=== PATIENT | female | born 1985 | race Caucasian/White ===

== ENCOUNTER → 2017-10-03 13:10 | Outpatient (CLI) | payer OTHER, SELFPAY ==
[2017-10-05 13:47] LABS: HPV Reflexed? NOT INDICATED
== END ==
PROVIDERS: Visit Provider Obstetrics & Gynecology
DX: Z12.4 Encounter for screening for malignant neoplasm of cervix (principal)
CPT/HCPCS: 88175; G0145

== ENCOUNTER → 2018-02-27 16:33 | Outpatient (CLI) | payer OTHER, SELFPAY ==
[2018-02-27 19:46] LABS: Chlamydia Trachomatis by PCR Negative (Negative); Neisserai gonorrhoeae by PCR Negative (Negative); Probe Check PASS; Sample Adequacy Control PASS; Specimen Processing Control PASS
== END ==
PROVIDERS: Visit Provider Obstetrics & Gynecology
DX: Z11.3 Encounter for screening for infections with a predominantly sexual mode of transmission (principal)
CPT/HCPCS: 87491; 87591

== ENCOUNTER → 2018-03-13 16:09 | Outpatient (CLI) | payer OTHER, SELFPAY ==
--- NOTE | 2018-03-13 16:13 | US_ITS ---
STUDY: FIRST TRIMESTER OBSTETRICAL ULTRASOUND REASON FOR EXAM: Female, 32 years old. dating. LMP: January 14, 2018. TECHNIQUE: Transabdominal PRIOR ULTRASOUND: None. FINDINGS: There is visualization of a single gestational sac in a normal intrauterine position. The mean sac diameter (MSD) measures 3.7 cm, indicating an estimated gestational age (EGA) of 9 weeks, 2 days. The gestational sac shape is within normal limits. There is a visualized yolk sac. The yolk sac measures 4 mm. The placenta is non-visualized. There is visualization of a live embryo. The crown-rump length (CRL) measures 1.75 cm, indicating an estimated gestational age (EGA) of 8 weeks, 2 days. There is demonstrated cardiac activity with a heart rate of 158 bpm. The estimated gestation age (EGA) by LMP is 8 weeks, 2 days. The estimated date of delivery (SHIRIN) by LMP is October 21, 2018. The estimated gestation age (EGA) by US is 8 weeks, 6 days. The estimated date of delivery (SHIRIN) by US is October 17, 2018. The uterus measures 9.8 cm x 8.4 cm x 5.7 cm. There is no demonstrated uterine fibroid. The cervix is closed. The right ovary measures 3.8 cm x 2.8 cm x 1.8 cm. There is no right ovarian cyst. There is no visualized right adnexal mass or complex lesion. The left ovary measures 3.4 cm x 2.9 cm x 1.9 cm. There is no left ovarian cyst. There is no visualized left adnexal mass or complex lesion. There is no fluid in the cul de sac. US/Init OB < 14Wks US IMPRESSION: Single live intrauterine gestation with a mean gestational age of 8 weeks and 6 days. Electronically Signed: Carlos Enrique Harkins MD at 15:12 EDT Tel [phone], Service support ,
== END ==
PROVIDERS: Family Provider Family Medicine; PCP Family Medicine; Visit Provider Obstetrics & Gynecology
DX: Z36.9 Encounter for antenatal screening, unspecified (principal)
CPT/HCPCS: 76801

== ENCOUNTER → 2018-03-30 11:25 | Outpatient (CLI) | payer OTHER, SELFPAY ==
[2018-03-30 13:10] LABS: Absolute Lymphocyte Count 1.12 X10^3/ul (0.83-4.51); Absolute Neutrophil Count 4.6 X10^3/uL (2.0-7.7); Basophil# 0.01 X10^3/uL; Basophil% 0.2 % (0-1); Eosinophils% 1.6 % (0-5); Hematocrit 37.6 % (37-47); Hemoglobin 12.1 g/dl (12.0-15.0); Lymphocyte # 1.12 X10^3/ul (4.0); Lymphocyte % 17.8 % (19-41); Mean Corp Hgb Conc 32.2 g/gl (32-36); Mean Corpuscular Hgb 27.9 pg (27.0-32.0); Mean Corpuscular Volume 86.8 fL (81-99); Mean Platelet Vol. 9.9 fl (6.2-12.0); Monocyte# 0.51 X10^3/uL; Monocyte% 8.1 % (0-10); Neutrophil # 4.55 X10^3/uL (2.7-7.7); Neutrophil % 72.3 % (47-70); Platelet Count 285 K/mm3 (150-450); RBC Distribution Width CV 13.3 % (11.6-14.6); RBC Distribution Width SD 42.6 fl (35.1-43.9); Red Blood Count 4.33 M/mm3 (4.2-5.4); White Blood Count 6.3 K/mm3 (4.4-11.0)
[2018-03-30 13:11] LABS: POSITIVE COUNT NO; POSITIVE DIFFERENTIAL NO; POSITIVE MORPHOLOGY NO
[2018-03-30 13:14] LABS: Color, Urine Yellow (Yellow); Glucose, Dipstick Normal (Normal); Ketone-Dipstick Negative (Negative); Leukocyte Esterase-Dipstick Negative /ul (Negative); Nitrite-Dipstick Negative (Negative); Occult Blood-Urine Negative /ul (Negative); Protein-Dipstick Negative (Negative); Specific Gravity, Urine 1.005 (1.002-1.030); Urine Bilirubin Dipstick Negative (Negative); Urine Clarity Clear (Clear); Urine Urobilinogen Normal (Normal)
[2018-03-30 13:35] LABS: Thyroid Stim Hormone (TSH) 0.16 uIU/mL (0.358-3.74)
[2018-03-30 14:05] LABS: HIV - WCH Non-Reactive (Nonreactive); Rubella IgG 106.3 IU/mL
[2018-03-30 16:43] LABS: Free T3 2.8 pg/mL (2.18-3.98); T4 Free Direct 1.02 ng/dL (0.76-1.46)
[2018-03-31 05:44] LABS: Prenatal RPR NONREACTIVE (NONREACTIVE)
[2018-04-04 11:16] LABS: HEPATITIS B SURFACE AG Negative (Negative); Hep C Antibodies <0.1 s/co ratio (0.0-0.9)
== END ==
PROVIDERS: Visit Provider Obstetrics & Gynecology
DX: Z34.81 Encounter for supervision of other normal pregnancy, first trimester (principal); E03.9 Hypothyroidism, unspecified
CPT/HCPCS: 36415; 81002; 84439; 84443; 84481; 85025; 86703; 86762; 86803; 87340

== ENCOUNTER → 2018-06-07 15:45 | Outpatient (CLI) | payer OTHER, SELFPAY ==
--- NOTE | 2018-06-07 15:48 | US_ITS ---
STUDY: SECOND AND THIRD TRIMESTER OBSTETRICAL ULTRASOUND REASON FOR EXAM: Female, 32 years old. Unable to visualize intrauterine . Unknown last menstrual period. Complete 2nd trimester OB ultrasound. LMP: 01/14/2018. GA (LMP) 20 week 4 day with SHIRIN 10/21/2018. TECHNIQUE: Transabdominal PRIOR ULTRASOUND: 03/13/2018 FINDINGS: Single live intrauterine gestation, breech presentation, cardiac rate 146 bpm. Visually normal amniotic fluid quantity. Placenta grade 0, posterior, not low-lying. Cervical length 3.7 cm, closed. Survey of the maternal adnexa reveals no acute abnormalities. BIOMETRY: Measuring 10 cm. BPD: 4.5: 19 weeks, 4 days HC: 18: 20 weeks, 3 days AC: 15.7: 21 weeks, 0 days FL: 3.4: 20 weeks, 6 days CI: 74% FL/BPD: 76% FL/AC: 22% HC/AC: 1.1 age by current US: 20 weeks, 4 days. SHIRIN by current US: 10/21/2018. Estimated weight: 373 grams, +/- 55 grams, 54 %. Age by LMP: 20 weeks, 4 days. SHIRIN by LMP: 10/21/2018. ANATOMY: Gender: Female Cranium: Normal lateral ventricles. Normal choroid plexus. Normal cerebellum. Normal cisterna magna. Normal face, nose and lips. Chest: Normal 4-chamber heart. Abdomen/Pelvis: Normal diaphragm. Normal stomach. Normal abdominal wall. Normal cord insertion. Normal 3 vessel cord. Normal kidneys. Normal bladder. Spine: Normal cervical spine. Normal thoracic spine. Normal lumbar spine. Normal sacrum. Extremities: Normal bilateral upper extremities. Normal bilateral lower extremities. US/OB Anatomy Scan IMPRESSION: Single live intrauterine gestation, measurements concordant with expected dates. No acute or maternal abnormality is evident. Complete anatomic survey is satisfactory. No gross anatomic unreality was observed. Electronically Signed: Tobin De Souza MD at 16:01 EST Tel , Service support ,
== END ==
PROVIDERS: Family Provider Family Medicine; PCP Family Medicine; Referring Provider Obstetrics & Gynecology; Visit Provider Obstetrics & Gynecology
DX: Z34.82 Encounter for supervision of other normal pregnancy, second trimester (principal)
CPT/HCPCS: 76805

== ENCOUNTER → 2018-07-27 10:58 | Outpatient (CLI) | payer OTHER, SELFPAY ==
[2018-07-27 13:47] LABS: Glucose Challenge Gest 1H 50g 108 mg/dL (70-140)
[2018-07-27 13:50] LABS: Hematocrit 32.4 % (37-47); Hemoglobin 10.3 g/dl (12.0-15.0); Mean Corp Hgb Conc 31.8 g/gl (32-36); Platelet Count 314 K/mm3 (150-450); RBC Distribution Width CV 13.1 % (11.6-14.6); RBC Distribution Width SD 42.2 fl (35.1-43.9); Red Blood Count 3.68 M/mm3 (4.2-5.4); White Blood Count 8.2 K/mm3 (4.4-11.0)
[2018-07-27 13:51] LABS: Scan Indicated on CBC? Y/N NO
== END ==
PROVIDERS: Visit Provider Obstetrics & Gynecology
DX: Z34.82 Encounter for supervision of other normal pregnancy, second trimester (principal)
CPT/HCPCS: 36415; 82950; 85027

== ENCOUNTER → 2018-09-22 13:48 | Outpatient (CLI) | payer OTHER, SELFPAY | PROVIDERS: Visit Provider Obstetrics & Gynecology | DX: Z36.85 Encounter for antenatal screening for Streptococcus B (principal) | CPT/HCPCS: 87081 ==

== ENCOUNTER 2018-10-30 18:00 | Inpatient (IN) | payer OTHER, SELFPAY ==
[2018-10-30 11:26] VITALS: BMI 32.9
--- NOTE | 2018-10-30 12:22 | US_ITS ---
STUDY: OBSTETRICAL ULTRASOUND - BIOPHYSICAL PROFILE REASON FOR EXAM: Female, 33 years old. well-being PRIOR ULTRASOUND: None. TECHNIQUE: Transabdominal ultrasound evaluation was performed. FINDINGS: There is a single intrauterine fetus. The fetus is in a cephalic presentation. There is demonstrated cardiac activity with a heart rate of 153 bpm. There is a normal amniotic fluid volume. The amniotic fluid index (JAMIE) is 7.1 cm. The placenta is fundal in location. BIOPHYSICAL PROFILE: Breathing Movements (FBM): 2 Gross Body Movements (GBM): 2 Tone (FT): 2 Amniotic Fluid Volume (AFV): 2 TOTAL SCORE: 8 / 8 The cervix is not visualized. US/Biophysical Profile IMPRESSION: Normal biophysical profile of 8/8. Electronically Signed: Aj Reyes, at 14:02 EDT Tel , Service support ,
[2018-10-30] MEDS: Lactated Ringers 1,000 ML 50 ML IV (18:30)
[2018-10-30 19:11] LABS: Absolute Lymphocyte Count 1.51 X10^3/ul (0.83-4.51); Absolute Neutrophil Count 9.1 X10^3/uL (2.0-7.7); Basophil# 0.02 X10^3/uL; Basophil% 0.2 % (0-1); Eosinophils% 0.8 % (0-5); Hematocrit 37.7 % (37-47); Hemoglobin 12.3 g/dl (12.0-15.0); Lymphocyte # 1.51 X10^3/ul (4.0); Lymphocyte % 12.7 % (19-41); Mean Corp Hgb Conc 32.6 g/gl (32-36); Mean Corpuscular Hgb 28.3 pg (27.0-32.0); Mean Corpuscular Volume 86.7 fL (81-99); Mean Platelet Vol. 9.9 fl (6.2-12.0); Monocyte# 1.15 X10^3/uL; Monocyte% 9.7 % (0-10); Neutrophil # 9.07 X10^3/uL (2.7-7.7); Neutrophil % 76.3 % (47-70); POSITIVE COUNT NO; POSITIVE DIFFERENTIAL NO; POSITIVE MORPHOLOGY NO; Platelet Count 298 K/mm3 (150-450); RBC Distribution Width CV 14.6 % (11.6-14.6); RBC Distribution Width SD 45.9 fl (35.1-43.9); Red Blood Count 4.35 M/mm3 (4.2-5.4); White Blood Count 11.9 K/mm3 (4.4-11.0)
--- NOTE | 2018-10-30 19:19 | PCM.HPOB.BLA ---
History and Physical Date of Admission: 10/30/18 [facility] History of this : 33 yo female Ab0 with EDC 10/21/2018 by 8 weeks 2 days at [facility] Ultrasound, presents to Labor and Delivery. care remarkable for - ANEMIC, TSH suppressed early ., Undecided about MSAFP. Will advise staff at next PNV. cfDNA testing declined., CF testing declined, and childbirth classes encouraged Pertinent Past Medical History: [place] tooth extraction. had chickenpox. Allergies: No Known Drug Allergies Medications: During - Vitamin tablet; ferrous sulfate 325 mg (65 mg iron) tablet Review of Systems: Non-contributory PHYSICAL EXAMINATION General Appearance: 33 yo female in no acute distress Vital Signs: AF, VSS Heart: RRR without rubs or gallops Lungs: CTA x 2 Breasts: deferred Abdomen: gravid Pelvis: adequate Cervix: 2+/80/-2 midposition. Presentation: cephalic Station: Fetus: Size: AGA Movement: present Heart: present reassuring EFM. 140s with avg variability. Accels. Category I tracing. UCs q 6 mins BPP earlier today 8/8 with JAMIE 7.1 cm. Impression /Plan: 41 2/7 wk postdates Intrauterine . Induction of labor for postdates. Preparations in progress for delivery. See Progress Notes for Changes: Physician's Signature: Date: 10/30/18 19:20
[2018-10-30] MEDS: Oxytocin 30 units/NS 500 ml 30 UNITS/500 ML IV.SOLN IV (20:06)
[2018-10-31] MEDS: Nalbuphine 10 MG/ML Ampul IV (05:27)
[2018-10-31] MEDS: Lactated Ringers 1,000 ML 50 ML IV ×3 (05:36→13:18)
[2018-10-31] MEDS: fentaNYL-bupivacaine (epidural) 100 ML BAG EPIDURAL ×2 (06:33→11:20)
[2018-10-31] MEDS: Ondansetron 4 MG/2 ML Vial IV (07:20)
--- NOTE | 2018-10-31 07:43 | PCM.PN.BLA ---
Progress Note 41 3/7 wk EGA induction postdates Comfortable now with epidural. AVSS pitocin induction. EFM 140-150s during night with UCs noted. To FHR now 130-140s avg with occasional variable. UCs noted approx q 6 mins CX: 5/90/-2 AROM mod meconium moderate amount of fluid. Scalp lead placed. A/P: 41 3/7 wk induction postdates. Continue Pitocin. Scalp lead placed, initially poor connection. Then with a few variables. Consider IUPC with amnioinfusion prn position changes to facilitate rotation and descent.
[2018-10-31] MEDS: proCHLORPERazine 10 MG/2 ML Vial IV (10:42)
--- NOTE | 2018-10-31 12:10 | PCM.PN.BLA ---
Progress Note LABOR PROGRESS NOTE Comfortable w/ epidural AVSS Pitocin at 4 mIu/min IFM: 130-140s avg with accels. Occasional variables, some with late onset. resolved with position changes UCs irregular, q 2-5 mins CX: last check 8 cm A/P: 41 3/7 wk induction of labor. AROM Pitocin. Watch continued tolerance of labor, continued progress. position changes to facilitate rotation and descent.
[2018-10-31] MEDS: Oxytocin 30 units/NS 500 ml 30 UNITS/500 ML IV.SOLN 334 UNITS IV (17:35)
--- NOTE | 2018-10-31 17:53 | PCM.DCVAG ---
Discharge Diet: No Restrictions Discharge Activity: May Shower, May Take a Tub Bath May resume sexual activity in: 4-6 weeks Additional Activity Instructions:: Nothing in the vagina for 4-6 weeks. You may return to work/school in 6 weeks. Additional Instructions: If you experience any of the following, contact your healthcare provider. Bleeding that soaks a pad every hour for 2 hours Fever 100.4 or higher Unrelieved abdominal pain Problems urinating (including inability to urinate or burning while urinating). Visual changes Severe headache Flu-like symptoms Pain or redness in one of both of your breasts Pain, warmth, tenderness or swelling in your legs, especially the calf area Frequent nausea and vomiting Symptoms of depression or anxiety If you experience any of the following, call 911 or go to the nearest Emergency Room. Chest pain Problems breathing Seizure activity Partial or complete paralysis of a body part, slurred speech, weakness or drooping of the face, or a sudden inability to walk or hold your balance Allergies/Adverse Reactions: Allergies No Known Allergies Allergy (Verified 10/30/18 19:12) Medications to take at Discharge No Known/Unobtainable [No Known Home Medications] 11/10/13 Please Follow Up With: Pearl Horan MD - [phone] When: Call to make an appointment with your doctor in 6 weeks. Primary Care Physician: Gomez Kaiser DO [Primary Care Provider] - Test Results: Test results from this visit will be discussed in further detail at your follow-up appointment, if applicable. Proposed Discharge Date: 11/02/18
--- NOTE | 2018-10-31 17:54 | DCINST_ITS ---
Discharge Diet: No Restrictions Discharge Activity: May Shower, May Take a Tub Bath May resume sexual activity in: 4-6 weeks Additional Activity Instructions:: Nothing in the vagina for 4-6 weeks. You may return to work/school in 6 weeks. Additional Instructions: If you experience any of the following, contact your healthcare provider. * Bleeding that soaks a pad every hour for 2 hours * Fever 100.4 or higher * Unrelieved abdominal pain * Problems urinating (including inability to urinate or burning while urinating). * Visual changes * Severe headache * Flu-like symptoms * Pain or redness in one of both of your breasts * Pain, warmth, tenderness or swelling in your legs, especially the calf area * Frequent nausea and vomiting * Symptoms of depression or anxiety If you experience any of the following, call 911 or go to the nearest Emergency Room. * Chest pain * Problems breathing * Seizure activity * Partial or complete paralysis of a body part, slurred speech, weakness or drooping of the face, or a sudden inability to walk or hold your balance Allergies/Adverse Reactions: Allergies No Known Allergies Allergy (Verified 10/30/18 19:12) Medications to take at Discharge No Known/Unobtainable [No Known Home Medications] 11/10/13 Please Follow Up With: Pearl Horan MD - [phone] When: Call to make an appointment with your doctor in 6 weeks. Primary Care Physician: Gomez Kaiser DO [Primary Care Provider] - Test Results: Test results from this visit will be discussed in further detail at your follow- up appointment, if applicable. Proposed Discharge Date: 11/02/18
[2018-10-31] MEDS: Oxytocin 30 units/NS 500 ml 30 UNITS/500 ML IV.SOLN 167 UNITS IV (18:06)
[2018-10-31] MEDS: Senna/Docusate Sodium 1 Tablet PO (19:17)
[2018-10-31] MEDS: Naproxen 250 MG Tablet 500 MG PO (19:17)
--- NOTE | 2018-10-31 19:27 | NURSING ---
ROM noted at 0055 clear fluid. Forebag ROM at 0732 for moderate meconium fluid.
[2018-10-31 20:52] VITALS: BP 107/60; PULSE 141; RESP 18; TEMP 36.7
--- NOTE | 2018-10-31 21:20 | PCM.OPRPT ---
Vaginal Delivery Maternal Presentation: Medically Indicated Induction - 41 2/7 wk EGA 41 1/7 wk induction Method of Induction: Pitocin, Amniotomy Medical Reason for Induction: Post term Amniotic Membrane Rupture Type: Artificial Amniotic Fluid Description: Moderate meconium Final SHIRIN: 10/21/18 Gestational age: 41 Weeks and 3 Days doctor who attended delivery (if requested by OB): Ana M Esposito Date of Procedure: 10/31/18 Pre-Operative Diagnosis: 41 2/7 wk induction Post-Operative Diagnosis: 41 3/7 wk vaginal delivery Surgery/ Procedure Performed: Spontaneous Vaginal Delivery Type of Anesthesia: Epidural Description of Procedure: of a jiang viable female. Head delivered ABEBE. Turtle sign noted. McRobert's maneuver, suprapubic pressure, and rotation of anterior shoulder resulted in delivery of shoulders within 30 sec of the head. The OP and nares bulb suctioned and the infant placed on maternal abdomen with respiratory effort. Ap 8/9 End stage meconium noted at delivery. Routine venous cord gas and cord blood for typing collected. PP exam: 3rd degree laceration noted at posterior vagina/perineum Repaired to hemostatic and intact with interrupted suture 2-0 chromic, and continuous stitch of 3-0 Vicryl. NO other repair required. Placenta delivery by spont expulsion, expression. 3V cord, normal appearing and intact with trailing membranes. EBL 250 cc Pt and tolerated delivery well. To recovery stable condition. Ray Darwin counts correct times two. All sharps removed from field to sharps container. Presentation: Vertex, ABEBE Placental Delivery Description: Spontaneous, Expressed Placenta Disposition: [facility] Cord Vessel Description: 3 Vessels Cord Gases drawn per routine: VBG Cord Entanglement: None Estimated Blood Loss: 250 A gender: Female (1 minute): 8 (5 minute): 9 Episiotomy Description: None Laceration: Midline, Vaginal Extension/lac, 3rd degree Medications given after delivery: IV Pitocin Complications: None
[2018-10-31 23:42] VITALS: BP 123/78; PULSE 112; RESP 18; TEMP 36.7
--- NOTE | 2018-11-01 04:35 | NURSING ---
Taking over pt care at this time.
[2018-11-01 04:52] VITALS: BP 104/58; PULSE 100; RESP 20; TEMP 36.1; O2SAT 98
[2018-11-01] MEDS: Naproxen 250 MG Tablet 500 MG PO ×3 (04:58→22:19)
--- NOTE | 2018-11-01 07:42 | PCM.PN.OB ---
Subjective: PPD#1 Doing well. Some perineal pain and cramping. Nursing well. Pain control adequate. Plans for family to visit today. - Physical Exam General: Alert, Oriented x3, Cooperative, No apparent distress HEENT: Atraumatic Neck: Supple Neurological: Cranial nerves II-XII grossly intact Psych/Mental Status: Normal Affect Vital Signs Temp Pulse Resp BP Pulse Ox 97.0 F L 100 20 H 104/58 L 98 11/01/18 04:52 11/01/18 04:52 11/01/18 04:52 11/01/18 04:52 11/01/18 04:52 Oxygen Delivery Method Room Air Weight: 89.868 kg Body Mass Index (BMI) 32.9 Intake and Output for Last 24 Hours 10/30/18 10/31/18 11/01/18 23:59 23:59 23:59 Intake Total 100 / 100 2332 / 2332 Output Total 600 / 600 400 / 400 Balance 100 / 100 1732 / 1732 -400 / -400 Medical Necessity - Tobacco Use Smoking Status: Never smoker Assessment/Plan PPD#1 Stable pp. Continue care. O positive
[2018-11-01 08:00] VITALS: BP 118/67; PULSE 97; RESP 14; TEMP 36.4
[2018-11-01 12:00] VITALS: BP 105/68; PULSE 94; RESP 14; TEMP 36.4
[2018-11-01 16:35] VITALS: BP 110/66; PULSE 80; RESP 14; TEMP 36.4
[2018-11-01 20:00] VITALS: BP 128/81; PULSE 104; RESP 18; TEMP 36.5
[2018-11-01] MEDS: Senna/Docusate Sodium 1 Tablet PO (22:19)
[2018-11-02 02:50] VITALS: BP 110/69; PULSE 89; RESP 18; TEMP 36.7
[2018-11-02 07:20] VITALS: BP 117/72; PULSE 104; RESP 16; TEMP 36.9; O2SAT 97
[2018-11-02] MEDS: Naproxen 250 MG Tablet 500 MG PO ×2 (07:37→17:40)
--- NOTE | 2018-11-02 07:42 | PCM.PN.OB ---
Subjective: PPD#2 vaginal delivery DOing well Baby under bili lights but with improvement in wet diapers. - Physical Exam General: Alert, Oriented x3, Cooperative, No apparent distress HEENT: Atraumatic Neck: Supple Neurological: Cranial nerves II-XII grossly intact Psych/Mental Status: Normal Affect, Appropriate Vital Signs Temp Pulse Resp BP Pulse Ox 98.1 F 89 18 110/69 98 11/02/18 02:50 11/02/18 02:50 11/02/18 02:50 11/02/18 02:50 11/01/18 04:52 Oxygen Delivery Method Room Air Weight: 89.868 kg Body Mass Index (BMI) 32.9 Intake and Output for Last 24 Hours 10/31/18 11/01/18 11/02/18 23:59 23:59 23:59 Intake Total 2332 / 2332 Output Total 600 / 600 400 / 400 Balance 1732 / 1732 -400 / -400 Medical Necessity - Tobacco Use Smoking Status: Never smoker Assessment/Plan PPD#2 Stable pp. Dischg home today. Baby under bili lights. May stay on hotel if baby is not discharged. RTO in 6 wk for pp check, prn sooner.
[2018-11-02] MEDS: Senna/Docusate Sodium 1 Tablet PO (12:02)
[2018-11-02] MEDS: Acetaminophen 500 MG Tablet 1000 MG PO (12:02)
[2018-11-02 12:05] VITALS: BP 129/87; PULSE 96; RESP 16; TEMP 36.9; O2SAT 97
[2018-11-02 14:00] VITALS: BP 129/87; PULSE 96; RESP 16; TEMP 36.4; O2SAT 97
[2018-11-02 16:55] VITALS: BP 123/73; PULSE 94; RESP 16; TEMP 36.6; O2SAT 97
== END 2018-11-02 18:10 | disposition home or self-care (01) | DRG 768 ==
PROVIDERS: Obstetrics & Gynecology; Admitting Provider Obstetrics & Gynecology; Family Provider Family Medicine; PCP Family Medicine; Referring Provider Obstetrics & Gynecology; Visit Provider Obstetrics & Gynecology
DX: O48.0 Post-term pregnancy (principal); Z37.0 Single live birth; O70.20 Third degree perineal laceration during delivery, unspecified; Z3A.41 41 weeks gestation of pregnancy; O77.0 Labor and delivery complicated by meconium in amniotic fluid; D64.9 Anemia, unspecified; O99.02 Anemia complicating childbirth
CPT/HCPCS: 59025; 59050; 76818; 85025; 86850; 86900; 99218; J7120; G0378; J2405

== ENCOUNTER → 2019-11-28 11:26 | Outpatient (CLI) | payer OTHER, SELFPAY ==
[2019-11-28 13:06] LABS: hCG Titer Quant., Serum < 1 mIU/mL (1-3)
== END ==
PROVIDERS: PCP Family Medicine; Visit Provider Obstetrics & Gynecology
DX: N91.2 Amenorrhea, unspecified (principal)
CPT/HCPCS: 36415; 84702

== ENCOUNTER → 2020-08-12 | Outpatient (CLI) | payer OTHER, SELFPAY ==
[2020-08-16 03:06] LABS: Chlamydia By Nucleic Acid AMP Negative (Negative)
[2020-08-16 09:19] LABS: Gonococcus By Nucleic Acid AMP Negative (Negative)
[2020-08-18 16:24] LABS: HPV APTIMA, High Risk Negative (Negative)
== END | disposition home or self-care (01) ==
LOC: LABSPEC 13:34
PROVIDERS: PCP Family Medicine; Visit Provider Student in an Organized Health Care Education/Training Program
DX: Z12.4 Encounter for screening for malignant neoplasm of cervix (principal); Z11.3 Encounter for screening for infections with a predominantly sexual mode of transmission; Z32.01 Encounter for pregnancy test, result positive
CPT/HCPCS: 87491; 87591; 87624; 88175; G0145

== ENCOUNTER → 2020-08-20 11:40 | Outpatient (CLI) | payer OTHER, SELFPAY ==
[2020-08-20 12:09] LABS: Absolute Lymphocyte Count 1.45 X10^3/uL (0.83-4.51); Absolute Neutrophil Count 5.8 X10^3/uL (2.0-7.7); Basophil# 0.03 X10^3/uL; Basophil% 0.4 % (0-1); Eosinophil# 0.12 X10^3/uL; Eosinophils% 1.5 % (0-5); Hematocrit 40.6 % (37-47); Hemoglobin 13.2 g/dL (12.0-15.0); Lymphocyte # 1.45 X10^3/ul (4.0); Lymphocyte % 18.1 % (19-41); Mean Corp Hgb Conc 32.5 g/dL (32-36); Mean Corpuscular Volume 89.2 fL (81-99); Mean Platelet Vol. 9.9 fl (6.2-12.0); Monocyte# 0.53 X10^3/uL; Monocyte% 6.6 % (0-10); NRBC Flagged by Analyzer 0 % (0-5); Neutrophil # 5.83 X10^3/uL (2.7-7.7); Platelet Count 341 K/mm3 (150-450); RBC Distribution Width CV 12.2 % (11.6-14.6); RBC Distribution Width SD 39.8 fl (35.1-43.9); Red Blood Count 4.55 M/mm3 (4.2-5.4)
[2020-08-20 13:21] LABS: HIV - WCH Non-Reactive (Nonreactive); Hepatitis B Surface Antigen Non-Reactive (Nonreactive); Hepatitis C Antibody Non-Reactive (Nonreactive); Rubella IgG Reactive (Nonreactive); Syphilis Antibodies Non-reactive
== END ==
PROVIDERS: PCP Family Medicine; Visit Provider Student in an Organized Health Care Education/Training Program
DX: Z34.81 Encounter for supervision of other normal pregnancy, first trimester (principal)
CPT/HCPCS: 36415; 85025; 86703; 86762; 86803; 87086; 87088; 87340

== ENCOUNTER → 2020-12-11 10:18 | Outpatient (CLI) | payer OTHER, SELFPAY ==
[2020-12-11 13:26] LABS: Hematocrit 34.2 % (37-47); Hemoglobin 10.8 g/dL (12.0-15.0); Mean Corp Hgb Conc 31.6 g/dL (32-36); Mean Corpuscular Hgb 28.7 pg (27.0-32.0); Mean Platelet Vol. 10.5 fl (6.2-12.0); Platelet Count 297 K/mm3 (150-450); RBC Distribution Width CV 12.8 % (11.6-14.6); RBC Distribution Width SD 42.1 fl (35.1-43.9); Red Blood Count 3.76 M/mm3 (4.2-5.4); White Blood Count 8.8 K/mm3 (4.4-11.0)
[2020-12-11 13:30] LABS: Glucose Challenge Gest 1H 50g 88 mg/dL (70-140)
== END ==
PROVIDERS: Visit Provider Student in an Organized Health Care Education/Training Program
DX: Z34.82 Encounter for supervision of other normal pregnancy, second trimester (principal)
CPT/HCPCS: 36415; 82950; 85027

== ENCOUNTER → 2020-12-18 | Outpatient (CLI) | payer OTHER, SELFPAY | END | disposition home or self-care (01) | PROVIDERS: Referring Provider Obstetrics & Gynecology; Visit Provider Obstetrics & Gynecology | DX: Z34.82 Encounter for supervision of other normal pregnancy, second trimester (principal) | CPT/HCPCS: 87086; 87088 ==

== ENCOUNTER → 2021-03-04 | Outpatient (CLI) | payer OTHER, SELFPAY | END | disposition home or self-care (01) | LOC: LABSPEC 16:31 | PROVIDERS: Visit Provider Obstetrics & Gynecology | DX: Z36.85 Encounter for antenatal screening for Streptococcus B (principal) | CPT/HCPCS: 87081 ==

== ENCOUNTER 2021-03-13 07:00 | Outpatient (CLI) | payer OTHER, SELFPAY ==
[2021-03-13 07:14] VITALS: BMI 32.5
[2021-03-13] MEDS: Lactated Ringers 1,000 ML 125 ML IV (07:25)
[2021-03-13 07:39] VITALS: BP 122/71; PULSE 92
[2021-03-13 07:40] VITALS: PULSE 87; TEMP 36.7; O2SAT 98
[2021-03-13 08:00] VITALS: PULSE 86; O2SAT 99
--- NOTE | 2021-03-13 08:09 | PCM.PN.OB ---
Subjective Subjective Patient is a 35-year-old G2, P1 who presents at 37+ weeks gestation for version for breech. Objective Data Objective Data Vital Signs: Vital Signs Pulse BP Pulse Ox 86 122/71 H 99 03/13/21 08:00 03/13/21 07:39 03/13/21 08:00 Weight: 195 lb 8.8 oz Body Mass Index (BMI) 32.5 NST FHR Rate Baby A NST Reactive:: Yes FHR Category:: Category I Assessment & Plan (1) Breech presentation: PLAN: 37+ week intrauterine presents for version for breech presentation. Upon initial examination with ultrasound baby noted to be cephalic. Reactive nonstress test. Will release to home with routine follow-up.
== END 2021-03-13 08:15 | disposition home or self-care (01) ==
LOC: WPOUT 07:12 → WP 07:12
PROVIDERS: PCP Nurse Practitioner Primary Care; Visit Provider Obstetrics & Gynecology
DX: O32.1XX0 Maternal care for breech presentation, not applicable or unspecified (principal); Z3A.37 37 weeks gestation of pregnancy
CPT/HCPCS: 96360; 59025; 59050; 59412; 76815; 99218; J7120; G0378

== ENCOUNTER → 2021-03-20 12:55 | Outpatient (CLI) | payer OTHER, SELFPAY | PROVIDERS: PCP Nurse Practitioner Primary Care; Referring Provider Obstetrics & Gynecology; Visit Provider Obstetrics & Gynecology | DX: Z03.818 Encounter for observation for suspected exposure to other biological agents ruled out (principal) | CPT/HCPCS: 87635; C9803; U0005; U0003 ==

== ENCOUNTER 2021-03-24 13:05 | Inpatient (IN) | payer OTHER, SELFPAY ==
[2021-03-24] VITALS (43 sets, daily range): BP systolic 88–121; BP diastolic 50–75; PULSE 81–141; TEMP 36.1–36.6; O2SAT 82–98; BMI 31.2
[2021-03-24] MEDS: Lactated Ringers 1,000 ML 50 ML IV (13:20)
[2021-03-24 13:37] LABS: Absolute Lymphocyte Count 1.22 X10^3/uL (0.83-4.51); Absolute Neutrophil Count 7.2 X10^3/uL (2.0-7.7); Basophil# 0.02 X10^3/uL; Basophil% 0.2 % (0-1); Eosinophil# 0.09 X10^3/uL; Hematocrit 36.9 % (37-47); Hemoglobin 12.2 g/dL (12.0-15.0); Lymphocyte # 1.22 X10^3/ul (0.83-4.51); Mean Corp Hgb Conc 33.1 g/dL (32-36); Mean Corpuscular Hgb 29.3 pg (27.0-32.0); Mean Corpuscular Volume 88.5 fL (81-99); Mean Platelet Vol. 10.3 fl (6.2-12.0); Monocyte% 8.5 % (0-10); NRBC Flagged by Analyzer 0 % (0-5); Neutrophil # 7.19 X10^3/uL (2.7-7.7); Neutrophil % 76.9 % (47-70); Platelet Count 279 K/mm3 (150-450); RBC Distribution Width CV 13.4 % (11.6-14.6); RBC Distribution Width SD 43.5 fl (35.1-43.9); Red Blood Count 4.17 M/mm3 (4.2-5.4); White Blood Count 9.4 K/mm3 (4.4-11.0)
[2021-03-24] MEDS: Oxytocin 30 units/NS 500 ml 30 UNITS/500 ML IV.SOLN IV (14:15)
--- NOTE | 2021-03-24 14:30 | HP.PCM.OB_ITS ---
HPI - General General Date of Admission: 03/24/21 HPI Narrative MANDY OSULLIVAN, is a 35 F who presents at 39 3/7 weeks gestation for scheduled induction of labor. Hx of shoulder dystocia in prior . [facility] Medical History (Updated 03/25/21 @ 07:[address] Ciera Wick MD) Eczema Family history of hearing loss at age younger than 7 years Home Medications calcium [id number] abraham 1 tab PO/SL DAILY 03/13/21 [History Last Taken 03/23/21 11:00] docosahexaenoic acid [DHA ] 200 mg PO DAILY 03/13/21 [History Last Taken 03/23/21 11:00] ferrous sulfate [iron] 325 mg PO DAILY 03/13/21 [History Last Taken 03/23/21 11:00] vit-iron fum-folic ac [ Fa] 1 tab PO DAILY 03/13/21 [History Last Taken 03/23/21 11:00] Allergy/AdvReac Type Severity Reaction Status Date / Time No Known Allergies Allergy Verified 03/13/21 07:16 Surgical History History of surgery Social History Smoking Status: Never smoker History 3 Elective abortions 0 Hx Para 1 Spontaneous abortions 1 Hx # Term Pregnancies 1 Ectopic pregnancies 0 Hx # Pregnancies 0 Multiple births 0 # of living children 1 Past Pregnancies Del. Date Name GA/Weeks Outcome Route Bth Weight Gen Labor Lgth Anesthesia Del Locatn Provider FOB Unknown Robinson 41 live - full term [id number] Female 12 epid ural Wilmar Aung Chidi Unknown 4 spontaneous Delivery Date: 30s shoulder dystocia, 3rd degree perineal lac Ciera Biggs Delivery Date: No notes to display NST FHR Rate Baby A Baseline: 145 Variability:: Moderate Accelerations:: 15 x 15 Decelerations:: None NST Reactive:: Yes FHR Category:: Category I Uterine Activity:: 0-1/10 min Vital Signs Vital Signs Vital Signs: 03/24/21 13:29 03/24/21 13:59 03/24/21 14:52 Temperature 97.1 F L Temperature Source Temporal Pulse Rate 99 100 95 Blood Pressure 121/75 H 121/75 H 115/62 BP Systolic 121 121 115 BP Diastolic 75 75 62 Pulse Ox 97 97 03/24/21 14:54 03/24/21 16:10 03/24/21 17:05 Temperature 97.9 F 97.3 F L 97.8 F Temperature Source Temporal Temporal Temporal Pulse Rate 81 Blood Pressure 118/70 BP Systolic 118 BP Diastolic 70 Pulse Ox 97 98 98 03/24/21 17:30 03/24/21 18:17 03/24/21 19:17 Temperature 97.7 F L 97.2 F L Temperature Source Temporal Temporal Pulse Rate 141 H 85 92 Blood Pressure 111/66 117/75 BP Systolic 111 117 BP Diastolic 66 75 Pulse Ox 82 98 96 03/24/21 19:18 03/24/21 20:25 03/24/21 21:45 Temperature 97.6 F L 97.2 F L Temperature Source Temporal Temporal Pulse Rate 88 82 Blood Pressure 115/73 107/66 BP Systolic 115 107 BP Diastolic 73 66 Pulse Ox 96 03/24/21 21:46 03/24/21 21:59 03/24/21 22:00 Temperature Temperature Source Pulse Rate 98 85 89 Blood Pressure 107/57 L BP Systolic 107 BP Diastolic 57 Pulse Ox 97 96 94 03/24/21 22:04 03/24/21 22:05 03/24/21 22:10 Temperature Temperature Source Pulse Rate 92 Blood Pressure 113/62 BP Systolic 113 BP Diastolic 62 Pulse Ox 98 97 03/24/21 22:12 03/24/21 22:22 03/24/21 22:25 Temperature Temperature Source Pulse Rate 94 92 Blood Pressure 110/70 102/59 L BP Systolic 110 102 BP Diastolic 70 59 Pulse Ox 98 03/24/21 22:27 03/24/21 22:29 03/24/21 22:34 Temperature Temperature Source Pulse Rate 91 90 Blood Pressure 91/55 L 88/53 L BP Systolic 91 88 BP Diastolic 55 53 Pulse Ox 97 03/24/21 22:37 03/24/21 22:39 03/24/21 22:42 Temperature Temperature Source Pulse Rate 95 Blood Pressure 92/53 L BP Systolic 92 BP Diastolic 53 Pulse Ox 97 97 03/24/21 22:44 03/24/21 22:50 03/24/21 22:52 Temperature Temperature Source Pulse Rate 87 88 Blood Pressure 92/55 L 115/69 BP Systolic 92 115 BP Diastolic 55 69 Pulse Ox 98 03/24/21 22:55 03/24/21 23:02 03/24/21 23:03 Temperature 97.9 F Temperature Source Temporal Pulse Rate 88 90 94 Blood Pressure 92/50 L 103/61 BP Systolic 92 103 BP Diastolic 50 61 Pulse Ox 97 98 03/24/21 23:07 03/24/21 23:12 03/24/21 23:17 Temperature Temperature Source Pulse Rate 88 86 88 Blood Pressure BP Systolic BP Diastolic Pulse Ox 97 97 97 03/24/21 23:22 03/24/21 23:26 03/24/21 23:27 Temperature Temperature Source Pulse Rate 84 89 91 Blood Pressure 89/53 L BP Systolic 89 BP Diastolic 53 Pulse Ox 97 93 98 03/24/21 23:32 03/24/21 23:37 03/24/21 23:43 Temperature Temperature Source Pulse Rate 95 90 100 Blood Pressure BP Systolic BP Diastolic Pulse Ox 97 98 87 03/24/21 23:44 03/25/21 00:16 03/25/21 00:17 Temperature 97.0 F L 97.2 F L Temperature Source Temporal Temporal Pulse Rate 93 90 88 Blood Pressure 114/61 102/58 L BP Systolic 114 102 BP Diastolic 61 58 Pulse Ox 95 96 97 03/25/21 00:52 03/25/21 00:53 03/25/21 02:03 Temperature 97.1 F L 97.9 F Temperature Source Temporal Temporal Pulse Rate 100 95 Blood Pressure 107/67 116/65 BP Systolic 107 116 BP Diastolic 67 65 Pulse Ox 98 97 03/25/21 03:19 03/25/21 04:33 03/25/21 05:37 Temperature 97.9 F 97.7 F L 98.6 F Temperature Source Temporal Temporal Temporal Pulse Rate 95 94 112 H Blood Pressure 102/63 106/59 L 119/60 BP Systolic 102 106 119 BP Diastolic 63 59 60 Pulse Ox 98 96 97 03/25/21 06:48 03/25/21 07:03 Temperature 98.0 F Temperature Source Temporal Pulse Rate 102 H 101 H Blood Pressure 112/55 L 125/68 H BP Systolic 112 125 BP Diastolic 55 68 Pulse Ox 95 Weight Weight: 85.1 kg Body Mass Index (BMI) 31.2 Physical Exam Const alert, oriented x3 and no apparent distress HEENT normocephalic Resp normal respiratory effort, normal air movement and clear to auscultation bilaterally Cardio regular rate and regular rhythm GI normal to inspection, nondistended, normoactive bowel sounds, soft to palpation, non-tender and non-distended Inspection: gravid Narrative: /-3, posterior, moderate per RN exam Labs Labs Labs: Blood Type O POSITIVE Antibody Screen NEGATIVE Hct 36.9 % (37-47) L Hgb 12.2 g/dL (12.0-15.0) Obstetrics US Syphilis Total Ab Non-reactive VZV IgG Antibody 2.03 index (Immune >1.09-) Rubella IgG Antibody Reactive (Nonreactive) Hep Bs Antigen Non-Reactive (Nonreactive) Neisseria gonorrhoeae DNA (DAWIT) Negative (Negative) HIV 1&2 Antibody Non-Reactive (Nonreactive) C.trachomatis DNA (PCR) Negative (Negative) Glucose 1 Hr 50 gm 88 mg/dL (70-140) Rhogam given: No GBS neg Assessment & Plan (1) 39 weeks gestation of : PLAN: Pitocin for IOL US confirms cephalic presentation Consents reviewed and signed Discussed with patient risk for recurrent shoulder dystocia and again reviewed associated risks. Patient desires to proceed.
[2021-03-24] MEDS: Lactated Ringers 500 ML 999 ML IV ×2 (21:35→22:40)
[2021-03-24] MEDS: fentaNYL-bupivacaine (epidural) 100 ML BAG EPIDURAL (22:22)
[2021-03-24] MEDS: Lactated Ringers 1,000 ML 200 ML IV (23:42)
[2021-03-25] VITALS (21 sets, daily range): BP systolic 93–127; BP diastolic 55–71; PULSE 80–112; RESP 16; TEMP 36.2–37; O2SAT 92–98
[2021-03-25] MEDS: fentaNYL-bupivacaine (epidural) 100 ML BAG EPIDURAL (02:28)
[2021-03-25] MEDS: Lactated Ringers 1,000 ML 200 ML IV (04:47)
[2021-03-25] MEDS: Oxytocin 30 units/NS 500 ml 30 UNITS/500 ML IV.SOLN 334 UNITS IV (06:09)
--- NOTE | 2021-03-25 07:01 | EX.PCM.OBRPT ---
Assessment & Plan (1) 39 weeks gestation of : Vaginal Delivery Maternal Presentation Maternal Presentation: Elective Induction Maternal Presentation: Prior history of shoulder dystocia at 41wga Type of Induction: Pitocin Operative Information Surgery / Procedure Performed: Spontaneous Vaginal Delivery Findings Description of Procedure: Patient fully dilated and pushed to deliver a vigorous in brow presentation. The was placed on the maternal abdomen and further attended by nursery personnel. The cord was doubly clamped and cut. The placenta delivered spontaneously and appeared intact on inspection. A 3? perineal laceration was repaired using 3-0 Vicryl with a clock face pattern simple interrupted sutures along the external anal sphincter. The remainder of the remaining second-degree repair was reapproximated using 3-0 Vicryl. Fundus was firm. There was good hemostasis. Sponge and needle counts were correct x2. Presentation: Vertex Amniotic Membrane Rupture Type: Artificial Time of Membrane Rupture: 03/24/21 1900 Amniotic Fluid Description: Clear Cord Vessel Description: 3 Vessels Cord Entanglement: None Nuchal Cord Compression: Without compression Cord Gases: ABG and VBG Infant A Gender: Male (1 minute): 8 (5 minute): 9 Delayed Cord Clamping: Yes Post Vaginal Delivery Medications Given After Delivery: IV Pitocin Episiotomy Description: None Laceration: Midline and 3rd degree Complication Complications: None
[2021-03-25] MEDS: Senna/Docusate Sodium 1 Tablet PO (08:41)
[2021-03-25] MEDS: Acetaminophen 500 MG Tablet 1000 MG PO ×2 (08:41→16:30)
[2021-03-26] VITALS (7 sets, daily range): BP systolic 105–134; BP diastolic 68–85; PULSE 75–94; RESP 16–18; TEMP 36.2–36.9; O2SAT 98
[2021-03-26] MEDS: Benzocaine/Lanolin/Aloe Vera 1 SPRAY EACH TOPICAL (00:46)
[2021-03-26] MEDS: Acetaminophen 500 MG Tablet 1000 MG PO ×3 (04:13→22:12)
--- NOTE | 2021-03-26 07:38 | PN.OBGYN_ITS ---
Subjective Subjective No overnight complaints. Pain well controlled Objective Data Objective Data Vital Signs: Vital Signs Temp Pulse Resp BP Pulse Ox 97.2 F L 75 16 118/81 H 97 03/26/21 04:15 03/26/21 04:15 03/26/21 04:15 03/26/21 04:15 03/25/21 19:30 Oxygen Delivery Method Room Air Weight: 187 lb 9.814 oz Body Mass Index (BMI) 31.2 Intake & Output: Intake and Output for Last 24 Hours 03/24/21 03/25/21 03/26/21 23:59 23:59 23:59 Intake Total 2381.79 / 2381.79 2382.31 / 2382.31 Output Total 1200 / 1200 1200 / 1200 Balance 1181.79 / 1181.79 1182.31 / 1182.31 Lab / Micro Data Result Diagrams: 03/24/21 13:20 Physical Exam Const alert, oriented x3, no apparent distress, average body habitus, healthy appearing and well nourished Exam Limitations: no limitations HEENT normocephalic and moist oral mucous membranes Head and Scalp: atraumatic Face and Sinus: normal facial exam Eyes PERRL Neck full ROM Resp normal respiratory effort, no retractions and no use of accessory muscles GI normal to inspection, nondistended, normoactive bowel sounds Extremity normal to inspection, full ROM and no clubbing, cyanosis or edema Psych mental status grossly normal, affect normal, speech normal and activity/motor behavior normal Assessment & Plan (1) Vaginal delivery: PLAN: day 1 status post vaginal delivery. Breast-feeding. Pain well controlled. Baby getting bilirubin test, pending eval by cash applications associate possibly home today for mom and baby
[2021-03-26] MEDS: Ibuprofen 600 MG Tablet PO ×2 (08:57→20:33)
[2021-03-26] MEDS: Senna/Docusate Sodium 1 Tablet PO (08:57)
[2021-03-27 02:15] VITALS: BP 126/72; PULSE 83; RESP 18; TEMP 36.2; O2SAT 97
[2021-03-27] MEDS: Ibuprofen 600 MG Tablet PO ×2 (08:04→17:42)
[2021-03-27] MEDS: Senna/Docusate Sodium 1 Tablet PO (08:05)
--- NOTE | 2021-03-27 08:05 | PN.OBGYN_ITS ---
Subjective Subjective day 2. Feeling well. Baby still under bili lights. Objective Data Objective Data Vital Signs: Vital Signs Temp Pulse Resp BP Pulse Ox 97.2 F L 83 18 126/72 H 97 03/27/21 02:15 03/27/21 02:15 03/27/21 02:15 03/27/21 02:15 03/27/21 02:15 Oxygen Delivery Method Room Air Weight: 85.1 kg Body Mass Index (BMI) 31.2 Intake & Output: Intake and Output for Last 24 Hours 03/25/21 03/26/21 03/27/21 23:59 23:59 23:59 Intake Total 2382.31 / 2382.31 Output Total 1200 / 1200 Balance 1182.31 / 1182.31 Lab / Micro Data Result Diagrams: 03/24/21 13:20 Physical Exam Const alert, oriented x3 and no apparent distress HEENT normocephalic Head and Scalp: atraumatic Eyes PERRL Neck full ROM Resp normal respiratory effort, no retractions and no use of accessory muscles Cardio regular rate GI normal to inspection, nondistended, normoactive bowel sounds GI Narrative: Uterus 2 cm below umbilicus Extremity normal to inspection, full ROM and no clubbing, cyanosis or edema Psych mental status grossly normal Assessment & Plan (1) Vaginal delivery: PLAN: day 2 status post vaginal delivery. Breast-feeding. P ain well controlled. Baby under bili lights. Discharge pending baby discharge, okay to go to hotel status.
[2021-03-27 08:12] VITALS: BP 104/65; PULSE 86; RESP 16; TEMP 36.6; O2SAT 98
[2021-03-27 12:30] VITALS: BP 122/76; PULSE 84; RESP 16; TEMP 36.6; O2SAT 98
[2021-03-27] MEDS: Acetaminophen 500 MG Tablet 1000 MG PO (13:15)
[2021-03-27 17:30] VITALS: BP 122/74; PULSE 98; RESP 16; TEMP 36.8; O2SAT 98
--- NOTE | 2021-03-27 18:09 | PCM.DC ---
Discharge Instructions Diet Discharge Diet: No restrictions Activity Discharge Activity: Return to Normal Activity, May Drive and May Shower May resume sexual activity in: 4-6 weeks Weight Bearing Status: Weight bearing as tolerated Lifting Restrictions: no greater than 25 pounds Dressing / Incision Call your doctor if you observe: Fever of 101 or Higher, Change in Color, Inability to urinate, Using more than 1 pad per hour, Shortness of breath, Dizziness, Fainting spells, Chest pain and Calf discomfort Follow Up Care Please Follow Up With: Cristy Yu When: 2 week telehealth, 6 week Test Results: Test results from this visit will be discussed in further detail at your follow-up appointment, if applicable. Discharge Plan Admission Admit Date/Time: 03/24/21 13:05 Attending Provider: Ciera Vora Primary Care Provider: Maryam Sanchez NP Discharge Orders/Prescriptions Prescriptions: No Action Fa 60 mg iron-1 mg Tablet 1 tab PO DAILY RF: 0 ferrous sulfate [iron] 325 mg (65 mg iron) Tablet 325 mg PO DAILY RF: 0 DHA 200 mg Capsule 200 mg PO DAILY RF: 0 calcium [id number] abraham 1 tab PO/SL DAILY RF: 0 Referrals / Follow Up: Maryam Sanchez NP, [facility] [employer] [Primary Care Provider] - Disposition Disposition (needs filled in before D/C Order can be placed): Home, Self Care
--- NOTE | 2021-03-31 12:41 | NURSING ---
Everyone was great.
== END 2021-03-27 19:30 | disposition home or self-care (01) | DRG 768 ==
PROVIDERS: Admitting Provider Obstetrics & Gynecology; PCP Nurse Practitioner Primary Care; Referring Provider Obstetrics & Gynecology; Visit Provider Obstetrics & Gynecology
DX: O32.3XX0 Maternal care for face, brow and chin presentation, not applicable or unspecified (principal); Z37.0 Single live birth; O70.20 Third degree perineal laceration during delivery, unspecified; O69.81X0 Labor and delivery complicated by cord around neck, without compression, not applicable or unspecified; Z3A.39 39 weeks gestation of pregnancy
CPT/HCPCS: 59025; 59050; 76815; 85025; 86850; 86900; 86901; 99218; J7120; G0378

== ENCOUNTER → 2021-04-02 14:45 | Outpatient (CLI) | payer OTHER, SELFPAY | PROVIDERS: PCP Nurse Practitioner Primary Care; Referring Provider Obstetrics & Gynecology; Visit Provider Obstetrics & Gynecology | DX: Z39.1 Encounter for care and examination of lactating mother (principal) | CPT/HCPCS: 96158; 96159 ==

== ENCOUNTER → 2022-06-16 | Outpatient (CLI) | payer OTHER, SELFPAY ==
[2022-06-16 11:56] LABS: Absolute Neutrophil Count 8.8 X10^3/uL (2.0-7.7); Basophil# 0.04 X10^3/uL; Basophil% 0.4 % (0-1); Eosinophil# 0.07 X10^3/uL; Eosinophils% 0.6 % (0-5); Hematocrit 39.6 % (37-47); Hemoglobin 13.1 g/dL (12.0-15.0); Lymphocyte % 12.6 % (19-41); Mean Corp Hgb Conc 33.1 g/dL (32-36); Mean Corpuscular Hgb 28.9 pg (27.0-32.0); Mean Corpuscular Volume 87.4 fL (81-99); Mean Platelet Vol. 9.9 fl (6.2-12.0); Monocyte# 0.73 X10^3/uL; Monocyte% 6.6 % (0-10); NRBC Flagged by Analyzer 0 % (0-5); Neutrophil # 8.82 X10^3/uL (2.7-7.7); Neutrophil % 79.5 % (47-70); Platelet Count 345 K/mm3 (150-450); RBC Distribution Width CV 12.7 % (11.6-14.6); RBC Distribution Width SD 40.5 fl (35.1-43.9); Red Blood Count 4.53 M/mm3 (4.2-5.4); White Blood Count 11.1 K/mm3 (4.4-11.0)
[2022-06-16 13:01] LABS: HIV - WCH Non-Reactive (Nonreactive); Hepatitis B Surface Antigen Non-Reactive (Nonreactive); Hepatitis C Antibody Non-Reactive (Nonreactive); Rubella IgG Reactive (Nonreactive); Syphilis Antibodies Non-reactive
[2022-06-17 16:36] LABS: V-Zoster IgG (Immunity) 1649 index (Immune >165)
[2022-06-18 05:07] LABS: Chlamydia By Nucleic Acid AMP Negative (Negative)
[2022-06-18 17:05] LABS: Gonococcus By Nucleic Acid AMP Negative (Negative)
== END | disposition home or self-care (01) ==
PROVIDERS: PCP Nurse Practitioner Primary Care; Visit Provider Student in an Organized Health Care Education/Training Program
DX: N91.2 Amenorrhea, unspecified (principal); Z11.3 Encounter for screening for infections with a predominantly sexual mode of transmission
CPT/HCPCS: 36415; 85025; 86703; 86762; 86780; 86787; 86803; 87086; 87088; 87340; 87491; 87591

== ENCOUNTER → 2022-08-09 | Outpatient (CLI) | payer OTHER, SELFPAY ==
--- NOTE | 2022-08-09 16:49 | US_ITS ---
EXAM: US , LIMITED CLINICAL INDICATION: ANTEPARTUM HEMORRHAGE, UNSPECIFIED TRIMESTER TECHNIQUE: Real-time limited ultrasound of the maternal uterus with image documentation. This report was created using [employer] report generation technology. COMPARISON: None available. FINDINGS: FETUS: Single live intrauterine . Transverse lie. HEART RATE: heart rate: 138 bpm. PLACENTA: The placenta is posterior with no previa or other significant abnormality. Small placental lakes are identified. No subchorionic hemorrhage identified on the current examination. CERVIX: The cervix measures 5 cm in length. US/OB Limited (No Biometrics) IMPRESSION: Single live intrauterine . No subchorionic hemorrhage identified on the current examination. Electronically Signed: Stewart Davalos MD at 0:28 EST ,
== END | disposition home or self-care (01) ==
LOC: US 16:44
PROVIDERS: PCP Nurse Practitioner Primary Care; Referring Provider Student in an Organized Health Care Education/Training Program; Visit Provider Student in an Organized Health Care Education/Training Program
DX: O46.90 Antepartum hemorrhage, unspecified, unspecified trimester (principal)
CPT/HCPCS: 76815

== ENCOUNTER → 2022-11-03 | Outpatient (CLI) | payer OTHER, SELFPAY ==
[2022-11-03 10:54] LABS: Absolute Lymphocyte Count 1.01 X10^3/uL (0.83-4.51); Absolute Neutrophil Count 5.1 X10^3/uL (2.0-7.7); Basophil# 0.01 X10^3/uL; Basophil% 0.1 % (0-1); Eosinophil# 0.06 X10^3/uL; Eosinophils% 0.9 % (0-5); Hematocrit 32.2 % (37-47); Hemoglobin 10.3 g/dL (12.0-15.0); Lymphocyte # 1.01 X10^3/ul (0.83-4.51); Lymphocyte % 14.6 % (19-41); Mean Corpuscular Hgb 28.6 pg (27.0-32.0); Mean Corpuscular Volume 89.4 fL (81-99); Mean Platelet Vol. 9.7 fl (6.2-12.0); Monocyte# 0.74 X10^3/uL; Monocyte% 10.7 % (0-10); NRBC Flagged by Analyzer 0 % (0-5); Neutrophil # 5.08 X10^3/uL (2.7-7.7); Neutrophil % 73.4 % (47-70); Platelet Count 264 K/mm3 (150-450); RBC Distribution Width CV 13.2 % (11.6-14.6); White Blood Count 6.9 K/mm3 (4.4-11.0)
[2022-11-03 11:04] LABS: Glucose Challenge Gest 1H 50g 102 mg/dL (70-140)
[2022-11-03 12:22] LABS: HIV - WCH Non-Reactive (Nonreactive); Syphilis Antibodies Non-reactive
== END | disposition home or self-care (01) ==
PROVIDERS: PCP Nurse Practitioner Primary Care; Referring Provider Obstetrics & Gynecology; Visit Provider Obstetrics & Gynecology
DX: Z34.90 Encounter for supervision of normal pregnancy, unspecified, unspecified trimester (principal)
CPT/HCPCS: 36415; 82950; 85025; 86703; 86780

== ENCOUNTER → 2022-11-23 | Outpatient (CLI) | payer OTHER, SELFPAY ==
--- NOTE | 2022-11-23 16:23 | US_ITS ---
STUDY: SECOND AND THIRD TRIMESTER OBSTETRICAL ULTRASOUND - LIMITED REASON FOR EXAM: Female, 37 years old Size greater than dates LMP: Unknown. PRIOR ULTRASOUND: August 09, 2022 TECHNIQUE: Transabdominal TECHNICAL QUALITY: Adequate. FINDINGS: There is a single intrauterine fetus. The fetus is in a transverse lie with the head on the maternal right side. There is demonstrated cardiac activity with a heart rate of 141 bpm. There is a normal amniotic fluid volume. The largest amniotic fluid pocket measures 8.1 cm. The amniotic fluid index (JAMIE) is 19.3 cm. The placenta is posterior in location and is not low lying. There are Grade 1 placental changes. The cervix measures 4.0 cm in length. BIOMETRY: BPD: 7.6 cm: 30 weeks, 4 days HC: 30.7 cm: 34 weeks, 2 days AC: 30.2 cm: 34 weeks, 1 days FL: 6.2 cm: 32 weeks, 2 days age by current US: 32 weeks, 6 days. SHIRIN by current US: January 22, 2023. Estimated weight: 2128 grams, +/- 319 grams. US/OB Limited With Biometrics IMPRESSION: Single intrauterine gestation of 32 weeks 6 days with estimated due date January 22, 2023. Estimated weight 2128 g. Electronically Signed: Jack Chino MD at 21:01 EDT ,
== END | disposition home or self-care (01) ==
LOC: US 16:22
PROVIDERS: PCP Nurse Practitioner Primary Care; Referring Provider Registered Nurse; Visit Provider Registered Nurse
DX: O26.843 Uterine size-date discrepancy, third trimester (principal); Z3A.00 Weeks of gestation of pregnancy not specified
CPT/HCPCS: 76816

== ENCOUNTER → 2022-12-17 | Outpatient (CLI) | payer OTHER, SELFPAY ==
[2022-12-17 16:20] LABS: Absolute Lymphocyte Count 1.37 X10^3/uL (0.83-4.51); Absolute Neutrophil Count 7.6 X10^3/uL (2.0-7.7); Basophil# 0.03 X10^3/uL; Basophil% 0.3 % (0-1); Eosinophil# 0.09 X10^3/uL; Eosinophils% 0.9 % (0-5); Hematocrit 32.3 % (37-47); Hemoglobin 10.3 g/dL (12.0-15.0); Lymphocyte # 1.37 X10^3/ul (0.83-4.51); Lymphocyte % 13.6 % (19-41); Mean Corp Hgb Conc 31.9 g/dL (32-36); Mean Corpuscular Hgb 28.3 pg (27.0-32.0); Mean Corpuscular Volume 88.7 fL (81-99); Monocyte# 0.91 X10^3/uL; NRBC Flagged by Analyzer 0 % (0-5); Neutrophil # 7.59 X10^3/uL (2.7-7.7); Neutrophil % 75.5 % (47-70); Platelet Count 269 K/mm3 (150-450); RBC Distribution Width SD 49.1 fl (35.1-43.9); Red Blood Count 3.64 M/mm3 (4.2-5.4); White Blood Count 10.1 K/mm3 (4.4-11.0)
== END | disposition home or self-care (01) ==
LOC: LAB 14:32
PROVIDERS: PCP Nurse Practitioner Primary Care; Referring Provider Nurse Practitioner Women's Health; Visit Provider Nurse Practitioner Women's Health
DX: O99.019 Anemia complicating pregnancy, unspecified trimester (principal); Z3A.00 Weeks of gestation of pregnancy not specified
CPT/HCPCS: 36415; 85025

== ENCOUNTER → 2022-12-29 | Outpatient (CLI) | payer OTHER, SELFPAY | END | disposition home or self-care (01) | PROVIDERS: PCP Nurse Practitioner Primary Care; Referring Provider Advanced Practice Midwife; Visit Provider Advanced Practice Midwife | DX: O09.90 Supervision of high risk pregnancy, unspecified, unspecified trimester (principal); Z3A.00 Weeks of gestation of pregnancy not specified | CPT/HCPCS: 87081 ==

== ENCOUNTER → 2023-01-04 | Outpatient (CLI) | payer OTHER, SELFPAY ==
--- NOTE | 2023-01-04 14:30 | US_ITS ---
STUDY: SECOND AND THIRD TRIMESTER OBSTETRICAL ULTRASOUND - LIMITED REASON FOR EXAM: Female, 37 years old hx shoulder dystocia,GROWTH LMP: 04/17/2022 PRIOR ULTRASOUND: 11/23/2022 TECHNIQUE: Transabdominal TECHNICAL QUALITY: Adequate. FINDINGS: There is a single intrauterine fetus. The fetus is in an transverse lie with the head on the maternal left side. There is demonstrated cardiac activity with a heart rate of 147 bpm. There is increased amniotic fluid volume consistent with polyhydramnios. The largest amniotic fluid pocket measures 9.3 cm. The amniotic fluid index (JAMIE) is 26.3 cm. The placenta is fundal in location. There are Grade 2 placental changes. The cervix measures cm in length. BIOMETRY: BPD: 9.5 cm: 38 weeks, 5 days HC: 33.4 cm: 38 weeks, 1 days AC: 40.0 cm: weeks, days FL: 7.4 cm: 38 weeks, 0 days Age by LMP: 37 weeks, 3 days. SHIRIN by LMP: 01/22/2023. age by prior US: weeks, days. SHIRIN by prior US: . age by current US: 38 weeks, 0 days. SHIRIN by current US: 01/18/2023. Estimated weight: 4553 grams, +/- 683 grams, 100 percentile. Gender: US/OB Limited With Biometrics IMPRESSION: Living intrauterine of 38 weeks 0 days as described above. Polyhydramnios with an amniotic fluid index of 26.3 cm. Electronically Signed: Tobin Delgado MD at 21:43 EDT ,
== END | disposition home or self-care (01) ==
LOC: OPUS 14:30
PROVIDERS: PCP Nurse Practitioner Primary Care; Visit Provider Advanced Practice Midwife
DX: O09.529 Supervision of elderly multigravida, unspecified trimester (principal); Z87.59 Personal history of other complications of pregnancy, childbirth and the puerperium; Z3A.00 Weeks of gestation of pregnancy not specified
CPT/HCPCS: 76816

== ENCOUNTER → 2023-01-12 | Outpatient (CLI) | payer OTHER, SELFPAY ==
--- NOTE | 2023-01-12 16:59 | US_ITS ---
INDICATION: well being -- EXAMINATION: Ultrasound US Biophysical Profile W/O Nonst TECHNIQUE: Transabdominal pelvic ultrasound was performed. COMPARISON: Prior study dated: 01/04/2023. LMP: 04/17/2022. Established gestational age: 38 weeks 4 days. Established due date: 01/22/2023. FINDINGS: INTRAUTERINE GESTATION(s): Single. HEART MOTION is 140 bpm. AMNIOTIC FLUID INDEX (JAMIE): 20.4 cm; the deepest vertical pocket measures 9.3 cm. BIOPHYSICAL PROFILE (BPP): 01/25 -- Breathin/2. -- Movement: 2/2. -- Tone: 2/2. --JAMIE: 2/2. PRESENTATION: Transverse with head to the left. PLACENTA: Fundal. There is no placenta previa or abruption. CERVIX: Obscured. US/Biophysical Prof W/O Non Stres IMPRESSION: Single live intrauterine ; biophysical profile score measures 8/8. Upper normal amniotic fluid volume with JAMIE of 20.4 cm; JAMIE measured 26.3 cm on the prior study. Electronically Signed: Kike Carrera MD at 1:20 EDT ,
== END | disposition home or self-care (01) ==
LOC: US 16:59
PROVIDERS: PCP Nurse Practitioner Primary Care; Referring Provider Obstetrics & Gynecology; Visit Provider Obstetrics & Gynecology
DX: O28.8 Other abnormal findings on antenatal screening of mother (principal); Z3A.00 Weeks of gestation of pregnancy not specified
CPT/HCPCS: 76819

== ENCOUNTER 2023-01-18 09:40 | Inpatient (IN) | payer OTHER, SELFPAY ==
[2023-01-18] VITALS (16 sets, daily range): BP systolic 94–115; BP diastolic 51–75; PULSE 91–100; RESP 14–16; TEMP 36.2–36.8; O2SAT 96–100; BMI 34.9
--- NOTE | 2023-01-18 09:37 | HP.PCM.OB_ITS ---
HPI - General HPI Narrative MANDY OSULLIVAN, is a 37 y/o @ 39 weeks 3 days who presents to L&D for a primary section due to h/o shoulder dystocia and baby with macrosomia. Estimated weight: 4553 grams, +/- 683 grams, 100 percentile 2 weeks ago, the JAMIE has been on and off polyhydramnios. Maternal Data Information SHIRIN Calculator Estimated Delivery Date Method Current WG Current Estimate 01/22/23 LMP (Certain) 39w 3d PFSH PFSH Medical History Eczema Family history of hearing loss at age younger than 7 years Home Medications calcium [id number] abraham 1 tab PO/SL DAILY 03/13/21 [History Last Taken 03/23/21 11:00] docosahexaenoic acid 200 mg capsule 200 mg PO DAILY 03/13/21 [History Last Taken 03/23/21 11:00] vit with calcium-iron fum-folic acid 60 mg iron-1 mg tablet 1 tab PO DAILY 03/13/21 [History Last Taken 03/23/21 11:00] Allergy/AdvReac Type Severity Reaction Status Date / Time No Known Allergies Allergy Verified 01/12/23 14:29 Surgical History History of surgery Social History Smoking Status: Never smoker alcohol intake: never substance use type: does not use caffeine: Yes what type of physical activity do you participate in: none seatbelt use: always do you feel safe at home: Yes additional social history: - Chidi History 4 Elective abortions 0 Hx Para 2 Spontaneous abortions 1 Hx # Term Pregnancies 1 Ectopic pregnancies 0 Hx # Pregnancies 0 Multiple births 0 # of living children 1 Past Pregnancies Del. Date Name GA/Weeks Outcome Route Bth Weight Infant Gen Labor Lgth Anesthesia Del Locatn Provider FOB Unknown 4 spontaneous 10/31/18 Jackie 41 live - full term 9lb3oz Female 12 epidural Lidyaannie Murillo 03/25/21 Kennedy 39 live - full term 8lbs 12oz Male ep idural [facility] Dr. Ciera Murillo Delivery Date: 10/31/18 Last Updated by: Ciera Wick MD 30s shoulder dystocia, 3rd degree perineal lac Delivery Date: 03/25/21 Last Updated by: Gris Garcia 3rd degree tear, OP/Brow presentation Visit Details Expected Delivery Route/Plan Labor Preferences- CB/BF classes: no labor support person: Chidi labor intervention preferences: [] pain management options preferred: epidural cut cord/dad catch: cord : yes PP control planned: discussed discussed possible routes of delivery and associated risks: [] special requests: [] Plans Covid status: vaccinated Flu vaccine: vaccinated Tdap vaccine:given Rhogam: na LARC form signed: yes Problem list reviewed and updated with the most current plan of care details and appropriate orders placed. Relevant counseling for the gestational age provided. Continue routine care and follow up unless otherwise noted in visit notes/problem list details OB Flowsheet Initial Weight: Not Recorded Date -?-?-?-?-?-?-?-?-?-?-?-?- EGA Weight BP Urine Prot -?-?-?-?-?-?-?-?-?-?-?-?- Glucose FHR FuHt Pres Dilation -?-?-?-?-?-?-?-?-?-?-?-?- Effaced St Visit Note 10/06/22 -?-?-?-?-?-?-?-?-?-?-?-?- 24w 4d 190 lb 6 oz Negative -?-?-?-?-?-?-?-?-?-?-?-?- Negative 145 24 -?-?-?-?-?-?-?-?-?-?-?-?- JV- patient is t ransferring from [employer]. She does not have a particular reason. no lof, vaginal bleeding, or dec fm. plan for gct and tdap next visit. 11/03/22 -?-?-?-?-?-?-?-?-?-?-?-?- 28w 4d 197 lb 4 oz 106/67 -?-?-?-?-?-?-?-?-?-?-?-?- 140 29 -?-?-?-?-?-?-?-?-?-?-?-?- JV- normal gluco la. pt encouraged to take OTC iron and repeat cbc in 1-2 months for hg 10. tdap done today. 11/17/22 -?-?-?-?-?-?-?-?-?-?-?-?- 30w 4d 199 lb 105/66 Negative -?-?-?-?-?-?-?-?-?-?-?-?- Negative 145 34 -?-?-?-?-?-?-?-?-?-?-?-?- LC- size greater than dates, growth scan ordered. larc signed. 11/29/22 -?-?-?-?-?-?-?-?-?-?-?-?- 32w 2d 202 lb 6 oz 120/68 -?-?-?-?-?-?-?-?-?-?-?-?- 145 33 -?-?-?-?-?-?-?-?-?-?-?-?- MH-No VB, LOF. G ood FM. Normal growth on US. 12/17/22 -?-?-?-?-?-?-?-?-?-?-?-?- 34w 6d 210 lb 102/65 Negative -?-?-?-?-?-?-?-?-?-?-?-?- Negative 140 35 -?-?-?-?-?-?-?-?-?-?-?-?- SM- no vb lof go od fm no regular ctx 12/29/22 -?-?-?--?-?-?-?-?-?-?-?-?- 36w 4d 211 lb 4 oz 104/66 Nega tive -?-?-?-?-?-?-?-?-?-?-?-?- Negative 150 42 -?-?-?-?-?-?-?-?-?-?-?-?- KW- +FM, no lof/ vb/ctx. GBS today. US ordered today for S>D and hx SD. 01/05/23 -?-?-?-?-?-?-?-?-?-?-?-?- 37w 4d 212 lb 6 oz 103/68 Nega tive -?-?-?-?-?-?-?-?-?-?-?-?- Negative 148 48 -?-?-?-?-?-?-?-?-?-?-?-?- LC- no vb/ctx/lo f. good fm. growth >100%, transverse. poly. recommended primary c/s delivery. LC- no vb/ctx/lof. good fm. growth >100%, transverse. poly. recommended primary c/s delivery. to schedule 01/18/2023 with JV 01/12/23 -?-?-?-?-?-?-?-?-?-?-?-?- 38w 4d 212 lb 124/74 Negative -?-?-?-?-?-?-?-?--?-?-?-?- Negative 145 43 Cephalic 0 -?-?-?-?-?-?-?-?-?-?-?-?- JV- nst today. n o lof, vaginal bleeding, or dec fm. very nervous today. primary 01/18 JV- nst today was inconclusi ve due to difficulty keeping baby on the monitor. BPP ordered. . no lof, vaginal bleeding, or dec fm. very nervous today. primary 01/18 ROS Constitutional Constitutional: Denies change in weight, fatigue, fever(s), headache(s), poor appetite or weakness Eyes Eyes: Denies blurry vision, change in vision, seeing flashes or spots in vision ENT HEENT: Denies dizziness, headache(s), loss taste/smell or sore throat Cardiovascular Cardiovascular: Denies chest pain, dizziness, dyspnea, irregular heart rhythm, leg edema, palpitations, rapid heart rate or vomiting Respiratory/Chest Respiratory/Chest: Denies chest tightness, cough, dyspnea or breast pain Gastrointestinal Gastrointestinal: Denies abdominal pain, anorexia, constipation, cramping, diarrhea, hemorrhoids, vomiting or weight changes Genitourinary Genitourinary: Denies dysuria, flank pain, genital lesions, genital pain, urinary frequency or urinary urgency Musculoskeletal Musculoskeletal: Denies back pain, difficulty walking, joint pain, limited range of motion, muscle cramps or numbness Integumentary Integumentary: Denies lesions or unusual bruising Neurologic Neurologic: Denies abnormal movements, abnormal speech, dizziness, numbness, seizure-like activity or syncope Psychiatric Psychiatric: Denies anxiety, behavioral changes, change in appetite, change in libido, cognitive impairment, confusion, depression, difficulty concentrating, hallucinations or suicidal thoughts Endocrine Endocrinology: Denies excessive sweating, polydipsia or polyuria Hematologic/Lymphatic Hematologic/Lymphatic: Denies easy bleeding, easy bruising or lymphadenopathy Allergic/Immunologic Allergic/Immunologic: Denies itchy eyes, lip swelling, seasonal rhinorrhea, rhinitis, throat swelling, tongue swelling, eczemia, wheezing or asthma Physical Exam Const alert, oriented x3, no apparent distress and healthy appearing General Appearance: cooperative; Negative for anxious HEENT normocephalic Face and Sinus: normal facial exam Eyes EOMs intact bilaterally and no scleral icterus General Eye: normal appearance of both eyes Neck full ROM and supple Lymph Lymphatic: no lymphadenopathy noted Chest Chest: abnormal inspection of the chest Resp normal respiratory effort Effort and Inspection: able to speak in complete sentences Cardio regular rate GI soft to palpation and non-tender Inspection: gravid Palpation: soft; Negative for tender Back/Spine no CVA tenderness Extremity normal to inspection, full ROM and no clubbing, cyanosis or edema General Extremity: Negative for calf tenderness or edema Skin Lesions: no lesions Rashes: no rashes Psych mental status grossly normal Labs Labs Labs: Blood Type O POSITIVE Antibody Screen NEGATIVE Hct 32.3 % (37-47) L Hgb 10.3 g/dL (12.0-15.0) L Obstetrics US Syphilis Total Ab Non-reactive VZV IgG Antibody 1649 index (Immune >165) Rubella IgG Antibody Reactive (Nonreactive) Hep Bs Antigen Non-Reactive (Nonreactive) Chlamydia DNA (DAWIT) Negative (Negative) Neisseria gonorrhoeae DNA (DAWIT) Negative (Negative) HIV 1&2 Antibody Non-Reactive (Nonreactive) Glucose 1 Hr 50 gm 102 mg/dL (70-140) Rhogam given: No Assessment & Plan (1) Polyhydramnios: COMMENT: 37 weeks-26.3 cm (2) AMA (advanced maternal age) multigravida 35+: COMMENT: declined genetic screening. (3) Supervision of high-risk : COMMENT: PRR SHIRIN 01/22/23 girl (name secret) BELLA MejiaKennedy Chidi (4) Anemia in preg-unspec: COMMENT: add fe:has not taken regularly. CBC stable continue alternating fe and . (5) History of third degree perineal laceration: COMMENT: with first and 2nd was OP and brow presentation last (6) History of shoulder dystocia in prior : COMMENT: G1 shoulder dystocia 9 lb 3 ounces had IOL with G2 8 lb 12 ounces no shoulder dystocia. (7) : QUALIFIERS: Weeks of gestation: 38 weeks Qualified Code(s): Z3A.38 - 38 weeks gestation of COMMENT: GBS neg, declined genetic testing, nl anatomy with Monarc GÉNESIS. PLAN: Plan plan for ERAS primary section 01/18/23 2 grams ancef.
[2023-01-18] MEDS: Lactated Ringers 1,000 ML 999 ML IV (10:20)
[2023-01-18 10:36] LABS: Absolute Lymphocyte Count 1.18 X10^3/uL (0.83-4.51); Absolute Neutrophil Count 5.3 X10^3/uL (2.0-7.7); Basophil# 0.02 X10^3/uL; Basophil% 0.3 % (0-1); Eosinophil# 0.08 X10^3/uL; Eosinophils% 1.1 % (0-5); Hematocrit 32.9 % (37-47); Hemoglobin 10.3 g/dL (12.0-15.0); Lymphocyte # 1.18 X10^3/ul (0.83-4.51); Lymphocyte % 16.3 % (19-41); Mean Corp Hgb Conc 31.3 g/dL (32-36); Mean Corpuscular Hgb 27.8 pg (27.0-32.0); Mean Corpuscular Volume 88.7 fL (81-99); Mean Platelet Vol. 10.3 fl (6.2-12.0); Monocyte# 0.61 X10^3/uL; Monocyte% 8.4 % (0-10); NRBC Flagged by Analyzer 0 % (0-5); Neutrophil # 5.29 X10^3/uL (2.7-7.7); Neutrophil % 73.2 % (47-70); Platelet Count 228 K/mm3 (150-450); RBC Distribution Width SD 48.6 fl (35.1-43.9); Red Blood Count 3.71 M/mm3 (4.2-5.4); White Blood Count 7.2 K/mm3 (4.4-11.0)
[2023-01-18] MEDS: Acetaminophen 500 MG Tablet 1000 MG PO ×2 (11:16→17:32)
[2023-01-18 11:22] LABS: Syphilis Antibodies Non-reactive
[2023-01-18] MEDS: Lactated Ringers 1,000 ML 150 ML IV (11:30)
[2023-01-18] MEDS: Sodium Citrate/Citric Acid 30 ML UDC PO (11:44)
[2023-01-18] MEDS: Cefazolin 2 GM in 0.9% Normal Saline 100 ML IV (11:55)
--- NOTE | 2023-01-18 12:12 | OP.PCM_ITS ---
Assessment & Plan (1) Uterine size date discrepancy : COMMENT: S>D growth US-4553 grams at 37 weeks. Poly 26.3CM (2) Polyhydramnios: COMMENT: 37 weeks-26.3 cm (3) AMA (advanced maternal age) multigravida 35+: COMMENT: declined genetic screening. (4) Supervision of high-risk : COMMENT: PRR SHIRIN 01/22/23 girl (name secret) Kennedy Pham Chidi (5) Anemia in preg-unspec: COMMENT: add fe:has not taken regularly. CBC stable continue alternating fe and . (6) History of third degree perineal laceration: COMMENT: with first and 2nd was OP and brow presentation last (7) History of shoulder dystocia in prior : COMMENT: G1 shoulder dystocia 9 lb 3 ounces had IOL with G2 8 lb 12 ounces no shoulder dystocia. (8) : QUALIFIERS: Weeks of gestation: 38 weeks Qualified Code(s): Z3A.38 - 38 weeks gestation of COMMENT: GBS neg, declined genetic testing, nl anatomy with Monarc GÉNESIS. Maternal Data Information SHIRIN Calculator Estimated Delivery Date Method Current WG Current Estimate 01/22/23 LMP (Certain) 39w 3d Final SHIRIN: 01/22/23 Final SHIRIN Source: LMP Gestational age: 39 weeks 3 days Details Operative Information Date of Procedure: 01/18/23 Pre-Operative Diagnosis: 37 y/o @39 weeks 3 days, suspected macrosomia, history of shoulder dystocia Post-Operative Diagnosis: 37 y/o @39 weeks 3 days, suspected macrosomia, history of shoulder dystocia Classification: Scheduled Procedure Type: low transverse Type of Anesthesia: Spinal Antibiotic Given: Ancef 2 grams IV x1 Estimated Blood Loss: 800cc Findings Description of Procedure: The patient is a 37 y/o presented for primary for presumed macrosomina . Spinal anesthesia was placed without difficulty. Jewell catheter was placed. The patient was placed in the dorsal supine position with leftward tilt. Patient was prepped and draped in the normal sterile fashion. Pfannen stiel skin incision was made with the scalpel and carried through to the underlying layer of fascia with the scalpel. Fascia was nicked in the midline and the incision extended laterally. The rectus bellies were dissected off superiorly and inferiorly with out complication both sharply and bluntly. The peritoneum was entered digitally. The incision was stretched and a low transverse uterine incision was made with the scalpel. The 's head was delivered atraumatically followed by the anterior and posterior shoulders without complication the rest of the delivered. The cord was clamped and cut and the infant was handed off to awaiting nurse. The placenta was delivered spontaneously immediately following and was noted to be intact and have a three- vessel cord. The uterus was exteriorized cleared of all clots and debris, and the incision was closed in a double layer closure using #1 vicryl and #1 Monocryl. The ovaries and fallopian tubes were noted to be within normal limits. The uterus was returned to the maternal abdomen and gutters were cleared of all clots and debris. The peritoneum was closed with 3-0 Monocryl in a running fashion. Fascia was closed with 0 PDS in a running fashion. Subcutaneous tissue was copiously irrigated and the skin was closed with 3-0 Monocryl in a subcuticular fashion. Mepilex dressing was applied without complication. Patient was taken to recovery in stable condition. It was discussed with the patient that based on the clinical information obtained during this encounter, combined with her history, at this time I would recommend depending on size of baby of for future deliveries if further pregnancies are desired. baby girl Scalah scores 9/9 Presentation: Positive for Vertex (head slighlty to maternal right ) Amniotic Membrane Rupture Type: Artificial Amniotic Fluid Description: Clear Placental Delivery Description: Spontaneous and Manual Removal Placenta Disposition: [facility] Cord Vessel Description: 3 Vessels Cord Entanglement: None A Gender: Female (1 minute): 9 (5 minute): 9 Delayed Cord Clamping: Yes Complications Risks of Surgery Discussed w/Patient: Bleeding, Anesthesia Risks, Infection, Need for Future C-Sections and Injury to surrounding structure(s) including bowel and bladder Complications: none Multi Select Codes Urinary/Genital Urinary/Genital CPT Codes: 69316 Delivery [facility]
--- NOTE | 2023-01-18 12:12 | PCM.DC ---
Discharge Instructions Diet Discharge Diet: No restrictions Activity Discharge Activity: May Not Drive (for 2 weeks or while taking narcotic pain medications.), May Shower and May Take a Tub Bath (in 7 days.) May resume sexual activity in: 4-6 weeks Weight Bearing Status: Full weight bearing Lifting Restrictions: 20 pounds Dressing / Incision Call your doctor if your incision/area has: Continuous Slow Oozing, Sudden Increased Bleeding, Increased Pain/ Swelling, Increased Redness and Foul Smelling Discharge Call your doctor if you observe: Fever of 101 or Higher and Using more than 1 pad per hour Suture Line Care: Avoid Pulling/Pushing and Avoid Pinching/Bending Cleanse incision/area with: Soap & Water and Keep Dressing Clean & Dry Follow Up Care Please Follow Up With: Rosalba Lee DO When: Call [phone] to make an appointment for an incision check in 1-2 weeks. Test Results: Test results from this visit will be discussed in further detail at your follow-up appointment, if applicable. Discharge Plan Admission Admit Date/Time: 01/18/23 09:40 Attending Provider: Rosalba Lee Primary Care Provider: Maryam Sanchez NP Discharge Orders/Prescriptions Prescriptions: No Action Fa 60 mg iron-1 mg Tablet 1 tab PO DAILY DHA 200 mg Capsule 200 mg PO DAILY calcium [id number] abraham 1 tab PO/SL DAILY Referrals / Follow Up: Maryam Sanchez NP, ULTRASOUND TECHNICIAN-C [Primary Care Provider] -
[2023-01-18] MEDS: Oxytocin 15 Units/NS 250ml 15 UNITS/250 ML IV.SOLN 83 UNITS IV (13:20)
[2023-01-18] MEDS: Ketorolac 30 MG/ML Syringe IV ×2 (13:35→19:42)
[2023-01-18] MEDS: Methylergonovine 0.2 MG/ML Ampul IM (13:39)
[2023-01-18 14:07] LABS: Hematocrit 33.1 % (37-47); Hemoglobin 10.6 g/dL (12.0-15.0); Mean Corpuscular Hgb 28.8 pg (27.0-32.0); Mean Corpuscular Volume 89.9 fL (81-99); Mean Platelet Vol. 10.3 fl (6.2-12.0); Platelet Count 206 K/mm3 (150-450); RBC Distribution Width CV 14.9 % (11.6-14.6); RBC Distribution Width SD 49.8 fl (35.1-43.9); Red Blood Count 3.68 M/mm3 (4.2-5.4); White Blood Count 10.4 K/mm3 (4.4-11.0)
[2023-01-18] MEDS: Lactated Ringers 1,000 ML 100 ML IV (16:12)
[2023-01-19] MEDS: Acetaminophen 500 MG Tablet 1000 MG PO ×3 (00:27→11:43)
[2023-01-19] MEDS: Senna/Docusate Sodium 1 Tablet PO (00:27)
[2023-01-19] MEDS: Enoxaparin 40 MG/0.4 ML Syringe SC (00:28)
[2023-01-19 00:32] VITALS: BP 97/55; PULSE 90; RESP 15; TEMP 36.6; O2SAT 94
[2023-01-19] MEDS: 0.9% Saline Lock 10 ML Syringe IV (01:48)
[2023-01-19] MEDS: Ketorolac 30 MG/ML Syringe IV (01:48)
[2023-01-19 03:02] VITALS: BP 94/53; PULSE 83; RESP 15; O2SAT 97
[2023-01-19 06:12] LABS: Hematocrit 27.5 % (37-47); Hemoglobin 8.7 g/dL (12.0-15.0); Mean Corp Hgb Conc 31.6 g/dL (32-36); Mean Corpuscular Hgb 28.3 pg (27.0-32.0); Mean Corpuscular Volume 89.6 fL (81-99); Mean Platelet Vol. 9.9 fl (6.2-12.0); Platelet Count 218 K/mm3 (150-450); RBC Distribution Width SD 48.6 fl (35.1-43.9); Red Blood Count 3.07 M/mm3 (4.2-5.4); White Blood Count 11.5 K/mm3 (4.4-11.0)
[2023-01-19 07:45] VITALS: BP 105/61; PULSE 93; RESP 16; TEMP 36.4; O2SAT 98
--- NOTE | 2023-01-19 07:48 | PN.OBGYN_ITS ---
Subjective Subjective Patient doing well without complaints. Tolerating PO. Ambulating and voiding without difficulty. Feeding well. Denies chest pain, shortness of breath, calf pain/swelling, fevers, chills, lightheadedness. Objective Data Objective Data Vital Signs: Vital Signs Temp Pulse Resp BP Pulse Ox O2 Del Method 97.8 F 83 15 94/53 L 97 Room Air 01/19/23 00:32 01/19/23 03:02 01/19/23 03:02 01/19/23 03:02 01/19/23 03:02 01/19/23 03:02 Oxygen Delivery Method Room Air Weight: 210 lb Body Mass Index (BMI) 34.9 Intake & Output: Intake and Output for Last 24 Hours 01/17/23 01/18/23 01/19/23 23:59 23:59 23:59 Intake Total 2377 / 2377 Output Total 1050 / 1050 1075 / 1075 Balance 1327 / 1327 -1075 / -1075 Lab / Micro Data 01/19/23 06:05 Labs: Laboratory Results - last 24 hr 01/18/23 10:20: WBC 7.2, RBC 3.71 L, Hgb 10.3 L, Hct 32.9 L, MCV 88.7, MCH 27.8, MCHC 31.3 L, RDW Std Deviation 48.6 H, RDW Coeff of Katelyn 15.0 H, Plt Count 228, MPV 10.3, Immature Gran % (Auto) 0.700, Neut % (Auto) 73.2 H, Lymph % (Auto) 16.3 L, [place] % (Auto) 8.4, Eos % (Auto) 1.1, Baso % (Auto) 0.3, Absolute Neuts (auto) 5.3, Absolute Lymphs (auto) 1.18, Nucleated RBC % 0, Syphilis Total Ab Non-reactive, Blood Type O POSITIVE, Antibody Screen NEGATIVE 01/18/23 14:00: WBC 10.4, RBC 3.68 L, Hgb 10.6 L, Hct 33.1 L, MCV 89.9, MCH 28.8, MCHC 32.0, RDW Std Deviation 49.8 H, RDW Coeff of Katelyn 14.9 H, Plt Count 206, MPV 10.3 01/19/23 06:05: WBC 11.5 H, RBC 3.07 L, Hgb 8.7 L, Hct 27.5 L, MCV 89.6, MCH 28.3, MCHC 31.6 L, RDW Std Deviation 48.6 H, RDW Coeff of Katelyn 15.0 H, Plt Count 218, MPV 9.9 Physical Exam Const alert and oriented x3 HEENT normocephalic Eyes PERRL Neck full ROM Resp normal respiratory effort GI soft to palpation GI Narrative: FF below U. Dressing dry and intact Palpation: tender other (appropriately) Assessment & Plan (1) delivery delivered: COMMENT: 01/18/23 PC/S [place] AKINS (2) Uterine size date discrepancy : COMMENT: S>D growth US-4553 grams at 37 weeks. Poly 26.3CM PLAN: Plan s/p LTCS PPD # 1 1. routine post care 2. breast feeding- support given 3. rh positive 4. rubella immune
[2023-01-19 13:00] VITALS: BP 118/79; PULSE 96; RESP 16; TEMP 36.2; O2SAT 99
[2023-01-19] MEDS: oxyCODONE 5 MG Tablet PO (14:43)
[2023-01-20 05:52] VITALS: PULSE 131; O2SAT 98
[2023-01-20 05:54] VITALS: BP 120/75; PULSE 125
[2023-01-20 05:57] VITALS: PULSE 124; O2SAT 98
== END 2023-01-19 15:20 | disposition home or self-care (01) | DRG 788 ==
PROVIDERS: Admitting Provider Obstetrics & Gynecology; PCP Nurse Practitioner Primary Care; Visit Provider Obstetrics & Gynecology
PROC: (CPT 59514; principal; 2023-01-18 11:45)
DX: O26.843 Uterine size-date discrepancy, third trimester (principal); O40.3XX0 Polyhydramnios, third trimester, not applicable or unspecified; D64.9 Anemia, unspecified; O99.02 Anemia complicating childbirth; Z37.0 Single live birth; Z3A.39 39 weeks gestation of pregnancy; Z87.59 Personal history of other complications of pregnancy, childbirth and the puerperium
CPT/HCPCS: 59050; 85025; 85027; 86780; 86850; 86900; 86901; 99221; J7120; A4216; G0378; J2405

== ENCOUNTER → 2023-03-10 | Outpatient (CLI) | payer OTHER, SELFPAY ==
[2023-03-10 10:11] LABS: Absolute Lymphocyte Count 1.02 X10^3/uL (0.83-4.51); Absolute Neutrophil Count 2.7 X10^3/uL (2.0-7.7); Basophil# 0.03 X10^3/uL; Basophil% 0.6 % (0-1); Eosinophil# 0.14 X10^3/uL; Hematocrit 40.9 % (37-47); Hemoglobin 12.7 g/dL (12.0-15.0); Lymphocyte # 1.02 X10^3/ul (0.83-4.51); Lymphocyte % 21.9 % (19-41); Mean Corp Hgb Conc 31.1 g/dL (32-36); Mean Corpuscular Hgb 27.1 pg (27.0-32.0); Mean Corpuscular Volume 87.2 fL (81-99); Mean Platelet Vol. 9.3 fl (6.2-12.0); Monocyte# 0.77 X10^3/uL; Monocyte% 16.5 % (0-10); NRBC Flagged by Analyzer 0 % (0-5); Neutrophil # 2.69 X10^3/uL (2.7-7.7); Neutrophil % 57.8 % (47-70); Platelet Count 295 K/mm3 (150-450); RBC Distribution Width CV 13.8 % (11.6-14.6); RBC Distribution Width SD 44.1 fl (35.1-43.9); Red Blood Count 4.69 M/mm3 (4.2-5.4); White Blood Count 4.7 K/mm3 (4.4-11.0)
== END | disposition home or self-care (01) ==
PROVIDERS: PCP Nurse Practitioner Primary Care; Referring Provider Obstetrics & Gynecology; Visit Provider Obstetrics & Gynecology
DX: D64.9 Anemia, unspecified (principal)
CPT/HCPCS: 36415; 85025

== ENCOUNTER → 2024-02-02 | Outpatient (CLI) | payer OTHER, SELFPAY ==
[2024-02-02 11:12] LABS: Absolute Lymphocyte Count 2.13 X10^3/uL (0.83-4.51); Basophil# 0.06 X10^3/uL; Basophil% 0.7 % (0-1); Eosinophil# 0.27 X10^3/uL; Eosinophils% 3.2 % (0-5); Hemoglobin 11.8 g/dL (12.0-15.0); Lymphocyte # 2.13 X10^3/ul (0.83-4.51); Lymphocyte % 25.5 % (19-41); Mean Corp Hgb Conc 31.9 g/dL (32-36); Mean Corpuscular Hgb 28.6 pg (27.0-32.0); Mean Corpuscular Volume 89.8 fL (81-99); Mean Platelet Vol. 9.5 fl (6.2-12.0); Monocyte# 0.85 X10^3/uL; Monocyte% 10.2 % (0-10); NRBC Flagged by Analyzer 0 % (0-5); Platelet Count 322 K/mm3 (150-450); RBC Distribution Width CV 13.9 % (11.6-14.6); RBC Distribution Width SD 45.1 fl (35.1-43.9); Red Blood Count 4.12 M/mm3 (4.2-5.4); White Blood Count 8.3 K/mm3 (4.4-11.0)
[2024-02-02 14:06] LABS: hCG Titer Quant., Serum 2 mIU/mL (1-3)
== END | disposition home or self-care (01) ==
LOC: PAVLAB 11:03
PROVIDERS: Nurse Practitioner Women's Health; PCP Nurse Practitioner Primary Care; Referring Provider Obstetrics & Gynecology; Visit Provider Obstetrics & Gynecology
DX: O20.9 Hemorrhage in early pregnancy, unspecified (principal); O99.019 Anemia complicating pregnancy, unspecified trimester
CPT/HCPCS: 36415; 84702; 85025

== ENCOUNTER → 2024-02-04 | Outpatient (CLI) | payer OTHER, SELFPAY ==
[2024-02-04 11:55] LABS: hCG Titer Quant., Serum < 1 mIU/mL (1-3)
== END | disposition home or self-care (01) ==
LOC: LAB 11:20
PROVIDERS: PCP Registered Nurse; Referring Provider Obstetrics & Gynecology; Visit Provider Obstetrics & Gynecology
DX: O20.9 Hemorrhage in early pregnancy, unspecified (principal)
CPT/HCPCS: 36415; 84702

== ENCOUNTER → 2024-05-25 | Outpatient (CLI) | payer OTHER, SELFPAY ==
[2024-05-25 13:58] LABS: Absolute Lymphocyte Count 1.69 X10^3/uL (0.83-4.51); Basophil# 0.03 X10^3/uL; Basophil% 0.3 % (0-1); Eosinophil# 0.13 X10^3/uL; Eosinophils% 1.3 % (0-5); Hematocrit 37.9 % (37-47); Hemoglobin 12.4 g/dL (12.0-15.0); Lymphocyte # 1.69 X10^3/ul (0.83-4.51); Lymphocyte % 17.5 % (19-41); Mean Corp Hgb Conc 32.7 g/dL (32-36); Mean Corpuscular Hgb 28.8 pg (27.0-32.0); Mean Corpuscular Volume 87.9 fL (81-99); Mean Platelet Vol. 9.6 fl (6.2-12.0); Monocyte# 0.75 X10^3/uL; Monocyte% 7.8 % (0-10); NRBC Flagged by Analyzer 0 % (0-5); Neutrophil # 7.01 X10^3/uL (2.7-7.7); Neutrophil % 72.7 % (47-70); Platelet Count 317 K/mm3 (150-450); RBC Distribution Width CV 13.2 % (11.6-14.6); RBC Distribution Width SD 43.1 fl (35.1-43.9); Red Blood Count 4.31 M/mm3 (4.2-5.4); White Blood Count 9.7 K/mm3 (4.4-11.0)
[2024-05-25 14:24] LABS: Hemoglobin A1c 5.4 % (3.8-5.6)
[2024-05-25 14:53] LABS: HIV - WCH Non-Reactive (Nonreactive); Hepatitis B Surface Antigen Non-Reactive (Nonreactive); Hepatitis C Antibody Non-Reactive (Nonreactive); Rubella IgG Reactive (Nonreactive); Syphilis Antibodies Non-reactive
[2024-05-28 22:06] LABS: Chlamydia By Nucleic Acid AMP Negative (Negative); Gonococcus By Nucleic Acid AMP Negative (Negative)
== END | disposition home or self-care (01) ==
LOC: BWCLAB 13:39
PROVIDERS: PCP Registered Nurse; Referring Provider Registered Nurse; Visit Provider Registered Nurse
DX: O99.210 Obesity complicating pregnancy, unspecified trimester (principal); Z3A.00 Weeks of gestation of pregnancy not specified
CPT/HCPCS: 36415; 83036; 85025; 86703; 86762; 86780; 86803; 86850; 86900; 86901; 87086; 87340; 87491; 87591

== ENCOUNTER → 2024-08-17 | Outpatient (CLI) | payer OTHER, SELFPAY ==
--- NOTE | 2024-08-17 15:22 | US_ITS ---
PROCEDURE: OB ANATOMY W/ TRANSVAGINAL REASON FOR EXAM: , anatomy COMPARISON: None. FINDINGS Number: 1 Position: Variable, started breech Placental Position: Fundal and right lateral Placental Abnormalities: None. DIMENSIONS: Biparietal Diameter: 4.5 cm/19 weeks 4 days Head Circumference: 16.3 cm/19 weeks 0 days Abdominal Circumference: 16.1 cm/21 weeks 1 days Femur Length: 3.1 cm/19 weeks 5 days ESTIMATED WEIGHT: 352 g ESTIMATED WEIGHT PERCENTILE (24+ weeks): 59.7% ESTIMATED GESTATIONAL AGE: Baseline: 20 weeks 1 day By Ultrasound: 19 weeks 5 days ESTIMATED DATE OF DELIVERY: Baseline: 01/03/2025 By Ultrasound: 12/2024 BIOPHYSICAL ASSESSMENT: Amniotic Fluid Volume: Subjectively normal. Amniotic Fluid Index: (8-24 cm normal range) Cardiac Motion: (average) Trunk and Limb Motion: Present. MATERNAL ANATOMY: Adnexa: Both maternal ovaries are visualized and unremarkable. Cervical Length (if measured): 4.7 cm, closed ANATOMY: Spine: Cervical, thoracic, lumbar and sacrum visualized Cranium: Unremarkable. Cerebellum: Visualized, 2.1 cm. Cisterna Magna: Visualized. Lateral Ventricles: Visualized, 0.6 cm. Choroid Plexus: Visualized. Heart: Normal four-chamber view, visualized. Ventricular Outflow Tracts: Unremarkable. Diaphragm: Visualized Stomach: Visualized. Abdominal wall: Visualized Kidneys: Visualized Bladder: Visualized Umbilical Cord: Three vessel cord: Visualized. Normal and placental insertions. Extremities: Upper and lower visualized Face/orbits: Visualized Nose/lips: Visualized Profile: Visualized US/OB Anatomy w/ Transvaginal IMPRESSION: UNREMARKABLE ANATOMIC SURVEY. Single live intrauterine corresp onding to 19 weeks 5 days. Reading Location: [facility]
== END | disposition home or self-care (01) ==
LOC: US 15:21
PROVIDERS: PCP Registered Nurse; Referring Provider Nurse Practitioner Women's Health; Visit Provider Nurse Practitioner Women's Health
DX: O99.211 Obesity complicating pregnancy, first trimester (principal); O09.511 Supervision of elderly primigravida, first trimester; Z3A.13 13 weeks gestation of pregnancy
CPT/HCPCS: 76805; 76817

== ENCOUNTER → 2024-09-27 | Outpatient (CLI) | payer OTHER, SELFPAY ==
[2024-09-27 12:27] LABS: Absolute Lymphocyte Count 0.99 X10^3/uL (0.83-4.51); Absolute Neutrophil Count 6.7 X10^3/uL (2.0-7.7); Basophil# 0.02 X10^3/uL; Basophil% 0.2 % (0-1); Eosinophil# 0.11 X10^3/uL; Eosinophils% 1.3 % (0-5); Hemoglobin 10.3 g/dL (12.0-15.0); Lymphocyte # 0.99 X10^3/ul (0.83-4.51); Lymphocyte % 11.6 % (19-41); Mean Corp Hgb Conc 32.2 g/dL (32-36); Mean Corpuscular Hgb 28.7 pg (27.0-32.0); Mean Corpuscular Volume 89.1 fL (81-99); Mean Platelet Vol. 10.6 fl (6.2-12.0); Monocyte# 0.66 X10^3/uL; Monocyte% 7.7 % (0-10); NRBC Flagged by Analyzer 0 % (0-5); Neutrophil # 6.72 X10^3/uL (2.7-7.7); Neutrophil % 78.7 % (47-70); Platelet Count 251 K/mm3 (150-450); RBC Distribution Width CV 13.9 % (11.6-14.6); RBC Distribution Width SD 45.1 fl (35.1-43.9); Red Blood Count 3.59 M/mm3 (4.2-5.4); White Blood Count 8.5 K/mm3 (4.4-11.0)
[2024-09-27 13:27] LABS: Glucose Challenge Gest 1H 50g 111 mg/dL (70-140); HIV Nonreactive (Nonreactive); Syphilis Antibodies Nonreactive (Nonreactive)
== END | disposition home or self-care (01) ==
PROVIDERS: Nurse Practitioner Women's Health; PCP Registered Nurse; Referring Provider Advanced Practice Midwife; Visit Provider Advanced Practice Midwife
DX: O09.92 Supervision of high risk pregnancy, unspecified, second trimester (principal); Z13.1 Encounter for screening for diabetes mellitus; Z3A.00 Weeks of gestation of pregnancy not specified
CPT/HCPCS: 36415; 82950; 85025; 86703; 86780

== ENCOUNTER → 2024-10-24 | Outpatient (CLI) | payer OTHER, SELFPAY ==
[2024-10-24 12:27] LABS: Absolute Lymphocyte Count 1.36 X10^3/uL (0.83-4.51); Absolute Neutrophil Count 7.1 X10^3/uL (2.0-7.7); Basophil# 0.02 X10^3/uL; Basophil% 0.2 % (0-1); Eosinophil# 0.11 X10^3/uL; Eosinophils% 1.2 % (0-5); Hemoglobin 10.7 g/dL (12.0-15.0); Lymphocyte # 1.36 X10^3/ul (0.83-4.51); Lymphocyte % 14.5 % (19-41); Mean Corp Hgb Conc 32.4 g/dL (32-36); Mean Corpuscular Hgb 28.2 pg (27.0-32.0); Mean Corpuscular Volume 87.1 fL (81-99); Mean Platelet Vol. 10.4 fl (6.2-12.0); Monocyte# 0.75 X10^3/uL; NRBC Flagged by Analyzer 0 % (0-5); Neutrophil # 7.12 X10^3/uL (2.7-7.7); Neutrophil % 75.6 % (47-70); Platelet Count 290 K/mm3 (150-450); RBC Distribution Width SD 44.3 fl (35.1-43.9); Red Blood Count 3.79 M/mm3 (4.2-5.4); White Blood Count 9.4 K/mm3 (4.4-11.0)
== END | disposition home or self-care (01) ==
PROVIDERS: Nurse Practitioner Women's Health; PCP Registered Nurse; Referring Provider Obstetrics & Gynecology; Visit Provider Obstetrics & Gynecology
DX: O99.019 Anemia complicating pregnancy, unspecified trimester (principal); D64.9 Anemia, unspecified; Z3A.00 Weeks of gestation of pregnancy not specified
CPT/HCPCS: 36415; 85025

== ENCOUNTER → 2024-12-05 | Outpatient (CLI) | payer OTHER, SELFPAY ==
--- NOTE | 2024-12-05 15:44 | US_ITS ---
PROCEDURE: OB LIMITED WITH BIOMETRICS 12/05/2024 REASON FOR EXAM: GROWTH US AMA TECHNIQUE: OB LIMITED WITH BIOMETRICS COMPARISON: Prior study dated August 17, 2024. FINDINGS Number: 1 Position: Transverse right. Placental Position: Anterior and right lateral. Placental Abnormalities: No evidence of previa. DIMENSIONS: Biparietal Diameter: 8.81 cm: 35 weeks and 4 days: 50 percentile/ Head Circumference: 33.09 cm: 37 weeks and 5 days: 65th percentile/ Abdominal Circumference: 37.55 cm: 41 weeks and 3 days: 99 percentile. Femur Length: 7.05 cm: 36 weeks and 1 day: 52nd percentile/ ESTIMATED WEIGHT: 3745 g plus/-562 g ESTIMATED WEIGHT PERCENTILE (24+ weeks): 99 ESTIMATED GESTATIONAL AGE: Baseline: 35 weeks and 6 days By Ultrasound: 37 weeks and 4 days ESTIMATED DATE OF DELIVERY: Baseline: January 03, 2025 By Ultrasound: 5.5 BIOPHYSICAL ASSESSMENT: Amniotic Fluid Volume: 5.5 Amniotic Fluid Index: 16 (8-24 cm normal range) Cardiac Motion: 148 beats per minute (average) Trunk and Limb Motion: Present. MATERNAL ANATOMY: Adnexa: Neither maternal ovary is successfully identified. US/OB Limited With Biometrics IMPRESSION: Single live intrauterine gestation with a mean gestational age of 37 weeks and 4 days. Reading Location: [facility]
--- OUTSIDE RECORDS SUMMARY | 2024-12-05 22:33 | XMS RPT_ITS | CCD ---
Author Organization [facility] Care Team Providers Care Tip Stitcher Name Role Phone ALEIDA BUTTON CUTTING MACHINE OPERATOR-KNOCK UP ASSEMBLER, ERIKA Primary Care Physician Aleida CUSTODIAL WORKER, CUSTODIAL WORKER-C Erika Primary Care Provider Aleida CUSTODIAL WORKER, CUSTODIAL WORKER-C Erika Referring Provider [phone] Dr. Rosalba Lee Attending Provider [phone] SEUN Vick Attending Provider Heather CUSTODIAL WORKER, CUSTODIAL WORKER-C Mindy Attending Provider [phone] Dr. Rebeca López Attending Provider [phone] SEUN Holloway Attending Provider [phone] MATT BUTTON CUTTING MACHINE OPERATOR-KNOCK UP ASSEMBLER, REEMA A Primary Care Physi sean MATT BUTTON CUTTING MACHINE OPERATOR-KNOCK UP ASSEMBLER, REEMA A Primary Care Un available MATT BUTTON CUTTING MACHINE OPERATOR-KNOCK UP ASSEMBLER, REEMA A Attending Un available MATT BUTTON CUTTING MACHINE OPERATOR-KNOCK UP ASSEMBLER, REEMA A Attending Un available MATT BUTTON CUTTING MACHINE OPERATOR-KNOCK UP ASSEMBLER, REEMA A Primary Care Un available Matt CUSTODIAL WORKER-C, Reema Primary Care Provider [phone] Matt CUSTODIAL WORKER-C, Reema Referring Provider [phone] Carrie Vick CNM Attending Provider [phone] Carrie Vick CNM Referring Provider Heather HERNANDES-CMindy Attending Provider Dr. Rebeca López MD Attending Provider [phone] Heather HERNANDES-CMindy Referring Provider Matt HERNANDES-C, [facility] Care Provider Matt CUSTODIAL WORKER-C, [place] Referring Provider [phone] Jewel KOHLI, Maggie Attending Provider [phone] Jewel CNSeverino, Maggie Referring Provider [phone] Matt CUSTODIAL WORKER-C, [facility] Care Provider Matt CUSTODIAL WORKER-C, [place] Referring Provider [phone] Clanton CUSTODIAL WORKER-C, Mindy Attending Provider [phone] Nicanor LANGSTONM, Carrie Attending Provider [phone] Dr. Rebeca López MD Referring Provider [phone] Maggie Holloway Referring Unavailable Maggie Holloway Attending Unavailable Matt CUSTODIAL WORKER, [facility] Unavailabl e Matt CUSTODIAL WORKER, [place] Referring Unavailabl e Heather CUSTODIAL WORKER, Mindy Attending Unavailable Matt CUSTODIAL WORKER, [facility] Unavailabl e Heather CUSTODIAL WORKER, Mindy Attending Unavailable Aleida CUSTODIAL WORKER, [facility] Referring Unavailable Matt CUSTODIAL WORKER, [facility] Unavailabl e Carrie Vick Attending Unavailable Matt CUSTODIAL WORKER, [place] Referring Unavailabl e Matt CUSTODIAL WORKER, [facility] Unavailabl e Matt CUSTODIAL WORKER, [place] Referring Unavailabl e Rebeca López Attending Unavailable Matt CUSTODIAL WORKER, [facility] Unavailabl e Matt CUSTODIAL WORKER, [place] Referring Unavailabl e Rebeca López Attending Unavailable Matt CUSTODIAL WORKER, [facility] Unavailabl e Matt CUSTODIAL WORKER, [place] Referring Unavailabl e Heather CUSTODIAL WORKER, Mindy Attending Unavailable Matt CUSTODIAL WORKER, [facility] Unavailabl e Carrie Vick Attending Unavailable Matt CUSTODIAL WORKER, [place] Referring Unavailabl e Matt CUSTODIAL WORKER, [facility] Unavailabl e Matt CUSTODIAL WORKER, [facility] Unavailabl e Rebeca López Attending Unavailable Matt CUSTODIAL WORKER, [place] Referring Unavailabl e Maggie Holloway Attending Unavailable Matt CUSTODIAL WORKER, [place] Referring Unavailabl e Matt CUSTODIAL WORKER, [facility] Unavailabl e Matt CUSTODIAL WORKER, [place] Referring Unavailabl e Heather CUSTODIAL WORKER, Mindy Attending Unavailable Matt CUSTODIAL WORKER, [facility] Unavailabl e Rene, Rebeca Referring Unavailable Rene, Rebeca Attending Unavailable Matt CUSTODIAL WORKER, [facility] Unavailabl e Aleida CUSTODIAL WORKER, [facility] Unavailable Allen Tam, Rosalba Referring Unavailabl e Vande Veljag, Rosalba Attending Unavailabl e Nicanor, Carrie Attending Unavailable Matt CUSTODIAL WORKER, [facility] Unavailabl e Nicanor, Carrie Referring Unavailable Heather CUSTODIAL WORKER, Mindy Referring Unavailable Heather CUSTODIAL WORKER, Mindy Attending Unavailable Matt CUSTODIAL WORKER, [facility] Unavailabl e Vande Velde, Rosalba Referring Unavailabl e Vande Anel, Rosalba Attending Unavailabl e Matt CUSTODIAL WORKER, [facility] Unavailabl e Matt CUSTODIAL WORKER, [facility] Unavailabl e Vande Aenl, Rosalba Attending Unavailabl e Vande Anel, Rosalba Admitting Unavailabl e Maggie Holloway Referring Unavailable Maggie Holloway Attending Unavailable Matt CUSTODIAL WORKER, [facility] Unavailabl e Medications Current Medications Medication Drug Class(es) Dates Sig (Normalized) Sig (Original) calcium hrhb-J8-okdhgicgp abraham (8 sources) Start: 03-13-2021 calcium wvct-P8-sxpveoyqz abraham Active 1 {tbl} SL/PO DAILY March 13, 2021 12:00am Start: 03-13-2021 take 1 tablet by esme th once daily calcium ltho-S6-myhjemfka abraham Active 1 TABLET SL/PO DAILY March 13, 2021 12:00am Start: 03-13-2021 take 1 tablet by esme th once daily calcium jera-W0-wcklhbwdo abraham Active 1 TABLET SL/PO DAILY March 12, 2021 11:00pm Calcium, Magnesium and Zinc oral tablet (3 sources) Start: 05-11-2022 take 1 tablet by mouth once daily Calcium, Magnesium and Zinc oral tablet Dose = 1 tab(s), Oral, qDay, # 30 tab(s), 0 Refill(s) Start Date: 05/11/22 Status: Ordered cephalexin 500 mg oral capsule (1 source) Cephalosporin Antibacterial Start: 05-11-2022 End: 05-16-2022 cephalexin 500 mg oral capsule Dose : 500 mg = 1 cap(s), Oral, q12h, X 5 day(s), # 10 cap(s), 0 Refill(s), 05/16/22 12:08:00 EST, Pharmacy: [id number], 164.5, cm, 05/11/22 11:00:00 EST, Height, 78.1 Start Date: 05/11/22 Stop Date: 05/16/22 Status: Ordered ferrous sulfate 325 mg oral tablet (13 sources) Start: 05-15-2024 take 1 tablet by mouth every other day Ferrous Sulfate 325 mg (65 mg iron) tablet Active 325 mg PO every other day May 15, 2024 1:00am Start: 03-13-2021 End: 10-06-2022 take 1 tablet by mouth once daily Ferrous Sulfate (Iron) 325 mg (65 mg iron) Tablet Discontinued 325 mg PO DAILY March 13, 2021 12:00am October 06, 2022 2:16pm L.Locot,Leah,Montes,Rha mn 12 billion cell tablet,chewable (5 sources) Start: 05-15-2024 L.Crispat,Silvaseri,Montes,Rha mn 12 billion cell tablet,chewable Active {tbl} PO May 15, 2024 1:00am Multivit 26-Wzlc-Jslnkw 1-Dh a (Pnv-Dha) 27 mg iron-1 mg -300 mg capsule (5 sources) Start: 05-15-2024 Multivit 53-Akwi-Dzveew 1-Dh a (Pnv-Dha) 27 mg iron-1 mg -300 mg capsule Active NMA PO May 15, 2024 1:00am [place] 6-Alp-Ast-Fish Oil (Fi sh Oil) 1,200 (144-216) mg capsule (5 sources) Start: 05-15-2024 [place] 0-Mpk-Gpw-Fish Oil (Fi sh Oil) 1,200 (144-216) mg capsule Active 2 NMA PO DAILY May 15, 2024 1:00am AD oral tablet (3 sources) Start: 05-11-2022 take 1 tablet by mouth once daily AD oral tablet tab(s), Oral, qDay, 0 Refill(s) Start Date: 05/11/22 Status: Ordered Probiotic (1 source) Start: 12-21-2023 Probiotic See Instructions, takes 1 daily qday, 0 Refill(s) Start Date: 12/21/23 Status: Ordered Completed/Discontinued Medications Medication Drug Class(es) Dates Sig (Normalized) Sig (Original) acetaminophen 500 mg oral tablet (5 sources) Start: 01-19-2023 End: 02-01-2023 take 2 tablets by mouth every six hours Acetaminophen 500 mg Tablet Discontinued 1000 mg PO EVERY 6 HOURS January 19, 2023 12:00am February 01, 2023 10:28am docosahexaenoic acid 200 mg oral capsule (8 sources) Start: 03-13-2021 End: 03-10-2023 take 1 capsule by mouth once daily Docosahexaenoic Acid (Dha ) 200 mg Capsule Discontinued 200 mg PO DAILY March 13, 2021 12:00am March 10, 2023 9:44am naproxen 500 mg oral tablet (5 sources) Nonsteroidal Anti-inflammatory Drug Start: 01-19-2023 End: 02-01-2023 take 1 tablet by mouth every eight hours Naproxen 500 mg Tablet Discontinued 500 mg PO Q8H January 19, 2023 12:00am February 01, 2023 10:28am norethindrone 0.35 mg oral tablet (6 sources) Start: 03-10-2023 End: 04-04-2024 take 1 tablet by mouth once daily Norethindrone (Contraceptive) 0.35 mg tablet Discontinued 0.35 mg PO DAILY March 10, 2023 12:00am April 04, 2024 1:01pm oxyCODONE hydrochloride 5 mg oral capsule (5 sources) Opioid Agonist Start: 01-19-2023 End: 02-01-2023 take 1 capsule by mouth every eight hours as needed for pain Oxycodone 5 mg capsule Discontinued 5 mg PO Q8H as needed for pain 14 5 January 19, 2023 February 01, 2023 10:28am Vit-Iron Fum-Folic Ac ( Fa) 60 mg iron-1 mg Tablet (8 sources) Start: 03-13-2021 End: 05-15-2024 Vit-Iron Fum-Folic Ac ( Fa) 60 mg iron-1 mg Tablet Discontinued 1 {tbl} PO DAILY March 13, 2021 12:00am May 15, 2024 11:32am Start: 03-13-2021 take 1 tablet by esme th once daily before mealtime Vit-Iron Fum-Folic Ac ( Fa) 60 mg iron-1 mg Tablet Active 1 TABLET PO DAILY March 13, 2021 12:00am Start: 03-13-2021 take 1 tablet by esme th once daily before mealtime Vit-Iron Fum-Folic Ac ( Fa) 60 mg iron-1 mg Tablet Active 1 TABLET PO DAILY March 12, 2021 11:00pm Problems Active Problems Problem Classification Problem Date Documented Da te Episodic/Chronic Administrative/social admission (8 sources) Occupational exposure to other risk factors; Translations: [Employee exposure to body fluids] 03-25-2021 Episodic Deficiency and other anemia (1 source) Iron deficiency anemia secondary to blood loss (chronic); Translations: [Iron deficiency anemia secondary to blood loss (chronic)] Onset: 10-24-2024 Chronic Deficiency and other anemia (20 sources) Anemia; Translations: [Anemia, unspecified] Episodic Comment on above: Taking PNV and FE Immunizations and screening for infectious disease (1 source) Encounter for immunization; Translations: [Encounter for immunization] Onset: 10-12-2024 Episodic Malaise and fatigue (1 source) Fatigue; Translations: [Other fatigue] Episodic Malposition; malpresentation (8 sources) Breech presentation; Translations: [Maternal care for breech presentation, not applicable or unspecified] 03-25-2021 Episodic Other complications of ; puerperium affecting management of mother (5 sources) Deliveries by ; Translations: [Encounter for delivery without indication] 05-15-2024 Episodic Comment on above: 01/18/23 PC/S Meliton AKINS Other complications of (19 sources) Anemia of ; Translations: [Anemia complicating , unspecified trimester] 12-20-2022 Chronic Comment on above: rpt cbc at 30 weeks rpt cbc at 30 weeks stable Other complications of (4 sources) Anemia complicating , unspecified trimester; Translations: [Anemia of mother, unspecified as to episode of care or not applicable] Onset: 10-29-2024 11-29-2022 Chronic Other complications of (20 sources) Maternal obesity complicating , childbirth and the puerperium, antepartum; Translations: [Obesity complicating , unspecified trimester] 08-24-2024 Chronic Comment on above: HgbA1c bmi 34 Other complications of (1 source) Obesity complicating , first trimester; Translations: [Obesity complicating , first trimester] Onset: 11-07-2024 Chronic Other complications of (1 source) Obesity complicating , unspecified trimester; Translations: [Obesity complicating , unspecified trimester] Onset: 06-28-2024 Chronic Other complications of (6 sources) Multigravida of advanced maternal age; Translations: [Supervision of elderly multigravida, unspecified trimester] 12-17-2022 Episodic Comment on above: declined genetic scr eening. Other complications of (20 sources) High risk ; Translations: [Supervision of high risk , unspecified, unspecified trimester] 12-17-2022 Episodic Comment on above: LDCC8S6, SHIRIN 01/03/25 , girl Kennedy Pham Sela, Chidi PRR SHIRIN 01/22/23 girl (name secret) Kennedy Pham Chidi Other complications of (2 sources) Supervision of elderly multigravida, unspecified trimester; Translations: [Elderly multigravida, unspecified as to episode of care or not applicable] 12-17-2022 Episodic Other complications of (5 sources) Fundal height high for dates; Translations: [Uterine size-date discrepancy, unspecified trimester] 01-20-2023 Episodic Comment on above: S>D growth US-4553 g sulema at 37 weeks. Poly 26.3CM Other complications of (20 sources) Advanced maternal age ; Translations: [Elderly multigravida, unspecified as to episode of care or not applicable] 08-24-2024 Episodic Comment on above: declined nipt. plan 36 week growth US Other complications of (2 sources) Supervision of high risk , unspecified, second trimester; Translations: [Supervision of high risk , unspecified, second trimester] Onset: 11-07-2024 Episodic Other complications of (1 source) Supervision of with other poor reproductive or obstetric history, unspecified trimester; Translations: [Supervision of with other poor reproductive or obstetric history, unspecified trimester] Onset: 10-24-2024 Episodic Other gastrointestinal disorders (1 source) Loose stool 12-21-2023 Episodic Other and delivery including normal (20 sources) Vaginal delivery; Translations: [Encounter for full-term uncomplicated delivery] 12-17-2022 Episodic Comment on above: declined NIPT & Jaime ier testing. nl anatomy GBS neg, declined ge netic testing, nl anatomy with Monarc GÉNESIS. Residual codes; unclassified (2 sources) Gestation period, 39 weeks; Translations: [39 weeks gestation of ] Episodic Residual codes; unclassified (6 sources) History of third degree perineal laceration; Translations: [Personal history of other complications of , childbirth and the puerperium] 10-06-2022 Episodic Comment on above: with first and 2nd p regnancy was OP and brow presentation last Residual codes; unclassified (20 sources) History of shoulder dystocia; Translations: [Personal history of other complications of , childbirth and the puerperium] 12-17-2022 Episodic Comment on above: mild, had with 9lb b ut not with 8lb 12 oz. will determine delivery mode based on growth US. discussed delivery by 39 weeks either RLTCS or IOL G1 shoulder dystocia 9 lb 3 ounces had IOL with G2 8 lb 12 ounces no shoulder dystocia. Residual codes; unclassified (12 sources) Personal history of other complications of , childbirth and the puerperium; Translations: [Personal history of other genital system and obstetric disorders] 10-06-2022 Episodic Residual codes; unclassified (8 sources) Family history of gene mutation; Translations: [Family history of diseases of the blood and blood-forming organs and certain disorders involving the immune mechanism] 05-25-2024 Episodic Residual codes; unclassified (1 source) History of uterine scar from previous surgery; Translations: [History of uterine scar from previous surgery] Onset: 10-24-2024 Episodic Residual codes; unclassified (1 source) 29 weeks gestation of ; Translations: [29 weeks gestation of ] Onset: 10-24-2024 Episodic Residual codes; unclassified (1 source) 26 weeks gestation of ; Translations: [26 weeks gestation of ] Onset: 09-27-2024 Episodic Past or Other Problems Problem Classification Problem Date Documented Da te Episodic/Chronic Hemorrhage during ; abruptio placenta; placenta previa (13 sources) Antepartum hemorrhage; Translations: [Hemorrhage in early , unspecified] Onset: 07-25-2024 08-24-2024 Episodic Comment on above: resolved Other complications of (3 sources) Supervision of high risk , unspecified, unspecified trimester; Translations: [Supervision of unspecified high-risk ] Onset: 05-25-2024 12-17-2022 Episodic Residual codes; unclassified (1 source) Family history of diseases of the blood and blood-forming organs and certain disorders involving the immune mechanism; Translations: [Family history of diseases of the blood and blood-forming organs and certain disorders involving the immune mechanism] Onset: 07-25-2024 Episodic Residual codes; unclassified (1 source) 16 weeks gestation of ; Translations: [16 weeks gestation of ] Onset: 07-25-2024 Episodic Residual codes; unclassified (1 source) 8 weeks gestation of ; Translations: [8 weeks gestation of ] Onset: 05-25-2024 Episodic Results Test Name Value Interpretation Reference Range Facility Validation Leader Office Visit Reporton 11-19-2024 Validation Leader Office Visit Report [facility] [address], [address] [place] [address] OFFICE VISIT Date of Service: 11/19/24 MR#: [id number] Acct: [id number] Name: MANDY OSULLIVAN Rep #: [id number] : 1985 Provider: CAITY dhaliwal Age/Sex: 39/F Location: [facility] Status: Signed Intake Vital Signs 10/24/24 11:01 11/07/24 14:09 11/19/24 10:35 Height 5 ft 5 in 5 ft 5 in 5 ft 5 in Weight: 233 lb BMI 38.7 BP 111/64 Intake Visit Reasons: 34 wk ob Chief Complaint: 34 Week OB Harness Repairer Required: No Is patient in pain?: No Allergies No Known Allergies Allergy (Verified 11/19/24 10:34) Medications ???Medication ???Instructions ???Recorded ???Confirmed ???Type calcium gsxn-V8-tjredhjwi abraham 1 tab PO/SL DAILY 11/19/24 History L. crispatus, gasseri, jensenii, tab PO 05/15/24 11/19/24 History rhamnosus 12 billion cell chew tablet ferrous sulfate 325 mg (65 mg 325 mg PO Q OTHER DAY 05/15/2408/14 History iron) tablet multivitamin no.47-iron fum 27 cap PO 05/15/24 11/19/24 History mg-folate no.1 1 mg-dha 300 mg capsule (PNV-DHA) omega 8-lwy-ljs-fish oil 1,200 mg 2 cap PO DAILY 05/15/24 11/19/24 History (144 mg-216 mg) capsule (Fish Oil) Last Menstrual Period: 03/29/24 Zika: Zika virus screening: Negative : No PFSH PFSH Medical History AMA (advanced maternal age) multigravida 35+ History of third degree perineal laceration History of shoulder dystocia in prior Eczema Family history of hearing loss at age younger than 7 years Surgical History Previous section History of surgery Family History Grandfather CVA (cerebral vascular accident) Maternal Myocardial infarction Paternal Social History adopted: No household members: spouse and children number of children: 3 current occupational status: unemployed current occupation: [employer] pets and animals: No history of recent travel: No Smoking Status: Never smoker alcohol intake: never substance use type: does not use well-balanced diet: daily or most days caffeine: Yes (once a week ) Type: carbonated beverages Number of servings: 1 eating out: rarely or never during the past year weight has: remained stable what type of physical activity do you participate in: walking frequency: 1-2 times per week duration: 15-30 minutes/day dawood/taoist: Sikhism seatbelt use: always do you feel safe at home: Yes 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 Date Name GA/Weeks Outcome Route Bth Weight Gen Labor Lgth Anesthesia Del Locatn Provider FOB 10/31/18 Jackie 41 live - full term 9lb3oz Female 12 epidural [facility] Be mariano Murillo 10/19/19 4 spontaneous 03/25/21 Kennedy 39 live - full term 8lbs 12oz Male epidural [facility] Dr. Ciera Murillo 01/18/23 Edith (pronounced say-la) 38 live - full term 10lbs 10oz Female spinal [facility] Rosalba Lee Chidi 02/02/24 4 spontaneous Delivery Date: 10/31/18 Last Updated by: Ciera Wick MD 30s shoulder dystocia, 3rd degree perineal lac Delivery Date: 03/25/21 Last Updated by: Gris Garcia 3rd degree tear, OP/Brow presentation Delivery Date: 01/18/23 Last Updated by: Nyasia Mayo primary c/s. HPI 34 wk ob Details: MANDY OSULLIVAN is a 39 year old who presents for routine OB visit. OB Visit SHIRIN Calculator Estimated Delivery Date Method Current WG Current Estimate 01/03/25 LMP (Certain) 33w 4d Expected Delivery Route/Plan RLTCS Specific Issue/Plans Covid status: [] Flu vaccine: [] Tdap vaccine: given Rhogam: na LARC form signed: yes Problem list reviewed and updated with the most current plan of care details and appropriate orders placed. Relevant counseling for the gestational age provided. Continue routine care and follow up unless otherwise noted in visit notes/problem list details Initial Weight: 200 lb Date -???-???-???-???-??? -???-???-???-???-??? -???-???- EGA Weight BP Urine Prot -???-???-???-???-??? -???-???-???-???-??? -???-???- Glucose FHR FuHt Pres Dilation -???-???-???-???-??? -???-???-???-???-??? -???-???- Effaced St Visit Note 05/25/24 -???-???-???-???-??? -???-???-???-???- (more content not included)... Normal [facility] - Chemistry and C hemistry - challengeOrdered By: Maggie Holloway on 11-07-2024 Glucose Ql (U) Negative [facility] - UrinalysisOrder ed By: Maggie Holloway on 11-07-2024 Protein Ql (U) Negative [facility] Validation Leader Office Visit Reporton 11-07-2024 Validation Leader Office Visit Report [facility] [address], [address] [place] [address] OFFICE VISIT Date of Service: 11/07/24 MR#: [id number] Acct: [id number] Name: MANDY OSULLIVAN Rep #: [id number] : 1985 Provider: SEUN Ramirez ams Age/Sex: 39/F Location: [facility] Status: Signed Intake Vital Signs 09/27/24 09:26 10/24/24 11:01 11/07/24 14:09 Height 5 ft 5 in 5 ft 5 in 5 ft 5 in Weight: 231 lb 2 oz BMI 38.5 BP 125/78 H Intake Visit Reasons: 32wk ob Chief Complaint: 32wk OB Harness Repairer Required: No Is patient in pain?: No Allergies No Known Allergies Allergy (Verified 11/07/24 14:05) Medications ???Medication ???Instructions ???Recorded ???Confirmed ???Type calcium rego-I2-cczdffzub abraham 1 tab PO/SL DAILY 11/07/24 History L. crispatus, gasseri, jensenii, tab PO 05/15/24 11/07/24 History rhamnosus 12 billion cell chew tablet ferrous sulfate 325 mg (65 mg 325 mg PO Q OTHER DAY 05/15/24 History iron) tablet multivitamin no.47-iron fum 27 cap PO 05/15/24 11/07/24 History mg-folate no.1 1 mg-dha 300 mg capsule (PNV-DHA) omega 2-nzr-aar-fish oil 1,200 mg 2 cap PO DAILY 05/15/24 11/07/24 History (144 mg-216 mg) capsule (Fish Oil) Last Menstrual Period: 03/29/24 : No Have you fallen in the past year?: No PFSH PFSH Medical History AMA (advanced maternal age) multigravida 35+ History of third degree perineal laceration History of shoulder dystocia in prior Eczema Family history of hearing loss at age younger than 7 years Surgical History Previous section History of surgery Family History Grandfather CVA (cerebral vascular accident) Maternal Myocardial infarction Paternal Social History adopted: No household members: spouse and children number of children: 3 current occupational status: unemployed current occupation: [employer] pets and animals: No history of recent travel: No Smoking Status: Never smoker alcohol intake: never substance use type: does not use well-balanced diet: daily or most days caffeine: Yes (once a week ) Type: carbonated beverages Number of servings: 1 eating out: rarely or never during the past year weight has: remained stable what type of physical activity do you participate in: walking frequency: 1-2 times per week duration: 15-30 minutes/day dawood/taoist: Sikhism seatbelt use: always do you feel safe at home: Yes 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 Date Name GA/Weeks Outcome Route Bth Weight Infant Gen Labor Lgth Anesthesia Del Locatn Provider FOB 10/31/18 Jackie 41 live - full term 9lb3oz Female 12 epidural [place] Be mariano Murillo 10/19/19 4 spontaneous 03/25/21 Kennedy 39 live - full term 8lbs 12oz Male epidural [facility] Dr. Ciera Murillo 01/18/23 Edith (pronounced say-la) 38 live - full term 10lbs 10oz Female spinal [facility] Rosalba Mas 02/02/24 4 spontaneous Delivery Date: 10/31/18 Last Updated by: Ciera Wick MD 30s shoulder dystocia, 3rd degree perineal lac Delivery Date: 03/25/21 Last Updated by: Gris Garcia 3rd degree tear, OP/Brow presentation Delivery Date: 01/18/23 Last Updated by: Nyasia Mayo primary c/s. HPI 32wk ob Details: MANDY OSULLIVAN is a 39 year old who presents for routine OB visit. OB Visit SHIRIN Calculator Estimated Delivery Date Method Current WG Current Estimate 01/03/25 LMP (Certain) 31w 6d Expected Delivery Route/Plan RLTCS Specific Issue/Plans Covid status: [] Flu vaccine: [] Tdap vaccine: given Rhogam: na LARC form signed: yes Problem list reviewed and updated with the most current plan of care details and appropriate orders placed. Relevant counseling for the gestational age provided. Continue routine care and follow up unless otherwise noted in visit notes/problem list details Initial Weight: 200 lb Date -???-???-???-???-??? -???-???-???-???-??? -???-???- EGA Weight BP Urine Prot -???-???-???-???-??? -???-???-???-???-??? -???-???- Glucose FHR FuHt Pres Dilation -???-???-???-???-??? -???-???-???-???-??? -???-???- Effaced St Visit Note 05/25/24 -???-???-???-???-??? -???-???-???-???-??? -???-???- 8w 1d 2 (more content not included)... Normal [facility] Absolute lymphocyte countOrd ered By: Mindy Romero on 10-24-2024 Lymphocytes Auto (Unsp spec) [#/Vol] 1.36 10*3/uL 0.83-4.51 [facility] Absolute neutrophil countOrd ered By: Mindy Romero on 10-24-2024 Neutrophils (Bld) [#/Vol] 7.1 10*3/uL 2.0-7.7 [facility] Automated lymphocyte count a s percentage of total leukocytesOrdered By: Mindy Romero on 10-24-2024 Lymphocytes/100 WBC Auto (Unsp spec) 14.5 % Low 19-41 [facility] Basophil percentageOrdered B y: Mindy Romero on 10-24-2024 Basophils/100 WBC (Bld) 0.2 % 0-1 [facility] CBC W/Diff, Automatedon Absolute Lymph 1.36 X10 3/uL Normal 0.83-4.51 [facility] Comment on above: Performed By: #### L 100.0100 ####[facility] [address] [place], [address] Absolute Neut 7.1 X10 3/uL Normal 2.0-7.7 [facility] Comment on above: Performed By: #### L 100.0100 ####[facility] [address] [place], [address] Basophils/100 WBC (Bld) 0.2 % Normal 0-1 [facility] Comment on above: Performed By: #### L 100.0100 ####[facility] [address] [place], [address] Eosinophils/100 WBC (Bld) 1.2 % Normal 0-5 [facility] Comment on above: Performed By: #### L 100.0100 ####[facility] [address] [place], [address] Erythrocyte distribution width (RBC) [Ratio] 14.0 % Normal 11.6-14.6 [facility] Comment on above: Performed By: #### L 100.0100 ####[facility] [address] [place], [address] Hematocrit (Bld) [Volume fraction] 33.0 % Low 37-47 [facility] Comment on above: Performed By: #### L 100.0100 ####[facility] [address] [place], [address] Hemoglobin (Bld) [Mass/Vol] 10.7 g/dL Low 12.0-15.0 [facility] Comment on above: Performed By: #### L 100.0100 ####[facility] [address] [place], [address] IG% 0.500 Normal 0.0-0.9 [facility] Comment on above: Result Comment: IG% - Immature Granulocytes (promyelocytes, myelocytes and metamyelocytes) > 1% indicates that a LEFT SHIFT is Present. Performed By: #### L 100.0100 ####[facility] [address] [place], [address] Lymphocytes/100 WBC (Bld) 14.5 % Low 19-41 [facility] Comment on above: Performed By: #### L 100.0100 ####[facility] [address] [place], [address] MCH (RBC) [Entitic mass] 28.2 pg Normal 27.0-32.0 [facility] Comment on above: Performed By: #### L 100.0100 ####[facility] [address] [place], [address] MCHC (RBC) [Mass/Vol] 32.4 g/dL Normal 32-36 [facility] Comment on above: Performed By: #### L 100.0100 ####[facility] [address] [place], [address] MCV (RBC) [Entitic vol] 87.1 fL Normal 81-99 [facility] Comment on above: Performed By: #### L 100.0100 ####[facility] [address] [place], [address] Monocytes/100 WBC (Bld) 8.0 % Normal 0-10 [facility] Comment on above: Performed By: #### L 100.0100 ####[facility] [address] [place], [address] Neutrophils/100 WBC (Bld) 75.6 % High 47-70 [facility] Comment on above: Performed By: #### L 100.0100 ####[facility] [address] [place], [address] Nucleated RBC (Bld) [#/Vol] 0 10*3/uL Normal 0-5 [facility] Comment on above: Performed By: #### L 100.0100 ####[facility] [address] [place], [address] Platelet mean volume (Bld) [Entitic vol] 10.4 fL Normal 6.2-12.0 [facility] Comment on above: Performed By: #### L 100.0100 ####[facility] [address] [place], [address] Platelets (Bld) [#/Vol] 290 10*3/uL Normal 150-450 [facility] Comment on above: Performed By: #### L 100.0100 ####[facility] [address] [place], [address] RBC (Bld) [#/Vol] 3.79 10*6/uL Low 4.2-5.4 [facility] Comment on above: Performed By: #### L 100.0100 ####[facility] [address] [place], [address] RDW SD 44.3 fl High 35.1-43.9 [facility] Comment on above: Performed By: #### L 100.0100 ####[facility] [address] [place], [address] WBC (Bld) [#/Vol] 9.4 10*3/uL Normal 4.4-11.0 [facility] Comment on above: Performed By: #### L 100.0100 ####[facility] [address] [place], [address] Eosinophil percentageOrdered By: Mindyeric Romero on 10-24-2024 Eosinophils/100 WBC (Bld) 1.2 % 0-5 [facility] Erythrocyte distribution wid th ratioOrdered By: Mindyeric Romero on 10-24-2024 Erythrocyte distribution width (RBC) [Ratio] 14.0 % 11.6-14.6 [facility] Erythrocyte distribution wid th standard deviationOrdered By: Mindyeric Romero on 10-24-2024 Erythrocyte distribution width (RBC) [Ratio] 44.3 fl High 35.1-43.9 [facility] Hematocrit Auto (Bld) [Volum e fraction]Ordered By: Mindyeric Romero on 10-24-2024 Hematocrit (Bld) [Volume fraction] 33.0 % Low 37-47 [facility] Hemoglobin measurementOrdere d By: Mindy Romero on 10-24-2024 Hemoglobin (Bld) [Mass/Vol] 10.7 g/dL Low 12.0-15.0 [facility] Immature granulocytes/100 WB C Auto (Bld)Ordered By: Mindy Romero on 10-24-2024 Immature granulocytes/100 WBC (Bld) 0.500 % 0.0-0.9 [facility] Comment on above: IG% - Immature Granu locytes (promyelocytes, myelocytes and metamyelocytes) > 1% indicates that a LEFT SHIFT is Present. Laboratory - Chemistry and C hemistry - challengeOrdered By: Rebeca López on 10-24-2024 Glucose Ql (U) Negative [facility] Laboratory - UrinalysisOrder ed By: Rebeca López on 05-07-2025 Protein Ql (U) Negative [facility] MCV (mean corpuscular volume ) determinationOrdered By: Mindy Romero on 10-24-2024 MCV (RBC) [Entitic vol] 87.1 fL 81-99 [facility] Mean corpuscular hemoglobin (MCH) determinationOrdered By: Mindy Romero on 10-24-2024 MCH (RBC) [Entitic mass] 28.2 pg 27.0-32.0 [facility] Mean corpuscular hemoglobin concentration (MCHC) determinationOrdered By: Mindy Romero on 10-24-2024 MCHC (RBC) [Mass/Vol] 32.4 g/dL 32-36 [facility] Mean platelet volume determi nationOrdered By: Mindy Romero on 10-24-2024 Platelet mean volume (Bld) [Entitic vol] 10.4 fL 6.2-12.0 [facility] Monocyte percentageOrdered B y: Mindy Romero on 10-24-2024 Monocytes/100 WBC (Bld) 8.0 % 0-10 [facility] Neutrophil percentageOrdered By: Mindy Romero on 10-24-2024 Neutrophils/100 WBC (Bld) 75.6 % High 47-70 [facility] Nucleated red blood cell per centageOrdered By: Mindy Romero on 10-24-2024 Nucleated RBC/100 WBC (Bld) [Ratio] 0 % 0-5 [facility] Validation Leader Office Visit Reporton 10-24-2024 Validation Leader Office Visit Report [facility] [address], [address] [place] [address] OFFICE VISIT Date of Service: 10/24/24 MR#: [id number] Acct: [id number] Name: MANDY OSULLIVAN Rep #: [id number] : 1985 Provider: Dr. Rebeca ramos MD Age/Sex: 39/F Location: [facility] Status: Signed Intake Vital Signs 09/27/24 09:26 10/12/24 12:58 10/24/24 11:00 10/24/24 11:01 Height 5 ft 5 in 5 ft 5 in 5 ft 5 in 5 ft 5 in Weight: 223 lb 6 oz BMI 37.1 BP 111/65 Intake Visit Reasons: 30wk ob Harness Repairer Required: No Is patient in pain?: No Feel stressed/tense/nervo us/anxious/difficult y sleeping: not at all Allergies No Known Allergies Allergy (Verified 10/24/24 11:00) Medications ???Medication ???Instructions ???Recorded ???Confirmed ???Type calcium wniv-J6-eypekpbfo abraham 1 tab PO/SL DAILY 10/24/24 History L. crispatus, gasseri, jensenii, tab PO 05/15/24 10/24/24 History rhamnosus 12 billion cell chew tablet ferrous sulfate 325 mg (65 mg 325 mg PO Q OTHER DAY 05/15/2401/11 History iron) tablet multivitamin no.47-iron fum 27 cap PO 05/15/24 10/24/24 History mg-folate no.1 1 mg-dha 300 mg capsule (PNV-DHA) omega 7-wax-lzj-fish oil 1,200 mg 2 cap PO DAILY 05/15/24 10/24/24 History (144 mg-216 mg) capsule (Fish Oil) Last Menstrual Period: 03/29/24 Zika: Zika virus screening: Negative : No PFSH PFSH Medical History AMA (advanced maternal age) multigravida 35+ History of third degree perineal laceration History of shoulder dystocia in prior Eczema Family history of hearing loss at age younger than 7 years Surgical History Previous section History of surgery Family History Grandfather CVA (cerebral vascular accident) Maternal Myocardial infarction Paternal Social History adopted: No household members: spouse and children number of children: 3 current occupational status: unemployed current occupation: [employer] pets and animals: No history of recent travel: No Smoking Status: Never smoker alcohol intake: never substance use type: does not use well-balanced diet: daily or most days caffeine: Yes (once a week ) Type: carbonated beverages Number of servings: 1 eating out: rarely or never during the past year weight has: remained stable what type of physical activity do you participate in: walking frequency: 1-2 times per week duration: 15-30 minutes/day dawood/taoist: Sikhism seatbelt use: always do you feel safe at home: Yes 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 Date Name GA/Weeks Outcome Route Bth Weight Infant Gen Labor Lgth Anesthesia Del Locatn Provider FOB 10/31/18 [place] 41 live - full term 9lb3oz Female 12 epidural [place] [facility] neguerda Murillo 10/19/19 4 spontaneous 03/25/21 [place] 39 live - full term 8lbs 12oz Male epidural [facility] Dr. Ciera Murillo 01/18/23 Edith (pronounced say-la) 38 live - full term 10lbs 10oz Female spinal [facility] Rosalba Allen Murillo 02/02/24 4 spontaneous Delivery Date: 10/31/18 Last Updated by: Ciera Wick MD 30s shoulder dystocia, 3rd degree perineal lac Delivery Date: 03/25/21 Last Updated by: Gris Garcia 3rd degree tear, OP/Brow presentation Delivery Date: 01/18/23 Last Updated by: Nyasia Mayo primary c/s. HPI 30wk ob Details: MANDY OSULLIVAN is a 39 year old who presents for routine OB visit. OB Visit SHIRIN Calculator Estimated Delivery Date Method Current WG Current Estimate 01/03/25 LMP (Certain) 29w 6d Expected Delivery Route/Plan RLTCS Specific Issue/Plans Covid status: [] Flu vaccine: [] Tdap vaccine: given Rhogam: na LARC form signed: yes Problem list reviewed and updated with the most current plan of care details and appropriate orders placed. Relevant counseling for the gestational age provided. Continue routine care and follow up unless otherwise noted in visit notes/problem list details Initial Weight: 200 lb Date -???-???-???-???-??? -???-???-???-???-??? -???-???- EGA Weight BP Urine Prot -???-???-???-???-??? -???-???-???-???-??? -???-???- Glucose FHR FuHt Pres Dilation -???-???-???-???-??? -???-???-???-???-??? -???-???- Effaced S (more content not included)... Normal [facility] Platelet countOrdered By: Gustavo Romero on 10-24-2024 Platelets (Bld) [#/Vol] 290 10*3/uL 150-450 [facility] RBC Auto (Bld) [#/Vol]Ordere d By: Mindy Romero on 10-24-2024 RBC (Bld) [#/Vol] 3.79 10*6/uL Low 4.2-5.4 [facility] White blood cell (WBC) count Ordered By: Mindy Romero on 10-24-2024 WBC (Bld) [#/Vol] 9.4 10*3/uL 4.4-11.0 [facility] Laboratory - Chemistry and C hemistry - challengeOrdered By: Carrie Vick on 10-12-2024 Glucose Ql (U) Negative [facility] Laboratory - UrinalysisOrder ed By: Carrie Vick on 10-12-2024 Protein Ql (U) Negative [facility] Validation Leader Office Visit Reporton 10-12-2024 Validation Leader Office Visit Report [facility] [address], [address] [place] [address] OFFICE VISIT Date of Service: 10/12/24 MR#: [id number] Acct: [id number] Name: MANDY OSULLIVAN Rep #: [id number] : 1985 Provider: SEUN palumbo Age/Sex: 38/F Location: [facility] [place] Status: Signed Intake Vital Signs 08/24/24 10:38 09/27/24 09:26 10/12/24 12:58 Height 5 ft 5 in 5 ft 5 in 5 ft 5 in Weight: 223 lb 6 oz BMI 37.1 BP 108/67 Intake Visit Reasons: 28 WK OB Harness Repairer Required: No Is patient in pain?: No Allergies No Known Allergies Allergy (Verified 10/12/24 12:56) Medications ???Medication ???Instructions ???Recorded ???Confirmed ???Type calcium xtdl-C0-zcoqwknld abraham 1 tab PO/SL DAILY 10/12/24 History L. crispatus, gasseri, jensenii, tab PO 05/15/24 10/12/24 History rhamnosus 12 billion cell chew tablet ferrous sulfate 325 mg (65 mg 325 mg PO Q OTHER DAY 05/15/24 History iron) tablet multivitamin no.47-iron fum 27 cap PO 05/15/24 10/12/24 History mg-folate no.1 1 mg-dha 300 mg capsule (PNV-DHA) omega 6-jpw-vuj-fish oil 1,200 mg 2 cap PO DAILY 05/15/24 10/12/24 History (144 mg-216 mg) capsule (Fish Oil) Last Menstrual Period: 03/29/24 Zika: Zika virus screening: Negative : Yes Have you fallen in the past year?: No PFSH PFSH Medical History AMA (advanced maternal age) multigravida 35+ History of third degree perineal laceration History of shoulder dystocia in prior Eczema Family history of hearing loss at age younger than 7 years Surgical History Previous section History of surgery Family History Grandfather CVA (cerebral vascular accident) Maternal Myocardial infarction Paternal Social History adopted: No household members: spouse and children number of children: 3 current occupational status: unemployed current occupation: [employer] pets and animals: No history of recent travel: No Smoking Status: Never smoker alcohol intake: never substance use type: does not use well-balanced diet: daily or most days caffeine: Yes (once a week ) Type: carbonated beverages Number of servings: 1 eating out: rarely or never during the past year weight has: remained stable what type of physical activity do you participate in: walking frequency: 1-2 times per week duration: 15-30 minutes/day dawood/taoist: Sikhism seatbelt use: always do you feel safe at home: Yes 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 Date Name GA/Weeks Outcome Route Bth Weight Infant Gen Labor Lgth Anesthesia Del Locatn Provider FOB 10/31/18 [place] 41 live - full term 9lb3oz Female 12 epidural [place] [facility] neerwins Chidi 10/19/19 4 spontaneous 03/25/21 [place] 39 live - full term 8lbs 12oz Male epidural [facility] Dr. Ciera Murillo 01/18/23 Edith (pronounced say-la) 38 live - full term 10lbs 10oz Female spinal [facility] Rosalba Mas 02/02/24 4 spontaneous Delivery Date: 10/31/18 Last Updated by: Ciera Wick MD 30s shoulder dystocia, 3rd degree perineal lac Delivery Date: 03/25/21 Last Updated by: Gris Garcia 3rd degree tear, OP/Brow presentation Delivery Date: 01/18/23 Last Updated by: Nyasia Mayo primary c/s. HPI 28 WK OB Details: MANDY OSULLIVAN is a 38 year old who presents for routine OB visit. OB Visit SHIRIN Calculator Estimated Delivery Date Method Current WG Current Estimate 01/03/25 LMP (Certain) 28w 1d Expected Delivery Route/Plan RLTCS Specific Issue/Plans Covid status: [] Flu vaccine: [] Tdap vaccine: [] Rhogam: na LARC form signed: yes Problem list reviewed and updated with the most current plan of care details and appropriate orders placed. Relevant counseling for the gestational age provided. Continue routine care and follow up unless otherwise noted in visit notes/problem list details Initial Weight: 200 lb Date -???-???-???-???-??? -???-???-???-???-??? -???-???- EGA Weight BP Urine Prot -???-???-???-???-??? -???-???-???-???-??? -???-???- Glucose FHR FuHt Pres Dilation -???-???-???-???-??? -???-???-???-???-??? -???-???- Effaced St Visit Note 05/25/24 -???-???-???-???-??? -???-???-???-???-??? -??? (more content not included)... Normal [facility] Absolute lymphocyte countOrd ered By: Mindy Romero on 09-27-2024 Lymphocytes Auto (Unsp spec) [#/Vol] 0.99 10*3/uL 0.83-4.51 [facility] Absolute neutrophil countOrd ered By: Mindy Romero on 09-27-2024 Neutrophils (Bld) [#/Vol] 6.7 10*3/uL 2.0-7.7 [facility] Automated lymphocyte count a s percentage of total leukocytesOrdered By: Mindy Romero on 09-27-2024 Lymphocytes/100 WBC Auto (Unsp spec) 11.6 % Low 19-41 [facility] Basophil percentageOrdered B y: Mindyeric Romero on 09-27-2024 Basophils/100 WBC (Bld) 0.2 % 0-1 [facility] CBC W/Diff, Automatedon 09-18 Absolute Lymph 0.99 X10 3/uL Normal 0.83-4.51 [facility] Comment on above: Performed By: #### L 100.0100, L3890.6006, L501.0250, L509.8002 ####[facility] [address] [place], [address] Absolute Neut 6.7 X10 3/uL Normal 2.0-7.7 [facility] Comment on above: Performed By: #### L 100.0100, L3890.6006, L501.0250, L509.8002 ####[facility] [address] [place], [address] Basophils/100 WBC (Bld) 0.2 % Normal 0-1 [facility] Comment on above: Performed By: #### L 100.0100, L3890.6006, L501.0250, L509.8002 ####[facility] [address] [place], [address] Eosinophils/100 WBC (Bld) 1.3 % Normal 0-5 [facility] Comment on above: Performed By: #### L 100.0100, L3890.6006, L501.0250, L509.8002 ####[facility] [address] [place], [address] Erythrocyte distribution width (RBC) [Ratio] 13.9 % Normal 11.6-14.6 [facility] Comment on above: Performed By: #### L 100.0100, L3890.6006, L501.0250, L509.8002 ####[facility] [address] [place], [address] Hematocrit (Bld) [Volume fraction] 32.0 % Low 37-47 [facility] Comment on above: Performed By: #### L 100.0100, L3890.6006, L501.0250, L509.8002 ####[facility] [address] [place], [address] Hemoglobin (Bld) [Mass/Vol] 10.3 g/dL Low 12.0-15.0 [facility] Comment on above: Performed By: #### L 100.0100, L3890.6006, L501.0250, L509.8002 ####[facility] [address] [place], [address] IG% 0.500 Normal 0.0-0.9 [facility] Comment on above: Result Comment: IG% - Immature Granulocytes (promyelocytes, myelocytes and metamyelocytes) > 1% indicates that a LEFT SHIFT is Present. Performed By: #### L 100.0100, L3890.6006, L501.0250, L509.8002 ####[facility] [address] [place], [address] Lymphocytes/100 WBC (Bld) 11.6 % Low 19-41 [facility] Comment on above: Performed By: #### L 100.0100, L3890.6006, L501.0250, L509.8002 ####[facility] [address] [place], [address] MCH (RBC) [Entitic mass] 28.7 pg Normal 27.0-32.0 [facility] Comment on above: Performed By: #### L 100.0100, L3890.6006, L501.0250, L509.8002 ####[facility] [address] [place], [address] MCHC (RBC) [Mass/Vol] 32.2 g/dL Normal 32-36 [facility] Comment on above: Performed By: #### L 100.0100, L3890.6006, L501.0250, L509.8002 ####[facility] [address] [place], [address] MCV (RBC) [Entitic vol] 89.1 fL Normal 81-99 [facility] Comment on above: Performed By: #### L 100.0100, L3890.6006, L501.0250, L509.8002 ####[facility] [address] [place], [address] Monocytes/100 WBC (Bld) 7.7 % Normal 0-10 [facility] Comment on above: Performed By: #### L 100.0100, L3890.6006, L501.0250, L509.8002 ####[facility] [address] [place], [address] Neutrophils/100 WBC (Bld) 78.7 % High 47-70 [facility] Comment on above: Performed By: #### L 100.0100, L3890.6006, L501.0250, L509.8002 ####[facility] [address] [place], [address] Nucleated RBC (Bld) [#/Vol] 0 10*3/uL Normal 0-5 [facility] Comment on above: Performed By: #### L 100.0100, L3890.6006, L501.0250, L509.8002 ####[facility] [address] [place], [address] Platelet mean volume (Bld) [Entitic vol] 10.6 fL Normal 6.2-12.0 [facility] Comment on above: Performed By: #### L 100.0100, L3890.6006, L501.0250, L509.8002 ####[facility] [address] [place], [address] Platelets (Bld) [#/Vol] 251 10*3/uL Normal 150-450 [facility] Comment on above: Performed By: #### L 100.0100, L3890.6006, L501.0250, L509.8002 ####[facility] [address] [place], [address] RBC (Bld) [#/Vol] 3.59 10*6/uL Low 4.2-5.4 [facility] Comment on above: Performed By: #### L 100.0100, L3890.6006, L501.0250, L509.8002 ####[facility] [address] [place], [address] RDW SD 45.1 fl High 35.1-43.9 [facility] Comment on above: Performed By: #### L 100.0100, L3890.6006, L501.0250, L509.8002 ####[facility] [address] [place], [address] WBC (Bld) [#/Vol] 8.5 10*3/uL Normal 4.4-11.0 [facility] Comment on above: Performed By: #### L 100.0100, L3890.6006, L501.0250, L509.8002 ####[facility] [address] [place], [address] Eosinophil percentageOrdered By: Mindy Romero on 09-27-2024 Eosinophils/100 WBC (Bld) 1.3 % 0-5 [facility] Erythrocyte distribution wid th (RBC) [Ratio]Ordered By: Mindy Romero on 09-27-2024 Erythrocyte distribution width (RBC) [Entitic vol] 45.1 fL High 35.1-43.9 [facility] Erythrocyte distribution wid th ratioOrdered By: Mindyeric Romero on 09-27-2024 Erythrocyte distribution width (RBC) [Ratio] 13.9 % 11.6-14.6 [facility] Erythrocyte distribution wid th standard deviationOrdered By: [facility] 09-27-2024 Erythrocyte distribution width (RBC) [Ratio] 45.1 fl High 35.1-43.9 [facility] Glucose Challenge Gest 1H 50 socorro 09-27-2024 GLU GEST 50g 1H 111 mg/dL Normal 70-140 [facility] Comment on above: Performed By: #### L 100.0100, L3890.6006, L501.0250, L509.8002 ####[facility] [address] [place], [place], [address] Glucose measurement at 2 agustina rs post-dose gestational glucose tolerance testOrdered By: Mindy Romero on 09-27-2024 Glucose [Mass/Vol] 111 mg/dL 70-140 [facility] HIVon 09-27-2024 HIV Non-Reactive Normal Nonreactive [facility] Comment on above: Result Comment: Non- Reactive Reactive Repeatedly reactive samples must be confirmed according to CDC recommended confirmatory algorithms. The subresults for either HIVAG or AHIV can be used as an aid in the selection of the confirmation algorithm for reactive samples. Send out specimens with Reactive results to [facility] for confirmation. Order the HIV antibody detection and differentiation: lc#[id number] Performed By: #### L 100.0100, L3890.6006, L501.0250, L509.8002 ####[facility] [id number] [facility] [place], [place], [address] Hematocrit Auto (Bld) [Volum e fraction]Ordered By: Mindy Romero on 09-27-2024 Hematocrit (Bld) [Volume fraction] 32.0 % Low 37-47 [facility] Hemoglobin measurementOrdere d By: Mindy Romero on 09-27-2024 Hemoglobin (Bld) [Mass/Vol] 10.3 g/dL Low 12.0-15.0 [facility] Immature granulocytes/100 WB C Auto (Bld)Ordered By: Mindy Romero on 09-27-2024 Immature granulocytes/100 WBC (Bld) 0.500 % 0.0-0.9 [facility] Comment on above: IG% - Immature Granu locytes (promyelocytes, myelocytes and metamyelocytes) > 1% indicates that a LEFT SHIFT is Present. Laboratory - Chemistry and C hemistry - challengeOrdered By: Mindy Romero on 09-27-2024 Glucose Ql (U) Negative [facility] Laboratory - UrinalysisOrder ed By: Mindy Romero on 09-27-2024 Protein Ql (U) Negative [facility] Lymphocytes Auto (Unsp spec) [#/Vol]Ordered By: Mindy Romero on 09-27-2024 Lymphocytes (Bld) [#/Vol] 0.99 10*3/uL 0.83-4.51 [facility] Lymphocytes/100 WBC Auto (Un sp spec)Ordered By: Mindy Brocktings on 09-27-2024 Lymphocytes/100 WBC (Bld) 11.6 % Low 19-41 [facility] MCV (mean corpuscular volume ) determinationOrdered By: Mindy Romero on 09-27-2024 MCV (RBC) [Entitic vol] 89.1 fL 81-99 [facility] Mean corpuscular hemoglobin (MCH) determinationOrdered By: Mindyeric Romero on 09-27-2024 MCH (RBC) [Entitic mass] 28.7 pg 27.0-32.0 [facility] Mean corpuscular hemoglobin concentration (MCHC) determinationOrdered By: Mindyeric Romero on 09-27-2024 MCHC (RBC) [Mass/Vol] 32.2 g/dL 32-36 [facility] Mean platelet volume determi nationOrdered By: Mindy Romero on 09-27-2024 Platelet mean volume (Bld) [Entitic vol] 10.6 fL 6.2-12.0 [facility] Monocyte percentageOrdered B y: Mindy Romero on 09-27-2024 Monocytes/100 WBC (Bld) 7.7 % 0-10 [facility] Neutrophil percentageOrdered By: Mindy Romero on 09-27-2024 Neutrophils/100 WBC (Bld) 78.7 % High 47-70 [facility] No Panel InformationOrdered By: Mindy Romero on 09-27-2024 HIV (1&2) Antibody Non-Reactive Nonreactive [facility] Comment on above: Non-ReactiveReactive Repeatedly reactive samples must be confirmed according to CDC recommended confirmatory algorithms. The subresults for either HIVAG or AHIV can be used as an aid in the selection of the confirmation algorithm for reactive samples.Send out specimens with Reactive results to [facility] for confirmation.Order the HIV antibody detection and differentiation: #[id number] Nucleated red blood cell per centageOrdered By: Mindy Romero on 09-27-2024 Nucleated RBC/100 WBC (Bld) [Ratio] 0 % 0-5 [facility] Validation Leader Office Visit Reporton 09-27-2024 Validation Leader Office Visit Report [facility]'s [address], [address] [place] [address] OFFICE VISIT Date of Service: 09/27/24 MR#: [id number] Acct: [id number] Name: MANDY OSULLIVAN Rep #: [id number] : 1985 Provider: CAITY dhaliwal Age/Sex: 38/F Location: [facility] Status: Signed Intake Vital Signs 08/24/24 10:38 09/27/24 09:26 Height 5 ft 5 in 5 ft 5 in Weight: 222 lb 6 oz BMI 37.0 BP 122/69 H Intake Visit Reasons: 26 WK OB/GLUCOSE Harness Repairer Required: No Is patient in pain?: No Allergies No Known Allergies Allergy (Verified 09/27/24 09:24) Medications ???Medication ???Instructions ???Recorded ???Confirmed ???Type calcium mumt-F9-pfyqoejxv abraham 1 tab PO/SL DAILY 09/27/24 History L. crispatus, gasseri, jensenii, tab PO 05/15/24 09/27/24 History rhamnosus 12 billion cell chew tablet ferrous sulfate 325 mg (65 mg 325 mg PO Q OTHER DAY 05/15/2404/13 History iron) tablet multivitamin no.47-iron fum 27 cap PO 05/15/24 09/27/24 History mg-folate no.1 1 mg-dha 300 mg capsule (PNV-DHA) omega 9-sry-wlw-fish oil 1,200 mg 2 cap PO DAILY 05/15/24 09/27/24 History (144 mg-216 mg) capsule (Fish Oil) Last Menstrual Period: 03/29/24 Zika: Zika virus screening: Negative : Yes Have you fallen in the past year?: No PFSH PFSH Medical History AMA (advanced maternal age) multigravida 35+ History of third degree perineal laceration History of shoulder dystocia in prior Eczema Family history of hearing loss at age younger than 7 years Surgical History Previous section History of surgery Family History Grandfather CVA (cerebral vascular accident) Maternal Myocardial infarction Paternal Social History adopted: No household members: spouse and children number of children: 3 current occupational status: unemployed current occupation: [employer] pets and animals: No history of recent travel: No Smoking Status: Never smoker alcohol intake: never substance use type: does not use well-balanced diet: daily or most days caffeine: Yes (once a week ) Type: carbonated beverages Number of servings: 1 eating out: rarely or never during the past year weight has: remained stable what type of physical activity do you participate in: walking frequency: 1-2 times per week duration: 15-30 minutes/day dawood/taoist: Sikhism seatbelt use: always do you feel safe at home: Yes 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 Date Name GA/Weeks Outcome Route Bth Weight Gen Labor Lgth Anesthesia Del Locatn Provider FOB 10/31/18 [place] 41 live - full term 9lb3oz Female 12 epidural Lidya Be mariano Murillo 10/19/19 4 spontaneous 03/25/21 [place] 39 live - full term 8lbs 12oz Male epidural [facility] Dr. Ciera Murillo 01/18/23 Edith (pronounced say-la) 38 live - full term 10lbs 10oz Female spinal [facility] Rosalba Mas 02/02/24 4 spontaneous Delivery Date: 10/31/18 Last Updated by: Ciera Wick MD 30s shoulder dystocia, 3rd degree perineal lac Delivery Date: 03/25/21 Last Updated by: Gris Garcia 3rd degree tear, OP/Brow presentation Delivery Date: 01/18/23 Last Updated by: Nyasia Mayo primary c/s. HPI 26 WK OB/GLUCOSE Details: MANDY OSULLIVAN is a 38 year old who presents for routine OB visit. OB Visit SHIRIN Calculator Estimated Delivery Date Method Current WG Current Estimate 01/03/25 LMP (Certain) 26w 0d Expected Delivery Route/Plan RLTCS Specific Issue/Plans Covid status: [] Flu vaccine: [] Tdap vaccine: [] Rhogam: na LARC form signed: yes Problem list reviewed and updated with the most current plan of care details and appropriate orders placed. Relevant counseling for the gestational age provided. Continue routine care and follow up unless otherwise noted in visit notes/problem list details Initial Weight: 200 lb Date -???-???-???-???-??? -???-???-???-???-??? -???-???- EGA Weight BP Urine Prot -???-???-???-???-??? -???-???-???-???-??? -???-???- Glucose FHR FuHt Pres Dilation -???-???-???-???-??? -???-???-???-???-??? -???-???- Effaced St Visit Note 05/25/24 -???-???-???-???-??? -???-???-???-???-??? -???-???- 8 (more content not included)... Normal [facility] Platelet countOrdered By: Gustavo Romero on 09-27-2024 Platelets (Bld) [#/Vol] 251 10*3/uL 150-450 [facility] RBC Auto (Bld) [#/Vol]Ordere d By: Mindy Romero on 09-27-2024 RBC (Bld) [#/Vol] 3.59 10*6/uL Low 4.2-5.4 [facility] Syphilis Antibodieson 2024 Syphilis Abs Non-Reactive Normal Nonreactive [facility] Comment on above: Performed By: #### L 100.0100, L3890.6006, L501.0250, L509.8002 ####[facility] [address] [place], [address] T. pallidum abOrdered By: Gustavo Romero on 09-27-2024 Syphilis Total Antibody Non-Reactive Nonreactiv e [facility] White blood cell (WBC) count Ordered By: Mindy Romero on 09-27-2024 WBC (Bld) [#/Vol] 8.5 10*3/uL 4.4-11.0 [facility] Validation Leader Office Visit Reporton 08-24-2024 Validation Leader Office Visit Report [facility]'s [address], [address] [place] [address] OFFICE VISIT Date of Service: 08/24/24 MR#: [id number] Acct: [id number] Name: MANDY OSULLIVAN Rep #: [id number] : 1985 Provider: Dr. Rebeca ramos MD Age/Sex: 38/F Location: [facility] Status: Signed Intake Vital Signs 06/27/24 13:47 07/25/24 15:14 08/24/24 10:38 Height 5 ft 5 in 5 ft 5 in 5 ft 5 in Weight: 209 lb 6 oz 213 lb 2 oz BMI 34.8 35.4 BP 114/74 109/72 Intake Visit Reasons: 21wk ob Chief Complaint: 21 Week OB Harness Repairer Required: No Is patient in pain?: No Allergies No Known Allergies Allergy (Verified 08/24/24 10:39) Medications ???Medication ???Instructions ???Recorded ???Confirmed ???Type calcium nrtv-H6-ppxiafakh abraham 1 tab PO/SL DAILY 08/24/24 History L. crispatus, gasseri, jensenii, tab PO 05/15/24 08/24/24 History rhamnosus 12 billion cell chew tablet ferrous sulfate 325 mg (65 mg 325 mg PO Q OTHER DAY 05/15/2401/11 History iron) tablet multivitamin no.47-iron fum 27 cap PO 05/15/24 08/24/24 History mg-folate no.1 1 mg-dha 300 mg capsule (PNV-DHA) omega 5-xrg-gqt-fish oil 1,200 mg 2 cap PO DAILY 05/15/24 08/24/24 History (144 mg-216 mg) capsule (Fish Oil) Last Menstrual Period: 03/29/24 Zika: Zika virus screening: Negative : No PFSH PFSH Medical History (Updated 08/24/24 @ 11:[address] Rebeca López MD) AMA (advanced maternal age) multigravida 35+ History of third degree perineal laceration History of shoulder dystocia in prior Eczema Family history of hearing loss at age younger than 7 years Surgical History (Updated 08/24/24 @ 11:[address] Rebeca López MD) Previous section History of surgery Family History Grandfather CVA (cerebral vascular accident) Maternal Myocardial infarction Paternal Social History adopted: No household members: spouse and children number of children: 3 current occupational status: unemployed current occupation: [employer] pets and animals: No history of recent travel: No Smoking Status: Never smoker alcohol intake: never substance use type: does not use well-balanced diet: daily or most days caffeine: Yes (once a week ) Type: carbonated beverages Number of servings: 1 eating out: rarely or never during the past year weight has: remained stable what type of physical activity do you participate in: walking frequency: 1-2 times per week duration: 15-30 minutes/day dawood/taoist: Sikhism seatbelt use: always do you feel safe at home: Yes 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 Date Name GA/Weeks Outcome Route Bth Weight Gen Labor Lgth Anesthesia Del Locatn Provider FOB 10/31/18 Jackie 41 live - full term 9lb3oz Female 12 epidural Lidya Be mariano Murillo 10/19/19 4 spontaneous 03/25/21 [place] 39 live - full term 8lbs 12oz Male epidural [facility] Dr. Ciera Murillo 01/18/23 Edith (pronounced say-la) 38 live - full term 10lbs 10oz Female spinal [facility] Rosalba Lee Chidi 02/02/24 4 spontaneous Delivery Date: 10/31/18 Last Updated by: Ciera Wick MD 30s shoulder dystocia, 3rd degree perineal lac Delivery Date: 03/25/21 Last Updated by: Gris Garcia 3rd degree tear, OP/Brow presentation Delivery Date: 01/18/23 Last Updated by: Nyasia Mayo primary c/s. HPI 21wk ob Details: MANDY OSULLIVAN is a 38 year old who presents for routine OB visit. OB Visit SHIRIN Calculator Estimated Delivery Date Method Current WG Current Estimate 01/03/25 LMP (Certain) 21w 1d Expected Delivery Route/Plan RLTCS Specific Issue/Plans Covid status: [] Flu vaccine: [] Tdap vaccine: [] Rhogam: [] LARC form signed: [] Problem list reviewed and updated with the most current plan of care details and appropriate orders placed. Relevant counseling for the gestational age provided. Continue routine care and follow up unless otherwise noted in visit notes/problem list details Initial Weight: 200 lb Date -???-???-???-???-??? -???-???-???-???-??? -???-???- EGA Weight BP Urine Prot -???-???-???-???-??? -???-???-???-???-??? -???-???- Glucose FHR FuHt Pres Dilation -???-???-???-???-??? -???-???-???-???-??? -???-???- Effaced St Visit Note 12 (more content not included)... Normal [facility] OB Anatomy w/ Transvaginalon 08-17-2024 OB Anatomy w/ Transvaginal [facility] [address] [place] [address] OB Anatomy w/ Transvaginal MR#: [id number] Acct: [id number] Name: MANDY OSULLIVAN Rep #: [id number] : 1985 F 38 From: Chidi Sanchez MD PCP: Reema Gutierrez, CUSTODIAL WORKER-C Status: REG CLI Study: OB Anatomy w/ Transvaginal Date of Exam: 08/17 Exam# [id number] Ordering Dr: Mindy Romero NP CUSTODIAL WORKER -C PROCEDURE: OB ANATOMY W/ TRANSVAGINAL REASON FOR EXAM: , anatomy COMPARISON: None. FINDINGS Number: 1 Position: Variable, started breech Placental Position: Fundal and right lateral Placental Abnormalities: None. DIMENSIONS: Biparietal Diameter: 4.5 cm/19 weeks 4 days Head Circumference: 16.3 cm/19 weeks 0 days Abdominal Circumference: 16.1 cm/21 weeks 1 days Femur Length: 3.1 cm/19 weeks 5 days ESTIMATED WEIGHT: 352 g ESTIMATED WEIGHT PERCENTILE (24+ weeks): 59.7% ESTIMATED GESTATIONAL AGE: Baseline: 20 weeks 1 day By Ultrasound: 19 weeks 5 days ESTIMATED DATE OF DELIVERY: Baseline: 01/03/2025 By Ultrasound: 12/2024 BIOPHYSICAL ASSESSMENT: Amniotic Fluid Volume: Subjectively normal. Amniotic Fluid Index: (8-24 cm normal range) Cardiac Motion: (average) Trunk and Limb Motion: Present. MATERNAL ANATOMY: Adnexa: Both maternal ovaries are visualized and unremarkable. Cervical Length (if measured): 4.7 cm, closed ANATOMY: Spine: Cervical, thoracic, lumbar and sacrum visualized Cranium: Unremarkable. Cerebellum: Visualized, 2.1 cm. Cisterna Magna: Visualized. Lateral Ventricles: Visualized, 0.6 cm. Choroid Plexus: Visualized. Heart: Normal four-chamber view, visualized. Ventricular Outflow Tracts: Unremarkable. Diaphragm: Visualized Stomach: Visualized. Abdominal wall: Visualized Kidneys: Visualized Bladder: Visualized Umbilical Cord: Three vessel cord: Visualized. Normal and placental insertions. Extremities: Upper and lower visualized Face/orbits: Visualized Nose/lips: Visualized Profile: Visualized US/OB Anatomy w/ Transvaginal IMPRESSION: UNREMARKABLE ANATOMIC SURVEY. Single live intrauterine corresponding to 19 weeks 5 days. Reading Location: [facility] CC: CAITY Gutierrez; CAITY Romero Sba Underwriter: Signed Normal [facility] Laboratory - Chemistry and C hemistry - challengeOrdered By: Rebeca López on 07-25-2024 Glucose Ql (U) Negative [facility] - UrinalysisOrder ed By: Rebeca López on 07-25-2024 Protein Ql (U) Negative [facility] Validation Leader Office Visit Reporton 07-25-2024 Validation Leader Office Visit Report [facility]'s [address], [address] [place] [address] OFFICE VISIT Date of Service: 07/25/24 MR#: [id number] Acct: [id number] Name: MANDY OSULLIVAN Rep #: [id number] : 1985 Provider: Dr. Rebeca ramos MD Age/Sex: 38/F Location: [facility] Status: Signed Intake Vital Signs 05/25/24 12:55 06/27/24 13:47 07/25/24 15:14 Height 5 ft 5 in 5 ft 5 in 5 ft 5 in Weight: 209 lb 6 oz BMI 34.8 BP 114/74 Intake Visit Reasons: 17 wk ob Harness Repairer Required: No Is patient in pain?: No Feel stressed/tense/nervo us/anxious/difficult y sleeping: not at all Allergies No Known Allergies Allergy (Verified 07/25/24 15:17) Medications ???Medication ???Instructions ???Recorded ???Confirmed ???Type calcium ogrl-M2-nvikrfnzw abraham 1 tab PO/SL DAILY 07/25/24 History L. crispatus, gasseri, maria de jesusii, tab PO 05/15/24 07/25/24 History rhamnosus 12 billion cell chew tablet ferrous sulfate 325 mg (65 mg 325 mg PO Q OTHER DAY 05/15/2411/11 History iron) tablet multivitamin no.47-iron fum 27 cap PO 05/15/24 07/25/24 History mg-folate no.1 1 mg-dha 300 mg capsule (PNV-DHA) omega 1-lwr-hsz-fish oil 1,200 mg 2 cap PO DAILY 05/15/24 07/25/24 History (144 mg-216 mg) capsule (Fish Oil) Last Menstrual Period: 03/29/24 Zika: Zika virus screening: Negative : No Have you fallen in the past year?: No PFSH PFSH Medical History AMA (advanced maternal age) multigravida 35+ History of third degree perineal laceration History of shoulder dystocia in prior Eczema Family history of hearing loss at age younger than 7 years Surgical History Previous section History of surgery Family History Grandfather CVA (cerebral vascular accident) Maternal Myocardial infarction Paternal Social History adopted: No household members: spouse and children number of children: 3 current occupational status: unemployed current occupation: [employer] pets and animals: No history of recent travel: No Smoking Status: Never smoker alcohol intake: never substance use type: does not use well-balanced diet: daily or most days caffeine: Yes (once a week ) Type: carbonated beverages Number of servings: 1 eating out: rarely or never during the past year weight has: remained stable what type of physical activity do you participate in: walking frequency: 1-2 times per week duration: 15-30 minutes/day dawood/taoist: Sikhism seatbelt use: always do you feel safe at home: Yes 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 Date Name GA/Weeks Outcome Route Bth Weight Infant Gen Labor Lgth Anesthesia Del Locatn Provider FOB 10/31/18 Jackie 41 live - full term 9lb3oz Female 12 epidural Lidya Be mariano Murillo 10/19/19 4 spontaneous 03/25/21 [place] 39 live - full term 8lbs 12oz Male epidural [facility] Dr. Ciera Murillo 01/18/23 Edith (pronounced say-la) 38 live - full term 10lbs 10oz Female spinal [facility] Rosalba Guajardokatherine Anel Chidi 02/02/24 4 spontaneous Delivery Date: 10/31/18 Last Updated by: Ciera Wick MD 30s shoulder dystocia, 3rd degree perineal lac Delivery Date: 03/25/21 Last Updated by: Gris Garcia 3rd degree tear, OP/Brow presentation Delivery Date: 01/18/23 Last Updated by: Nyasia Mayo primary c/s. HPI 17 wk ob Details: MANDY OSULLIVAN is a 38 year old who presents for routine OB visit. OB Visit SHIRIN Calculator Estimated Delivery Date Method Current WG Current Estimate 01/03/25 LMP (Certain) 16w 6d Expected Delivery Route/Plan RLTCS Specific Issue/Plans Covid status: [] Flu vaccine: [] Tdap vaccine: [] Rhogam: [] LARC form signed: [] Problem list reviewed and updated with the most current plan of care details and appropriate orders placed. Relevant counseling for the gestational age provided. Continue routine care and follow up unless otherwise noted in visit notes/problem list details Initial Weight: 200 lb Date -???-???-???-???-??? -???-???-???-???-??? -???-???- EGA Weight BP Urine Prot -???-???-???-???-??? -???-???-???-???-??? -???-???- Glucose FHR FuHt Pres Dilation -???-???-???-???-??? -???-???-???-???-??? -???-???- Effa (more content not included)... Normal [facility] - Chemistry and C hemistry - challengeon 06-27-2024 Glucose Ql (U) Negative [facility] - Urinalysison Protein Ql (U) Negative [facility] Validation Leader Office Visit Reporton 06-27-2024 Validation Leader Office Visit Report [facility] [address], [address] [place] [address] OFFICE VISIT Date of Service: 06/27/24 MR#: [id number] Acct: [id number] Name: MANDY OSULLIVAN Rep #: [id number] : 1985 Provider: CAITY dhaliwal Age/Sex: 38/F Location: [facility] Status: Signed Intake Vital Signs 04/04/24 13:01 05/25/24 12:55 06/27/24 13:47 Height 5 ft 5 in 5 ft 5 in 5 ft 5 in Weight: 200 lb 6 oz 204 lb 4 oz BMI 33.3 34.0 BP 135/78 H 114/75 Intake Visit Reasons: 13 wk OB Chief Complaint: 13 wk ob Is patient in pain?: No Allergies No Known Allergies Allergy (Verified 06/27/24 13:51) Medications ???Medication ???Instructions ???Recorded ???Confirmed ???Type calcium lcje-N3-baakgqbma abraham 1 tab PO/SL DAILY 03/13/21 06/27/24 History L. crispatus, gasseri, jensenii, tab PO 05/15/24 06/27/24 History rhamnosus 12 billion cell chew tablet ferrous sulfate 325 mg (65 mg 325 mg PO Q OTHER DAY 05/15/24 06/27/24 History iron) tablet multivitamin no.47-iron fum 27 cap PO 05/15/24 06/27/24 History mg-folate no.1 1 mg-dha 300 mg capsule (PNV-DHA) omega 8-zsc-hyl-fish oil 1,200 mg 2 cap PO DAILY 05/15/24 06/27/24 History (144 mg-216 mg) capsule (Fish Oil) Last Menstrual Period: 03/29/24 : No PFSH PFSH Medical History AMA (advanced maternal age) multigravida 35+ History of third degree perineal laceration History of shoulder dystocia in prior Eczema Family history of hearing loss at age younger than 7 years Surgical History Previous section History of surgery Family History Grandfather CVA (cerebral vascular accident) Maternal Myocardial infarction Paternal Social History adopted: No household members: spouse and children number of children: 3 current occupational status: unemployed current occupation: [employer] pets and animals: No history of recent travel: No Smoking Status: Never smoker alcohol intake: never substance use type: does not use well-balanced diet: daily or most days caffeine: Yes (once a week ) Type: carbonated beverages Number of servings: 1 eating out: rarely or never during the past year weight has: remained stable what type of physical activity do you participate in: walking frequency: 1-2 times per week duration: 15-30 minutes/day dawood/taoist: Sikhism seatbelt use: always do you feel safe at home: Yes 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 Date Name GA/Weeks Outcome Route Bth Weight Gen Labor Lgth Anesthesia Del Locatn Provider FOB 10/31/18 [place] 41 live - full term 9lb3oz Female 12 epidural Liyda Be neguerda Murillo 10/19/19 4 spontaneous 03/25/21 [place] 39 live - full term 8lbs 12oz Male epidural [facility] Dr. Ciera Murillo 01/18/23 Edith (pronounced say-la) 38 live - full term 10lbs 10oz Female spinal [facility] Rosalba Mas 02/02/24 4 spontaneous Delivery Date: 10/31/18 Last Updated by: Ciera Wick MD 30s shoulder dystocia, 3rd degree perineal lac Delivery Date: 03/25/21 Last Updated by: Gris Garcia 3rd degree tear, OP/Brow presentation Delivery Date: 01/18/23 Last Updated by: Nyasia Mayo primary c/s. HPI 13 wk OB Details: MANDY OSULLIVAN is a 38 year old who presents for routine OB visit. OB Visit SHIRIN Calculator Estimated Delivery Date Method Current WG Current Estimate 01/03/25 LMP (Certain) 12w 6d Specific Issue/Plans Covid status: [] Flu vaccine: [] Tdap vaccine: [] Rhogam: [] LARC form signed: [] Problem list reviewed and updated with the most current plan of care details and appropriate orders placed. Relevant counseling for the gestational age provided. Continue routine care and follow up unless otherwise noted in visit notes/problem list details Initial Weight: 200 lb Date -???-???-???-???-??? -???-???-???-???-??? -???-???- EGA Weight BP Urine Prot -???-???-???-???-??? -???-???-???-???-??? -???-???- Glucose FHR FuHt Pres Dilation -???-???-???-???-??? -???-???-???-???-??? -???-???- Effaced St Visit Note 05/25/24 -???-???-???-???-??? -???-???-???-???-??? -???-???- 8w 1d 200 lb 6 oz (+6 oz) 135/78 -???-???-???-???-??? -???-???-???-???-??? -???-???- 162 (more content not included)... Normal [facility] Chlamydia/GC DAWIT aptimaon CHLAMY,NUC ACID Negative Normal Negative [facility] Comment on above: Performed By: #### L 7000.1800, M100.2200 ####[facility] [address] [place], [place], [id number] GC BY NUC ACID Negative Normal Negative [facility] Comment on above: Result Comment: Perf ormed at: =G - [facility] [address] [place] [id number] Communications Tech: Dory Bella MD, Phone: [phone] Performed By: #### L 7000.1800, M100.2200 ####[facility] [address] [place], [place], [id number] Urine Cultureon 05-26-2024 URC Culture exhibits no growth. Normal [facility] Comment on above: Performed By: #### L 7000.1800, M100.2200 ####[facility] [address] [place], [address] Absolute neutrophil countOrd ered By: Carrie Vick on 05-25-2024 Neutrophils (Bld) [#/Vol] 7.0 10*3/uL 2.0-7.7 [facility] Basophil percentageOrdered B y: Carrie Vick on 05-25-2024 Basophils/100 WBC (Bld) 0.3 % 0-1 [facility] C. trachomatis rRNA DAWIT+prob e Ql (Unsp spec)Ordered By: Carrie Vick on 05-25-2024 Chlamydia DNA (DAWIT) Negative Negative [facility] CBC W/Diff, Automatedon Absolute Lymph 1.69 X10 3/uL Normal 0.83-4.51 [facility] Comment on above: Performed By: #### L 509.8000, L3890.6005, L100.0100, L3890.6300, BTS, L3890.6100, L509.4005, L501.9985 #### [facility] [address] [place], [place], [id number] Absolute Neut 7.0 X10 3/uL Normal 2.0-7.7 [facility] Comment on above: Performed By: #### L 509.8000, L3890.6005, L100.0100, L3890.6300, BTS, L3890.6100, L509.4005, L501.9985 #### [facility] [address] [place], [address] Basophils/100 WBC (Bld) 0.3 % Normal 0-1 [facility] Comment on above: Performed By: #### L 509.8000, L3890.6005, L100.0100, L3890.6300, BTS, L3890.6100, L509.4005, L501.9985 #### [facility] [address] [place], [address] Eosinophils/100 WBC (Bld) 1.3 % Normal 0-5 [facility] Comment on above: Performed By: #### L 509.8000, L3890.6005, L100.0100, L3890.6300, BTS, L3890.6100, L509.4005, L501.9985 #### [facility] [address] [place], [address] Erythrocyte distribution width (RBC) [Ratio] 13.2 % Normal 11.6-14.6 [facility] Comment on above: Performed By: #### L 509.8000, L3890.6005, L100.0100, L3890.6300, BTS, L3890.6100, L509.4005, L501.9985 #### [facility] [address] [place], [address] Hematocrit (Bld) [Volume fraction] 37.9 % Normal 37-47 [facility] Comment on above: Performed By: #### L 509.8000, L3890.6005, L100.0100, L3890.6300, BTS, L3890.6100, L509.4005, L501.9985 #### [facility] [address] [place], [address] Hemoglobin (Bld) [Mass/Vol] 12.4 g/dL Normal 12.0-15.0 [facility] Comment on above: Performed By: #### L 509.8000, L3890.6005, L100.0100, L3890.6300, BTS, L3890.6100, L509.4005, L501.9985 #### [facility] [address] [place], [address] IG% 0.400 Normal 0.0-0.9 [facility] Comment on above: Result Comment: IG% - Immature Granulocytes (promyelocytes, myelocytes and metamyelocytes) > 1% indicates that a LEFT SHIFT is Present. Performed By: #### L 509.8000, L3890.6005, L100.0100, L3890.6300, BTS, L3890.6100, L509.4005, L501.9985 #### [facility] [address] [place], [address] Lymphocytes/100 WBC (Bld) 17.5 % Low 19-41 [facility] Comment on above: Performed By: #### L 509.8000, L3890.6005, L100.0100, L3890.6300, BTS, L3890.6100, L509.4005, L501.9985 #### [facility] [address] [place], [address] MCH (RBC) [Entitic mass] 28.8 pg Normal 27.0-32.0 [facility] Comment on above: Performed By: #### L 509.8000, L3890.6005, L100.0100, L3890.6300, BTS, L3890.6100, L509.4005, L501.9985 #### [facility] [address] [place], [address] MCHC (RBC) [Mass/Vol] 32.7 g/dL Normal 32-36 [facility] Comment on above: Performed By: #### L 509.8000, L3890.6005, L100.0100, L3890.6300, BTS, L3890.6100, L509.4005, L501.9985 #### [facility] [address] [place], [address] MCV (RBC) [Entitic vol] 87.9 fL Normal 81-99 [facility] Comment on above: Performed By: #### L 509.8000, L3890.6005, L100.0100, L3890.6300, BTS, L3890.6100, L509.4005, L501.9985 #### [facility] [address] [place], [address] Monocytes/100 WBC (Bld) 7.8 % Normal 0-10 [facility] Comment on above: Performed By: #### L 509.8000, L3890.6005, L100.0100, L3890.6300, BTS, L3890.6100, L509.4005, L501.9985 #### [facility] [address] [place], [address] Neutrophils/100 WBC (Bld) 72.7 % High 47-70 [facility] Comment on above: Performed By: #### L 509.8000, L3890.6005, L100.0100, L3890.6300, BTS, L3890.6100, L509.4005, L501.9985 #### [facility] [address] [place], [address] Nucleated RBC (Bld) [#/Vol] 0 10*3/uL Normal 0-5 [facility] Comment on above: Performed By: #### L 509.8000, L3890.6005, L100.0100, L3890.6300, BTS, L3890.6100, L509.4005, L501.9985 #### [facility] [address] [facility] [place], [address] Platelet mean volume (Bld) [Entitic vol] 9.6 fL Normal 6.2-12.0 [facility] Comment on above: Performed By: #### L 509.8000, L3890.6005, L100.0100, L3890.6300, BTS, L3890.6100, L509.4005, L501.9985 #### [facility] [address] [place], [address] Platelets (Bld) [#/Vol] 317 10*3/uL Normal 150-450 [facility] Comment on above: Performed By: #### L 509.8000, L3890.6005, L100.0100, L3890.6300, BTS, L3890.6100, L509.4005, L501.9985 #### [facility] [address] [place], [address] RBC (Bld) [#/Vol] 4.31 10*6/uL Normal 4.2-5.4 [facility] Comment on above: Performed By: #### L 509.8000, L3890.6005, L100.0100, L3890.6300, BTS, L3890.6100, L509.4005, L501.9985 #### [facility] [address] [place], [address] RDW SD 43.1 fl Normal 35.1-43.9 [facility] Comment on above: Performed By: #### L 509.8000, L3890.6005, L100.0100, L3890.6300, BTS, L3890.6100, L509.4005, L501.9985 #### [facility] [address] [place], [address] WBC (Bld) [#/Vol] 9.7 10*3/uL Normal 4.4-11.0 [facility] Comment on above: Performed By: #### L 509.8000, L3890.6005, L100.0100, L3890.6300, BTS, L3890.6100, L509.4005, L501.9985 #### [facility] [address] [place], [place], [id number] Eosinophil percentageOrdered By: Carrie Vick on 05-25-2024 Eosinophils/100 WBC (Bld) 1.3 % 0-5 [facility] Erythrocyte distribution wid th ratioOrdered By: Carrie Vick on 05-25-2024 Erythrocyte distribution width (RBC) [Ratio] 13.2 % 11.6-14.6 [facility] Erythrocyte distribution wid th standard deviationOrdered By: Carrieeric Vick on 05-25-2024 Erythrocyte distribution width (RBC) [Entitic vol] 43.1 fL 35.1-43.9 [facility] HIV - WCHon 05-25-2024 HIV Non-Reactive Normal Nonreactive [facility] Comment on above: Order Comment: Reaso n for Exam: Performed By: #### L 509.8000, L3890.6005, L100.0100, L3890.6300, BTS, L3890.6100, L509.4005, L501.9985 ####[facility] [address] [place], [place], [id number] HIV 1+2 Ab+HIV1 p24 Ag IA Ql Ordered By: Carrie Vick on 05-25-2024 HIV (1&2) Antibody Non-Reactive Nonreactive [facility] Hematocrit Auto (Bld) [Volum e fraction]Ordered By: Carrie Vick on 05-25-2024 Hematocrit (Bld) [Volume fraction] 37.9 % 37-47 [facility] Hemoglobin A1con 05-25-2024 HbA1c (Bld) [Mass fraction] 5.4 % Normal 3.8-5.6 [facility] Comment on above: Result Comment: Norm al < 5.7 % Prediabetic 5.7 - 6.4 % Diabetic >or= 6.5 % Please note range changes. Performed By: #### L 509.8000, L3890.6005, L100.0100, L3890.6300, BTS, L3890.6100, L509.4005, L501.9985 #### [facility] [address] [place], [place], [address] Hemoglobin A1c percentageOrd ered By: Carrie Vick on 05-25-2024 HbA1c (Bld) [Mass fraction] 5.4 % 3.8-5.6 [facility] Comment on above: Normal < 5.7 % Predi abetic 5.7 - 6.4 % Diabetic >or= 6.5 % Please note range changes. Hemoglobin measurementOrdere d By: Carrie Vick on 05-25-2024 Hemoglobin (Bld) [Mass/Vol] 12.4 g/dL 12.0-15.0 [facility] Hepatitis B Surface Antigeno n 05-25-2024 HEP B Surf Ag Non-Reactive Normal Nonreactive [facility] Comment on above: Order Comment: Reaso n for Exam: Performed By: #### L 509.8000, L3890.6005, L100.0100, L3890.6300, BTS, L3890.6100, L509.4005, L501.9985 ####[facility] [address] [place], [place], [address] Hepatitis B surface antigen detectionOrdered By: Carrie Vick on 05-25-2024 Hepatitis B Surface Antigen Non-Reactive Nonreactive [facility] Hepatitis C Antibodyon 05-25 Hepatitis C AB Non-Reactive Normal Nonreactive [facility] Comment on above: Order Comment: Reaso n for Exam: Result Comment: Non Reactive: < 0.8 Equivocal: >/= 0.8 to < 1.0 Reactive: >/= 1.0 The CDC requires that a reactive/equivocal HCV antibody result be sent out for confirmation. HCV Quant by PCR testing. Performed By: #### L 509.8000, L3890.6005, L100.0100, L3890.6300, BTS, L3890.6100, L509.4005, L501.9985 ####[facility] [address] [place], [place], [id number] Hepatitis C virus antibody a ssayOrdered By: Carrie Vick on 05-25-2024 Hepatitis C Antibody Non-Reactive Nonreactive [facility] Comment on above: Non Reactive: < 0.8 Equivocal: >/= 0.8 to < 1.0 Reactive: >/= 1.0The [facility] requires that a reactive/equivocal HCV antibody result be sent out for confirmation. HCV Quant by PCR testing. Immature granulocytes/100 WB C Auto (Bld)Ordered By: Carrie Vick on 05-25-2024 Immature granulocytes/100 WBC (Bld) 0.400 % 0.0-0.9 [facility] Comment on above: IG% - Immature Granu locytes (promyelocytes, myelocytes and metamyelocytes) > 1% indicates that a LEFT SHIFT is Present. L509.8000on 05-25-2024 Syphilis Abs Non-Reactive Normal [facility] Comment on above: Order Comment: Reaso n for Exam: Performed By: #### L 509.8000, L3890.6005, L100.0100, L3890.6300, BTS, L3890.6100, L509.4005, L501.9985 ####[facility] [address] [place], [place], [address] Lymphocytes Auto (Unsp spec) [#/Vol]Ordered By: Carrie Vick on 05-25-2024 Lymphocytes (Bld) [#/Vol] 1.69 10*3/uL 0.83-4.51 [facility] Lymphocytes/100 WBC Auto (Un sp spec)Ordered By: Carrie Vick on 05-25-2024 Lymphocytes/100 WBC (Bld) 17.5 % Low 19-41 [facility] MCV (mean corpuscular volume ) determinationOrdered By: Carrie Vick on 05-25-2024 MCV (RBC) [Entitic vol] 87.9 fL 81-99 [facility] Mean corpuscular hemoglobin (MCH) determinationOrdered By: Carrie Vick on 05-25-2024 MCH (RBC) [Entitic mass] 28.8 pg 27.0-32.0 [facility] Mean corpuscular hemoglobin concentration (MCHC) determinationOrdered By: Carrie Vick on 05-25-2024 MCHC (RBC) [Mass/Vol] 32.7 g/dL 32-36 [facility] Mean platelet volume determi nationOrdered By: Carrie Vick on 05-25-2024 Platelet mean volume (Bld) [Entitic vol] 9.6 fL 6.2-12.0 [facility] Monocyte percentageOrdered B y: Carrie Vick on 05-25-2024 Monocytes/100 WBC (Bld) 7.8 % 0-10 [facility] Neisseria gonorrhoeae nuclei c acid detection by amplified probe techniqueOrdered By: Carrie Vick on 05-25-2024 N. gonorrhoeae DNA DAWIT+probe Ql (Unsp spec) Negative Negative [facility] Comment on above: Performed at: =[address] [id number] Director: Dory Bella MD, Phone: [phone] Neutrophil percentageOrdered By: Carrie Vick on 05-25-2024 Neutrophils/100 WBC (Bld) 72.7 % High 47-70 [facility] Nucleated red blood cell per centageOrdered By: Carrie Vick on 05-25-2024 Nucleated RBC/100 WBC (Bld) [Ratio] 0 % 0-5 [facility] Validation Leader Office Visit Reporton 05-25-2024 Validation Leader Office Visit Report [facility] [address], [address] [place] [address] OFFICE VISIT Date of Service: 05/25/24 MR#: [id number] Acct: [id number] Name: MANDY OSULLIVAN Rep #: [id number] : 1985 Provider: SEUN palumbo Age/Sex: 38/F Location: [facility] [place] Status: Signed Intake Vital Signs 04/04/24 13:01 05/25/24 12:55 Height 5 ft 5 in 5 ft 5 in Weight: 200 lb 6 oz BMI 33.3 BP 135/78 H Intake Visit Reasons: NOB LMP 03/29 Harness Repairer Required: No Is patient in pain?: No Feel stressed/tense/nervo us/anxious/difficult y sleeping: not at all Allergies No Known Allergies Allergy (Verified 05/25/24 12:56) Medications ???Medication ???Instructions ???Recorded ???Confirmed ???Type calcium ifom-C7-tljknpjhj abraham 1 tab PO/SL DAILY 03/13/21 04/04/24 History L. crispatus, silvaseri, jensenii, tab PO 05/15/24 History rhamnosus 12 billion cell chew tablet ferrous sulfate 325 mg (65 mg 325 mg PO Q OTHER DAY 05/15/24 History iron) tablet multivitamin no.47-iron fum 27 cap PO 05/15/24 History mg-folate no.1 1 mg-dha 300 mg capsule (PNV-DHA) omega 5-aqb-aen-fish oil 1,200 mg 2 cap PO DAILY 05/15/24 History (144 mg-216 mg) capsule (Fish Oil) Last Menstrual Period: 03/29/24 Zika: Zika virus screening: Negative : No Have you fallen in the past year?: No PFSH PFSH Medical History AMA (advanced maternal age) multigravida 35+ History of third degree perineal laceration History of shoulder dystocia in prior Eczema Family history of hearing loss at age younger than 7 years Surgical History Previous section History of surgery Family History Grandfather CVA (cerebral vascular accident) Maternal Myocardial infarction Paternal Social History adopted: No household members: spouse and children number of children: 3 service: No current occupational status: unemployed current occupation: [employer] pets and animals: No history of recent travel: No Smoking Status: Never smoker alcohol intake: never substance use type: does not use well-balanced diet: daily or most days caffeine: Yes (once a week ) Type: carbonated beverages Number of servings: 1 eating out: rarely or never during the past year weight has: remained stable what type of physical activity do you participate in: walking frequency: 1-2 times per week duration: 15-30 minutes/day dawood/taoist: Sikhism seatbelt use: always do you feel safe at home: Yes 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 Date Name GA/Weeks Outcome Route Bth Weight Infant Gen Labor Lgth Anesthesia Del Locatn Provider FOB 10/31/18 [place] 41 live - full term 9lb3oz Female 12 epidural [place] Be nekos Chidi 10/19/19 4 spontaneous 03/25/21 [place] 39 live - full term 8lbs 12oz Male epidural [facility] Dr. Ciera Murillo 01/18/23 Edith (pronounced say-la) 38 live - full term 10lbs 10oz Female spinal [facility] Rosalba Mas 02/02/24 4 spontaneous Delivery Date: 10/31/18 Last Updated by: Ciera Wick MD 30s shoulder dystocia, 3rd degree perineal lac Delivery Date: 03/25/21 Last Updated by: Gris Garcia 3rd degree tear, OP/Brow presentation Delivery Date: 01/18/23 Last Updated by: Nyasia Mayo primary c/s. HPI NOB LMP 03/29 Details: MANDY OSULLIVAN is a 38 year old who presents for New OB visit. OB Visit SHIRIN Calculator Estimated Delivery Date Method Current WG Current Estimate 01/03/25 LMP (Certain) 8w 1d Comments: HIV: Urine Culture: Sequential Screen: NIPT Screen: Estimated Due Date: 01/03/25 Specific Issue/Plans Covid status: [] Flu vaccine: [] Tdap vaccine: [] Rhogam: [] LARC form signed: [] Problem list reviewed and updated with the most current plan of care details and appropriate orders placed. Relevant counseling for the gestational age provided. Continue routine care and follow up unless otherwise noted in visit notes/problem list details Initial Weight: 200 lb Date -???-???-???-???-??? -???-???-???-???-??? -???-???- EGA Weight BP Urine Prot -???-???-???-???-??? -???-???-???-???-??? -???-???- Glucose FHR FuHt Pres Dilation -???-???-???-???-??? -???-???-???-???-??? (more content not included)... Normal [facility] Platelet countOrdered By: Heather Vick on 05-25-2024 Platelets (Bld) [#/Vol] 317 10*3/uL 150-450 [facility] RBC Auto (Bld) [#/Vol]Ordere d By: Carrie Vick on 05-25-2024 RBC (Bld) [#/Vol] 4.31 10*6/uL 4.2-5.4 [facility] Rubella IgGon 05-25-2024 Rubella IgG Reactive Normal Nonreactive [facility] Comment on above: Order Comment: Reaso n for Exam: Result Comment: Anti body Results Interpretation of Immune Status Non Reactive Presumed Non-Immune Equivocal Equivocal Reactive Presumed Immune Performed By: #### L 509.8000, L3890.6005, L100.0100, L3890.6300, BTS, L3890.6100, L509.4005, L501.9985 ####[facility] [address] [place], [place], [address] Rubella immune status IgGOrd ered By: Carrie Vick on 05-25-2024 Rubella IgG Antibody Reactive Nonreactive [facility] Comment on above: Antibody Results Int erpretation of Immune Status Non Reactive Presumed Non-Immune Equivocal Equivocal Reactive Presumed Immune Treponema sp Ab Ql (S)Ordere d By: Carrie Vick on 05-25-2024 Syphilis Total Antibody Non-Reactive [facility] Type AND Screenon 05-25-2024 Ab SCREEN GEL Negative Normal [facility] Comment on above: Order Comment: PN Performed By: #### L 509.8000, L3890.6005, L100.0100, L3890.6300, BTS, L3890.6100, L509.4005, L501.9901 #### [facility] [address] [place], [address] Urine cultureOrdered By: Delmis Vick on 05-25-2024 Bacteria identified Cx Nom (U) Culture exhibits no growth. [facility] White blood cell (WBC) count Ordered By: Carrie Vick on 05-25-2024 WBC (Bld) [#/Vol] 9.7 10*3/uL 4.4-11.0 [facility] Validation Leader Office Visit Reporton 04-04-2024 Validation Leader Office Visit Report [facility] [address], [address] [place] [address] OFFICE VISIT Date of Service: 04/04/24 MR#: [id number] Acct: [id number] Name: MANDY OSULLIVAN Rep #: [id number] : 1985 Provider: CAITY dhaliwal Age/Sex: 38/F Location: [facility] [place] Status: Signed Intake Vital Signs 03/10/23 09:42 04/04/24 12:57 04/04/24 13:01 Height 5 ft 5 in 5 ft 5 in 5 ft 5 in Weight: 200 lb BMI 33.3 BP 122/72 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 Complaint: Annual Harness Repairer Required: No Is patient in pain?: No Allergies No Known Allergies Allergy (Verified 04/04/24 12:57) Medications ???Medication ???Instructions ???Recorded ???Confirmed ???Type calcium fqoj-V2-gdyguuygu abraham 1 tab PO/SL DAILY 03/13/21 04/04/24 History vit with calcium-iron 1 tab PO DAILY 03/13/21 04/04/24 History fum-folic acid 60 mg iron-1 mg tablet Is last menstrual period known: Yes Last Menstrual Period: 03/29/24 Post menopausal: No Patient : No : No [facility] Medical History AMA (advanced maternal age) multigravida 35+ History of third degree perineal laceration History of shoulder dystocia in prior Eczema Family history of hearing loss at age younger than 7 years Surgical History History of surgery Social History Smoking Status: Never smoker alcohol intake: never substance use type: does not use caffeine: Yes what type of physical activity do you participate in: none seatbelt use: always do you feel safe at home: Yes additional social history: - Chidi History 4 Elective abortions 0 Hx Para 3 Spontaneous abortions 1 Hx # Term Pregnancies 3 Ectopic pregnancies 0 Hx # Pregnancies 0 Multiple births 0 # of living children 3 Past Pregnancies Del. Date Name GA/Weeks Outcome Route Bth Weight Infant Gen Labor Lgth Anesthesia Del Locatn Provider FOB Unknown 4 spontaneous 10/31/18 [place] 41 live - full term 9lb3oz Female 12 epidural [place] Be mariano Murillo 03/25/21 [place] 39 live - full term 8lbs 12oz Male epidural [facility] Dr. Ciera Murillo 01/18/23 Edith (pronounced say-la) 38 live - full term 10lbs 10oz Female spinal [facility] Rosalba Guajardokatherine Murillo Delivery Date: 10/31/18 Last Updated by: Ciera Wick MD 30s shoulder dystocia, 3rd degree perineal lac Delivery Date: 03/25/21 Last Updated by: Gris Garcia 3rd degree tear, OP/Brow presentation Delivery Date: 01/18/23 Last Updated by: Nyasia Mayo primary c/s. [facility] Encounter for routine gynecological examination Details: MANDY OSULLIVAN is a 38 year old who presents for annual exam. No contraception since October, wants . Last 2 months has had normal Q4 wk menses since no longer since October Last PAP: 2020 History of abnormal PAP: no Last mammogram: age 42 Other preventative health care screenings: Katherine Gutierrez NP Female Reproductive History Last Menstrual Period: 03/29/24 Cycle Length: 21-35 Bleeding Duration: 4 Questions: metorrhagia: No, sexually active: Yes, dyspareunia: No and PCB: No ROS Const Constitutional: Denies fatigue, weight gain or weight loss Cardio Card: Denies chest pain Resp Resp: Denies cough or dyspnea on exertion GI GI: Denies abdominal pain, bloating, change in stool character, constipation or vomiting : Reports as per HPI; Denies difficulty voiding, pelvic pain, urinary frequency, urinary incontinence, urinary urgency, vaginal discharge or vaginal pruritus Exam Const General: cooperative, healthy appearing, no acute distress and well developed Orientation: alert, oriented to person and oriented to place HENMO Head: normal to inspection Neck Neck: normal visual inspection Thyroid: thyroid normal Lymphatic: no lymphadenopathy noted Chest Breast inspection: normal inspection of the breasts and normal inspection of the axillae Breast palpation: normal palpation of the breasts, normal palpation of the axillae and no axillary lymphadenopathy Resp Effort Inspection: normal respiratory effort GI Palpation: soft, no masses and nontender Rectal Exam: deferred External Female Exam: normal external appearance and normal appearance of the urethra Urethra: normal appearance of the urethra and normal palpation Speculum Exam - Vagina: normal appearance of the vagina and normal vaginal discharge Speculum Exam - Cervix: normal appearance of the cervix Bimanual Exam- Vagina Uterus: normal bimanual exam, uterine size normal, uterine shape n (more content not included)... Normal [facility] hCG Titer Quant., Serumon HCG QUANT. < 1 Normal 1-3 [facility] Comment on above: Result Comment: hCG levels with Gestational Age Gestational Age hCG mIU/mL (IU/L) 0.2 - 1 week 5 - 50 1-2 weeks 50 - 500 2-3 weeks 100 - 5000 3-4 weeks 500 - 85787 4-5 weeks 1000 - 89962 5-6 weeks 99609 - 100,000 6-8 weeks 88362 - 200,000 2-3 months 26310 - 100,000 Performed By: #### L 700.8000 ####[facility] [address] [place], [address] CBC W/Diff, Automatedon 08- Absolute Lymph 2.13 X10 3/uL Normal 0.83-4.51 [facility] Comment on above: Performed By: #### L 100.0100 #### [facility] [address] [place], [address] Absolute Neut 5.0 X10 3/uL Normal 2.0-7.7 [facility] Comment on above: Performed By: #### L 100.0100 #### [facility] [address] [place], [address] Basophils/100 WBC (Bld) 0.7 % Normal 0-1 [facility] Comment on above: Performed By: #### L 100.0100 #### [facility] [address] [place], [address] Eosinophils/100 WBC (Bld) 3.2 % Normal 0-5 [facility] Comment on above: Performed By: #### L 100.0100 #### [facility] [address] [place] [place], [address] Erythrocyte distribution width (RBC) [Ratio] 13.9 % Normal 11.6-14.6 [facility] Comment on above: Performed By: #### L 100.0100 #### [facility] [address] [place], [address] Hematocrit (Bld) [Volume fraction] 37.0 % Normal 37-47 [facility] Comment on above: Performed By: #### L 100.0100 #### [facility] [address] [place], [address] Hemoglobin (Bld) [Mass/Vol] 11.8 g/dL Low 12.0-15.0 [facility] Comment on above: Performed By: #### L 100.0100 #### [facility] [address] [place], [address] IG% 0.400 Normal 0.0-0.9 [facility] Comment on above: Result Comment: IG% - Immature Granulocytes (promyelocytes, myelocytes and metamyelocytes) > 1% indicates that a LEFT SHIFT is Present. Performed By: #### L 100.0100 #### [facility] [address] [place], [address] Lymphocytes/100 WBC (Bld) 25.5 % Normal 19-41 [facility] Comment on above: Performed By: #### L 100.0100 #### [facility] [address] [place], [address] MCH (RBC) [Entitic mass] 28.6 pg Normal 27.0-32.0 [facility] Comment on above: Performed By: #### L 100.0100 #### [facility] [address] [place], [address] MCHC (RBC) [Mass/Vol] 31.9 g/dL Low 32-36 [facility] Comment on above: Performed By: #### L 100.0100 #### [facility] [address] [place], [address] MCV (RBC) [Entitic vol] 89.8 fL Normal 81-99 [facility] Comment on above: Performed By: #### L 100.0100 #### [facility] [address] [place], [address] Monocytes/100 WBC (Bld) 10.2 % High 0-10 [facility] Comment on above: Performed By: #### L 100.0100 #### [facility] [address] [place], [address] Neutrophils/100 WBC (Bld) 60.0 % Normal 47-70 [facility] Comment on above: Performed By: #### L 100.0100 #### [facility] [address] [place], [address] Nucleated RBC (Bld) [#/Vol] 0 10*3/uL Normal 0-5 [facility] Comment on above: Performed By: #### L 100.0100 #### [facility] [address] [place], [address] Platelet mean volume (Bld) [Entitic vol] 9.5 fL Normal 6.2-12.0 [facility] Comment on above: Performed By: #### L 100.0100 #### [facility] [address] [place], [address] Platelets (Bld) [#/Vol] 322 10*3/uL Normal 150-450 [facility] Comment on above: Performed By: #### L 100.0100 #### [facility] [address] [place], [address] RBC (Bld) [#/Vol] 4.12 10*6/uL Low 4.2-5.4 [facility] Comment on above: Performed By: #### L 100.0100 #### [facility] [address] [place], [address] RDW SD 45.1 fl High 35.1-43.9 [facility] Comment on above: Performed By: #### L 100.0100 #### [facility] [address] [place], [address] WBC (Bld) [#/Vol] 8.3 10*3/uL Normal 4.4-11.0 [facility] Comment on above: Performed By: #### L 100.0100 #### [facility] [address] [place], [address] hCG Titer Quant., Serumon HCG QUANT. 2 mIU/mL Normal 1-3 [facility] Comment on above: Result Comment: hCG levels with Gestational Age Gestational Age hCG mIU/mL (IU/L) 0.2 - 1 week 5 - 50 1-2 weeks 50 - 500 2-3 weeks 100 - 5000 3-4 weeks 500 - 02761 4-5 weeks 1000 - 61928 5-6 weeks 56183 - 100,000 6-8 weeks 98441 - 200,000 2-3 months 08632 - 100,000 Performed By: #### L 700.8000 #### [facility] [address] [place], [address] .Auto Diffon 12-21-2023 Basophil, Absolute 0.0 10 3/mcL Normal 0.0-0.2 [facility] ([place]) Comment on above: Performed By: #### To 12, FOL #### [place] [address] #### VIDH, CBC, FERR, ADIFF, FES, GFR, CMP, ANEU #### [address] [address] Basophils/100 WBC (Bld) 0.5 % Normal 0.0-2.5 [facility] ([place]) Comment on above: Performed By: #### To 12, FOL #### [place] [address] #### VIDH, CBC, FERR, ADIFF, FES, GFR, CMP, ANEU #### [address] [address] Eosinophil, Absolute 0.2 10 3/mcL Normal 0.0-0.4 [facility] ([place]) Comment on above: Performed By: #### To 12, FOL #### [place] [address] #### VIDH, CBC, FERR, ADIFF, FES, GFR, CMP, ANEU #### [address] [address] Eosinophils/100 WBC (Bld) 3.1 % Normal 0.0-7.0 [facility] ([place]) Comment on above: Performed By: #### To 12, FOL #### [place] [address] #### VIDH, CBC, FERR, ADIFF, FES, GFR, CMP, ANEU #### [address] [address] Lymphocyte, Absolute 2.0 10 3/mcL Normal 0.8-3.9 [facility] ([place] Comment on above: Performed By: #### B 12, FOL #### [place] [address] #### VIDH, CBC, FERR, ADIFF, FES, GFR, CMP, ANEU #### [address] [address] Lymphocytes/100 WBC (Bld) 28.2 % Normal 10.0-50.0 [facility] ([place]) Comment on above: Performed By: #### B 12, FOL #### [place] [address] #### VIDH, CBC, FERR, ADIFF, FES, GFR, CMP, ANEU #### [address] [address] Monocyte, Absolute 0.6 10 3/mcL Normal 0.2-1.0 [facility] ([place]) Comment on above: Performed By: #### B 12, FOL #### [place] [address] #### VIDH, CBC, FERR, ADIFF, FES, GFR, CMP, ANEU #### [address] [address] Monocytes/100 WBC (Bld) 8.5 % Normal 1.7-13.0 [facility] ([place]) Comment on above: Performed By: #### B 12, FOL #### [place] [address] #### VIDH, CBC, FERR, ADIFF, FES, GFR, CMP, ANEU #### [address] [address] Neutrophils/100 WBC (Bld) 59.7 % Normal 37.0-80.0 [facility] ([place] Comment on above: Performed By: #### B 12, FOL #### [place] [address] #### VIDH, CBC, FERR, ADIFF, FES, GFR, CMP, ANEU #### [address] [address] .GFRon 12-21-2023 GFR Non- 100 ml/min/1.73sqm Normal [facility] ([place]) Comment on above: Result Comment: GFR Population mean for , Non- Americans Ages 20-29 = 116 mL/min/1.73 sq.m. Ages 30-39 = 107 mL/min/1.73 sq.m. Ages 40-49 = 99 mL/min/1.73 sq.m. Ages 50-59 = 93 mL/min/1.73 sq.m. Ages 60-69 = 85 mL/min/1.73 sq.m. Ages 70+ = 75 mL/min/1.73 sq.m. Chronic Kidney Disease: Less than 60 mL/min/1.73 square meters End Stage Renal Disease: Less than 15 mL/min/1.73 square meters Performed By: #### B 12, FOL #### [place] [id number] #### VIDH, CBC, FERR, ADIFF, FES, GFR, CMP, ANEU #### [address] [address] GFR 121 ml/min/1.73sqm Normal [facility] ([place]) Comment on above: Result Comment: GFR Population mean for , Non- Americans Ages 20-29 = 116 mL/min/1.73 sq.m. Ages 30-39 = 107 mL/min/1.73 sq.m. Ages 40-49 = 99 mL/min/1.73 sq.m. Ages 50-59 = 93 mL/min/1.73 sq.m. Ages 60-69 = 85 mL/min/1.73 sq.m. Ages 70+ = 75 mL/min/1.73 sq.m. Chronic Kidney Disease: Less than 60 mL/min/1.73 square meters End Stage Renal Disease: Less than 15 mL/min/1.73 square meters Performed By: #### B 12, FOL #### [address] [address] #### VIDH, CBC, FERR, ADIFF, FES, GFR, CMP, ANEU #### [address] [address] .NEUABSon 12-21-2023 Neutrophil, Absolute 4.3 10 3/mcL Normal 2.9-6.2 [facility] ([place]) Comment on above: Performed By: #### B 12, FOL #### [place] [address] #### VIDH, CBC, FERR, ADIFF, FES, GFR, CMP, ANEU #### [address] [address] B12on 12-21-2023 Cobalamin (Vitamin B12) [Mass/Vol] 528 pg/mL Normal 211-911 [facility] ([place]) Comment on above: Performed By: #### B 12, FOL #### [place] [address] #### VIDH, CBC, FERR, ADIFF, FES, GFR, CMP, ANEU #### [address] [address] CBCon 12-21-2023 Erythrocyte distribution width (RBC) [Ratio] 13.5 % Normal 11.5-14.5 [facility] ([place]) Comment on above: Performed By: #### B 12, FOL #### [place] [address] #### VIDH, CBC, FERR, ADIFF, FES, GFR, CMP, ANEU #### [address] [address] Hematocrit (Bld) [Volume fraction] 37.7 % Normal 37.0-47.0 [facility] ([place]) Comment on above: Performed By: #### B 12, FOL #### [place] [address] #### VIDH, CBC, FERR, ADIFF, FES, GFR, CMP, ANEU #### [address] [address] Hgb 12.5 G/dL Normal 12.0-16.0 [facility] ([place] Comment on above: Performed By: #### B 12, FOL #### [place] [address] #### VIDH, CBC, FERR, ADIFF, FES, GFR, CMP, ANEU #### [address] [address] MCH (RBC) [Entitic mass] 29.3 pg Normal 27.0-31.2 [facility] ([place] Comment on above: Performed By: #### To 12, FOL #### [place] [address] #### VIDH, CBC, FERR, ADIFF, FES, GFR, CMP, ANEU #### [address] [address] MCHC 33.1 G/dL Normal 33.0-37.0 [facility] ([place] Comment on above: Performed By: #### To 12, FOL #### [place] [address] #### VIDH, CBC, FERR, ADIFF, FES, GFR, CMP, ANEU #### [address] [address] MCV (RBC) [Entitic vol] 88.7 fL Normal 80.0-94.0 [facility] ([place] Comment on above: Performed By: #### B 12, FOL #### [place] [address] #### VIDH, CBC, FERR, ADIFF, FES, GFR, CMP, ANEU #### [address] [address] Platelet 296 10 3/mcL Normal 130-400 [facility] ([place] Comment on above: Performed By: #### B 12, FOL #### [place] [address] #### VIDH, CBC, FERR, ADIFF, FES, GFR, CMP, ANEU #### [address] [address] Platelet mean volume (Bld) [Entitic vol] 8.1 fL Normal 7.4-10.4 [facility] ([place]) Comment on above: Performed By: #### B 12, FOL #### [place] [address] #### VIDH, CBC, FERR, ADIFF, FES, GFR, CMP, ANEU #### [address] [address] RBC 4.25 10 6/mcL Normal 4.20-5.40 [facility] ([place]) Comment on above: Performed By: #### B 12, FOL #### [place] [address] #### VIDH, CBC, FERR, ADIFF, FES, GFR, CMP, ANEU #### [address] [address] WBC 7.1 10 3/mcL Normal 4.6-10.8 [facility] ([place] Comment on above: Performed By: #### B 12, FOL #### [place] [address] #### VIDH, CBC, FERR, ADIFF, FES, GFR, CMP, ANEU #### [address] [address] CMPon 12-21-2023 Albumin Level 3.9 G/dL Normal 3.5-5.0 [facility] ([place]) Comment on above: Performed By: #### B 12, FOL #### [place] [address] #### VIDH, CBC, FERR, ADIFF, FES, GFR, CMP, ANEU #### [address] [address] Albumin/Globulin [Mass ratio] 1.1 {ratio} Normal 1.1-2.5 [facility] ([place]) Comment on above: Performed By: #### B 12, FOL #### [place] [address] #### VIDH, CBC, FERR, ADIFF, FES, GFR, CMP, ANEU #### [address] [address] ALP [Catalytic activity/Vol] 73 U/L Normal 40-135 [facility] ([place]) Comment on above: Performed By: #### To 12, FOL #### [place] [address] #### VIDH, CBC, FERR, ADIFF, FES, GFR, CMP, ANEU #### [address] [address] ALT [Catalytic activity/Vol] 31 U/L Normal 14-59 [facility] ([place] Comment on above: Performed By: #### To 12, FOL #### [place] [address] #### VIDH, CBC, FERR, ADIFF, FES, GFR, CMP, ANEU #### [address] [address] AST [Catalytic activity/Vol] 14 U/L Normal 10-40 [facility] ([place] Comment on above: Performed By: #### To 12, FOL #### [place] [address] #### VIDH, CBC, FERR, ADIFF, FES, GFR, CMP, ANEU #### [address] [address] Bili Total 0.2 mg/dL Normal 0.2-1.0 [facility] ([place]) Comment on above: Result Comment: Use of this assay is not recommended for patients undergoing treatment with eltrombopag due to the potential for falsely elevated results. Performed By: #### To 12, FOL #### [place] [address] #### VIDH, CBC, FERR, ADIFF, FES, GFR, CMP, ANEU #### [address] [address] BUN/Creatinine Ratio 24 ratio Normal 7-27 [facility] ([place]) Comment on above: Performed By: #### B 12, FOL #### [place] [address] #### VIDH, CBC, FERR, ADIFF, FES, GFR, CMP, ANEU #### [address] [address] Calcium [Mass/Vol] 9.1 mg/dL Normal 8.4-10.2 [facility] ([place]) Comment on above: Performed By: #### B 12, FOL #### [place] [address] #### VIDH, CBC, FERR, ADIFF, FES, GFR, CMP, ANEU #### [address] [address] Chloride [Moles/Vol] 102 mmol/L Normal 98-107 [facility] ([place]) Comment on above: Performed By: #### B 12, FOL #### [place] [address] #### VIDH, CBC, FERR, ADIFF, FES, GFR, CMP, ANEU #### [address] [address] CO2 [Moles/Vol] 26 mmol/L Normal 22-29 [facility] ([place] Comment on above: Performed By: #### B 12, FOL #### [place] [address] #### VIDH, CBC, FERR, ADIFF, FES, GFR, CMP, ANEU #### [address] [address] Creatinine [Mass/Vol] 0.67 mg/dL Normal 0.55-1.02 [facility] ([place] Comment on above: Performed By: #### B 12, FOL #### [place] [address] #### VIDH, CBC, FERR, ADIFF, FES, GFR, CMP, ANEU #### [address] [address] Electrolyte Balance 10.0 mEq/L Normal 4.0-15.0 [facility] ([place] Comment on above: Performed By: #### B 12, FOL #### [place] [address] #### VIDH, CBC, FERR, ADIFF, FES, GFR, CMP, ANEU #### [address] [address] Globulin 3.4 G/dL Normal [facility] ([place] Comment on above: Performed By: #### B 12, FOL #### [place] [address] #### VIDH, CBC, FERR, ADIFF, FES, GFR, CMP, ANEU #### [address] [address] Glucose [Mass/Vol] 89 mg/dL Normal 70-105 [facility] ([place] Comment on above: Performed By: #### B 12, FOL #### [place] [address] #### VIDH, CBC, FERR, ADIFF, FES, GFR, CMP, ANEU #### [address] [address] Potassium [Moles/Vol] 4.3 mmol/L Normal 3.5-5.1 [facility] ([place] Comment on above: Performed By: #### B 12, FOL #### [place] [address] #### VIDH, CBC, FERR, ADIFF, FES, GFR, CMP, ANEU #### [address] [address] Sodium [Moles/Vol] 138 mmol/L Normal 136-145 [facility] ([place] Comment on above: Performed By: #### B 12, FOL #### [place] [address] #### VIDH, CBC, FERR, ADIFF, FES, GFR, CMP, ANEU #### [address] [address] Total Protein 7.3 G/dL Normal 6.4-8.2 [facility] ([place] Comment on above: Performed By: #### B 12, FOL #### [place] [address] #### VIDH, CBC, FERR, ADIFF, FES, GFR, CMP, ANEU #### [address] [address] Urea nitrogen [Mass/Vol] 16 mg/dL Normal 7-18 [facility] ([place] Comment on above: Performed By: #### B 12, FOL #### [place] [address] #### VIDH, CBC, FERR, ADIFF, FES, GFR, CMP, ANEU #### [place] [address] Justin 12-21-2023 Ferritin [Mass/Vol] 54.0 ng/mL Normal 8.0-252.0 [facility] ([place] Comment on above: Performed By: #### B 12, FOL #### [place] [address] #### VIDH, CBC, FERR, ADIFF, FES, GFR, CMP, ANEU #### [place] [address] FESon 12-21-2023 Iron [Mass/Vol] 36 ug/dL Low 50-170 [facility] ([place]) Comment on above: Performed By: #### To 12, FOL #### [place] [address] #### VIDH, CBC, FERR, ADIFF, FES, GFR, CMP, ANEU #### [place] [address] Iron Sat 12 % Normal [facility] ([place] Comment on above: Performed By: #### B 12, FOL #### [place] [address] #### VIDH, CBC, FERR, ADIFF, FES, GFR, CMP, ANEU #### [place] [address] TIBC 305 mcg/dL Normal 250-450 [facility] ([place] Comment on above: Performed By: #### B 12, FOL #### [place] [address] #### VIDH, CBC, FERR, ADIFF, FES, GFR, CMP, ANEU #### [place] [address] FOLon 12-21-2023 Folate 29.46 ng/mL High 5.38-24.00 [facility] ([place]) Comment on above: Performed By: #### B 12, FOL #### [facility] [address] [place] [address] #### VIDH, CBC, FERR, ADIFF, FES, GFR, CMP, ANEU #### [facility] [address] [place], [place] [address] LABORATORYOrdered By: SYSTEM SYSTEM on 12-21-2023 25-hydroxyvitamin D3 [Mass/Vol] 29.7 ng/mL Invalid Interpretation Code AO ADM SS Comment on above: Interpretive Data: I nterpretive Values Based on Total 25(OH) Vitamin D: Deficient <20 ng/mL Insufficient 20 - <30 ng/mL Sufficient 30-100 ng/mL Albumin BCP dye [Mass/Vol] 3.9 G/dL Normal 3.5 - 5.0 G/dL AO ADM SS Albumin/Globulin [Mass ratio] 1.1 {ratio} Normal 1.1 - 2.5 ratio AO ADM SS ALP [Catalytic activity/Vol] 73 U/L Normal 40 - 135 U/L AO ADM SS ALT With P-5'-P [Catalytic activity/Vol] 31 U/L Normal 14 - 59 U/L AO ADM SS AST With P-5'-P [Catalytic activity/Vol] 14 U/L Normal 10 - 40 U/L AO ADM SS Basophil, Absolute 0.0 103/mcL Normal 0.0 - 0.2 10^3/mcL AO Workflow SS Basophils/100 WBC (Bld) 0.5 % Normal 0.0 - 2.5 % AO Workflow SS Bilirubin [Mass/Vol] 0.2 mg/dL Normal 0.2 - 1 .0 mg/dL AO ADM SS Comment on above: Interpretive Data: U se of this assay is not recommended for patients undergoing treatment with eltrombopag due to the potential for falsely elevated results. Calcium [Mass/Vol] 9.1 mg/dL Normal 8.4 - 10. 2 mg/dL AO ADM SS Chloride [Moles/Vol] 102 mmol/L Normal 98 - 10 7 mmol/L AO ADM SS CO2 [Moles/Vol] 26 mmol/L Normal 22 - 29 mmol/L AO ADM SS Cobalamin (Vitamin B12) [Mass/Vol] 528 pg/mL Normal 211 - 911 pg/mL AH ADM SS Creatinine [Mass/Vol] 0.67 mg/dL Normal 0.55 - 1.02 mg/dL AO ADM SS Electrolyte Balance 10.0 mEq/L Normal 4.0 - 15 .0 mEq/L AO ADM SS Eosinophil, Absolute 0.2 103/mcL Normal 0.0 - 0 .4 10^3/mcL AO Workflow SS Eosinophils/100 WBC (Bld) 3.1 % Normal 0.0 - 7.0 % AO Workflow SS Erythrocyte distribution width (RBC) [Ratio] 13.5 % Normal 11.5 - 14.5 % AO Workflow SS Ferritin [Mass/Vol] 54.0 ng/mL Normal 8.0 - 25 2.0 ng/mL AO ADM SS Folate [Mass/Vol] 29.46 ng/mL High 5.38 - 24. 00 ng/mL AH ADM SS GFR/1.73 sq M.predicted among blacks MDRD (S/P/Bld) [Vol rate/Area] 121 ml/min/1.73sqm Invalid Interpretation Code AO Chemistry S Comment on above: Interpretive Data: GFR Population mean for , Non- Americans Ages 20-29 = 116 mL/min/1.73 sq.m. Ages 30-39 = 107 mL/min/1.73 sq.m. Ages 40-49 = 99 mL/min/1.73 sq.m. Ages 50-59 = 93 mL/min/1.73 sq.m. Ages 60-69 = 85 mL/min/1.73 sq.m. Ages 70+ = 75 mL/min/1.73 sq.m. Chronic Kidney Disease: Less than 60 mL/min/1.73 square meters End Stage Renal Disease: Less than 15 mL/min/1.73 square meters GFR/1.73 sq M.predicted among non-blacks MDRD (S/P/Bld) [Vol rate/Area] 100 ml/min/1.73sqm Invalid Interpretation Code AO Chemistry S Comment on above: Interpretive Data: GFR Population mean for , Non- Americans Ages 20-29 = 116 mL/min/1.73 sq.m. Ages 30-39 = 107 mL/min/1.73 sq.m. Ages 40-49 = 99 mL/min/1.73 sq.m. Ages 50-59 = 93 mL/min/1.73 sq.m. Ages 60-69 = 85 mL/min/1.73 sq.m. Ages 70+ = 75 mL/min/1.73 sq.m. Chronic Kidney Disease: Less than 60 mL/min/1.73 square meters End Stage Renal Disease: Less than 15 mL/min/1.73 square meters Globulin 3.4 G/dL Invalid Interpretation Code AO ADM SS Glucose [Mass/Vol] 89 mg/dL Normal 70 - 105 mg/dL AO ADM SS Hematocrit (Bld) [Volume fraction] 37.7 % Normal 37.0 - 47.0 % AO Workflow SS Hemoglobin (Bld) [Mass/Vol] 12.5 G/dL Normal 12.0 - 16.0 G/dL AO Workflow SS Iron [Mass/Vol] 36 ug/dL Low 50 - 170 mcg/dL AO ADM SS Iron binding capacity [Mass/Vol] 305 mcg/dL Normal 250 - 450 mcg/dL AO ADM SS Iron Sat 12 % Invalid Interpretation Code AO ADM SS Lymphocyte, Absolute 2.0 103/mcL Normal 0.8 - 3 .9 10^3/mcL AO Workflow SS Lymphocytes/100 WBC (Bld) 28.2 % Normal 10.0 - 50.0 % AO Workflow SS MCH (RBC) [Entitic mass] 29.3 pg Normal 27.0 - 31.2 pg AO Workflow SS MCHC 33.1 G/dL Normal 33.0 - 37.0 G/dL AO Workflow SS MCV (RBC) [Entitic vol] 88.7 fL Normal 80.0 - 94.0 fL AO Workflow SS Monocyte, Absolute 0.6 103/mcL Normal 0.2 - 1.0 10^3/mcL AO Workflow SS Monocytes/100 WBC (Bld) 8.5 % Normal 1.7 - 13.0 % AO Workflow SS Neutrophil, Absolute 4.3 103/mcL Normal 2.9 - 6 .2 10^3/mcL AO Workflow SS Neutrophils/100 WBC (Bld) 59.7 % Normal 37.0 - 80.0 % AO Workflow SS Platelet mean volume (Bld) [Entitic vol] 8.1 fL Normal 7.4 - 10.4 fL AO Workflow SS Platelets (Bld) [#/Vol] 296 103/mcL Normal 130 - 400 10^3/mcL AO Workflow SS Potassium [Moles/Vol] 4.3 mmol/L Normal 3.5 - 5.1 mmol/L AO ADM SS Protein [Mass/Vol] 7.3 G/dL Normal 6.4 - 8.2 G/dL AO ADM SS RBC (Bld) [#/Vol] 4.25 106/mcL Normal 4.20 - 5.4 0 10^6/mcL AO Workflow SS Sodium [Moles/Vol] 138 mmol/L Normal 136 - 145 mmol/L AO ADM SS Urea nitrogen [Mass/Vol] 16 mg/dL Normal 7 - 18 mg/dL AO ADM SS Urea nitrogen/Creatinine [Mass ratio] 24 ratio Normal 7 - 27 ratio AO ADM SS WBC (Bld) [#/Vol] 7.1 103/mcL Normal 4.6 - 10.8 10^3/mcL AO Workflow SS VIDHon 12-21-2023 Vit. D 25-Hydroxy 29.7 ng/mL Normal [facility] ([place]) Comment on above: Result Comment: Inte rpretive Values Based on Total 25(OH) Vitamin D: Deficient <20 ng/mL Insufficient 20 - <30 ng/mL Sufficient 30-100 ng/mL Performed By: #### B 12, FOL #### [place] [address] #### VIDH, CBC, FERR, ADIFF, FES, GFR, CMP, ANEU #### [place] [address] US AXILLA BREAST RIGHTon US AXILLA BREAST RIGHT ORIGINAL FROM: [address] [address] PROCEDURE FOR: MANDY OSULLIVAN [address] [place] [address] Home: PID#: [id number] Exam#: [id number] : 1985 Age: 37 TO: REEMA GUTIERREZ APRN [address] [address] Fax: NO FAX EXAMINATION: ULTRASOUND OF THE RIGHT AXILLA 06/16/2023 12:44 pm TECHNIQUE: Color flow and real-time targeted ultrasound of the right axilla were performed. COMPARISON: None. HISTORY: ORDERING SYSTEM PROVIDED HISTORY: Reason for Exam: right anterior axillary soft tissue mass, probably lipoma. FINDINGS: The patient delivered a baby in January 2023 in has been breast feeding since that time. In the area of patient palpable concern in the right axilla, there is a focal area of unencapsulated fat measuring 6.7 cm in greatest dimension. IMPRESSION: Focal area of encapsulated fat correlating with the area of patient palpable concern in the right axilla. Given that the patient does have a palpable area of concern, further evaluation with bilateral diagnostic mammogram is recommended; the patient would need to breast feed or pump just before the mammographic exam. BIRADS: MAMMOGRAM BI-RADS: 0: Needs addl evaluation RECALL: immediate RECALL TYPE: mammo LETTER SENT: Normal-Needs additional work up BI-RADS 0 Interpreted by: Milla Sloan Preliminary Report By: Milla Sloan Electronically signed By Milla Sloan Dictated Date: 06/16/2023 1:24:29 PM Prelim Date: 06/16/2023 1:26:22 PM Sign Date: 06/16/2023 1:26:22 PM Ordering Provider: REEMA GUTIERREZ CLINICAL: PALPABLE LUMP RIGHT AXILLA. Sandblaster Glass: RENATO JUAREZ RT(R) RDMS letter sent: Normal-Needs additional work up BI-RADS 0 Ultrasound BI-RADS: 0 Indeterminate Normal [facility] ([place]) Laboratory - Chemistry and C hemistry - challengeon 12-29-2022 Glucose Ql (U) Negative [facility] - Urinalysison Protein Ql (U) Negative [facility] No Panel InformationOrdered By: Maggie Holloway on 12-29-2022 Group B Streptococcus Culture Group B Beta Streptococcus is not isolated. [facility] Absolute lymphocyte countOrd ered By: Mindy Romero on 12-17-2022 Lymphocytes Auto (Unsp spec) [#/Vol] 1.37 10*3/uL 0.83-4.51 [facility] Basophil percentageOrdered B y: Mindy Romero on 12-17-2022 Basophils/100 WBC (Bld) 0.3 % 0-1 [facility] Eosinophils/100 WBC (Bld) 0.9 % 0-5 [facility] Neutrophils (Bld) [#/Vol] 7.6 10*3/uL 2.0-7.7 [facility] Neutrophils/100 WBC (Bld) 75.5 % 47-70 [facility] WBC (Bld) [#/Vol] 10.1 10*3/uL 4.4-11.0 [facility] Blood erythrocytes count (nu mber/volume)Ordered By: Mindy Romero on 12-17-2022 RBC (Bld) [#/Vol] 3.64 10*6/uL 4.2-5.4 [facility] Blood hemoglobin measurement (mass/volume)Ordered By: Mindy Romero on 12-17-2022 Hemoglobin (Bld) [Mass/Vol] 10.3 g/dL 12.0-15.0 [facility] Blood lymphocytes/100 leukoc ytesOrdered By: Mindy Romero on 12-17-2022 Lymphocytes/100 WBC (Bld) 13.6 % 19-41 [facility] Blood monocytes/100 leukocyt esOrdered By: Mindy Romero on 12-17-2022 Monocytes/100 WBC (Bld) 9.0 % 0-10 [facility] Blood platelet mean volumeOr dered By: Mindy Romero on 12-17-2022 Platelet mean volume (Bld) [Entitic vol] 10.0 fL 6.2-12.0 [facility] Determination of erythrocyte mean corpuscular volume (MCV)Ordered By: Mindy Romero on 12-17-2022 MCV (RBC) [Entitic vol] 88.7 fL 81-99 [facility] Hematocrit Auto (Bld) [Volum e fraction]Ordered By: Mindy Romero on 12-17-2022 Hematocrit (Bld) [Volume fraction] 32.3 % 37-47 [facility] - Chemistry and C hemistry - challengeon 12-17-2022 Glucose Ql (U) Negative [facility] - Hematology and Cell countsOrdered By: Mindy Romero on 12-17-2022 Erythrocyte distribution width (RBC) [Entitic vol] 49.1 fL 35.1-43.9 [facility] Erythrocyte distribution width (RBC) [Ratio] 15.0 % 11.6-14.6 [facility] Immature granulocytes/100 WBC (Bld) 0.700 % 0.0-0.9 [facility] Comment on above: IG% - Immature Granu locytes (promyelocytes, myelocytes and metamyelocytes) > 1% indicates that a LEFT SHIFT is Present. MCH (RBC) [Entitic mass] 28.3 pg 27.0-32.0 [facility] Nucleated RBC/100 WBC (Bld) [Ratio] 0 % 0-5 [facility] - Urinalysison Protein Ql (U) Negative [facility] MCHC Auto (RBC) [Mass/Vol]Or dered By: Mindy Romero on 12-17-2022 MCHC (RBC) [Mass/Vol] 31.9 g/dL 32-36 [facility] Platelets bldOrdered By: Han Romero on 12-17-2022 Platelets (Bld) [#/Vol] 269 10*3/uL 150-450 [facility] - Chemistry and C hemistry - challengeon 11-17-2022 Glucose Ql (U) Negative [facility] - Urinalysison Protein Ql (U) Negative [facility] Absolute lymphocyte countOrd ered By: Rosalba Tam on 11-03-2022 Lymphocytes Auto (Unsp spec) [#/Vol] 1.01 10*3/uL 0.83-4.51 [facility] Basophil percentageOrdered B y: Rosalba Tam on 11-03-2022 Basophils/100 WBC (Bld) 0.1 % 0-1 [facility] Eosinophils/100 WBC (Bld) 0.9 % 0-5 [facility] Neutrophils (Bld) [#/Vol] 5.1 10*3/uL 2.0-7.7 [facility] Neutrophils/100 WBC (Bld) 73.4 % 47-70 [facility] WBC (Bld) [#/Vol] 6.9 10*3/uL 4.4-11.0 [facility] Blood erythrocytes count (nu mber/volume)Ordered By: Rosalba Tam on 11-03-2022 RBC (Bld) [#/Vol] 3.60 10*6/uL 4.2-5.4 [facility] Blood hemoglobin measurement (mass/volume)Ordered By: Rosalba Tam on 11-03-2022 Hemoglobin (Bld) [Mass/Vol] 10.3 g/dL 12.0-15.0 [facility] Blood lymphocytes/100 leukoc ytesOrdered By: Rosalba Tam on 11-03-2022 Lymphocytes/100 WBC (Bld) 14.6 % 19-41 [facility] Blood monocytes/100 leukocyt esOrdered By: Rosalba Tam on 11-03-2022 Monocytes/100 WBC (Bld) 10.7 % 0-10 [facility] Blood platelet mean volumeOr dered By: Rosalba Tam on 11-03-2022 Platelet mean volume (Bld) [Entitic vol] 9.7 fL 6.2-12.0 [facility] Determination of erythrocyte mean corpuscular volume (MCV)Ordered By: Rosalba Tam on 11-03-2022 MCV (RBC) [Entitic vol] 89.4 fL 81-99 [facility] Gestational diabetes screen 1-hour screen with 50g oral glucose loadOrdered By: Rosalba Tam on 11-03-2022 Glucose 1 Hr post 50 g glucose PO [Mass/Vol] 102 mg/dL 70-140 [facility] HIV 1 and HIV-2 antibody ass ay with HIV-1 p24 antigen detectionOrdered By: Rosalba Tam on 11-03-2022 HIV 1+2 Ab+HIV1 p24 Ag IA Ql Non-Reactive Nonreactive [facility] Hematocrit Auto (Bld) [Volum e fraction]Ordered By: Rosalba Tam on 11-03-2022 Hematocrit (Bld) [Volume fraction] 32.2 % 37-47 [facility] - Hematology and Cell countsOrdered By: Rosalba Tam on 11-03-2022 Erythrocyte distribution width (RBC) [Entitic vol] 43.0 fL 35.1-43.9 [facility] Erythrocyte distribution width (RBC) [Ratio] 13.2 % 11.6-14.6 [facility] Immature granulocytes/100 WBC (Bld) 0.300 % 0.0-0.9 [facility] Comment on above: IG% - Immature Granu locytes (promyelocytes, myelocytes and metamyelocytes) > 1% indicates that a LEFT SHIFT is Present. MCH (RBC) [Entitic mass] 28.6 pg 27.0-32.0 [facility] Nucleated RBC/100 WBC (Bld) [Ratio] 0 % 0-5 [facility] MCHC Auto (RBC) [Mass/Vol]Or dered By: Rosalba Tam on 11-03-2022 MCHC (RBC) [Mass/Vol] 32.0 g/dL 32-36 [facility] Platelets bldOrdered By: Trang Tam on 11-03-2022 Platelets (Bld) [#/Vol] 264 10*3/uL 150-450 [facility] Serum Treponema species anti body detectionOrdered By: Rosalba Tam on 11-03-2022 Treponema sp Ab Ql (S) Non-Reactive [facility] Laboratory - Chemistry and C hemistry - challengeon 10-06-2022 Glucose Ql (U) Negative [facility] - Urinalysison Protein Ql (U) Negative [facility] Absolute lymphocyte counton 06-16-2022 Lymphocytes Auto (Unsp spec) [#/Vol] 1.40 10*3/uL 0.83-4.51 [facility] Work Phone: Basophil percentageon 2021 Basophils/100 WBC (Bld) 0.4 % 0-1 [facility] Work Phone: Eosinophils/100 WBC (Bld) 0.6 % 0-5 [facility] Work Phone: Neutrophils (Bld) [#/Vol] 8.8 10*3/uL 2.0-7.7 [facility] Work Phone: Neutrophils/100 WBC (Bld) 79.5 % 47-70 [facility] Work Phone: WBC (Bld) [#/Vol] 11.1 10*3/uL 4.4-11.0 [facility] Work Phone: Blood erythrocytes count (nu mber/volume)on 06-16-2022 RBC (Bld) [#/Vol] 4.53 10*6/uL 4.2-5.4 [facility] Work Phone: Blood hemoglobin measurement (mass/volume)on 06-16-2022 Hemoglobin (Bld) [Mass/Vol] 13.1 g/dL 12.0-15.0 [facility] Work Phone: [phone] Blood lymphocytes/100 leukoc yteson 06-16-2022 Lymphocytes/100 WBC (Bld) 12.6 % 19-41 [facility] Work Phone: [phone] Blood monocytes/100 leukocyt eson 06-16-2022 Monocytes/100 WBC (Bld) 6.6 % 0-10 [facility] Work Phone: Blood platelet mean volumeon 06-16-2022 Platelet mean volume (Bld) [Entitic vol] 9.9 fL 6.2-12.0 [facility] Work Phone: Chlamydia trachomatis rRNA d etection by probe and target amplification methodon 06-16-2022 C. trachomatis rRNA DAWIT+probe Ql (Unsp spec) Negative Negative [facility] Work Phone: Determination of erythrocyte mean corpuscular volume (MCV)on 06-16-2022 MCV (RBC) [Entitic vol] 87.4 fL 81-99 [facility] Work Phone: HIV 1 and HIV-2 antibody ass ay with HIV-1 p24 antigen detectionon 06-16-2022 HIV 1+2 Ab+HIV1 p24 Ag IA Ql Non-Reactive Nonreactive [facility] Work Phone: Hematocrit Auto (Bld) [Volum e fraction]on 06-16-2022 Hematocrit (Bld) [Volume fraction] 39.6 % 37-47 [facility] Work Phone: Laboratory - Hematology and Cell countson 12-28-2022 Erythrocyte distribution width (RBC) [Entitic vol] 40.5 fL 35.1-43.9 [facility] Work Phone: [phone] Erythrocyte distribution width (RBC) [Ratio] 12.7 % 11.6-14.6 [facility] Work Phone: [phone] Immature granulocytes/100 WBC (Bld) 0.300 % 0.0-0.9 [facility] Work Phone: [phone] Comment on above: IG% - Immature Granu locytes (promyelocytes, myelocytes and metamyelocytes) > 1% indicates that a LEFT SHIFT is Present. MCH (RBC) [Entitic mass] 28.9 pg 27.0-32.0 [facility] Work Phone: [phone] Nucleated RBC/100 WBC (Bld) [Ratio] 0 % 0-5 [facility] Work Phone: [phone] Laboratory - Microbiology an d Antimicrobial susceptibilityon 06-16-2022 N. gonorrhoeae DNA DAWIT+probe Ql (Unsp spec) Negative Negative [facility] Work Phone: [phone] Comment on above: Performed at: =G - L [address] [id number] Director: Dory Bella MD, Phone: [phone] MCHC Auto (RBC) [Mass/Vol]on 06-16-2022 MCHC (RBC) [Mass/Vol] 33.1 g/dL 32-36 [facility] Work Phone: [phone] No Panel Informationon 06-16 Hepatitis B Surface Antigen Non-Reactive Nonreactive [facility] Work Phone: [phone] Hepatitis C Antibody Non-Reactive Nonreactive [facility] Work Phone: [phone] Comment on above: Non Reactive: < 0.8 Equivocal: >/= 0.8 to < 1.0 Reactive: >/= 1.0The CDC recommends that a reactive/equivocal HCV antibody result be followed up by the HCV Nucleic Acid Amplificationtest (662401) Rubella IgG Antibody Reactive Nonreactive [facility] Work Phone: [phone] Comment on above: Antibody Results Int erpretation of Immune Status Non Reactive Presumed Non-Immune Equivocal Equivocal Reactive Presumed Immune Platelets bldon 06-16-2022 Platelets (Bld) [#/Vol] 345 10*3/uL 150-450 [facility] Work Phone: Serum Treponema species anti body detectionon 06-16-2022 Treponema sp Ab Ql (S) Non-Reactive [facility] Work Phone: Serum Varicella zoster virus IgG antibody assay by immunoassay (units/volume)on 06-16-2022 VZV IgG IA Qn (S) 1649 index Immune >165 [facility] Work Phone: Comment on above: Negative <135 Equivo opal 135 - 165 Positive >165A positive result generally indicates exposure to thepathogen or administration of specific immunoglobulins,but it is not indication of active infection or stageof disease.Performed at: [place] [id number] Director: Devaughn Bryant PhD, Phone: [phone] CEFTRIAXONE:SUSC:PT:ISOLATE: ORDQN:MICon 05-11-2022 cefTRIAXone JOIE [Susc] 10,000 - 50,000 cfu/ml Escherichia coli [facility] Work Phone: cefTRIAXone JOIE [Susc]on Escherichia coli Escherichia coli [facility] Work Phone: Culture, urine Bacteria identified Cx Nom (U) Positive [facility] Work Phone: Vital Signs Date Time Vital Sign Value Performing Clinician Faci martinezy 11-19-2024 10:35-0400 Body height 165.1 cm Reema MCMANUSC Work Phone: [facility] 11-19-2024 10:35-0400 Body mass index (BMI) [Ratio] 38.7 kg/m2 Reema Gutierrez NP-C Work Phone: [facility] 11-19-2024 10:35-0400 Body weight 105.68 kg Reema Gutierrez NP-C Work Phone: [facility] 11-19-2024 10:35-0400 Diastolic blood pressure 64 mm[Hg] Reema Delacruzer CUSTODIAL WORKER-C Work Phone: [facility] 11-19-2024 10:35-0400 Systolic blood pressure 111 mm[Hg] Reema Delacruzer CUSTODIAL WORKER-C Work Phone: [facility] 11-07-2024 14:09-0400 Body height 165.1 cm Reema Delacruzer CUSTODIAL WORKER-C Work Phone: [facility] 11-07-2024 14:09-0400 Body mass index (BMI) [Ratio] 38.5 kg/m2 Reema Delacruzer CUSTODIAL WORKER-C Work Phone: [facility] 11-07-2024 14:09-0400 Body weight 104.83 kg Reema Delacruzer CUSTODIAL WORKER-C Work Phone: [facility] 11-07-2024 14:09-0400 Diastolic blood pressure 78 mm[Hg] Reema Delacruzer CUSTODIAL WORKER-C Work Phone: [facility] 11-07-2024 14:09-0400 Systolic blood pressure 125 mm[Hg] Reema Delacruzer CUSTODIAL WORKER-C Work Phone: [facility] 10-24-2024 11:01-0400 Body height 165.1 cm Reema Gutierrez CUSTODIAL WORKER-C Work Phone: [facility] 10-24-2024 11:01-0400 Body mass index (BMI) [Ratio] 37.1 kg/m2 Reema Delacruzer CUSTODIAL WORKER-C Work Phone: [facility] 10-24-2024 11:0400 Body weight 101.32 kg Reema Delacruzer CUSTODIAL WORKER-C Work Phone: [facility] 10-24-2024 11:01-0400 Diastolic blood pressure 65 mm[Hg] Reema Delacruzer CUSTODIAL WORKER-C Work Phone: [facility] 10-24-2024 11:01-0400 Systolic blood pressure 111 mm[Hg] Reema Delacruzer CUSTODIAL WORKER-C Work Phone: [facility] 10-12-2024 12:58-0400 Body mass index (BMI) [Ratio] 37.1 kg/m2 Reema Matt CUSTODIAL WORKER-C Work Phone: [facility] 10-12-2024 12:58-0400 Body weight 101.32 kg Reema Delacruzer CUSTODIAL WORKER-C Work Phone: [facility] 10-12-2024 12:58-0400 Diastolic blood pressure 67 mm[Hg] Reema Matt CUSTODIAL WORKER-C Work Phone: [facility] 10-12-2024 12:58-0400 Systolic blood pressure 108 mm[Hg] Reema Matt CUSTODIAL WORKER-C Work Phone: [facility] 09-27-2024 09:26-0400 Body height 165.1 cm Reemakasey Delacruzer CUSTODIAL WORKER-C Work Phone: [facility] 09-27-2024 09:26-0400 Body mass index (BMI) [Ratio] 37 kg/m2 Reema Matt CUSTODIAL WORKER-C Work Phone: [facility] 09-27-2024 09:26-0400 Body weight 100.86 kg Reema Matt CUSTODIAL WORKER-C Work Phone: [facility] 09-27-2024 09:26-0400 Diastolic blood pressure 69 mm[Hg] Reema Matt CUSTODIAL WORKER-C Work Phone: [facility] 09-27-2024 09:26-0400 Systolic blood pressure 122 mm[Hg] Reema Matt CUSTODIAL WORKER-C Work Phone: [facility] 08-24-2024 10:38-0500 Body height 165.1 cm Reema Delacruzer CUSTODIAL WORKER-C Work Phone: [facility] 08-24-2024 10:38-0500 Body mass index (BMI) [Ratio] 35.4 kg/m2 Reema Gutierrez CUSTODIAL WORKER-C Work Phone: [facility] 08-24-2024 10:38-0500 Body weight 96.67 kg Reemakasey Delacruzer CUSTODIAL WORKER-C Work Phone: [facility] 08-24-2024 10:38-0500 Diastolic blood pressure 72 mm[Hg] Reema Delacruzer CUSTODIAL WORKER-C Work Phone: [facility] 08-24-2024 10:38-0500 Systolic blood pressure 109 mm[Hg] Reema Matt CUSTODIAL WORKER-C Work Phone: [facility] 07-25-2024 15:14-0500 Body mass index (BMI) [Ratio] 34.8 kg/m2 Reemakasey Delacruzer CUSTODIAL WORKER-C Work Phone: [facility] 07-25-2024 15:14-0500 Body weight 94.97 kg Reema Gutierrez CUSTODIAL WORKER-C Work Phone: [facility] 07-25-2024 15:14-0500 Diastolic blood pressure 74 mm[Hg] Reema Delacruzer CUSTODIAL WORKER-C Work Phone: [facility] 07-25-2024 15:14-0500 Systolic blood pressure 114 mm[Hg] Reema Delacruzer CUSTODIAL WORKER-C Work Phone: [facility] 06-27-2024 13:47-0500 Body mass index (BMI) [Ratio] 34 kg/m2 Reema Delacruzer CUSTODIAL WORKER-C Work Phone: [facility] 06-27-2024 13:47-0500 Body weight 92.64 kg Reema Gutierrez CUSTODIAL WORKER-C Work Phone: [facility] 06-27-2024 13:47-0500 Diastolic blood pressure 75 mm[Hg] Reema Delacruzer CUSTODIAL WORKER-C Work Phone: [facility] 06-27-2024 13:47-0500 Systolic blood pressure 114 mm[Hg] Reema Gutierrez CUSTODIAL WORKER-C Work Phone: [facility] 05-25-2024 12:55-0500 Body mass index (BMI) [Ratio] 33.3 kg/m2 Reema Gutierrez CUSTODIAL WORKER-C Work Phone: [facility] 05-25-2024 12:55-0500 Body weight 90.88 kg Reema Gutierrez CUSTODIAL WORKER-C Work Phone: [facility] 05-25-2024 12:55-0500 Diastolic blood pressure 78 mm[Hg] Reema Gutierrez CUSTODIAL WORKER-C Work Phone: [facility] 05-25-2024 12:55-0500 Systolic blood pressure 135 mm[Hg] Reema Gutierrez CUSTODIAL WORKER-C Work Phone: [facility] 12-29-2022 10:56-0400 Body height 165.1 cm CUSTODIAL WORKER-C Erika ffens CUSTODIAL WORKER Work Phone: [facility] 12-29-2022 10:55-0400 Body mass index (BMI) [Ratio] 35.2 kg/m2 CUSTODIAL WORKER-C Erika Seffens CUSTODIAL WORKER Work Phone: [facility] 12-29-2022 10:55-0400 Body weight 95.82 kg CUSTODIAL WORKER-C Erika Seffens CUSTODIAL WORKER Work Phone: [facility] 12-29-2022 10:55-0400 Diastolic blood pressure 66 mm[Hg] CUSTODIAL WORKER-C Erika Seffens CUSTODIAL WORKER Work Phone: [facility] 12-29-2022 10:55-0400 Systolic blood pressure 104 mm[Hg] CUSTODIAL WORKER-C Erika Seffens CUSTODIAL WORKER Work Phone: [facility] 12-17-2022 13:26-0400 Body mass index (BMI) [Ratio] 34.9 kg/m2 CUSTODIAL WORKER-C Erika Seffens CUSTODIAL WORKER Work Phone: [facility] 12-17-2022 13:26-0400 Body weight 95.25 kg CUSTODIAL WORKER-C Erika Seffens CUSTODIAL WORKER Work Phone: [facility] 12-17-2022 13:26-0400 Diastolic blood pressure 65 mm[Hg] CUSTODIAL WORKER-C Erika Seffens CUSTODIAL WORKER Work Phone: [facility] 12-17-2022 13:26-0400 Systolic blood pressure 102 mm[Hg] CUSTODIAL WORKER-C Erika Seffens CUSTODIAL WORKER Work Phone: [facility] 11-29-2022 13:43-0400 Body mass index (BMI) [Ratio] 33.6 kg/m2 CUSTODIAL WORKER-C Erika Seffens CUSTODIAL WORKER Work Phone: [facility] 11-29-2022 13:43-0400 Body weight 91.79 kg CUSTODIAL WORKER-C Erika Seffens CUSTODIAL WORKER Work Phone: [facility] 11-29-2022 13:43-0400 Diastolic blood pressure 68 mm[Hg] CUSTODIAL WORKER-C Erika Seffens CUSTODIAL WORKER Work Phone: [facility] 11-29-2022 13:43-0400 Systolic blood pressure 120 mm[Hg] CUSTODIAL WORKER-C Erika Seffens CUSTODIAL WORKER Work Phone: [facility] 11-17-2022 10:54-0400 Body mass index (BMI) [Ratio] 33.1 kg/m2 CUSTODIAL WORKER-C Erika Seffens CUSTODIAL WORKER Work Phone: [facility] 11-17-2022 10:54-0400 Body weight 90.26 kg CUSTODIAL WORKER-C Erika Seffens CUSTODIAL WORKER Work Phone: [facility] 11-17-2022 10:54-0400 Diastolic blood pressure 66 mm[Hg] CUSTODIAL WORKER-C Erika Seffens CUSTODIAL WORKER Work Phone: [facility] 11-17-2022 10:54-0400 Systolic blood pressure 105 mm[Hg] CUSTODIAL WORKER-C Erika Seffens CUSTODIAL WORKER Work Phone: [facility] 11-03-2022 10:50-0400 Body mass index (BMI) [Ratio] 32.8 kg/m2 CUSTODIAL WORKER-C Erika Seffens CUSTODIAL WORKER Work Phone: [facility] 11-03-2022 10:50-0400 Body weight 89.47 kg CUSTODIAL WORKER-C Erika Seffens CUSTODIAL WORKER Work Phone: [facility] 11-03-2022 10:50-0400 Diastolic blood pressure 67 mm[Hg] CUSTODIAL WORKER-C Erika Seffens CUSTODIAL WORKER Work Phone: [facility] 11-03-2022 10:50-0400 Systolic blood pressure 106 mm[Hg] CUSTODIAL WORKER-C Erika Seffens CUSTODIAL WORKER Work Phone: [facility] 10-06-2022 14:00-0400 Body mass index (BMI) [Ratio] 31.6 kg/m2 CUSTODIAL WORKER-C Erika Seffens CUSTODIAL WORKER Work Phone: [facility] 10-06-2022 14:00-0400 Body weight 86.35 kg CUSTODIAL WORKER-C Erika Seffens CUSTODIAL WORKER Work Phone: [facility] Encounters Encounter Date Encounter Type Care Provider Facility Start: 11-19-2024 End: 11-19-2024 Patient encounter procedure Mindy Romero CUSTODIAL WORKER-C -[facility] Work Phone: Start: 11-19-2024 End: 11-19-2024 ambulatory Reema Gutierrez CUSTODIAL WORKER-C Work Phone: [facility] Work Phone: Start: 11-07-2024 End: 11-07-2024 Patient encounter procedure Maggie Holloway CNM -[facility] Work Phone: Start: 11-07-2024 End: 11-07-2024 ambulatory Reema Gutierrez CUSTODIAL WORKER-C Work Phone: [facility] Work Phone: Start: 10-24-2024 End: 10-24-[address] Rebeca López MD -[facility] Work Phone: Start: 10-24-2024 End: 10-24-2024 ambulatory Reema Gutierrez CUSTODIAL WORKER-C Work Phone: [facility] Work Phone: Start: 10-24-2024 End: 10-24-2024 ambulatory Rebeca López Facility:[facility] Start: 10-12-2024 End: 10-12-2024 Patient encounter procedure Carrie Vick CNM -[facility] Work Phone: Start: 10-12-2024 End: 10-12-2024 ambulatory Carrie Vick Facility:[facility] Start: 09-27-2024 End: 09-27-2024 Patient encounter procedure Mindy Romero NP-C -[facility] Work Phone: Start: 09-27-2024 End: 09-27-2024 ambulatory Reema Gutierrez NP-C Work Phone: [facility] Work Phone: Start: 09-27-2024 End: 09-27-2024 ambulatory Maggie Holloway Facility:[facility] Start: 08-24-2024 End: 08-24-[address] Rebeca López MD -[facility] Work Phone: Start: 08-24-2024 End: 08-24-2024 ambulatory Reema Gutierrez NP Facility:[facility] Start: 08-17-2024 End: 08-17-2024 ambulatory Reema Gutierrez NP-C Work Phone: [facility] Work Phone: Start: 08-17-2024 End: 08-17-2024 Patient encounter procedure Mindy Romero NP-C -[facility] Work Phone: Start: 08-17-2024 End: 08-17-2024 ambulatory Mindy Romero NP Facility:[facility] Start: 07-25-2024 End: 07-25-[address] Rebeca López MD -[facility] Work Phone: Start: 07-25-2024 End: 07-25-2024 ambulatory Reema Gutierrez CUSTODIAL WORKER Facility:[facility] Start: 06-27-2024 End: 06-27-2024 Patient encounter procedure Mindy Romero CUSTODIAL WORKER-C -[facility] Work Phone: Start: 06-27-2024 End: 06-27-2024 ambulatory Reema Gutierrez CUSTODIAL WORKER Facility:[facility] Start: 05-25-2024 End: 05-25-2024 Patient encounter procedure Carrie Nicanor CNM -[facility] Work Phone: Start: 05-25-2024 End: 05-25-2024 ambulatory Carriegeorgette Vick Facility:[facility] Start: 05-25-2024 End: 05-25-2024 ambulatory Carrie Vick Facility:[facility] Start: 04-04-2024 End: 04-04-2024 ambulatory Mindy Romero CUSTODIAL WORKER Facility:[facility] Start: 02-04-2024 End: 02-04-2024 ambulatory Rosalba Lee Facility:[facility] Start: 02-02-2024 End: 02-02-2024 ambulatory Erika Shin NP Facility:[facility] Start: 12-21-2023 End: 12-21-2023 ambulatory REEMA GUTIERREZ BUTTON CUTTING MACHINE OPERATOR-KNOCK UP ASSEMBLER Facility:[facility] Start: 12-21-2023 End: 12-21-2023 Patient encounter procedure REEMA GUTIERREZ BUTTON CUTTING MACHINE OPERATOR-KNOCK UP ASSEMBLER [facility] Start: 06-16-2023 End: 06-16-2023 ambulatory REEMA GUTIERREZ BUTTON CUTTING MACHINE OPERATOR-KNOCK UP ASSEMBLER Facility:[facility] Start: 06-16-2023 End: 06-16-2023 Patient encounter procedure REEMA GUTIERREZ BUTTON CUTTING MACHINE OPERATOR-KNOCK UP ASSEMBLER [facility] Start: 12-29-2022 End: 12-29-2022 ambulatory CUSTODIAL WORKER-C Erika Shin CUSTODIAL WORKER Work Phone: [facility] Work Phone: Start: 12-29-2022 End: 12-29-2022 Patient encounter procedure CUSTODIAL WORKER-C Erika Shin CUSTODIAL WORKER Work Phone: [facility] Work Phone: Start: 12-29-2022 End: 12-29-2022 Patient encounter procedure CUSTODIAL WORKER-C Erika Shin CUSTODIAL WORKER [facility] Phone[facility] Start: 12-17-2022 End: 12-17-2022 Patient encounter procedure CUSTODIAL WORKER-C Erika Shin CUSTODIAL WORKER Work Phone: [facility] Work Phone: Start: 12-17-2022 End: 12-17-2022 Patient encounter procedure CUSTODIAL WORKER-C Erika Shin CUSTODIAL WORKER Work Phone: [facility] Work Phone: Start: 11-29-2022 End: 11-29-2022 Patient encounter procedure CUSTODIAL WORKER-C Erika Shin CUSTODIAL WORKER Work Phone: [facility] Work Phone: Start: 11-23-2022 End: 11-23-2022 Patient encounter procedure CUSTODIAL WORKER-C Erika Shin CUSTODIAL WORKER Work Phone: [facility] Work Phone: Start: 11-17-2022 End: 11-17-2022 Patient encounter procedure CUSTODIAL WORKER-C Erika Shin CUSTODIAL WORKER Work Phone: [facility] Work Phone: Start: 11-03-2022 End: 11-03-2022 Patient encounter procedure CUSTODIAL WORKER-C Erika Shin CUSTODIAL WORKER Work Phone: [facility] Work Phone: Start: 10-06-2022 End: 10-06-2022 Patient encounter procedure CUSTODIAL WORKER-C Erika Shin CUSTODIAL WORKER Work Phone: [facility] Work Phone: Start: 06-16-2022 End: 06-16-2022 ambulatory [facility] Work Phone: Start: 06-16-2022 End: 06-16-2022 Patient encounter procedure [facility] [place] 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 [employer] Start: 05-11-2022 End: 05-15-2022 Outreach Lab ERIKA SHIN BUTTON CUTTING MACHINE OPERATOR-KNOCK UP ASSEMBLER [facility] Procedures Date Procedure Procedure Detail Performing Clinician Start: 09-27-2024 Serologic test for syphilis Reema Gutierrez NP-C Work Phone: Start: 08-17-2024 Ultrasonography in f irst trimester Reema Gutierrez CUSTODIAL WORKER-C Work Phone: Start: 05-25-2024 Urine culture Reema Gutierrez CUSTODIAL WORKER-C Work Phone: Start: 12-29-2022 Group B Streptococcu s Culture CUSTODIAL WORKER-C Erika Shin CUSTODIAL WORKER Work Phone: Start: 11-23-2022 Ultrasound scan for growth CUSTODIAL WORKER-C Erika Shin CUSTODIAL WORKER Work Phone: Start: 06-20-2005 Structure of wisdom tooth (body structure) ERIKA SHIN BUTTON CUTTING MACHINE OPERATOR-KNOCK UP ASSEMBLER H/O: section Previous c esarean section Reema Gutierrez CUSTODIAL WORKER-C Work Phone: Comment on above: transverse, LGA, con cert pharmacy tech TOLAC depending on EFW transverse, LGA, con cert pharmacy tech TOLAC depending on EFW RLTCS scheduled for 12/27 @ 12 with JV H/O: section Previous c esarean section Carrie Vick CNM H/O: section Previous c esarean section Mindy Romero CUSTODIAL WORKER-C H/O: section Previous c esarean section Dr. Rebeca López MD H/O: section Previous c esarean section Dr. Rebeca López MD H/O: section Previous c esarean section Mindy Romero CUSTODIAL WORKER-C H/O: section Previous c esarean section Carrie Vick CNM H/O: section Previous c esarean section Dr. Rebeca López MD H/O: section Previous c esarean section Maggie Holloway CNM H/O: section Previous c esarean section Mindy Romero CUSTODIAL WORKER-C Urine culture Plan of Treatment Date Care Activity Detail Author Start: 12-27-2024 ambulatory Ambulatory Facility:[facility] Start: 12-05-2024 ambulatory Ambulatory Facility:[facility] Ultrasound scan for growth [facility] Ultrasound scan for growth [facility] Immunizations Immunization Date Immunization Notes Care Provider [facility] 10-12-2024 tetanus toxoid, reduced diphtheria toxoid, and acellular pertussis vaccine, adsorbed Reema Gutierrez CUSTODIAL WORKER-C Work Phone: [facility] 11-03-2022 tetanus toxoid, reduced diphtheria toxoid, and acellular pertussis vaccine, adsorbed CUSTODIAL WORKER-C Erika Shin CUSTODIAL WORKER Work Phone: [facility] 05-11-2022 influenza, injectabl e, quadrivalent, contains preservative; Translations: [Fluarix PF Quadrivalent ] ERIKA SHIN BUTTON CUTTING MACHINE OPERATOR-KNOCK UP ASSEMBLER [facility] [place] 04-04-2021 SARS-CoV-2 mRNA (tozinameran) vaccine ERIKA SHIN BUTTON CUTTING MACHINE OPERATOR-KNOCK UP ASSEMBLER [facility] [place] 03-18-2021 Influenza virus vaccine [facility] 03-18-2021 influenza virus vaccine, unspecified formulation ERIKA SHIN BUTTON CUTTING MACHINE OPERATOR-KNOCK UP ASSEMBLER [facility] 03-07-2021 Covid (Pfizer) [place] Swapnil reese [facility] 02-18-2021 tetanus toxoid, reduced diphtheria toxoid, and acellular pertussis vaccine, adsorbed [facility] 04-03-2020 influenza virus vaccine, unspecified formulation ERIKA SHIN BUTTON CUTTING MACHINE OPERATOR-KNOCK UP ASSEMBLER [facility] 03-15-2018 influenza, injectabl e, quadrivalent, preservative free Reema Matt CUSTODIAL WORKER-C Work Phone: [facility] 03-15-2018 influenza, seasonal, injectable [facility] 03-20-2017 influenza virus vaccine, unspecified formulation ERIKA SHIN BUTTON CUTTING MACHINE OPERATOR-KNOCK UP ASSEMBLER [facility] 03-17-2017 influenza, injectabl e, quadrivalent, preservative free Reema Matt CUSTODIAL WORKER-C Work Phone: [facility] 03-17-2017 influenza, seasonal, injectable [facility] 03-20-2016 influenza virus vaccine, unspecified formulation ERIKA SHIN BUTTON CUTTING MACHINE OPERATOR-KNOCK UP ASSEMBLER [facility] 03-18-2016 influenza, injectabl e, quadrivalent, preservative free Reema Matt CUSTODIAL WORKER-C Work Phone: [facility] 03-18-2016 influenza, seasonal, injectable [facility] 03-20-2015 influenza, injectabl e, quadrivalent, preservative free Reema Matt CUSTODIAL WORKER-C Work Phone: [facility] 03-20-2015 influenza, seasonal, injectable [facility] 03-19-2014 influenza, injectabl e, quadrivalent, preservative free Reema Matt CUSTODIAL WORKER-C Work Phone: [facility] 03-19-2014 influenza, seasonal, injectable [facility] 04-19-2013 Influenza virus vaccine [facility] 12-08-1999 measles/mumps/rubell a virus vaccine ERIKA SHIN BUTTON CUTTING MACHINE OPERATOR-KNOCK UP ASSEMBLER [facility] Payers Date Payer Category Payer Self-pay [id number] 2023 Unknown [id number] Unknown [id number] 2.16.8 [id number] 1985 Unknown [id number] 2.16.8 [id number] Unknown [id number] Unknown [id number] Unknown [id number] 2.16.8 [id number] Unknown [id number] 2.16.8 40.1.326177.3.579.2.462 Unknown [id number] 2.16.8 40.1.132540.3.579.2.462 Unknown [id number] 2.16.8 40.1.960818.3.579.2.462 Unknown [id number] 2.16.8 40.1.795013.3.579.2.462 Unknown [id number] 2.16.8 40.1.263045.3.579.2.462 Unknown [id number] 2.16.8 40.1.270353.3.579.2.462 Unknown [id number] 2.16.8 40.1.022389.3.579.2.462 Unknown [id number] 2.16.8 40.1.479967.3.579.2.462 Unknown [id number] 2.16.8 40.1.922337.3.579.2.462 Unknown [id number] 2.16.8 40.1.671761.3.579.2.462 Unknown [id number] 2.16.8 40.1.677119.3.579.2.462 Unknown [id number] 2.16.8 40.1.439295.3.579.2.462 Unknown [id number] 2.16.8 40.1.326285.3.579.2.462 Unknown [id number] 2.16.8 40.1.924573.3.579.2.462 Unknown [id number] 2.16.8 40.1.687622.3.579.2.462 Unknown [id number] 2.16.8 40.1.405270.3.579.2.462 Unknown [id number] 2.16.8 40.1.589746.3.579.2.462 Social History Date Type Detail [facility] Work Phone: Start: 1985 Sex Assigned At Female [facility] Start: 05-11-2022 End: 05-15-2024 Tobacco smoking status Never smoked tobacco (finding) [facility] Start: 03-24-2021 End: 12-29-2022 Tobacco smoking status NHIS Unknown if ever smoked [facility] Start: 08-28-2024 End: 10-02-2024 Sex Female (finding) [facility] Clinical Notes 05-11-2022 to 08-19-2024 Note Date & Type Note Facility 08-19-2024 Radiology Diagnostic study note [facility] Imaging Services [address], [place] [address] OB Anatomy w/ Transvaginal MR#: [id number] Acct: [id number] Name: MANDY OSULLIVAN Rep #: [id number] : 1985 F 38 From: Blessing Sanchez MD PCP: CAITY Amaya Status: RE G CLI Study:OB Anatomy w/ Transvaginal Date of Exam : 08/17/24 Exam# [id number] Ordering Dr: Mindy Romero NP CUSTODIAL WORKER-[place] PROCEDURE: OB ANATOMY W/ TRANSVAGINAL REASON FOR EXAM: , anatomy COMPARISON: None. FINDINGS Number: 1 Position: Variable, started breech Placental Position: Fundal and right lateral Placental Abnormalities: None. DIMENSIONS: Biparietal Diameter: 4.5 cm/19 weeks 4 days Head Circumference: 16.3 cm/19 weeks 0 days Abdominal Circumference: 16.1 cm/21 weeks 1 days Femur Length: 3.1 cm/19 weeks 5 days ESTIMATED WEIGHT: 352 g ESTIMATED WEIGHT PERCENTILE (24+ weeks): 59.7% ESTIMATED GESTATIONAL AGE: Baseline: 20 weeks 1 day By Ultrasound: 19 weeks 5 days ESTIMATED DATE OF DELIVERY: Baseline: 01/03/2025 By Ultrasound: 12/2024 BIOPHYSICAL ASSESSMENT: Amniotic Fluid Volume: Subjectively normal. Amniotic Fluid Index: (8-24 cm normal range) Cardiac Motion: (average) Trunk and Limb Motion: Present. MATERNAL ANATOMY: Adnexa: Both maternal ovaries are visualized and unremarkable. Cervical Length (if measured): 4.7 cm, closed ANATOMY: Spine: Cervical, thoracic, lumbar and sacrum visualized Cranium: Unremarkable. Cerebellum: Visualized, 2.1 cm. Cisterna Magna: Visualized. Lateral Ventricles: Visualized, 0.6 cm. Choroid Plexus: Visualized. Heart: Normal four-chamber view, visualized. Ventricular Outflow Tracts: Unremarkable. Diaphragm: Visualized Stomach: Visualized. Abdominal wall: Visualized Kidneys: Visualized Bladder: Visualized Umbilical Cord: Three vessel cord: Visualized. Normal and placental insertions. Extremities: Upper and lower visualized Face/orbits: Visualized Nose/lips: Visualized Profile: Visualized US/OB Anatomy w/ Transvaginal IMPRESSION: UNREMARKABLE ANATOMIC SURVEY. Single live intrauterine corresponding to 19 weeks 5 days. Reading Location: [facility] CC: CAITY Gutierrez; CAITY Romero ~ Sba Underwriter: Signed [facility] 07-25-2024 Evaluation note Diagnosis Onset Date Resolution Advanced maternal age (AMA) in acute July 25, 2024 2:51pm Anemia acute July 25, 2024 2:51pm Hx of shoulder dystocia in prior , currently acute July 25, 2024 2:51pm Obesity affecting acute July 25 2:51pm acute July 25, 2024 2:51pm Previous section acute July 25 2:51pm Supervision of high-risk acute July 2:51pm Bleeding in early resolved July 25 2:51pm Family history of factor V Leiden mutation ruled-out July 25 2:51pm Advanced maternal age (AMA) in acute August 24 11:34am Anemia acute August 24 11:34am Hx of shoulder dystocia in prior , currently acute August 24 11:34am Obesity affecting acute August 24, 2024 11:34am acute August 24 11:34am Previous section acute August 24, 2024 11:34am Supervision of high-risk acute August 24, 025 11:34am Advanced maternal age (AMA) in acute September 27, 025 9:21am Anemia acute September 27 9:21am Hx of shoulder dystocia in prior , currently acute September 27 025 9:21am Obesity affecting acute September 27, 2024 9:21am acute September 27 9:21am Previous section acute September 27, 2024 9:21am Supervision of high-risk acute September 27, 2024 9:21am Advanced maternal age (AMA) in acute October 12, 025 12:51pm Anemia acute October 12 12:51pm Antepartum anemia complicating acute September 12:51pm Hx of shoulder dystocia in prior , currently acute October 12, 025 12:51pm Obesity affecting acute October 12, 2024 12:51pm acute October 12 12:51pm Previous section acute October 12, 2024 12:51pm Supervision of high-risk acute October 12, 2024 12:51pm Advanced maternal age (AMA) in acute October 24, 2024 10:55am Anemia acute October 24, 2024 10:55am Antepartum anemia complicating acute October 24, 2024 10:55am Hx of shoulder dystocia in prior , currently acute October 24, 2024 10:55am Obesity affecting acute October 24, 2024 10 :55am acute October 24, 2024 10:55am Previous section acute October 24, 2024 10 :55am Supervision of high-risk acute October 24 10:55am [facility] Work Phone: 1(549) 560-876002-05-2025 Evaluation note* Diagnosis Onset Date Resolution Status Admit Date Advanced maternal age (AMA) in acute July 25 2:51pm Anemia acute July 25, 2024 2:51pm Hx of shoulder dystocia in prior , currently acute July 25 2:51pm Obesity affecting acute July 25, 2024 2:51pm acute July 25, 2024 2:51pm Previous section acute July 25, 2024 2:51pm Supervision of high-risk acute July 25 2:51pm Bleeding in early resolved July 25, 2024 2:51pm Family history of factor V Leiden mutation ruled-out July 25 2:51pm Advanced maternal age (AMA) in acute August 24, 2024 11:34am Anemia acute August 24 11:34am Hx of shoulder dystocia in prior , currently acute August 24, 2024 11:34am Obesity affecting acute August 24, 2024 11:34am acute August 24 11:34am Previous section acute August 24, 2024 11:34am Supervision of high-risk acute August 24, 2024 11:34am Advanced maternal age (AMA) in acute September 27, 2024 9:21am Anemia acute September 27 9:21am Hx of shoulder dystocia in prior , currently acute September 27, 2024 9:21am Obesity affecting acute September 27, 2024 9:21am acute September 27 9:21am Previous section acute September 27, 2024 9:21am Supervision of high-risk acute September 27, 2024 9:21am Advanced maternal age (AMA) in acute October 12, 2024 12:51pm Anemia acute October 12 12:51pm Antepartum anemia complicating acute September 12:51pm Hx of shoulder dystocia in prior , currently acute October 12, 2024 12:51pm Obesity affecting acute October 12, 2024 12:51pm acute October 12 12:51pm Previous section acute October 12, 2024 12:51pm Supervision of high-risk acute October 12, 2024 12:51pm Advanced maternal age (AMA) in acute October 24, 2024 10 :55am Anemia acute October 24, 2024 10:55am Antepartum anemia complicating acute October 24, 2024 10:55am Hx of shoulder dystocia in prior , currently acute October 24, 2024 10 :55am Obesity affecting acute October 24, 2024 10:55am acute October 24, 2024 10:55am Previous section acute October 24, 2024 10:55am Supervision of high-risk acute October 24, 2024 10 :55am Advanced maternal age (AMA) in acute November 07, 2024 2 :00pm Anemia acute November 07, 2024 2:00pm Antepartum anemia complicating acute November 07, 2024 2:00pm Hx of shoulder dystocia in prior , currently acute November 07, 2024 2 :00pm Obesity affecting acute November 07, 2024 2:00pm acute November 07, 2024 2:00pm Previous section acute November 07, 2024 2:00pm Supervision of high-risk acute November 07, 2024 2 :00pm [facility] Work Phone: 1(611) 404-951502-05-2025 Evaluation note* Diagnosis Onset Date Resolution Status Admit Date Advanced maternal age (AMA) in acute July 25 2:51pm Anemia acute July 25, 2024 2:51pm Hx of shoulder dystocia in prior , currently acute July 25 2:51pm Obesity affecting acute July 25, 2024 2:51pm acute July 25, 2024 2:51pm Previous section acute July 25, 2024 2:51pm Supervision of high-risk acute July 25 2:51pm Bleeding in early resolved July 25, 2024 2:51pm Family history of factor V Leiden mutation ruled-out July 25 2:51pm Advanced maternal age (AMA) in acute August 24, 2024 11:34am Anemia acute August 24 11:34am Hx of shoulder dystocia in prior , currently acute August 24, 2024 11:34am Obesity affecting acute August 24, 2024 11:34am acute August 24 11:34am Previous section acute August 24, 2024 11:34am Supervision of high-risk acute August 24, 2024 11:34am Advanced maternal age (AMA) in acute September 27, 2024 9:21am Anemia acute September 27 9:21am Hx of shoulder dystocia in prior , currently acute September 27, 2024 9:21am Obesity affecting acute September 27, 2024 9:21am acute September 27 9:21am Previous section acute September 27, 2024 9:21am Supervision of high-risk acute September 27, 2024 9:21am Advanced maternal age (AMA) in acute October 12, 2024 12:51pm Anemia acute October 12 12:51pm Antepartum anemia complicating september 12:51pm Hx of shoulder dystocia in prior , currently acute October 12, 2024 12:51pm Obesity affecting acute October 12, 2024 12:51pm acute October 12 12:51pm Previous section acute October 12, 2024 12:51pm Supervision of high-risk acute October 12, 2024 12:51pm Advanced maternal age (AMA) in acute October 24, 2024 10 :55am Anemia acute October 24, 2024 10:55am Antepartum anemia complicating acute October 24, 2024 10:55am Hx of shoulder dystocia in prior , currently acute October 24, 2024 10 :55am Obesity affecting acute October 24, 2024 10:55am acute October 24, 2024 10:55am Previous section acute October 24, 2024 10:55am Supervision of high-risk acute October 24, 2024 10 :55am Advanced maternal age (AMA) in acute November 07, 2024 2 :00pm Anemia acute November 07, 2024 2:00pm Antepartum anemia complicating acute November 07, 2024 2:00pm Hx of shoulder dystocia in prior , currently acute November 07, 2024 2 :00pm Obesity affecting acute November 07, 2024 2:00pm acute November 07, 2024 2:00pm Previous section acute November 07, 2024 2:00pm Supervision of high-risk acute November 07, 2024 2 :00pm Advanced maternal age (AMA) in acute November 19, 2024 1 0:31am Anemia acute November 19, 2024 10:31am Antepartum anemia complicating acute November 19, 2024 10:31am Hx of shoulder dystocia in prior , currently acute November 19, 2024 1 0:31am Obesity affecting acute November 19, 2024 10:31am acute November 19, 2024 10:31am Previous section acute November 19, 2024 10:31am Supervision of high-risk acute November 19, 2024 1 0:31am [facility] Work Phone: 1(240) 961-182701-08-2025 Evaluation note* Diagnosis Onset Date Resolution Status Admit Date Advanced maternal age (AMA) in acute June 27 1:55pm Anemia acute June 27, 2 025 1:55pm Hx of shoulder dystocia in prior , currently acute June 27 1:55pm Obesity affecting acute June 27, 2024 1:55pm acute June 27, 2 025 1:55pm Previous section acute June 27, 2024 1:55pm Supervision of high-risk acute June 27 1:55pm Bleeding in early resolved June 27, 2024 1:55pm Family history of factor V Leiden mutation ruled-out June 27 1:55pm Advanced maternal age (AMA) in acute July 25 2:51pm Anemia acute July 25, 2024 2:51pm Hx of shoulder dystocia in prior , currently acute July 25 2:51pm Obesity affecting acute July 25, 2024 2:51pm acute July 25, 2024 2:51pm Previous section acute July 25, 2024 2:51pm Supervision of high-risk acute July 25 2:51pm Bleeding in early resolved July 25, 2024 2:51pm Family history of factor V Leiden mutation ruled-out July 25 2:51pm Advanced maternal age (AMA) in acute August 24, 2024 11:34am Anemia acute August 24 11:34am Hx of shoulder dystocia in prior , currently acute August 24, 2024 11:34am Obesity affecting acute August 24, 2024 11:34am acute August 24 11:34am Previous section acute August 24, 2024 11:34am Supervision of high-risk acute August 24, 2024 11:34am Advanced maternal age (AMA) in acute September 27, 2024 9:21am Anemia acute September 27 9:21am Hx of shoulder dystocia in prior , currently acute September 27, 2024 9:21am Obesity affecting acute September 27, 2024 9:21am acute September 27 9:21am Previous section acute September 27, 2024 9:21am Supervision of high-risk acute September 27, 2024 9:21am [facility] Work Phone: 1([phone]) 884-850712-06-2024 Evaluation note* Diagnosis Onset Date Resolution Status Admit Date Advanced maternal age (AMA) in acute May 25 12:51pm Anemia acute May 25, 2024 12:51pm Hx of shoulder dystocia in prior , currently acute May 25 12:51pm Obesity affecting acute May 25, 2024 12:51pm acute May 25, 2024 12:51pm Previous section acute May 25, 2024 12:51pm Supervision of high-risk acute May 25 12:51pm Family history of factor V Leiden mutation ruled-out May 25 12:51pm Advanced maternal age (AMA) in acute June 27 1:55pm Anemia acute June 27, 2 025 1:55pm Hx of shoulder dystocia in prior , currently acute June 27 1:55pm Obesity affecting acute June 27, 2024 1:55pm acute June 27, 2 025 1:55pm Previous section acute June 27, 2024 1:55pm Supervision of high-risk acute June 27 1:55pm Bleeding in early resolved June 27, 2024 1:55pm Family history of factor V Leiden mutation ruled-out June 27 1:55pm Advanced maternal age (AMA) in acute July 25 2:51pm Anemia acute July 25, 2024 2:51pm Hx of shoulder dystocia in prior , currently acute July 25 2:51pm Obesity affecting acute July 25, 2024 2:51pm acute July 25, 2024 2:51pm Previous section acute July 25, 2024 2:51pm Supervision of high-risk acute July 25 2:51pm Bleeding in early resolved July 25, 2024 2:51pm Family history of factor V Leiden mutation ruled-out July 25 2:51pm Advanced maternal age (AMA) in acute August 24, 2024 11:34am Anemia acute August 24 11:34am Hx of shoulder dystocia in prior , currently acute August 24, 2024 11:34am Obesity affecting acute August 24, 2024 11:34am acute August 24 11:34am Previous section acute August 24, 2024 11:34am Supervision of high-risk acute August 24, 2024 11:34am [facility] Work Phone: 1(426) 530-685201-02-2024 Evaluation + Plan note Future Scheduled Tests Radiology* MA Mammo Diagnostic Right w/ Eddie 06/21/23 [facility] 11-22-2022 Evaluation + Plan note Future Scheduled Tests Laboratory* Thyroid Stimulating Hormone 05/11/22 * Urine Culture 05/11/22 * Complete Blood Count 05/11/22 * Lipid Profile 05/11/22 * Complete Metabolic Panel 05/11/22 [facility] Evaluation noteNo assessment information available [facility] Work Phone: Evaluation note* Diagnosis Onset Date Resolution Status History of shoulder dystocia in prior acute History of third degree perineal laceration acute acute Supervision of normal resolved History of shoulder dystocia in prior acute History of third degree perineal laceration acute acute Supervision of normal resolved History of shoulder dystocia in prior acute History of third degree perineal laceration acute acute Supervision of normal resolved Anemia in preg-unspec acute History of shoulder dystocia in prior acute History of third degree perineal laceration acute acute Supervision of normal resolved AMA (advanced maternal age) multigravida 35+ acute Anemia in preg-unspec acute History of shoulder dystocia in prior acute History of third degree perineal laceration acute acute Supervision of high-risk acute AMA (advanced maternal age) multigravida 35+ acute Anemia in preg-unspec acute History of shoulder dystocia in prior acute History of third degree perineal laceration acute acute Supervision of high-risk acute [facility] Work Phone: Hospital course Narrative No data available for this section [facility] Hospital Discharge instructions No data available for this section [facility] Progress note No data available for this section [facility] Reason for referral (narrative)No reason for referral [facility]: Advance Directives No Advanced Directives Records Found Advance Directive Response Recorded Date/ Time Living Will No March 24 12:44pm Power of County Health Officer No March 24 021 12:44pm Advance Directive Response Recorded Date/ Time Living Will No August 27, 2022 1:09pm Power of County Health Officer No August 27 23 1:09pm Chief Complaint and Reason for Visit Chief Complaint OB 24 wk xfer care f rom [place] 28 WK OB 30 WK OB Uterine size date discrepency 32 WK OB 34 WK OB 36 WK OB Personal history of other complications of pregnan Reason for Visit History of shoulder dystocia in prior History of third degree perineal laceration Supervision of normal History of shoulder dystocia in prior History of third degree perineal laceration Supervision of normal History of shoulder dystocia in prior History of third degree perineal laceration Supervision of normal Anemia in preg-unspec History of shoulder dystocia in prior History of third degree perineal laceration Supervision of normal AMA (advanced maternal age) multigravida 35+ Anemia in preg-unspec History of shoulder dystocia in prior History of third degree perineal laceration Supervision of high-risk AMA (advanced maternal age) multigravida 35+ Anemia in preg-unspec History of shoulder dystocia in prior History of third degree perineal laceration Supervision of high-risk Chief Complaint Admit Date NOB LMP 03/29May 25, 2024 1 2:51pm 13 wk OB June 27, 2024 1: 55pm 17 wk ob July 25, 2024 2 :51pm , ANATOMY August 17, 2024 3:20pm 21wk ob August 24, 2024 11:3 4am Reason for Visit Admit Date Advanced maternal age (AMA) in May 25, 2024 12:51pm Anemia May 25, 2024 1 2:51pm Hx of shoulder dystocia in p rior , currently May 25, 2024 12:51pm Obesity affecting May 12:51pm May 25, 2024 1 2:51pm Previous section May 25, 2024 12:51pm Supervision of high-risk Decem 2023 12:51pm Family history of factor V Leiden mutati on May 25, 2024 12:51pm Advanced maternal age (AMA) in June 27, 2024 1:55pm Anemia June 27, 2024 1: 55pm Hx of shoulder dystocia in p rior , currently June 27, 2024 1:55pm Obesity affecting June 27, 2024 1:55pm June 27, 2024 1: 55pm Previous section June 27, 2 025 1:55pm Supervision of high-risk Janua 2024 1:55pm Bleeding in early June 27, 2024 1:55pm Family history of factor V Leiden mutati on June 27, 2024 1:55pm Advanced maternal age (AMA) in July 25, 2024 2:51pm Anemia July 25, 2024 2 :51pm Hx of shoulder dystocia in p rior , currently July 25, 2024 2:51pm Obesity affecting July 2:51pm July 25, 2024 2 :51pm Previous section July 25, 2024 2:51pm Supervision of high-risk Febru [email or web address] 2:51pm Bleeding in early July 2:51pm Family history of factor V Leiden mutati on July 25, 2024 2:51pm Advanced maternal age (AMA) in August 24, 2024 11:34am Anemia August 24, 2024 11:3 4am Hx of shoulder dystocia in p rior , currently August 24, 2024 11:34am Obesity affecting August 24, 2 025 11:34am August 24, 2024 11:3 4am Previous section August 24 11:34am Supervision of high-risk August 24, 2024 11:34am Chief Complaint Admit Date 13 wk OB June 27, 2024 1: 55pm 17 wk ob July 25, 2024 2 :51pm , ANATOMY August 17, 2024 3:20pm 21wk ob August 24, 2024 11:3 4am 26 WK OB/GLUCOSE September 27, 2024 9:2 1am Reason for Visit Admit Date Advanced maternal age (AMA) in June 27, 2024 1:55pm Anemia June 27, 2024 1: 55pm Hx of shoulder dystocia in p rior , currently June 27, 2024 1:55pm Obesity affecting June 27, 2024 1:55pm June 27, 2024 1: 55pm Previous section June 27, 2 025 1:55pm Supervision of high-risk Janua 2024 1:55pm Bleeding in early June 27, 2024 1:55pm Family history of factor V Leiden mutati on June 27, 2024 1:55pm Advanced maternal age (AMA) in July 25, 2024 2:51pm Anemia July 25, 2024 2 :51pm Hx of shoulder dystocia in p rior , currently July 25, 2024 2:51pm Obesity affecting July 2:51pm July 25, 2024 2 :51pm Previous section July 25, 2024 2:51pm Supervision of high-risk Febru [email or web address] 2:51pm Bleeding in early July 2:51pm Family history of factor V Leiden mutati on July 25, 2024 2:51pm Advanced maternal age (AMA) in August 24, 2024 11:34am Anemia August 24, 2024 11:3 4am Hx of shoulder dystocia in p rior , currently August 24, 2024 11:34am Obesity affecting August 24, 025 11:34am August 24, 2024 11:3 4am Previous section August 24 11:34am Supervision of high-risk August 24, 2024 11:34am Advanced maternal age (AMA) in September 27, 2024 9:21am Anemia September 27, 2024 9:2 1am Hx of shoulder dystocia in [place] , currently September 27, 2024 9:21am Obesity affecting September 27, 2024 9:21am September 27, 2024 9:2 1am Previous section September 27 9:21am Supervision of high-risk September 27, 2024 9:21am Chief Complaint Admit Date 17 wk ob July 25, 2024 2 :51pm , ANATOMY August 17, 2024 3:20pm 21wk ob August 24, 2024 11:3 4am 26 WK OB/GLUCOSE September 27, 2024 9:2 1am 28 WK OB October 12, 2024 12: 51pm 30wk ob October 24, 2024 10:55a m Reason for Visit Admit Date Advanced maternal age (AMA) in July 25, 2024 2:51pm Anemia July 25, 2024 2 :51pm Hx of shoulder dystocia in [place] , currently July 25, 2024 2:51pm Obesity affecting July 2:51pm July 25, 2024 2 :51pm Previous section July 25, 2024 2:51pm Supervision of high-risk Febru [email or web address] 2:51pm Bleeding in early July 2:51pm Family history of factor V Leiden mutati on July 25, 2024 2:51pm Advanced maternal age (AMA) in August 24, 2024 11:34am Anemia August 24, 2024 11:3 4am Hx of shoulder dystocia in [place] , currently August 24, 2024 11:34am Obesity affecting March 7th, 2 025 11:34am August 24, 2024 11:3 4am Previous section August 24 11:34am Supervision of high-risk August 24, 2024 11:34am Advanced maternal age (AMA) in September 27, 2024 9:21am Anemia September 27, 2024 9:2 1am Hx of shoulder dystocia in [place] , currently September 27, 2024 9:21am Obesity affecting September 27, 2024 9:21am September 27, 2024 9:2 1am Previous section September 27 9:21am Supervision of high-risk September 27, 2024 9:21am Advanced maternal age (AMA) in October 12, 2024 12:51pm Anemia October 12, 2024 12: 51pm Antepartum anemia complicating October 12, 2024 12:51pm Hx of shoulder dystocia in [place] , currently October 12, 2024 12:51pm Obesity affecting October 12, 2024 12:51pm October 12, 2024 12: 51pm Previous section October 12 12:51pm Supervision of high-risk October 12, 2024 12:51pm Advanced maternal age (AMA) in October 24, 2024 10:55am Anemia October 24, 2024 10:55a m Antepartum anemia complicating October 24, 2024 10:55am Hx of shoulder dystocia in [place] , currently October 24, 2024 10:55am Obesity affecting October 24 10:55am October 24, 2024 10:55a m Previous section October 24, 2024 10:55am Supervision of high-risk October 242024 10:55am Chief Complaint Admit Date 17 wk ob July 25, 2024 2 :51pm , ANATOMY August 17, 2024 3:20pm 21wk ob August 24, 2024 11:3 4am 26 WK OB/GLUCOSE September 27, 2024 9:2 1am 28 WK OB October 12, 2024 12: 51pm 30wk ob October 24, 2024 10:55a m 32wk ob November 07, 2024 2:00p m Reason for Visit Admit Date Advanced maternal age (AMA) in July 25, 2024 2:51pm Anemia July 25, 2024 2 :51pm Hx of shoulder dystocia in [place] , currently July 25, 2024 2:51pm Obesity affecting July 2:51pm July 25, 2024 2 :51pm Previous section July 25, 2024 2:51pm Supervision of high-risk Febru [email or web address] 2:51pm Bleeding in early July 2:51pm Family history of factor V Leiden mutati on July 25, 2024 2:51pm Advanced maternal age (AMA) in August 24, 2024 11:34am Anemia August 24, 2024 11:3 4am Hx of shoulder dystocia in [place] , currently August 24, 2024 11:34am Obesity affecting August 24, 025 11:34am August 24, 2024 11:3 4am Previous section August 24 11:34am Supervision of high-risk August 24, 2024 11:34am Advanced maternal age (AMA) in September 27, 2024 9:21am Anemia September 27, 2024 9:2 1am Hx of shoulder dystocia in [place] , currently September 27, 2024 9:21am Obesity affecting September 27, 2024 9:21am September 27, 2024 9:2 1am Previous section September 27 9:21am Supervision of high-risk September 27, 2024 9:21am Advanced maternal age (AMA) in October 12, 2024 12:51pm Anemia October 12, 2024 12: 51pm Antepartum anemia complicating October 12, 2024 12:51pm Hx of shoulder dystocia in [place] , currently October 12, 2024 12:51pm Obesity affecting October 12, 2024 12:51pm October 12, 2024 12: 51pm Previous section October 12 12:51pm Supervision of high-risk October 12, 2024 12:51pm Advanced maternal age (AMA) in October 24, 2024 10:55am Anemia October 24, 2024 10:55a m Antepartum anemia complicating October 24, 2024 10:55am Hx of shoulder dystocia in [place] , currently October 24, 2024 10:55am Obesity affecting October 24 10:55am October 24, 2024 10:55a m Previous section October 24, 2024 10:55am Supervision of high-risk October 242024 10:55am Advanced maternal age (AMA) in November 07, 2024 2:00pm Anemia November 07, 2024 2:00p m Antepartum anemia complicating November 07, 2024 2:00pm Hx of shoulder dystocia in [place] , currently November 07, 2024 2:00pm Obesity affecting November 07 2:00pm November 07, 2024 2:00p m Previous section November 07, 2024 2:00pm Supervision of high-risk October 192024 2:00pm Chief Complaint Admit Date 17 wk ob July 25, 2024 2 :51pm , ANATOMY August 17, 2024 3:20pm 21wk ob August 24, 2024 11:3 4am 26 WK OB/GLUCOSE September 27, 2024 9:2 1am 28 WK OB October 12, 2024 12: 51pm 30wk ob October 24, 2024 10:55a m 32wk ob November 07, 2024 2:00p m 34 wk ob November 19, 2024 10:31 am Reason for Visit Admit Date Advanced maternal age (AMA) in July 25, 2024 2:51pm Anemia July 25, 2024 2 :51pm Hx of shoulder dystocia in [place] , currently July 25, 2024 2:51pm Obesity affecting July 2:51pm July 25, 2024 2 :51pm Previous section July 25, 2024 2:51pm Supervision of high-risk Febru [email or web address] 2:51pm Bleeding in early July 2:51pm Family history of factor V Leiden mutati on July 25, 2024 2:51pm Advanced maternal age (AMA) in August 24, 2024 11:34am Anemia August 24, 2024 11:3 4am Hx of shoulder dystocia in [place] , currently August 24, 2024 11:34am Obesity affecting August 24, 025 11:34am August 24, 2024 11:3 4am Previous section August 24 11:34am Supervision of high-risk August 24, 2024 11:34am Advanced maternal age (AMA) in September 27, 2024 9:21am Anemia September 27, 2024 9:2 1am Hx of shoulder dystocia in [place] , currently September 27, 2024 9:21am Obesity affecting September 27, 2024 9:21am September 27, 2024 9:2 1am Previous section September 27 9:21am Supervision of high-risk September 27, 2024 9:21am Advanced maternal age (AMA) in October 12, 2024 12:51pm Anemia October 12, 2024 12: 51pm Antepartum anemia complicating October 12, 2024 12:51pm Hx of shoulder dystocia in [place] , currently October 12, 2024 12:51pm Obesity affecting October 12, 2024 12:51pm October 12, 2024 12: 51pm Previous section October 12 12:51pm Supervision of high-risk October 12, 2024 12:51pm Advanced maternal age (AMA) in October 24, 2024 10:55am Anemia October 24, 2024 10:55a m Antepartum anemia complicating October 24, 2024 10:55am Hx of shoulder dystocia in [place] , currently October 24, 2024 10:55am Obesity affecting October 24 10:55am October 24, 2024 10:55a m Previous section October 24, 2024 10:55am Supervision of high-risk October 242024 10:55am Advanced maternal age (AMA) in November 07, 2024 2:00pm Anemia November 07, 2024 2:00p m Antepartum anemia complicating November 07, 2024 2:00pm Hx of shoulder dystocia in [place] , currently November 07, 2024 2:00pm Obesity affecting November 07 2:00pm November 07, 2024 2:00p m Previous section November 07, 2024 2:00pm Supervision of high-risk October 192024 2:00pm Advanced maternal age (AMA) in November 19, 2024 10:31am Anemia November 19, 2024 10:31 am Antepartum anemia complicating November 19, 2024 10:31am Hx of shoulder dystocia in [place] , currently November 19, 2024 10:31am Obesity affecting November 19 10:31am November 19, 2024 10:31 am Previous section November 19, 2024 10:31am Supervision of high-risk November 19, 2024 10:31am Summary Purpose Family History Relationship Condition Age at Onset Recorded Date/T adeline grandfather Cerebrovascular accident (CVA) Unknown Myocardial infarction Unknown No Family History Records Found Additional Source Comments Goals (unrecognized section and content) Goals may be documented in a n alternate section No data available for this sectionGoals may be documented in an alternate sectionGoals may be documented in an alternate section No data available for this section No data available for this sectionGoals may be documented in an alternate sectionGoals may be documented in an alternate sectionGoals may be documented in an alternate sectionGoals may be documented in an alternate sectionGoals may be documented in an alternate section Care Team (unrecognized sect ion and content) Care Team Personnel Name: ERIKA SHIN APRN-KNOCK UP ASSEMBLER Position: P4 Advanced Practice Nurse Member Role: Primary Care Physician Address: Address: [address] [place] [id number] Care Team Related Persons Name: CHIDI OSULLIVAN Address: [address] [place], [place] [id number] Care Teams (unrecognized sec tion and content) Team Status: Active Member Role Status Dates Dr. Gomez Kaiser DO Family Provider Active Erika Shin CUSTODIAL WORKER, CUSTODIAL WORKER-C Primary Care Provider Active Team Status: Inactive Member Role Status Dates Erika Shin NP, CUSTODIAL WORKER-C Primary Care Provider, Referr ing Provider Active Dr. Rosalba Lee DO Attending Provider Activ e Team Status: Inactive Member Role Status Dates Erika Shin NP, CUSTODIAL WORKER-C Primary Care Provider, Referr ing Provider Active Carrie Vick CNM Attending Provider Active Team Status: Inactive Member Role Status Dates Erika Shin NP, CUSTODIAL WORKER-C Primary Care Provider, Referr ing Provider Active Mindy Romero CUSTODIAL WORKER, CUSTODIAL WORKER-C Attending Provider Active Team Status: Inactive Member Role Status Dates Erika Shin CUSTODIAL WORKER, CUSTODIAL WORKER-C Primary Care Provider, Referr ing Provider Active Dr. Rebeca López MD Attending Provider Active Team Status: Inactive Member Role Status Dates Erika Shin CUSTODIAL WORKER, CUSTODIAL WORKER-C Primary Care Provider, Referr ing Provider Active Maggie Holloway CNM Attending Provider Active Team Status: Inactive Member Role Status Dates Erika Shin CUSTODIAL WORKER, CUSTODIAL WORKER-C Primary Care Provider Active Dr. Rosalba Lee DO Attending Provider, Refe rring Provider Active Team Status: Inactive Member Role Status Dates Erika Shin CUSTODIAL WORKER, CUSTODIAL WORKER-C Primary Care Provider Active Carrie Vick CNM Attending Provider, Referring Pr ovider Active Team Status: Inactive Member Role Status Dates Erika Shin CUSTODIAL WORKER, CUSTODIAL WORKER-C Primary Care Provider Active Mindy Romero CUSTODIAL WORKER, CUSTODIAL WORKER-C Attending Provider, Referring Provider Active Team Status: Inactive Member Role Status Dates Erika Shin CUSTODIAL WORKER, CUSTODIAL WORKER-C Primary Care Provider Active Maggie Holloway CNM Attending Provider, Referring Pro vider Active Team Status: Active Member Role Status Dates Reema Gutierrez NP, CUSTODIAL WORKER-C Primary Care Provider Activ e Team Status: Inactive Member Role Status Dates Reema Gutierrez NP, CUSTODIAL WORKER-C Primary Care Provider Activ e Start: May 25, 2024 End: May 25, 2024 Reema Gutierrez CUSTODIAL WORKER, CUSTODIAL WORKER-C Referring Provider Active Start: May 25, 2024 End: May 25, 2024 Carrie Vick CNM Attending Provider Active Start: May 25, 2024 End: May 25, 2024 Team Status: Inactive Member Role Status Dates Reema Gutierrez NP, CUSTODIAL WORKER-C Primary Care Provider Activ e Start: May 25, 2024 End: May 25, 2024 Carrie Vick CNM Attending Provider Active Start: May 25, 2024 End: May 25, 2024 Carrie Vick CNM Referring Provider Active Start: May 25, 2024 End: May 25, 2024 Team Status: Inactive Member Role Status Dates Reema uGtierrez CUSTODIAL WORKER, CUSTODIAL WORKER-C Primary Care Provider Activ e Start: June 27, 2024 End: June 27, 2024 Reema Gutierrez NP, CUSTODIAL WORKER-C Referring Provider Active Start: June 27, 2024 End: June 27, 2024 Mindy Clanton CUSTODIAL WORKER, CUSTODIAL WORKER-C Attending Provider Active Start: June 27, 2024 End: June 27, 2024 Team Status: Inactive Member Role Status Dates Reema Gutierrez CUSTODIAL WORKER, CUSTODIAL WORKER-C Primary Care Provider Activ e Start: July 25, 2024 End: July 25, 2024 Reema Gutierrez CUSTODIAL WORKER, CUSTODIAL WORKER-C Referring Provider Active Start: July 25, 2024 End: July 25, 2024 Dr. Rebeca López MD Attending Provider Active Start: July 25, 2024 End: July 25, 2024 Team Status: Inactive Member Role Status Dates Reema Gutierrez CUSTODIAL WORKER, CUSTODIAL WORKER-C Primary Care Provider Activ e Start: August 17, 2024 End: August 17, 2024 Mindy Romero CUSTODIAL WORKER, CUSTODIAL WORKER-C Attending Provider Active Start: August 17, 2024 End: August 17, 2024 Mindy Romero CUSTODIAL WORKER, CUSTODIAL WORKER-C Referring Provider Active Start: August 17, 2024 End: August 17, 2024 Team Status: Inactive Member Role Status Dates Reema Gutierrez CUSTODIAL WORKER, CUSTODIAL WORKER-C Primary Care Provider Activ e Start: August 24, 2024 End: August 24, 2024 Reema Gutierrez CUSTODIAL WORKER, CUSTODIAL WORKER-C Referring Provider Active Start: August 24, 2024 End: August 24, 2024 Dr. Rebeca López MD Attending Provider Active Start: August 24, 2024 End: August 24, 2024 Team Status: Inactive Member Role Status Dates Reema Gutierrez NP, CUSTODIAL WORKER-C Primary Care Provider Activ e Start: September 27, 2024 End: September 27, 2024 Reema Gutierrez CUSTODIAL WORKER, CUSTODIAL WORKER-C Referring Provider Active Start: September 27, 2024 End: September 27, 2024 Mindy Romero CUSTODIAL WORKER, CUSTODIAL WORKER-C Attending Provider Active Start: September 27, 2024 End: September 27, 2024 Team Status: Inactive Member Role Status Dates Remea Gutierrez NP, CUSTODIAL WORKER-C Primary Care Provider Activ e Start: September 27, 2024 End: September 27, 2024 Maggie Holloway CNM Attending Provider Active S tart: September 27, 2024 End: September 27, 2024 Maggie Holloway CNM Referring Provider Active S tart: September 27, 2024 End: September 27, 2024 Team Status: Inactive Member Role Status Dates Reema Gutierrez CUSTODIAL WORKER, CUSTODIAL WORKER-C Primary Care Provider Activ e Start: October 12, 2024 End: October 12, 2024 Reema Gutierrez CUSTODIAL WORKER, CUSTODIAL WORKER-C Referring Provider Active Start: October 12, 2024 End: October 12, 2024 Carrie Vick CNM Attending Provider Active Start: October 12, 2024 End: October 12, 2024 Team Status: Inactive Member Role Status Dates Reema Gutierrez CUSTODIAL WORKER, CUSTODIAL WORKER-C Primary Care Provider Activ e Start: October 24, 2024 End: October 24, 2024 Reema Gutierrez CUSTODIAL WORKER, CUSTODIAL WORKER-C Referring Provider Active Start: October 24, 2024 End: October 24, 2024 Dr. Rebeca López MD Attending Provider Active Start: October 24, 2024 End: October 24, 2024 Team Status: Inactive Member Role Status Dates Reema Gutierrez CUSTODIAL WORKER, CUSTODIAL WORKER-C Primary Care Provider Activ e Start: October 24, 2024 End: October 24, 2024 Dr. Rebeca López MD Attending Provider Active Start: October 24, 2024 End: October 24, 2024 Dr. Rebeca López MD Referring Provider Active Start: October 24, 2024 End: October 24, 2024 Team Status: Inactive Member Role Status Dates Reema Gutierrez NP, CUSTODIAL WORKER-C Primary Care Provider Activ e Start: November 07, 2024 End: November 07, 2024 Reema Gutierrez CUSTODIAL WORKER, CUSTODIAL WORKER-C Referring Provider Active Start: November 07, 2024 End: November 07, 2024 Maggie Holloway CNM Attending Provider Active S tart: November 07, 2024 End: November 07, 2024 Team Status: Inactive Member Role Status Dates Reema Gutierrez CUSTODIAL WORKER, CUSTODIAL WORKER-C Primary Care Provider Activ e Start: November 19, 2024 End: November 19, 2024 Reema Gutierrez CUSTODIAL WORKER, CUSTODIAL WORKER-C Referring Provider Active Start: November 19, 2024 End: November 19, 2024 Mindy Romero CUSTODIAL WORKER, CUSTODIAL WORKER-C Attending Provider Active Start: November 19, 2024 End: November 19, 2024 INFORMATION SOURCE (unrecogn ized section and content) DATE CREATED AUTHOR 12/22/2023 [facility] ([place]) DATE CREATED AUTHOR AUTHOR'S MEGHANIZ ATION 11/30/2024 [facility] FOR RECORDS PERTAINING TO PATIENTS WHO ARE OR HAVE BEEN ENROLLED IN A CHEMICAL DEPENDENCY/SUBSTANCEABUSE PROGRAM, SOME INFORMATION MAY BE OMITTED. This clinical summary was aggregated from multiple sources. Caution should be exercised in using it in the provision of clinical care. This summary normalizes information from multiple sources, and as a consequence, information in this document may materially change the coding, format and clinical context of patient data. In addition, data may be omitted in some cases. CLINICAL DECISIONS SHOULD BE BASED ON THE PRIMARY CLINICAL RECORDS. [facility] Staff [facility]. provides no warranty or guarantee of the accuracy or completeness of information in this document.
== END | disposition home or self-care (01) ==
LOC: US 15:19
PROVIDERS: PCP Registered Nurse; Referring Provider Advanced Practice Midwife; Visit Provider Advanced Practice Midwife
DX: O99.213 Obesity complicating pregnancy, third trimester (principal); E66.9 Obesity, unspecified; Z3A.37 37 weeks gestation of pregnancy
CPT/HCPCS: 76816

== ENCOUNTER → 2024-12-06 | Outpatient (CLI) | payer OTHER, SELFPAY | END | disposition home or self-care (01) | LOC: LABSPEC 16:30 | PROVIDERS: PCP Registered Nurse; Referring Provider Obstetrics & Gynecology; Visit Provider Obstetrics & Gynecology | DX: O09.93 Supervision of high risk pregnancy, unspecified, third trimester (principal); Z3A.00 Weeks of gestation of pregnancy not specified | CPT/HCPCS: 87081 ==

== ENCOUNTER → 2024-12-25 | Outpatient (CLI) | payer OTHER, SELFPAY ==
--- NOTE | 2024-12-25 07:53 | US_ITS ---
PROCEDURE: BREAST LIMITED UNILATERAL 12/25/2024 REASON FOR EXAM: F, Age 39 y/o , BREAST LUMP COMPARISON: None. TECHNIQUE: BREAST LIMITED UNILATERAL FINDINGS: The upper medial aspect of the right breast corresponding to the patient's palpable lump/fullness was examined. There is evidence of edematous tissue with dilated ducts and dilated vessels. This may be related to the patient's state. US/Breast Limited Unilateral IMPRESSION: No suspicious abnormality is seen. BI-RADS 2: BENIGN RECOMMEND ANNUAL MAMMOGRAPHIC SCREENING. RECOMMENDATION: Routine annual follow-up in 1 Year Reading Location: [facility]
== END | disposition home or self-care (01) ==
LOC: OPUS 07:52
PROVIDERS: PCP Registered Nurse; Referring Provider Obstetrics & Gynecology; Visit Provider Obstetrics & Gynecology
DX: N63.10 Unspecified lump in the right breast, unspecified quadrant (principal)
CPT/HCPCS: 76642

== ENCOUNTER 2024-12-27 10:14 | Inpatient (IN) | payer OTHER, SELFPAY ==
[2024-12-27] VITALS (15 sets, daily range): BP systolic 90–127; BP diastolic 64–80; PULSE 79–99; RESP 16–18; TEMP 36.1–36.8; O2SAT 97–100; BMI 40.6
--- NOTE | 2024-12-27 10:24 | HP.PCM_ITS ---
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 crispatus, gasseri, jensenii, tab PO 05/15/24 12/26/24 History rhamnosus 12 billion cell chew tablet ferrous sulfate 325 mg (65 mg 325 mg PO Q OTHER DAY 05/15/24 12/26/24 History iron) tablet multivitamin no.47-iron fum 27 cap PO 05/15/24 12/26/24 History mg-folate no.1 1 mg-dha 300 mg capsule (PNV-DHA) omega 0-xwf-zbx-fish oil 1,200 mg 2 cap PO DAILY 05/15/24 12/26/24 History (144 mg-216 mg) capsule (Fish Oil) Last Menstrual Period: 03/29/24 Zika: Zika virus screening: Negative : No PFSH PFSH Medical History AMA (advanced maternal age) multigravida 35+ History of third degree perineal laceration History of shoulder dystocia in prior Eczema Family history of hearing loss at age younger than 7 years Surgical History Previous section History of surgery Family History Grandfather CVA (cerebral vascular accident) Maternal Myocardial infarction Paternal Social History adopted: No household members: spouse and children number of children: 3 current occupational status: unemployed current occupation: [employer] pets and animals: No history of recent travel: No Smoking Status: Never smoker alcohol intake: never substance use type: does not use well-balanced diet: daily or most days caffeine: Yes (once a week ) Type: carbonated beverages Number of servings: 1 eating out: rarely or never during the past year weight has: remained stable what type of physical activity do you participate in: walking frequency: 1-2 times per week duration: 15-30 minutes/day dawood/mu-ism: Anabaptism seatbelt use: always do you feel safe at home: Yes additional social history: - 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 Date Name GA/Weeks Outcome Route Bth Weight Infant Gen Labor Lgth Anesthesia Del Locatn Provider FOB 10/31/18 Jackie 41 live - full term 9lb3oz Female 1 2 epidural [place] Aung Murillo 10/19/19 4 spontaneous 03/25/21 Kennedy 39 live - full term 8lbs 12oz Male epidural [facility] Dr. Ciera Murillo 01/18/23 Edith (pronounced say-la) 38 live - full term 10lbs 10oz Female spinal [facility] Rosalba Mas 02/02/24 4 spontaneous Delivery Date: 10/31/18 Last Updated by: Ciera Wick MD 30s shoulder dystocia, 3rd degree perineal lac Delivery Date: 03/25/21 Last Updated by: Gris Garcia 3rd degree tear, OP/Brow presentation Delivery Date: 01/18/23 Last Updated by: Nyasia Mayo primary c/s. HPI 39 wk ob Details: MANDY OSULLIVAN is a 39 year old who presents for routine OB visit. OB Visit SHIRIN Calculator Estimated Delivery Date Method Current WG Current Estimate 01/03/25 LMP (Certain) 38w 6d Estimated Due Date: 01/03/25 Expected Delivery Route/Plan RLTCS Specific Issue/Plans Covid status: [] Flu vaccine: [] Tdap vaccine: given Rhogam: na LARC form signed: yes Problem list reviewed and updated with the most current plan of care details and appropriate orders placed. Relevant counseling for the gestational age provided. Continue routine care and follow up unless otherwise noted in visit notes/problem list details Initial Weight: 200 lb Date -?-?-?-?-?-?-?-?-?-?-?-?- EGA Weight BP Urine Prot -?-?-?-?-?-?-?-?--?-?-?-?- Glucose FHR FuHt Pres Dilation -?-?-?-?-?-?-?-?-?-?-?-?- Effaced St Visit Note 05/25/24-?-?-?-?-?-?-?-?-?-?-?-?- 8w 1d 200 lb 6 oz(+6 oz) 135/78 -?-?-?-?-?-?-?-?-?-?-?-?- 162 -?-?-?-?-?-?-?-?-?-?-?-?- LC- CRL con with lmp. 1.47cm. LC- CRL con with lmp. 1.47cm. considering repeat cs. declines nipt. added hgba1c to nob. LC- CRL con with lmp. 1.47cm. considering repeat cs d/t LGA and SD hx.. declines nipt. added hgba1c to nob. 06/27/24-?-?-?-?-?-?-?-?-?-?-?-?- 12w 6d 204 lb 4 oz(+4 lb 4 oz) 114/75 Negative -?-?-?-?-?-?-?-?-?-?-?-?- Negative 160 -?-?-?-?-?-?-?-?-?-?-?-?- MH-No VB. Minimal nausea. Br US confirm FHT 07/25/24-?-?-?-?-?-?-?-?-?-?-?-?- 16w 6d 209 lb 6 oz(+9 lb 6 oz) 114/74 Negative -?-?-?-?-?-?-?-?-?-?-?-?- Negative 150 -?-?-?-?-?-?-?-?-?-?-?-?- SM- no vb lof cramping 08/24/24-?-?-?-?-?-?-?-?-?-?-?-?- 21w 1d 213 lb 2 oz(+13 lb 2 oz) 109/72 -?-?-?-?-?-?-?-?-?-?-?-?- 145 -?-?-?-?-?-?-?--?-?-?-?-?- SM- no vb lof good fm no reuglar ctx 09/27/24-?-?-?-?-?-?-?-?-?-?-?-?- 26w 0d 222 lb 6 oz(+22 lb 6 oz) 122/69 Negative -?-?-?-?-?-?-?-?-?-?-?-?- Negative 152 26 -?-?-?-?-?-?-?-?-?-?-?-?- MH-No VB, LOF. Good FM. 28wk labs pending. Larc 10/12/24-?-?-?-?-?-?-?-?-?-?-?-?- 28w 1d 223 lb 6 oz(+23 lb 6 oz) 108/67 Negative -?-?-?-?-?-?-?-?-?-?-?-?- Negative 145 29 -?-?--?-?-?-?-?-?-?-?-?-?- LC- no vb/ctx/lof. good fm. passed glucose. started iron- to repeat cbc in 2 weeks. 10/24/24-?-?-?-?-?-?-?-?-?-?-?-?- 29w 6d 223 lb 6 oz(+23 lb 6 oz) 111/65 Negative -?-?-?-?-?-?-?-?-?-?-?-?- Negative 145 31 -?-?-?-?-?-?-?-?-?-?-?-?- SM- no vb lof good fm no regular ctx 11/07/24-?-?-?-?-?-?-?-?-?-?-?-?- 31w 6d 231 lb 2 oz(+31 lb 2 oz) 125/78 Negative -?-?-?-?-?-?-?-?-?-?-?-?- Negative 130 34 -?-?-?-?-?-?-?-?-?-?-?-?- KW- no vb/lof/ctx. good fm. US ordered for ama and hx of LGA 11/19/24-?-?-?-?-?-?-?-?-?-?-?-?- 33w 4d 233 lb(+33 lb) 111/64 Negative -?-?-?-?-?-?-?-?-?-?-?-?- Negative 146 35 -?-?-?-?-?-?-?-?-?-?-?-?- MH-No VB, LOF. Good Fm. Has growth US scheduled 12/06/24-?-?-?-?-?-?-?-?-?-?-?-?- 36w 0d 238 lb 6 oz(+38 lb 6 oz) 135/78 -?-?-?-?-?-?-?-?-?-?-?-?- 145 39 -?-?-?-?-?-?-?-?-?-?-?-?- JV-patient c/o right breast tenderness. on exam there is a firm area at the 3:00 position measuring about 4 cm and likely consistent with a clogged duct or early mastitis. Will start with warm compresses and hand expression. If this does not help she will start keflex. if no relief with keflex in 1 week will order an ultrasound. 12/13/24-?-?-?-?-?-?-?-?-?-?-?-?- 37w 0d 240 lb 2 oz(+40 lb 2 oz) 111/69 Negative -?-?-?-?-?-?-?-?-?-?-?-?- Negative 145 41 Transverse -?-?-?-?-?-?-?-?-?-?-?-?- SM- no vb lof good fm no reuglar ctx 12/19/24-?-?-?-?-?-?-?-?-?-?-?-?- 37w 6d 242 lb(+42 lb) 114/70 Negative -?-?-?-?-?-?-?-?-?-?-?-?- Negative 147 38 -?-?-?-?-?-?-?-?-?-?-?-?- JV- no lof, vaginal bleeding, or dec fm. no complaints. but still has the breast lump. sending for breast ultrasound. 12/26/24-?-?-?-?-?-?-?-?-?-?-?-?- 38w 6d 243 lb 4 oz(+43 lb 4 oz) 114/71 Negative -?-?-?-?-?-?-?-?-?-?-?-?- Negative 145 45 -?-?-?-?-?-?-?-?-?-?-?-?- JV- no lof, vaginal bleeding, or dec fm. No complaints. Surgery consent filled out today. ACOG First Trimester First Trimester: Desire for , Alcohol, Tobacco Cessation, Illicit/Recreational Drug/Substance Use, Intimate Partner Violence, Barriers to care, Unstable Housing, Communication Barriers, Environmental/Work Hazards, Anticipated Course of Care, Toxoplasmosis Precations, Use of Any medications, Sexual activity, Exercise, Dental Care, Sauna/Hot tub use, Seat Belt use, Childbirth classes/Hospital facilities, Travel, Indications for Ultrasound and Screening for Aneuploidy; Discussed Second Trimester Second Trimester: Signs and Symptoms of Labor, Selecting a care provider, Reproductive Life Planning & Contreception, Care Planning, Depression/Anxiety and Intimate Partner Violence; Discussed Tobacco Cessation Third Trimester Third Trimester: Pain Management Plans, Labor support person(s), Immediate Larc, Movement Monitoring, Signs and Symptoms of Preeclampsia, Feeding No , Education and Family Medical Leave or Disability Forms ROS Const Reports system reviewed and no additional complaints, except as documented GI Reports system reviewed and no additional complaints, except as documented, Denies bloating, Denies constipation, Denies nausea and Denies vomiting Reports system reviewed and no additional complaints, except as documented, Denies pelvic pain, Denies sexual dysfunction, Denies urinary incontinence, Denies urinary hesitancy, Denies urinary urgency and Denies vaginal discharge Skin/Breast Reports system reviewed and no additional complaints, except as documented and Reports as per HPI Psych Reports as per HPI Exam Const General: cooperative, healthy appearing, comfortable and no acute distress HENMT Head: normal to inspection Neck Neck: normal visual inspection and no lymphadenopathy Thyroid: thyroid normal Resp Effort & Inspection: normal respiratory effort GI Inspection: normal to inspection Palpation: soft, no hepatosplenomegaly and nontender Skin General: no rashes or lesions noted Results POC Urinalysis 2 Dip (Clinic) Office Urine Glucose Negative Last Edit by Mindy Alexandre on 12/26/24 14:58 Office Urine Protein Negative Last Edit by Mindy Alexandre on 12/26/24 14:58 Coding Level of Care Code OB Routine Diagnoses Antepartum anemia complicating O99.019 Advanced maternal age (AMA) in Obesity affecting in first trimester, unspecified obesity type O99.211 Obesity type affecting : unspecified obesity Trimester: first trimester Supervision of high risk in third trimester O09.93 Trimester: third trimester 38 weeks gestation of Z3A.38 Weeks of gestation: 38 weeks Hx of shoulder dystocia in prior , currently O09.299 Previous section Z98.891 Iron deficiency anemia due to chronic blood loss D50.0 Anemia type: iron deficiency Iron deficiency anemia type: chronic blood loss Assessment and Plan Assessment and Plan (1) Antepartum anemia complicating : Status: Acute Comment: rpt cbc at 30 weeks stable (2) Advanced maternal age (AMA) in : Status: Acute Comment: declined nipt. plan 36 week growth US (3) Obesity affecting : Status: Acute Qualifiers: Obesity type affecting : unspecified obesity Trimester: first trimester Qualified Code(s): O99.211 - Obesity complicating , first trimester Comment: HgbA1c bmi 34 (4) Supervision of high-risk : Status: Acute Qualifiers: Trimester: third trimester Qualified Code(s): O09.93 - Supervision of high risk , unspecified, third trimester Comment: [id number], SHIRIN 01/03/25, girl Kennedy Pham Sela, Chidi (5) : Status: Acute Qualifiers: Weeks of gestation: 38 weeks Qualified Code(s): Z3A.38 - 38 weeks gestation of Comment: Neg GBS declined NIPT & Carrier testing. nl anatomy (6) Hx of shoulder dystocia in prior , currently : Status: Acute Comment: mild, had with 9lb but not with 8lb 12 oz. will determine delivery mode based on growth US. discussed delivery by 39 weeks either RLTCS or IOL (7) Previous section: Status: Acute Comment: transverse, LGA, consider TOLAC depending on EFW RLTCS scheduled for 12/27 @ 12 with JV (8) Anemia: Status: Acute Qualifiers: Anemia type: iron deficiency Iron deficiency anemia type: chronic blood loss Qualified Code(s): D50.0 - Iron deficiency anemia secondary to blood loss (chronic) Comment: Taking PNV and FE Orders: Orders POC Urinalysis 2 Dip (Clinic) Today Plan After discussing the patient's diagnosis and treatment plan options, patient wishes to proceed with surgical management. I have discussed with the patient the risks, benefits, and alternatives of the procedure which include but are not limited to risks of anesthesia, bleeding, infection, possible damage to bowel, bladder, or surrounding vasculature which could lead to additional surgery to evaluate any complications. Patient agrees to procedure and wishes to proceed. ACOG/uptodate references given for additional information regarding procedure. plan repeat section. patient declines tubal ligation
[2024-12-27] MEDS: Lactated Ringers 1,000 ML 999 ML IV (10:50)
[2024-12-27 11:14] LABS: Hematocrit 33.5 % (37-47); Hemoglobin 10.7 g/dL (12.0-15.0); Immature Granulocytes Count 0.030 X10^3/uL (0.0-0.0); Mean Corp Hgb Conc 31.9 g/dL (32-36); Mean Corpuscular Volume 84.0 fL (81-99); Mean Platelet Vol. 10.8 fl (6.2-12.0); NRBC Flagged by Analyzer 0 % (0-5); Platelet Count 209 K/mm3 (150-450); RBC Distribution Width CV 14.5 % (11.6-14.6); RBC Distribution Width SD 44.0 fl (35.1-43.9); Red Blood Count 3.99 M/mm3 (4.2-5.4); White Blood Count 6.7 K/mm3 (4.4-11.0)
[2024-12-27] MEDS: Lactated Ringers 1,000 ML 150 ML IV (11:56)
--- NOTE | 2024-12-27 12:20 | DCINST_ITS ---
Discharge Instructions Diet Discharge Diet: No restrictions DC O2, CPAP, BIPAP needs Home O2 Discharge instructions: No Dressing / Incision Discharge Activity: May Not Drive (for 2 weeks or while taking narcotic pain medications.), May Shower and May Take a Tub Bath (in 7 days.) May resume sexual activity in: 4-6 weeks Weight Bearing Status: Full weight bearing Lifting Restrictions: 20 pounds Dressing / Incision Call your doctor if your incision/area has: Continuous Slow Oozing, Sudden Increased Bleeding, Increased Pain/ Swelling, Increased Redness and Foul Smelling Discharge Call your doctor if you observe: Fever of 101 or Higher and Using more than 1 pad per hour Suture Line Care: Avoid Pulling/Pushing and Avoid Pinching/Bending Cleanse incision/area with: Soap & Water and Keep Dressing Clean & Dry Follow Up Care Please Follow Up With: Rosalba Lee DO When: Call [phone] to make an appointment for an incision check in 1-2 weeks. Test Results: Test results from this visit will be discussed in further detail at your follow- up appointment, if applicable. Discharge Plan Admission Admit Date/Time: 12/27/24 10:14 Primary Reason for Your Visit: section Attending Provider: Rosalba Lee Primary Care Provider: Reema Smith NP Discharge Orders/Prescriptions Prescriptions: New ibuprofen 800 mg tablet 800 mg PO Q8H PRN (Reason: pain) Qty: 30 0RF oxycodone-acetaminophen [Percocet] 5-325 mg tablet 1 tab PO Q4H PRN (Reason: pain) 7 Days Qty: 20 0RF Continued PNV-DHA 27 mg iron-1 mg -300 mg capsule 1 cap PO DAILY omega 9-zmr-hth-fish oil [Fish Oil] 1,200 (144-216) mg capsule 2 cap PO DAILY evie Sky jensen,rhamn 12 billion cell tablet,chewable 1 tab PO DAILY ferrous sulfate 325 mg (65 mg iron) tablet 325 mg PO Q OTHER DAY calcium gazz-F3-rwtbejitv abraham 1 tab PO/SL DAILY Referrals / Follow Up: Reema Smith NP, [facility] [Primary Care Provider] - Disposition Disposition (needs filled in before D/C Order can be placed): Home, Self Care
[2024-12-27 12:23] LABS: Syphilis Antibodies Nonreactive (Nonreactive)
--- NOTE | 2024-12-27 14:00 | OP.PCM_ITS ---
Assessment & Plan (1) Antepartum anemia complicating : COMMENT: rpt cbc at 30 weeks stable (2) Advanced maternal age (AMA) in : COMMENT: declined nipt. plan 36 week growth US (3) Obesity affecting : QUALIFIERS: Trimester: first trimester Obesity type affecting : unspecified obesity Qualified Code(s): O99.211 - Obesity complicating , first trimester COMMENT: HgbA1c bmi 34 (4) Supervision of high-risk : QUALIFIERS: Trimester: third trimester Qualified Code(s): O09.93 - Supervision of high risk , unspecified, third trimester COMMENT: [id number], SHIRIN 01/03/25, girl PC Kennedy Mejia Sela, Chidi (5) : QUALIFIERS: Weeks of gestation: 38 weeks Qualified Code(s): Z3A.38 - 38 weeks gestation of COMMENT: Neg GBS declined NIPT & Carrier testing. nl anatomy (6) Hx of shoulder dystocia in prior , currently : COMMENT: mild, had with 9lb but not with 8lb 12 oz. will determine delivery mode based on growth US. discussed delivery by 39 weeks either RLTCS or IOL (7) Anemia: QUALIFIERS: Anemia type: iron deficiency Iron deficiency anemia type: chronic blood loss Qualified Code(s): D50.0 - Iron deficiency anemia secondary to blood loss (chronic) COMMENT: Taking PNV and FE (8) Previous section: COMMENT: transverse, LGA, consider TOLAC depending on EFW RLTCS scheduled for 12/27 @ 12 with JV Maternal Data Information SHIRIN Calculator Estimated Delivery Date Method Current WG Current Estimate 01/03/25 LMP (Certain) 39w 0d Operative Report (OB) Details Procedure Type: low transverse Date of Procedure: 12/27/24 Procedure Start Time: 13:07 Time of Delivery: 13:12 Pre-Operative Diagnosis: Repeat Elective Post-Operative Diagnosis: Same as Pre-operative diagnosis Classification: Scheduled Type of Anesthesia: Spinal Antibiotic Given: Ancef 3 grams IV x1 Drain: Jewell to straight drain Estimated Blood Loss: 700cc Findings Description of surgery: The patient is a 39 y/o @ 39 weeks who presented for repeat . Spinal anesthesia was placed after multiple attempts. Jewell catheter was placed. The patient was placed in the dorsal supine position with leftward tilt. Patient was prepped and draped in the normal sterile fashion. Pfannenstiel skin incision was made with the scalpel and carried through to the underlying layer of fascia with the scalpel. Fascia was nicked in the midline and the incision extended laterally. The rectus bellies were dissected off superiorly and inferiorly with out complication both sharply and bluntly. The peritoneum was entered digitally. The incision was stretched and a low transverse uterine incision was made with the scalpel. The infant's head was delivered atraumatically followed by the anterior and posterior shoulders without complication the rest of the delivered. The cord was clamped and cut and the was handed off to awaiting nurse. The placenta was delivered spontaneously immediately following and was noted to be intact and have a three- vessel cord. The uterus was exteriorized cleared of all clots and debris, and the incision was closed in a double layer closure using #1 vicryl #1 Monocryl. The ovaries and fallopian tubes were noted to be within normal limits. The uterus was returned to the maternal abdomen and gutters were cleared of all clots and debris. The peritoneum was closed with 3-0 Monocryl in a running fashion. Gloves were changed prior to fascial closure. Fascia was closed with 0 PDS in a running fashion. Subcutaneous tissue was copiously irrigated and the skin was closed with 3-0 Monocryl in a subcuticular fashion. Mepilex dressing was applied without complication. Patient was taken to recovery in stable condition. It was discussed with the patient that based on the clinical information obtained during this encounter, combined with her history, at this time I would recommend repeat sections for future deliveries if further pregnancies are desired. Surgical findings: viable female pankaj 10 lbs 6 oz Presentation: Vertex Amniotic Membrane Rupture Type: Artificial Amniotic Fluid Description: Clear Placental Delivery Description: Expressed Placenta Disposition: [facility] Specimen collected: No Cord Vessel Description: 3 Vessels Cord Entanglement: None Infant A gender: Female (1 minute): 8 (5 minute): 9 Delayed Cord Clamping: No Dormitory Supervisor microarray specialist: Yes Lift Truck Operator: Jay Grimes Tasks completed by assistant nurse manager: Closing and Retracting Additional assistant news director?: No Complications Complications: No Multi Select Codes Urinary/Genital Urinary/Genital CPT Codes: 06863 Delivery [facility]
[2024-12-27] MEDS: Oxytocin 15 Units/NS 250ml 15 UNITS/250 ML IV.SOLN 83 UNITS IV (14:10)
[2024-12-27] MEDS: Ketorolac 30 MG/ML Syringe IV ×2 (14:23→21:11)
[2024-12-27] MEDS: Lactated Ringers 1,000 ML 100 ML IV (17:27)
--- OUTSIDE RECORDS SUMMARY | 2024-12-27 20:02 | XMS RPT_ITS | CCD ---
Author Organization [facility] CliniSymi Care Team Providers Care Sheet Metal Apprentice Name Role Phone ALEIDA TALENT ACQUISITION LEAD-COMPENSATION INTERN, ERIKA Primary Care Physician Aleida BUSINESS ADMINISTRATOR, BUSINESS ADMINISTRATOR-C Erika Primary Care Provider Aleida BUSINESS ADMINISTRATOR, BUSINESS ADMINISTRATOR-C Erika Referring Provider [phone] Dr. Rosalba Lee Attending Provider [phone] SEUN Vick Attending Provider Heather BUSINESS ADMINISTRATOR, BUSINESS ADMINISTRATOR-C Mindy Attending Provider [phone] Dr. Rebeca López Attending Provider [phone] SEUN Holloway Attending Provider [phone] MATT TALENT ACQUISITION LEAD-COMPENSATION INTERN, REEMA A Primary Care Physi sean MATT TALENT ACQUISITION LEAD-COMPENSATION INTERN, REEMA A Primary Care Un available MATT TALENT ACQUISITION LEAD-COMPENSATION INTERN, REEMA A Attending Un available MATT TALENT ACQUISITION LEAD-COMPENSATION INTERN, REEMA A Attending Un available MATT TALENT ACQUISITION LEAD-COMPENSATION INTERN, REEMA A Primary Care Un available Matt BUSINESS ADMINISTRATOR-C, Reema Primary Care Provider Matt BUSINESS ADMINISTRATOR-C, Reema Referring Provider [phone] Carrie Vick CNM Attending Provider [phone] Carrie Vick CNM Referring Provider Heather HERNANDES-CMindy Attending Provider [phone] Dr. Rebeca López MD Attending Provider Heather BUSINESS ADMINISTRATOR-CMindy Referring Provider Matt HERNANDES-C, Reema Primary Care Provider Matt BUSINESS ADMINISTRATOR-C, Reema Referring Provider [phone] Jewel KOHLI, Maggie Attending Provider [phone] Jewel CNSeverino, Maggie Referring Provider [phone] Matt BUSINESS ADMINISTRATOR-C, [facility] Care Provider Matt BUSINESS ADMINISTRATOR-C, Cowen Referring Provider [phone] Heather BUSINESS ADMINISTRATOR-C, Mindy Attending Provider [phone] Carrie Vick CNM Attending Provider [phone] Rene SPRINGER, Dr. Jose Referring Provider Matt BUSINESS ADMINISTRATOR-C, [facility] Care Provider [phone] Matt BUSINESS ADMINISTRATOR-C, Cowen Referring Provider [phone] Rene SPRINGER, Dr. Jose Attending Provider Dr. Rosalba Lee DO Attending Provider Dr. Rosalba Lee DO Referring Provider Matt BUSINESS ADMINISTRATOR-C, Cowen Primary Care Provider Heather BUSINESS ADMINISTRATOR-C, Mindy Attending Provider [phone] Maggie Holloway Referring Unavailable Maggie Holloway Attending Unavailable Matt BUSINESS ADMINISTRATOR, [facility] Unavailabl e Matt BUSINESS ADMINISTRATOR, Cowen Referring Unavailabl e Kellogg BUSINESS ADMINISTRATOR, Mindy Attending Unavailable Matt BUSINESS ADMINISTRATOR, [facility] Unavailabl e Matt BUSINESS ADMINISTRATOR, [facility] Unavailabl e Heather BUSINESS ADMINISTRATOR, Mindy Attending Unavailable Aleida BUSINESS ADMINISTRATOR, Erika Referring Unavailable Rebeca López Referring Unavailable Rebeca López Attending Unavailable Matt BUSINESS ADMINISTRATOR, [facility] Unavailabl e Carrie Vick Referring Unavailable Carrie iVck Attending Unavailable Matt BUSINESS ADMINISTRATOR, [facility] Unavailabl e Maggie Holloway Referring Unavailable Maggie Holloway Attending Unavailable Matt BUSINESS ADMINISTRATOR, [facility] Unavailabl e Rosalba Lee Attending Unavailabl e Rosalba Lee Admitting Unavailabl e Matt BUSINESS ADMINISTRATOR, [facility] Unavailabl e Aleida BUSINESS ADMINISTRATOR, [facility] Unavailable Rosalba Lee Referring Unavailabl e Casandrae Anel, Rosalba Attending Unavailabl Carrie Amaro Attending Unavailable Matt BUSINESS ADMINISTRATOR, [facility] Unavailabl e Matt BUSINESS ADMINISTRATOR, [place] Referring Unavailabl e Vande Veljag, Rosalba Attending Unavailabl e Casandrae Veljag, Rosalba Referring Unavailabl e Matt BUSINESS ADMINISTRATOR, [facility] Unavailabl e Vande Veljag, Rosalba Referring Unavailabl e Vande Anel, Rosalba Attending Unavailabl e Matt BUSINESS ADMINISTRATOR, [facility] Unavailabl e Matt BUSINESS ADMINISTRATOR, [facility] Unavailabl e Matt BUSINESS ADMINISTRATOR, [place] Referring Unavailabl e Rebeca López Attending Unavailable Rosalba Lee Attending Unavailabl e Matt BUSINESS ADMINISTRATOR, [facility] Unavailabl e Matt BUSINESS ADMINISTRATOR, [place] Referring Unavailabl e Casandrae Anel, Rosalba Attending Unavailabl e Matt BUSINESS ADMINISTRATOR, [place] Referring Unavailabl e Matt BUSINESS ADMINISTRATOR, [facility] Unavailabl Maggie Chung Attending Unavailable Matt BUSINESS ADMINISTRATOR, [place] Referring Unavailabl e Matt BUSINESS ADMINISTRATOR, [facility] Unavailabl e Matt BUSINESS ADMINISTRATOR, [facility] Unavailabl e Matt BUSINESS ADMINISTRATOR, [place] Referring Unavailabl e Kellogg BUSINESS ADMINISTRATOR, Mindy Attending Unavailable Matt BUSINESS ADMINISTRATOR, [place] Referring Unavailabl e Rebeca López Attending Unavailable Matt BUSINESS ADMINISTRATOR, [facility] Unavailabl Rebeca Caba Attending Unavailable Matt BUSINESS ADMINISTRATOR, [place] Referring Unavailabl e Matt BUSINESS ADMINISTRATOR, [facility] Unavailabl e Matt BUSINESS ADMINISTRATOR, [place] Referring Unavailabl e Matt BUSINESS ADMINISTRATOR, [facility] Unavailabl e Kellogg BUSINESS ADMINISTRATOR, Mindy Attending Unavailable Carrie Vick Attending Unavailable Matt BUSINESS ADMINISTRATOR, [facility] Unavailabl e Matt BUSINESS ADMINISTRATOR, Cowen Referring Unavailabl e Rebeca López Attending Unavailable Matt BUSINESS ADMINISTRATOR, [facility] Unavailabl e Matt BUSINESS ADMINISTRATOR, [place] Referring Unavailabl e Kellogg BUSINESS ADMINISTRATOR, Mindy Referring Unavailable Matt BUSINESS ADMINISTRATOR, [facility] Mindy Meade NP Attending Unavailable Reema Joseph Primary Care Provider Reema Joseph Referring Provider [phone] Rene SPRINGER, Dr. Jose Attending Provider Medications Current Medications Medication Drug Class(es) Dates Sig (Normalized) Sig (Original) calcium kvci-T8-offlxztbo abraham (14 sources) Start: 03-13-2021 calcium dwwj-J3-ltxczzvzf abraham Active 1 {tbl} SL/PO DAILY March 13, 2021 12:00am Start: 03-13-2021 calcium carb-D 3-magnesium abraham Active 1 {tbl} SL/PO DAILY March 13, 2021 12:00am Start: 03-13-2021 take 1 tablet by esme th once daily calcium fkay-W0-vqnuhrzfz abraham Active 1 TABLET SL/PO DAILY March 13, 2021 12:00am Start: 03-13-2021 take 1 tablet by esme th once daily calcium wiru-U5-bytpdnjwv abraham Active 1 TABLET SL/PO DAILY March 12, 2021 11:00pm Calcium, Magnesium and Zinc oral tablet (3 sources) Start: 05-11-2022 take 1 tablet by mouth once daily Calcium, Magnesium and Zinc oral tablet Dose = 1 tab(s), Oral, qDay, # 30 tab(s), 0 Refill(s) Start Date: 05/11/22 Status: Ordered ferrous sulfate 325 mg oral tablet (20 sources) Start: 05-15-2024 take 1 tablet by mouth every other day Ferrous Sulfate 325 mg (65 mg iron) tablet Active 325 mg PO every other day May 15, 2024 1:00am Start: 03-13-2021 End: 10-06-2022 take 1 tablet by mouth once daily Ferrous Sulfate (Iron) 325 mg (65 mg iron) Tablet Discontinued 325 mg PO DAILY March 13, 2021 12:00am October 06, 2022 2:16pm anemic Leah Jaffe JensenRha mn 12 billion cell tablet,chewable (11 sources) Start: 05-15-2024 Leah Jaffe JensenRha mn 12 billion cell tablet,chewable Active {tbl} PO May 15, 2024 1:00am Multivit 78-Tcsb-Ylivpf 1-Dh a (Pnv-Dha) 27 mg iron-1 mg -300 mg capsule (11 sources) Start: 05-15-2024 Multivit 24-Pswe-Suocwe 1-Dh a (Pnv-Dha) 27 mg iron-1 mg -300 mg capsule Active NMA PO May 15, 2024 1:00am [place] 3-Ulk-Xfa-Fish Oil (Fi sh Oil) 1,200 (144-216) mg capsule (11 sources) Start: 05-15-2024 [place] 3-Dtx-Rft-Fish Oil (Fi sh Oil) 1,200 (144-216) mg [...] Sig (Original) acetaminophen 500 mg oral tablet (11 sources) Start: 01-19-2023 End: 02-01-2023 take 2 tablets by mouth every six hours Acetaminophen 500 mg Tablet Discontinued 1000 mg PO EVERY 6 HOURS 20 0 January 19, 2023 12:00am February 01, 2023 10:28am cephalexin 500 mg oral capsule (7 sources) Cephalosporin Antibacterial Start: 12-06-2024 End: 12-16-2024 take 1 capsule by mouth every six hours Cephalexin 500 mg capsule Discontinued 500 mg PO EVERY 6 HOURS 40 10 0 December 06, 2024 12:00am December 15, 2024 12:00am December 16, 2024 12:05am Start: 05-11-2022 End: 05-16-2022 cephalexin 500 mg oral capsu le Dose : 500 mg = 1 cap(s), Oral, q12h, X 5 day(s), # 10 cap(s), 0 Refill(s), 05/16/22 12:08:00 EST, [facility]acy: [id number], 164.5, cm, 05/11/22 11:00:00 EST, Height, 78.1 Start Date: 05/11/22 Stop Date: 05/16/22 Status: Ordered docosahexaenoic acid 200 mg oral capsule (14 sources) Start: 03-13-2021 End: 03-10-2023 take 1 capsule by mouth once daily Docosahexaenoic Acid (Dha ) 200 mg Capsule Discontinued 200 mg PO DAILY March 13, 2021 12:00am March 10, 2023 9:44am naproxen 500 mg oral tablet (11 sources) Nonsteroidal Anti-inflammatory Drug Start: 01-19-2023 End: 02-01-2023 take 1 tablet by mouth every eight hours Naproxen 500 mg Tablet Discontinued 500 mg PO Q8H 20 0 January 19, 2023 12:00am February 01, 2023 10:28am norethindrone 0.35 mg oral tablet (12 sources) Start: 03-10-2023 End: 04-04-2024 take 1 tablet by mouth once daily Norethindrone (Contraceptive) 0.35 mg tablet Discontinued 0.35 mg PO DAILY 84 4 March 10, 2023 12:00am April 04, 2024 1:01pm oxyCODONE hydrochloride 5 mg oral capsule (11 sources) Opioid Agonist Start: 01-19-2023 End: 02-01-2023 take 1 capsule by mouth every eight hours as needed for pain Oxycodone 5 mg capsule Discontinued 5 mg PO Q8H as needed for pain 14 5 0 January 19, 2023 February 01, 2023 10:28am delivery delivered Encounter for delivery without indication Vit-Iron Fum-Folic Ac ( Fa) 60 mg iron-1 mg Tablet (14 sources) Start: 03-13-2021 End: 05-15-2024 Vit-Iron Fum-Folic Ac ( Fa) 60 mg iron-1 mg Tablet Discontinued 1 {tbl} PO DAILY March 13, 2021 12:00am May 15, 2024 11:32am Start: 03-13-2021 End: 05-15-2024 Vit-Iron Fum-Folic Ac [...] Date Documented Da te Episodic/Chronic Administrative/social admission (14 sources) Occupational exposure to other risk factors; Translations: [Employee exposure to body fluids] 03-25-2021 Episodic Deficiency and other anemia (1 source) Iron deficiency anemia secondary to blood loss (chronic); Translations: [Iron deficiency anemia secondary to blood loss (chronic)] Onset: 12-13-2024 Chronic Deficiency and other anemia (20 sources) Anemia; Translations: [Anemia, unspecified] Episodic Comment on above: Taking PNV and FE Hemorrhage during ; abruptio placenta; placenta previa (19 sources) Antepartum hemorrhage; Translations: [Hemorrhage in early , unspecified] Onset: 07-25-2024 08-24-2024 Episodic Comment on above: resolved Immunizations and screening for infectious disease (1 source) Encounter for immunization; Translations: [Encounter for immunization] Onset: 10-12-2024 Episodic Malaise and fatigue (1 source) Fatigue; Translations: [Other fatigue] Episodic Malposition; malpresentation (14 sources) Breech presentation; Translations: [Maternal care for breech presentation, not applicable or unspecified] 03-25-2021 Episodic Other complications of ; puerperium affecting management of mother (11 sources) Deliveries by ; Translations: [Encounter for delivery without indication] 05-15-2024 Episodic Comment on above: 01/18/23 PC/S Meliton AKINS Other complications of (20 sources) Anemia of ; Translations: [Anemia complicating , unspecified trimester] 12-20-2022 Chronic Comment on above: rpt cbc at 30 weeks rpt cbc at 30 weeks stable Other complications of (4 sources) Anemia complicating , unspecified trimester; Translations: [Anemia of mother, unspecified as to episode of care or not applicable] Onset: 12-13-2024 11-29-2022 Chronic Other complications of (20 sources) Maternal obesity complicating , childbirth and the puerperium, antepartum; Translations: [Obesity complicating , unspecified trimester] 08-24-2024 Chronic Comment on above: HgbA1c bmi 34 Other complications of (1 source) Obesity complicating , first trimester; Translations: [Obesity complicating , first trimester] Onset: 12-13-2024 Chronic Other complications of (1 source) Obesity complicating , unspecified trimester; Translations: [Obesity complicating , unspecified trimester] Onset: 06-28-2024 Chronic Other complications of (12 sources) Multigravida of advanced maternal age; Translations: [Supervision of elderly multigravida, unspecified trimester] 12-17-2022 Episodic Comment on above: declined genetic scr eening. Other complications of (20 sources) High risk ; Translations: [Supervision of high risk , unspecified, unspecified trimester] 12-17-2022 Episodic Comment on above: [id number], SHIRIN 01/03/25 , girl Kennedy Pham, Edith, Chidi PRR SHIRIN 01/22/23 girl (name secret) Kennedy Pham Chidi Other complications of (2 sources) Supervision of elderly multigravida, unspecified trimester; Translations: [Elderly multigravida, unspecified as to episode of care or not applicable] 12-17-2022 Episodic Other complications of (11 sources) Fundal height high for dates; Translations: [Uterine size-date discrepancy, unspecified trimester] 01-20-2023 Episodic Comment on above: S>D growth US-4553 g sulema at 37 weeks. Poly 26.3CM Other complications of (20 sources) Advanced maternal age ; Translations: [Elderly multigravida, unspecified as to episode of care or not applicable] 08-24-2024 Episodic Comment on above: declined nipt. plan 36 week growth US Other complications of (1 source) Supervision of with other poor reproductive or obstetric history, unspecified trimester; Translations: [Supervision of with other poor reproductive or obstetric history, unspecified trimester] Onset: 12-13-2024 Episodic Other complications of (1 source) Supervision of high risk , unspecified, third trimester; Translations: [Supervision of high risk , unspecified, third trimester] Onset: 12-13-2024 Episodic Other complications of (1 source) Supervision of elderly primigravida, second trimester; Translations: [Supervision of elderly primigravida, second trimester] Onset: 12-12-2024 Episodic Other complications of (1 source) Supervision of high risk , unspecified, second trimester; Translations: [Supervision of high risk , unspecified, second trimester] Onset: 11-07-2024 Episodic Other gastrointestinal disorders (1 source) Loose stool 12-21-2023 Episodic Other and delivery including normal (20 sources) Vaginal delivery; Translations: [Encounter for full-term uncomplicated delivery] 12-17-2022 Episodic Comment on above: declined NIPT & Jaime ier testing. nl anatomy GBS neg, declined ge netic testing, nl anatomy with Monarc GÉNESIS. Neg GBS declined NIP T & Carrier testing. nl anatomy Residual codes; unclassified (2 sources) Gestation period, 39 weeks; Translations: [39 weeks gestation of ] Episodic Residual codes; unclassified (12 sources) History of third degree perineal laceration; [...] of uterine scar from previous surgery] Onset: 12-13-2024 Episodic Residual codes; unclassified (1 source) 37 weeks gestation of ; Translations: [37 weeks gestation of ] Onset: 12-13-2024 Episodic Residual codes; unclassified (1 source) 29 weeks gestation of ; Translations: [29 weeks gestation of ] Onset: 10-24-2024 Episodic Residual codes; unclassified (1 source) 26 weeks gestation of ; Translations: [26 weeks gestation of ] Onset: 09-27-2024 Episodic Past or Other Problems Problem Classification Problem Date Documented Da te Episodic/Chronic Other complications of (3 sources) Supervision of [...] Test Name Value Interpretation Reference Range Facility Laboratory - Chemistry and C hemistry - challengeOrdered By: Rosalba Tam on 12-19-2024 Glucose Ql (U) Negative [facility] - UrinalysisOrder ed By: Rosalba Tam on 12-19-2024 Protein Ql (U) Negative [facility] Senior Environmental Technician Office Visit Reporton 12-19-2024 Senior Environmental Technician Office Visit Report [address], [address] [address] OFFICE VISIT Date of Service: 12/19/24 MR#: [id number] Acct: [id number] Name: MANDY OSULLIVAN Rep #: [id number] : 1985 Provider: Dr. Rosalba Dobbs DO Age/Sex: 39/F Location: [facility] Status: Signed Intake Vital Signs 11/07/24 14:09 12/13/24 10:50 12/19/24 14:34 12/19/24 14:38 Height 5 ft 5 in 5 ft 5 in 5 ft 5 in 5 ft 5 in Weight: 242 lb BMI 40.2 BP 114/70 Intake Visit Reasons: 38 wk ob Mine Boss Required: No Is patient in pain?: No Allergies No Known Allergies Allergy (Verified 12/19/24 14:36) Medications ???Medication ???Instructions ???Recorded ???Confirmed ???Type calcium evcn-H3-tchwfufmr abraham 1 tab PO/SL DAILY 12/19/24 History L. crispatus, gasseri, jensenii, tab PO 05/15/24 12/19/24 History rhamnosus 12 billion cell chew tablet ferrous sulfate 325 mg (65 mg 325 mg PO Q OTHER DAY 05/15/2408/14 History iron) tablet multivitamin no.47-iron fum 27 cap PO 05/15/24 12/19/24 History mg-folate no.1 1 mg-dha 300 mg capsule (PNV-DHA) omega 7-twn-prb-fish oil 1,200 mg 2 cap PO DAILY 05/15/24 12/19/24 History (144 mg-216 mg) capsule (Fish Oil) [...] 3 current occupational status: unemployed current occupation: [employer] pets and animals: No history of recent [...] 1-2 times per week duration: 15-30 minutes/day dawood/zoroastrianism: Catholic seatbelt use: always do you feel safe at home: Yes 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 Date Name GA/Weeks Outcome Route Bth Weight Infant Gen Labor Lgth Anesthesia Del Locatn Provider FOB 10/31/18 [place] 41 live - full term 9lb3oz Female 12 epidural Lidya Be mariano Murillo 10/19/19 4 spontaneous 03/25/21 [place] 39 live - full term 8lbs 12oz Male epidural [facility] Dr. Ciera Murillo 01/18/23 Edith (pronounced say-la) 38 live - full term 10lbs 10oz Female spinal [facility] Rosalba Mas 02/02/24 4 spontaneous Delivery Date: 10/31/18 Last Updated by: Ciera Wick MD 30s shoulder dystocia, 3rd degree perineal lac Delivery Date: 03/25/21 Last Updated by: Gris Garcia 3rd degree tear, OP/Brow presentation Delivery Date: 01/18/23 Last Updated by: Nyasia Mayo primary c/s. HPI 38 wk ob Details: MANDY OSULLIVAN is a 39 year old who presents for routine OB visit. OB Visit SHIRIN Calculator Estimated Delivery Date Method Current WG Current Estimate 01/03/25 LMP (Certain) 37w 6d Expected Delivery Route/Plan RLTCS Specific Issue/Plans [...] -???-???- Effaced St Visit Note 05/25/24 -???-???-???-???-??? -???-???-???-?? (more content not included)... Normal [facility] Laboratory - Chemistry and C hemistry - challengeOrdered By: Rebeca López on 12-13-2024 Glucose Ql (U) Negative [facility] - UrinalysisOrder ed By: Rebeca López on 12-13-2024 Protein Ql (U) Negative [facility] Senior Environmental Technician Office Visit Reporton 12-13-2024 Senior Environmental Technician Office Visit Report [facility] [address], [address] [place] [address] OFFICE VISIT Date of Service: 12/13/24 MR#: [id number] Acct: [id number] Name: MANDY OSULLIVAN Rep #: [id number] : 1985 Provider: Dr. Rebeca ramos MD Age/Sex: 39/F Location: [facility] Status: Signed Intake Vital Signs 10/24/24 11:01 12/06/24 14:53 12/13/24 10:44 12/13/24 10:50 Height 5 ft 5 in 5 ft 5 in 5 ft 5 in 5 ft 5 in Weight: 240 lb 2 oz BMI 39.9 BP 111/69 Intake Visit Reasons: 37 wk ob Mine Boss Required: No Is patient in pain?: No Allergies No Known Allergies Allergy (Verified 12/13/24 10:44) Medications ???Medication ???Instructions ???Recorded ???Confirmed ???Type calcium ogmi-E6-ihxqaobgt abraham 1 tab PO/SL DAILY 12/13/24 History L. crispatus, gasseri, jensenii, tab PO 05/15/24 12/13/24 History rhamnosus 12 billion cell chew tablet ferrous sulfate 325 mg (65 mg 325 mg PO Q OTHER DAY 05/15/24 History iron) tablet multivitamin no.47-iron fum 27 cap PO 05/15/24 12/13/24 History mg-folate no.1 1 mg-dha 300 mg capsule (PNV-DHA) omega 4-axr-bxw-fish oil 1,200 mg 2 cap PO DAILY 05/15/24 12/13/24 History (144 mg-216 mg) capsule (Fish Oil) cephalexin 500 mg capsule 500 mg PO Q6 10 days #40 caps 11/1812/13/24 Rx Last Menstrual Period: 03/29/24 Zika: Zika virus [...] 3 current occupational status: unemployed current occupation: [employer] pets and animals: No history of recent [...] 1-2 times per week duration: 15-30 minutes/day dawood/zoroastrianism: Catholic seatbelt use: always do you feel safe at home: Yes 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 Date Name GA/Weeks Outcome Route Bth Weight Gen Labor Lgth Anesthesia Del Locatn Provider FOB 10/31/18 Jackie 41 live - full term 9lb3oz Female 12 epidural Lidya Be neguerda Murillo 10/19/19 4 spontaneous 03/25/21 Kennedy 39 live - full term 8lbs 12oz Male epidural [facility] Dr. Ciera Murillo 01/18/23 Edith ([facility] 38 live - full term 10lbs 10oz Female spinal [facility] Rosalba Mas 02/02/24 4 spontaneous Delivery Date: 10/31/18 Last Updated by: Ciera Wick MD 30s shoulder dystocia, 3rd degree perineal lac Delivery Date: 03/25/21 Last Updated by: Gris Garcia 3rd degree tear, OP/Brow presentation Delivery Date: 01/18/23 Last Updated by: Nyasia Mayo primary c/s. HPI 37 wk ob Details: MANDY OSULLIVAN is a 39 year old who presents for routine OB visit. OB Visit SHIRIN Calculator Estimated Delivery Date Method Current WG Current Estimate 01/03/25 LMP (Certain) 37w 0d Expected Delivery Route/Plan RLTCS Specific Issue/Plans [...] FHR FuHt Pres Dilation -???-???-???-???-??? -???-???-???-???-??? -???-???- (more content not included)... Normal [facility] Rule out Beta Strep (Grp. B) on 12-10-2024 [facility] B Beta Streptococcus is not isolated. Normal [facility] Comment on above: Performed By: #### M [id number] ####[facility] [id number] [place], [place], [id number] Senior Environmental Technician Office Visit Reporton 12-06-2024 Senior Environmental Technician Office Visit Report [facility] [address], [address] [place] [address] OFFICE VISIT Date of Service: 12/06/24 MR#: [id number] Acct: [id number] Name: MANDY OSULLIVAN Rep #: [id number] : 1985 Provider: Dr. Rosalba Dobbs DO Age/Sex: 39/F Location: [facility] Status: Signed Intake Vital Signs 10/24/24 11:01 11/19/24 10:35 12/06/24 14:52 12/06/24 14:53 Height 5 ft 5 in 5 ft 5 in 5 ft 5 in 5 ft 5 in Weight: 238 lb 6 oz BMI 39.6 BP 135/78 H Intake Visit Reasons: 36 wk ob Mine Boss Required: No Is patient in pain?: No Allergies No Known Allergies Allergy (Verified 12/06/24 14:52) Medications ???Medication ???Instructions ???Recorded ???Confirmed ???Type calcium pfwh-A9-leyvqlxog abraham 1 tab PO/SL DAILY 12/06/24 History L. crispatus, gasseri, jensenii, tab PO 05/15/24 12/06/24 History rhamnosus 12 billion cell chew tablet ferrous sulfate 325 mg (65 mg 325 mg PO Q OTHER DAY 05/15/24 History iron) tablet multivitamin no.47-iron fum 27 cap PO 05/15/24 12/06/24 History mg-folate no.1 1 mg-dha 300 mg capsule (PNV-DHA) omega 4-xkp-khm-fish oil 1,200 mg 2 cap PO DAILY 05/15/24 12/06/24 History (144 mg-216 mg) capsule (Fish Oil) cephalexin 500 mg capsule 500 mg PO Q6 10 days #40 caps 11/1812/06/24 Rx Last Menstrual Period: 03/29/24 Zika: Zika virus [...] 3 current occupational status: unemployed current occupation: [employer] pets and animals: No history of recent [...] 1-2 times per week duration: 15-30 minutes/day dawood/zoroastrianism: Catholic seatbelt use: always do you feel safe at home: Yes 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 Date Name GA/Weeks Outcome Route Bth Weight Gen Labor Lgth Anesthesia Del Locatn Provider FOB 10/31/18 Jackie 41 live - full term 9lb3oz Female 12 epidural [place] Be nekos Chidi 10/19/19 4 spontaneous 03/25/21 Kennedy 39 live - full term 8lbs 12oz Male epidural [facility] Dr. Ciera Murillo 01/18/23 Edith (pronounced say-la) 38 live - full term 10lbs 10oz Female spinal [facility] Rosalba Mas 02/02/24 4 spontaneous Delivery Date: 10/31/18 Last Updated by: Ciera Wick MD 30s shoulder dystocia, 3rd degree perineal lac Delivery Date: 03/25/21 Last Updated by: Gris Garcia 3rd degree tear, OP/Brow presentation Delivery Date: 01/18/23 Last Updated by: Nyasia Mayo primary c/s. HPI 36 wk ob Details: MANDY OSULLIVAN is a 39 year old who presents for routine OB visit. OB Visit SHIRIN Calculator Estimated Delivery Date Method Current WG Current Estimate 01/03/25 LMP (Certain) 36w 0d Expected Delivery Route/Plan RLTCS Specific Issue/Plans [...] -???-???- Glucose FHR FuHt Pres Dilation -???-???-???-???-??? -???-???-???-???-?? (more content not included)... Normal [facility] Screening beta-hemolytic Str eptococcus cultureOrdered By: Rosalba Tam on 12-06-2024 Beta-hemolytic Streptococcus culture Group B Beta Streptococcus is not isolated. [facility] OB Limited With Biometricson 12-05-2024 OB Limited With Biometrics [facility] Imaging Services [address] [place], [place] [id number] OB Limited With Biometrics MR#: [id number] Acct: [id number] Name: MANDY OSULLIVAN Rep #: [id number] : 1985 F 39 From: Carlos Enrique valencia MD PCP: CAITY Amaya Status: REG CLI Study: OB Limited With Biometrics Date of Exam: 12/05 Exam# [id number] Ordering Dr: Maggie Holloway CNM PROCEDURE: OB LIMITED WITH BIOMETRICS 12/05/2024 REASON FOR EXAM: GROWTH US AMA TECHNIQUE: OB LIMITED WITH BIOMETRICS COMPARISON: Prior study dated August 17, 2024. FINDINGS Number: 1 Position: Transverse right. Placental Position: Anterior and right lateral. Placental Abnormalities: No evidence of previa. DIMENSIONS: Biparietal Diameter: 8.81 cm: 35 weeks and 4 days: 50 percentile/ Head Circumference: 33.09 cm: 37 weeks and 5 days: 65th percentile/ Abdominal Circumference: 37.55 cm: 41 weeks and 3 days: 99 percentile. Femur Length: 7.05 cm: 36 weeks and 1 day: 52nd percentile/ ESTIMATED WEIGHT: 3745 g plus/-562 g ESTIMATED WEIGHT PERCENTILE (24+ weeks): 99 ESTIMATED GESTATIONAL AGE: Baseline: 35 weeks and 6 days By Ultrasound: 37 weeks and 4 days ESTIMATED DATE OF DELIVERY: Baseline: January 03, 2025 By Ultrasound: 5.5 BIOPHYSICAL ASSESSMENT: Amniotic Fluid Volume: 5.5 Amniotic Fluid Index: 16 (8-24 cm normal range) Cardiac Motion: 148 beats per minute (average) Trunk and Limb Motion: Present. MATERNAL ANATOMY: Adnexa: Neither maternal ovary is successfully identified. US/OB Limited With Biometrics IMPRESSION: Single live intrauterine gestation with a mean gestational age of 37 weeks and 4 days. 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: Signed Normal [facility] - Chemistry and C hemistry - challengeOrdered By: Mindy Romero on 11-19-2024 Glucose Ql (U) Negative [facility] - UrinalysisOrder ed By: Mindy Romero on 11-19-2024 Protein Ql (U) Negative [facility] Senior Environmental Technician Office Visit Reporton 11-19-2024 Senior Environmental Technician Office Visit Report [facility]'s [address], [address] [place] [address] OFFICE VISIT Date of Service: 11/19/24 MR#: [id number] Acct: [id number] Name: MANDY OSULLIVAN Rep #: [id number] : 1985 Provider: CAITY dhaliwal Age/Sex: 39/F Location: [facility] Status: Signed Intake Vital Signs 10/24/24 11:01 11/07/24 14:09 11/19/24 10:35 Height 5 ft 5 in 5 ft 5 in 5 ft 5 in Weight: 233 lb BMI 38.7 BP 111/64 Intake Visit Reasons: 34 wk ob Chief Complaint: 34 Week OB Mine Boss Required: No Is patient in pain?: No Allergies No Known Allergies Allergy (Verified 11/19/24 10:34) Medications ???Medication ???Instructions ???Recorded ???Confirmed ???Type calcium vxup-H8-tayfaupia abraham 1 tab PO/SL DAILY 11/19/24 History L. crispatus, gasseri, jensenii, tab PO 05/15/24 11/19/24 History rhamnosus 12 billion cell chew tablet ferrous sulfate 325 mg (65 mg 325 mg PO Q OTHER DAY 05/15/2408/14 History iron) tablet multivitamin no.47-iron fum 27 cap PO 05/15/24 11/19/24 History mg-folate no.1 1 mg-dha 300 mg capsule (PNV-DHA) omega 5-udt-mwy-fish oil 1,200 mg 2 cap PO DAILY [...] 3 current occupational status: unemployed current occupation: [employer] pets and animals: No history of recent [...] 1-2 times per week duration: 15-30 minutes/day dawood/zoroastrianism: Catholic seatbelt use: always do you feel safe at home: Yes 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 Date Name GA/Weeks Outcome Route Bth Weight Infant Gen Labor Lgth Anesthesia Del Locatn Provider FOB 10/31/18 Jackie 41 live - full term 9lb3oz Female 12 epidural [place] Be neguerda Chidi 10/19/19 4 spontaneous 03/25/21 Kennedy 39 live - full term 8lbs 12oz Male epidural [facility] Dr. Ciera Murillo 01/18/23 Edith (pronounced say-la) 38 live - full term 10lbs 10oz Female spinal [facility] Rosalba Lee Chidi 02/02/24 4 spontaneous Delivery [...] -???-???-???-???-??? -???-???-???-???- (more content not included)... Normal [facility] - Chemistry and C hemistry - challengeOrdered By: Maggie Holloway on 11-07-2024 Glucose Ql (U) Negative [facility] - UrinalysisOrder ed By: Maggie Holloway on 11-07-2024 Protein Ql (U) Negative [facility] Senior Environmental Technician Office Visit Reporton 11-07-2024 Senior Environmental Technician Office Visit Report [facility]'s [address], [facility] [address] [place] [address] OFFICE VISIT Date of Service: 11/07/24 MR#: [id number] Acct: [id number] Name: MANDY OSULLIVAN Rep #: [id number] : 1985 Provider: SEUN Ramirez ams Age/Sex: 39/F Location: [facility] Status: Signed Intake Vital Signs 09/27/24 09:26 10/24/24 11:01 11/07/24 14:09 Height 5 ft 5 in 5 ft 5 in 5 ft 5 in Weight: 231 lb 2 oz BMI 38.5 BP 125/78 H Intake Visit Reasons: 32wk ob Chief Complaint: 32wk OB Mine Boss Required: No Is patient in pain?: No Allergies No Known Allergies Allergy (Verified 11/07/24 14:05) Medications ???Medication ???Instructions ???Recorded ???Confirmed ???Type calcium bvkw-K3-vflcanuyd abraham 1 tab PO/SL DAILY 11/07/24 History L. crispatus, gasseri, jensenii, tab PO 05/15/24 11/07/24 History rhamnosus 12 billion cell chew tablet ferrous sulfate 325 mg (65 mg 325 mg PO Q OTHER DAY 05/15/24 History iron) tablet multivitamin no.47-iron fum 27 cap PO 05/15/24 11/07/24 History mg-folate no.1 1 mg-dha 300 mg capsule (PNV-DHA) omega 3-ofs-esx-fish oil 1,200 mg 2 cap PO DAILY [...] 3 current occupational status: unemployed current occupation: [employer] pets and animals: No history of recent [...] 1-2 times per week duration: 15-30 minutes/day dawood/zoroastrianism: Catholic seatbelt use: always do you feel safe at home: Yes additional social history: - Chidi- [employer]/Tw[employer] 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 Ciera Murillo 01/18/23 Edith (pronounced say-la) 38 live - full term 10lbs 10oz Female spinal H Rosalba Lee Chidi 02/02/24 4 spontaneous Delivery [...] 1d 2 (more content not included)... Normal [facility] Absolute lymphocyte countOrd ered By: Mindy Romero on 10-24-2024 Lymphocytes Auto (Unsp spec) [#/Vol] 1.36 10*3/uL 0.83-4.51 [facility] Absolute neutrophil countOrd ered By: Mindy Romero on 10-24-2024 Neutrophils (Bld) [#/Vol] 7.1 10*3/uL 2.0-7.7 [facility] Automated lymphocyte count a s percentage of total leukocytesOrdered By: Mindy Romero on 10-24-2024 Lymphocytes/100 WBC Auto (Unsp spec) 14.5 % Low 19-41 [facility] Basophil percentageOrdered B y: Mindy Romero on 10-24-2024 Basophils/100 WBC (Bld) 0.2 % 0-1 [facility] CBC W/Diff, Automatedon Absolute Lymph 1.36 X10 3/uL Normal 0.83-4.51 [facility] Comment on above: Performed By: #### L 100.0100 #### [facility] [address] [place], [address] Absolute Neut 7.1 X10 3/uL Normal 2.0-7.7 [facility] Comment on above: Performed By: #### L 100.0100 #### [facility] [address] [place], [address] Basophils/100 WBC (Bld) 0.2 % Normal 0-1 [facility] Comment on above: Performed By: #### L 100.0100 #### [facility] [address] [place], [address] Eosinophils/100 WBC (Bld) 1.2 % Normal 0-5 [facility] Comment on above: Performed By: #### L 100.0100 #### [facility] [address] [place], [address] Erythrocyte distribution width (RBC) [Ratio] 14.0 % Normal 11.6-14.6 [facility] Comment on above: Performed By: #### L 100.0100 #### [facility] [address] [place], [address] Hematocrit (Bld) [Volume fraction] 33.0 % Low 37-47 [facility] Comment on above: Performed By: #### L 100.0100 #### [facility] [address] [place], [address] Hemoglobin (Bld) [Mass/Vol] 10.7 g/dL Low 12.0-15.0 [facility] Comment on above: Performed By: #### L 100.0100 #### [facility] [address] [place], [address] IG% 0.500 Normal 0.0-0.9 [facility] Comment on above: Result Comment: IG% - Immature Granulocytes (promyelocytes, myelocytes and metamyelocytes) > 1% indicates that a LEFT SHIFT is Present. Performed By: #### L 100.0100 #### [facility] [address] [place], [address] Lymphocytes/100 WBC (Bld) 14.5 % Low 19-41 [facility] Comment on above: Performed By: #### L 100.0100 #### [facility] [address] [place], [address] MCH (RBC) [Entitic mass] 28.2 pg Normal 27.0-32.0 [facility] Comment on above: Performed By: #### L 100.0100 #### [facility] [address] [place], [address] MCHC (RBC) [Mass/Vol] 32.4 g/dL Normal 32-36 [facility] Comment on above: Performed By: #### L 100.0100 #### [facility] [address] [place], [address] MCV (RBC) [Entitic vol] 87.1 fL Normal 81-99 [facility] Comment on above: Performed By: #### L 100.0100 #### [facility] [address] [place], [address] Monocytes/100 WBC (Bld) 8.0 % Normal 0-10 [facility] Comment on above: Performed By: #### L 100.0100 #### [facility] [address] [place], [address] Neutrophils/100 WBC (Bld) 75.6 % High 47-70 [facility] Comment on above: Performed By: #### L 100.0100 #### [facility] [address] [place], [address] Nucleated RBC (Bld) [#/Vol] 0 10*3/uL Normal 0-5 [facility] Comment on above: Performed By: #### L 100.0100 #### [facility] [address] [place], [address] Platelet mean volume (Bld) [Entitic vol] 10.4 fL Normal 6.2-12.0 [facility] Comment on above: Performed By: #### L 100.0100 #### [facility] [address] [place], [address] Platelets (Bld) [#/Vol] 290 10*3/uL Normal 150-450 [facility] Comment on above: Performed By: #### L 100.0100 #### [facility] [address] [place], [address] RBC (Bld) [#/Vol] 3.79 10*6/uL Low 4.2-5.4 [facility] Comment on above: Performed By: #### L 100.0100 #### [facility] [address] [place], [address] RDW SD 44.3 fl High 35.1-43.9 [facility] Comment on above: Performed By: #### L 100.0100 #### [facility] [address] [place], [address] WBC (Bld) [#/Vol] 9.4 10*3/uL Normal 4.4-11.0 [facility] Comment on above: Performed By: #### L 100.0100 #### [facility] [address] [place], [address] Eosinophil percentageOrdered By: Mindyeric Romero on 10-24-2024 Eosinophils/100 WBC (Bld) 1.2 % 0-5 [facility] Erythrocyte distribution wid th ratioOrdered By: Mindyeric Romero on 10-24-2024 Erythrocyte distribution width (RBC) [Ratio] 14.0 % 11.6-14.6 [facility] Erythrocyte distribution wid th standard deviationOrdered By: Mindy Romero on 10-24-2024 Erythrocyte distribution width (RBC) [Ratio] 44.3 fl High 35.1-43.9 [facility] Hematocrit Auto (Bld) [Volum e fraction]Ordered By: Mindy Romero on 10-24-2024 Hematocrit (Bld) [Volume fraction] 33.0 % Low 37-47 [facility] Hemoglobin measurementOrdere d By: Mindy Romero on 10-24-2024 Hemoglobin (Bld) [Mass/Vol] 10.7 g/dL Low 12.0-15.0 [facility] Immature granulocytes/100 WB C Auto (Bld)Ordered By: Mindy Romero on 10-24-2024 Immature granulocytes/100 WBC (Bld) 0.500 % 0.0-0.9 [facility] Comment on above: IG% - Immature Granu locytes (promyelocytes, myelocytes and metamyelocytes) > 1% indicates that a LEFT SHIFT is Present. Laboratory - Chemistry and C hemistry - challengeOrdered By: Rebeca López on 10-24-2024 Glucose Ql (U) Negative [facility] - UrinalysisOrder ed By: Rebeca López on 10-24-2024 Protein Ql (U) Negative [facility] MCV (mean corpuscular volume ) determinationOrdered By: Mindy Romero on 10-24-2024 MCV (RBC) [Entitic vol] 87.1 fL 81-99 [facility] Mean corpuscular hemoglobin (MCH) determinationOrdered By: Mindy Romero on 10-24-2024 MCH (RBC) [Entitic mass] 28.2 pg 27.0-32.0 [facility] Mean corpuscular hemoglobin concentration (MCHC) determinationOrdered By: Mindy Romero on 10-24-2024 MCHC (RBC) [Mass/Vol] 32.4 g/dL 32-36 [facility] Mean platelet volume determi nationOrdered By: Mindy Romero on 10-24-2024 Platelet mean volume (Bld) [Entitic vol] 10.4 fL 6.2-12.0 [facility] Monocyte percentageOrdered B y: Mindy Romero on 10-24-2024 Monocytes/100 WBC (Bld) 8.0 % 0-10 [facility] Neutrophil percentageOrdered By: Mindy Romero on 10-24-2024 Neutrophils/100 WBC (Bld) 75.6 % High 47-70 [facility] Nucleated red blood cell per centageOrdered By: Mindy Romero on 10-24-2024 Nucleated RBC/100 WBC (Bld) [Ratio] 0 % 0-5 [facility] Senior Environmental Technician Office Visit Reporton 10-24-2024 Senior Environmental Technician Office Visit Report [facility]'s [address], [address] [place] [address] OFFICE VISIT Date of Service: 10/24/24 MR#: [id number] Acct: [id number] Name: MANDY OSULLIVAN Rep #: [id number] : 1985 Provider: Dr. Rebeca ramos MD Age/Sex: 39/F Location: [facility] Status: Signed Intake Vital Signs 09/27/24 09:26 10/12/24 12:58 10/24/24 11:00 10/24/24 11:01 Height 5 ft 5 in 5 ft 5 in 5 ft 5 in 5 ft 5 in Weight: 223 lb 6 oz BMI 37.1 BP 111/65 Intake Visit Reasons: 30wk ob Mine Boss Required: No Is patient in pain?: No Feel stressed/tense/nervo us/anxious/difficult y sleeping: not at all Allergies No Known Allergies Allergy (Verified 10/24/24 11:00) Medications ???Medication ???Instructions ???Recorded ???Confirmed ???Type calcium byyo-I0-chlkvavdm abraham 1 tab PO/SL DAILY 10/24/24 History L. crispatus, gasseri, jensenii, tab PO 05/15/24 10/24/24 History rhamnosus 12 billion cell chew tablet ferrous sulfate 325 mg (65 mg 325 mg PO Q OTHER DAY 05/15/2401/11 History iron) tablet multivitamin no.47-iron fum 27 cap PO 05/15/24 10/24/24 History mg-folate no.1 1 mg-dha 300 mg capsule (PNV-DHA) omega 3-wdm-ruz-fish oil 1,200 mg 2 cap PO DAILY [...] 3 current occupational status: unemployed current occupation: [employer] pets and animals: No history of recent [...] 1-2 times per week duration: 15-30 minutes/day dawood/zoroastrianism: Catholic seatbelt use: always do you feel safe at home: Yes 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 Date Name GA/Weeks Outcome Route Bth Weight Gen Labor Lgth Anesthesia Del Locatn Provider FOB 10/31/18 [place] 41 live - full term 9lb3oz Female 12 epidural [place] Be neerwins Chidi 10/19/19 4 spontaneous 03/25/21 Kennedy 39 live - full term 8lbs 12oz Male epidural [facility] Dr. Ciera Murillo 01/18/23 Edith (pronounced say-la) 38 live - full term 10lbs 10oz Female spinal [facility] Rosalba Mas 02/02/24 4 spontaneous Delivery Date: [...] Effaced S (more content not included)... Normal [facility] Platelet countOrdered By: Gustavo Romero on 10-24-2024 Platelets (Bld) [#/Vol] 290 10*3/uL 150-450 [facility] RBC Auto (Bld) [#/Vol]Ordere d By: Mindy Romero on 10-24-2024 RBC (Bld) [#/Vol] 3.79 10*6/uL Low 4.2-5.4 [facility] White blood cell (WBC) count Ordered By: Mindy Romero on 10-24-2024 WBC (Bld) [#/Vol] 9.4 10*3/uL 4.4-11.0 [facility] - Chemistry and C hemistry - challengeOrdered By: Carrie Vick on 10-12-2024 Glucose Ql (U) Negative [facility] - UrinalysisOrder ed By: Carrie Vick on 10-12-2024 Protein Ql (U) Negative [facility] Senior Environmental Technician Office Visit Reporton 10-12-2024 Senior Environmental Technician Office Visit Report [facility]'s [address], [address] [place] [address] OFFICE VISIT Date of Service: 10/12/24 MR#: [id number] Acct: [id number] Name: MANDY OSULLIVAN Rep #: [id number] : 1985 Provider: SEUN palumbo Age/Sex: 38/F Location: [facility] Status: Signed Intake Vital Signs 08/24/24 10:38 09/27/24 09:26 10/12/24 12:58 Height 5 ft 5 in 5 ft 5 in 5 ft 5 in Weight: 223 lb 6 oz BMI 37.1 BP 108/67 Intake Visit Reasons: 28 WK OB Mine Boss Required: No Is patient in pain?: No Allergies No Known Allergies Allergy (Verified 10/12/24 12:56) Medications ???Medication ???Instructions ???Recorded ???Confirmed ???Type calcium otfh-N1-amaeqljqh abraham 1 tab PO/SL DAILY 10/12/24 History L. crispatus, gasseri, jensenii, tab PO 05/15/24 10/12/24 History rhamnosus 12 billion cell chew tablet ferrous sulfate 325 mg (65 mg 325 mg PO Q OTHER DAY 05/15/24 History iron) tablet multivitamin no.47-iron fum 27 cap PO 05/15/24 10/12/24 History mg-folate no.1 1 mg-dha 300 mg capsule (PNV-DHA) omega 4-epc-odw-fish oil 1,200 mg 2 cap PO DAILY [...] 3 current occupational status: unemployed current occupation: [employer] pets and animals: No history of recent [...] 1-2 times per week duration: 15-30 minutes/day dawood/zoroastrianism: Catholic seatbelt use: always do you feel safe at home: Yes 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 Date Name GA/Weeks Outcome Route Bth Weight Infant Gen Labor Lgth Anesthesia Del Locatn Provider FOB 10/31/18 [place] 41 live - full term 9lb3oz Female 12 epidural [place] Be nekos Chidi 10/19/19 4 spontaneous 03/25/21 [place] 39 live - full term 8lbs 12oz Male epidural [facility] Dr. Ciera Murillo 01/18/23 Edith (pronounced say-la) 38 live - full term 10lbs 10oz Female spinal [facility] Rosalba Mas 02/02/24 4 spontaneous Delivery Date: [...] -???-???-???-???-??? -??? (more content not included)... Normal [facility] Absolute lymphocyte countOrd ered By: Mindy Romero on 09-27-2024 Lymphocytes Auto (Unsp spec) [#/Vol] 0.99 10*3/uL 0.83-4.51 [facility] Absolute neutrophil countOrd ered By: Mindy Romero on 09-27-2024 Neutrophils (Bld) [#/Vol] 6.7 10*3/uL 2.0-7.7 [facility] Automated lymphocyte count a s percentage of total leukocytesOrdered By: Mindy Romero on 09-27-2024 Lymphocytes/100 WBC Auto (Unsp spec) 11.6 % Low 19-41 [facility] Basophil percentageOrdered B y: Mindyeric Romero on 09-27-2024 Basophils/100 WBC (Bld) 0.2 % 0-1 [facility] CBC W/Diff, Automatedon 09-18 Absolute Lymph 0.99 X10 3/uL Normal 0.83-4.51 [facility] Comment on above: Performed By: #### L 100.0100, L3890.6006, L501.0250, L509.8002 #### [facility] [address] [place], [address] Absolute Neut 6.7 X10 3/uL Normal 2.0-7.7 [facility] Comment on above: Performed By: #### L 100.0100, L3890.6006, L501.0250, L509.8002 #### [facility] [address] [place], [address] Basophils/100 WBC (Bld) 0.2 % Normal 0-1 [facility] Comment on above: Performed By: #### L 100.0100, L3890.6006, L501.0250, L509.8002 #### [facility] [address] [place], [address] Eosinophils/100 WBC (Bld) 1.3 % Normal 0-5 [facility] Comment on above: Performed By: #### L 100.0100, L3890.6006, L501.0250, L509.8002 #### [facility] [address] [place], [address] Erythrocyte distribution width (RBC) [Ratio] 13.9 % Normal 11.6-14.6 [facility] Comment on above: Performed By: #### L 100.0100, L3890.6006, L501.0250, L509.8002 #### [facility] [address] [place], [address] Hematocrit (Bld) [Volume fraction] 32.0 % Low 37-47 [facility] Comment on above: Performed By: #### L 100.0100, L3890.6006, L501.0250, L509.8002 #### [facility] [address] [place], [address] Hemoglobin (Bld) [Mass/Vol] 10.3 g/dL Low 12.0-15.0 [facility] Comment on above: Performed By: #### L 100.0100, L3890.6006, L501.0250, L509.8002 #### [facility] [address] [place], [address] IG% 0.500 Normal 0.0-0.9 [facility] Comment on above: Result Comment: IG% - Immature Granulocytes (promyelocytes, myelocytes and metamyelocytes) > 1% indicates that a LEFT SHIFT is Present. Performed By: #### L 100.0100, L3890.6006, L501.0250, L509.8002 #### [facility] [address] [place], [address] Lymphocytes/100 WBC (Bld) 11.6 % Low 19-41 [facility] Comment on above: Performed By: #### L 100.0100, L3890.6006, L501.0250, L509.8002 #### [facility] [address] [place], [address] MCH (RBC) [Entitic mass] 28.7 pg Normal 27.0-32.0 [facility] Comment on above: Performed By: #### L 100.0100, L3890.6006, L501.0250, L509.8002 #### [facility] [address] [place], [address] MCHC (RBC) [Mass/Vol] 32.2 g/dL Normal 32-36 [facility] Comment on above: Performed By: #### L 100.0100, L3890.6006, L501.0250, L509.8002 #### [facility] [address] [place], [address] MCV (RBC) [Entitic vol] 89.1 fL Normal 81-99 [facility] Comment on above: Performed By: #### L 100.0100, L3890.6006, L501.0250, L509.8002 #### [facility] [address] [place], [address] Monocytes/100 WBC (Bld) 7.7 % Normal 0-10 [facility] Comment on above: Performed By: #### L 100.0100, L3890.6006, L501.0250, L509.8002 #### [facility] [address] [place], [address] Neutrophils/100 WBC (Bld) 78.7 % High 47-70 [facility] Comment on above: Performed By: #### L 100.0100, L3890.6006, L501.0250, L509.8002 #### [facility] [address] [place], [address] Nucleated RBC (Bld) [#/Vol] 0 10*3/uL Normal 0-5 [facility] Comment on above: Performed By: #### L 100.0100, L3890.6006, L501.0250, L509.8002 #### [facility] [address] [place], [address] Platelet mean volume (Bld) [Entitic vol] 10.6 fL Normal 6.2-12.0 [facility] Comment on above: Performed By: #### L 100.0100, L3890.6006, L501.0250, L509.8002 #### [facility] [address] [place], [address] Platelets (Bld) [#/Vol] 251 10*3/uL Normal 150-450 [facility] Comment on above: Performed By: #### L 100.0100, L3890.6006, L501.0250, L509.8002 #### [facility] [address] [place], [address] RBC (Bld) [#/Vol] 3.59 10*6/uL Low 4.2-5.4 [facility] Comment on above: Performed By: #### L 100.0100, L3890.6006, L501.0250, L509.8002 #### [facility] [address] [place], [address] RDW SD 45.1 fl High 35.1-43.9 [facility] Comment on above: Performed By: #### L 100.0100, L3890.6006, L501.0250, L509.8002 #### [facility] [address] [place], [address] WBC (Bld) [#/Vol] 8.5 10*3/uL Normal 4.4-11.0 [facility] Comment on above: Performed By: #### L 100.0100, L3890.6006, L501.0250, L509.8002 #### [facility] [address] [place], [address] Eosinophil percentageOrdered By: Mindy Romero on 09-27-2024 Eosinophils/100 WBC (Bld) 1.3 % 0-5 [facility] Erythrocyte distribution wid th (RBC) [Ratio]Ordered By: Mindy Romero on 09-27-2024 Erythrocyte distribution width (RBC) [Entitic vol] 45.1 fL High 35.1-43.9 [facility] Erythrocyte distribution wid th ratioOrdered By: Mindyeric Romero on 09-27-2024 Erythrocyte distribution width (RBC) [Ratio] 13.9 % 11.6-14.6 [facility] Erythrocyte distribution wid th standard deviationOrdered By: Mindy Heather on 09-27-2024 Erythrocyte distribution width (RBC) [Ratio] 45.1 fl High 35.1-43.9 [facility] Glucose Challenge Gest 1H 50 socorro 09-27-2024 GLU GEST 50g 1H 111 mg/dL Normal 70-140 [facility] Comment on above: Performed By: #### L 100.0100, L3890.6006, L501.0250, L509.8002 #### [facility] [address] [facility] [place], [place], [address] Glucose measurement at 2 agustina rs post-dose gestational glucose tolerance testOrdered By: Mindy Romero on 09-27-2024 Glucose [Mass/Vol] 111 mg/dL 70-140 [facility] HIVon 09-27-2024 HIV Non-Reactive Normal Nonreactive [facility] Comment on above: Result Comment: Non- Reactive Reactive Repeatedly reactive samples must be confirmed according to CDC recommended confirmatory algorithms. The subresults for either HIVAG or AHIV can be used as an aid in the selection of the confirmation algorithm for reactive samples. Send out specimens with Reactive results to [facility] for confirmation. Order the HIV antibody detection and differentiation: lc#[id number] Performed By: #### L 100.0100, L3890.6006, L501.0250, L509.8002 ####[facility] [address] [facility]. [place], [place], [address] Hematocrit Auto (Bld) [Volum e fraction]Ordered By: Mindy Romero on 09-27-2024 Hematocrit (Bld) [Volume fraction] 32.0 % Low 37-47 [facility] Hemoglobin measurementOrdere d By: Mindy Romero on 09-27-2024 Hemoglobin (Bld) [Mass/Vol] 10.3 g/dL Low 12.0-15.0 [facility] Immature granulocytes/100 WB C Auto (Bld)Ordered By: Mindy Romero on 09-27-2024 Immature granulocytes/100 WBC (Bld) 0.500 % 0.0-0.9 [facility] Comment on above: IG% - Immature Granu locytes (promyelocytes, myelocytes and metamyelocytes) > 1% indicates that a LEFT SHIFT is Present. Laboratory - Chemistry and C hemistry - challengeOrdered By: Mindy Romero on 09-27-2024 Glucose Ql (U) Negative [facility] - UrinalysisOrder ed By: Mindy Romero on 09-27-2024 Protein Ql (U) Negative [facility] Lymphocytes Auto (Unsp spec) [#/Vol]Ordered By: Mindy Romero on 09-27-2024 Lymphocytes (Bld) [#/Vol] 0.99 10*3/uL 0.83-4.51 [facility] Lymphocytes/100 WBC Auto (Un sp spec)Ordered By: Mindy Romero on 09-27-2024 Lymphocytes/100 WBC (Bld) 11.6 % Low 19-41 [facility] MCV (mean corpuscular volume ) determinationOrdered By: Mindy Romero on 09-27-2024 MCV (RBC) [Entitic vol] 89.1 fL 81-99 [facility] Mean corpuscular hemoglobin (MCH) determinationOrdered By: Mindy Romero on 09-27-2024 MCH (RBC) [Entitic mass] 28.7 pg 27.0-32.0 [facility] Mean corpuscular hemoglobin concentration (MCHC) determinationOrdered By: Mindy Romero on 09-27-2024 MCHC (RBC) [Mass/Vol] 32.2 g/dL 32-36 [facility] Mean platelet volume determi nationOrdered By: Mindy Romero on 09-27-2024 Platelet mean volume (Bld) [Entitic vol] 10.6 fL 6.2-12.0 [facility] Monocyte percentageOrdered B y: Mindy Romero on 09-27-2024 Monocytes/100 WBC (Bld) 7.7 % 0-10 [facility] Neutrophil percentageOrdered By: Mindy Romero on 09-27-2024 Neutrophils/100 WBC (Bld) 78.7 % High 47-70 [facility] No Panel InformationOrdered By: Mindy Romero on 09-27-2024 HIV (1&2) Antibody Non-Reactive Nonreactive [facility] Comment on above: Non-ReactiveReactive Repeatedly reactive samples must be confirmed according to CDC recommended confirmatory algorithms. The subresults for either HIVAG or AHIV can be used as an aid in the selection of the confirmation algorithm for reactive samples.Send out specimens with Reactive results to [facility] for confirmation.Order the HIV antibody detection and differentiation: #[id number] Nucleated red blood cell per centageOrdered By: Mindy Romero on 09-27-2024 Nucleated RBC/100 WBC (Bld) [Ratio] 0 % 0-5 [facility] Senior Environmental Technician Office Visit Reporton 09-27-2024 Senior Environmental Technician Office Visit Report [facility]'s [address], [address] [place] [address] OFFICE VISIT Date of Service: 09/27/24 MR#: [id number] Acct: [id number] Name: MANDY OSULLIVAN Rep #: [id number] : 1985 Provider: CAITY dhaliwal Age/Sex: 38/F Location: [facility] Status: Signed Intake Vital Signs 08/24/24 10:38 09/27/24 09:26 Height 5 ft 5 in 5 ft 5 in Weight: 222 lb 6 oz BMI 37.0 BP 122/69 H Intake Visit Reasons: 26 WK OB/GLUCOSE Mine Boss Required: No Is patient in pain?: No Allergies No Known Allergies Allergy (Verified 09/27/24 09:24) Medications ???Medication ???Instructions ???Recorded ???Confirmed ???Type calcium biyi-R2-joopcrcpu abraham 1 tab PO/SL DAILY 09/27/24 History L. crispatus, gasseri, jensenii, tab PO 05/15/24 09/27/24 History rhamnosus 12 billion cell chew tablet ferrous sulfate 325 mg (65 mg 325 mg PO Q OTHER DAY 05/15/2404/13 History iron) tablet multivitamin no.47-iron fum 27 cap PO 05/15/24 09/27/24 History mg-folate no.1 1 mg-dha 300 mg capsule (PNV-DHA) omega 7-jyf-pbp-fish oil 1,200 mg 2 cap PO DAILY [...] 3 current occupational status: unemployed current occupation: [employer] pets and animals: No history of recent [...] 1-2 times per week duration: 15-30 minutes/day dawood/zoroastrianism: Catholic seatbelt use: always do you feel safe at home: Yes 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 Date Name GA/Weeks Outcome Route Bth Weight Gen Labor Lgth Anesthesia Del Locatn Provider FOB 10/31/18 [place] 41 live - full term 9lb3oz Female 12 epidural Lidya Be neguerda Murillo 10/19/19 4 spontaneous 03/25/21 [place] 39 live - full term 8lbs 12oz Male epidural [facility] Dr. Ciera Murillo 01/18/23 Edith (pronounced say-la) 38 live - full term 10lbs 10oz Female spinal [facility] Rosalba Mas 02/02/24 4 spontaneous Delivery Date: 10/31/18 Last Updated by: Ciera Wick MD 30s shoulder dystocia, 3rd degree perineal lac Delivery Date: 03/25/21 Last Updated by: Gris Garcia 3rd degree tear, OP/Brow presentation Delivery Date: 01/18/23 Last Updated by: Nyasia M Ketler primary c/s. HPI 26 WK OB/GLUCOSE Details: [...] -???-???- 8 (more content not included)... Normal [facility] Platelet countOrdered By: Gustavo Romero on 09-27-2024 Platelets (Bld) [#/Vol] 251 10*3/uL 150-450 [facility] RBC Auto (Bld) [#/Vol]Ordere d By: Mindy Romero on 09-27-2024 RBC (Bld) [#/Vol] 3.59 10*6/uL Low 4.2-5.4 [facility] Syphilis Antibodieson 2024 Syphilis Abs Non-Reactive Normal Nonreactive [facility] Comment on above: Performed By: #### L 100.0100, L3890.6006, L501.0250, L509.8002 #### [facility] [address] [place], [address] T. pallidum abOrdered By: Gustavo Romero on 09-27-2024 Syphilis Total Antibody Non-Reactive Nonreactiv e [facility] White blood cell (WBC) count Ordered By: Mindy Romero on 09-27-2024 WBC (Bld) [#/Vol] 8.5 10*3/uL 4.4-11.0 [facility] Senior Environmental Technician Office Visit Reporton 08-24-2024 Senior Environmental Technician Office Visit Report [facility]'s [address], [address] [place] [address] OFFICE VISIT Date of Service: 08/24/24 MR#: [id number] Acct: [id number] Name: MANDY OSULLIVAN Rep #: [id number] : 1985 Provider: Dr. Rebeca ramos MD Age/Sex: 38/F Location: [facility] [place] Status: Signed Intake Vital Signs 06/27/24 13:47 07/25/24 15:14 08/24/24 10:38 Height 5 ft 5 in 5 ft 5 in 5 ft 5 in Weight: 209 lb 6 oz 213 lb 2 oz BMI 34.8 35.4 BP 114/74 109/72 Intake Visit Reasons: 21wk ob Chief Complaint: 21 Week OB Mine Boss Required: No Is patient in pain?: No Allergies No Known Allergies Allergy (Verified 08/24/24 10:39) Medications ???Medication ???Instructions ???Recorded ???Confirmed ???Type calcium wopg-H7-vqaholmyo abraham 1 tab PO/SL DAILY 08/24/24 History L. crispatus, gasseri, jensenii, tab PO 05/15/24 08/24/24 History rhamnosus 12 billion cell chew tablet ferrous sulfate 325 mg (65 mg 325 mg PO Q OTHER DAY 05/15/2401/11 History iron) tablet multivitamin no.47-iron fum 27 cap PO 05/15/24 08/24/24 History mg-folate no.1 1 mg-dha 300 mg capsule (PNV-DHA) omega 2-xdu-ehy-fish oil 1,200 mg 2 cap PO DAILY [...] 3 current occupational status: unemployed current occupation: [employer] pets and animals: No history of recent [...] 1-2 times per week duration: 15-30 minutes/day dawood/zoroastrianism: Catholic seatbelt use: always do you feel safe at home: Yes 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 Date Name GA/Weeks Outcome Route Bth Weight Gen Labor Lgth Anesthesia Del Locatn Provider MARGOT 10/31/18 Jackie 41 live - full term 9lb3oz Female 12 epidural [place] Be mariano Murillo 10/19/19 4 spontaneous 10/06/21 Kennedy 39 live - full term 8lbs 12oz Male epidural [facility] Dr. Ciera Murillo 01/18/23 Edith (pronounced say-la) 38 live - full term 10lbs 10oz Female spinal [facility] Rosalba Lee Chidi 02/02/24 4 spontaneous Delivery [...] Note 12 (more content not included)... Normal [facility] OB Anatomy w/ Transvaginalon 08-17-2024 OB Anatomy w/ Transvaginal [facility] Services [address] [place], [place] [address] OB Anatomy w/ Transvaginal MR#: [id number] Acct: [id number] Name: MANDY OSULLIVAN Rep #: [id number] : 1985 F 38 From: Chidi Sanchez MD PCP: Reema Gutierrez, BUSINESS ADMINISTRATOR-C Status: REG CLI Study: OB Anatomy w/ Transvaginal Date of Exam: 08/17 Exam# [id number] Ordering Dr: Mindy Romero NP BUSINESS ADMINISTRATOR -C PROCEDURE: OB ANATOMY W/ TRANSVAGINAL REASON [...] Location: [facility] CC: CAITY Gutierrez; CAITY Romero Pig Machine Supervisor: Signed Normal [facility] - Chemistry and C hemistry - challengeOrdered By: Rebeca López on 07-25-2024 Glucose Ql (U) Negative [facility] - UrinalysisOrder ed By: Rebeca López on 07-25-2024 Protein Ql (U) Negative [facility] Senior Environmental Technician Office Visit Reporton 07-25-2024 Senior Environmental Technician Office Visit Report [facility]'s [address], [address] [place] [address] OFFICE VISIT Date of Service: 07/25/24 MR#: [id number] Acct: [id number] Name: MANDY OSULLIVAN Rep #: [id number] : 1985 Provider: Dr. Rebeca ramos MD Age/Sex: 38/F Location: [facility] Status: Signed Intake Vital Signs 05/25/24 12:55 06/27/24 13:47 07/25/24 15:14 Height 5 ft 5 in 5 ft 5 in 5 ft 5 in Weight: 209 lb 6 oz BMI 34.8 BP 114/74 Intake Visit Reasons: 17 wk ob Mine Boss Required: No Is patient in pain?: No Feel stressed/tense/nervo us/anxious/difficult y sleeping: not at all Allergies No Known Allergies Allergy (Verified 07/25/24 15:17) Medications ???Medication ???Instructions ???Recorded ???Confirmed ???Type calcium zzcm-X4-kfkvjkzzl abraham 1 tab PO/SL DAILY 07/25/24 History L. crispatus, gasseri, jensenii, tab PO 05/15/24 07/25/24 History rhamnosus 12 billion cell chew tablet ferrous sulfate 325 mg (65 mg 325 mg PO Q OTHER DAY 05/15/2411/11 History iron) tablet multivitamin no.47-iron fum 27 cap PO 05/15/24 07/25/24 History mg-folate no.1 1 mg-dha 300 mg capsule (PNV-DHA) omega 6-uiz-trr-fish oil 1,200 mg 2 cap PO DAILY [...] 3 current occupational status: unemployed current occupation: [employer] pets and animals: No history of recent [...] 1-2 times per week duration: 15-30 minutes/day dawood/zoroastrianism: Catholic seatbelt use: always do you feel safe at home: Yes 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 Date Name GA/Weeks Outcome Route Bth Weight Gen Labor Lgth Anesthesia Del Locatn Provider FOB 10/31/18 [place] 41 live - full term 9lb3oz Female 12 epidural Lidya Be mariano Murillo 10/19/19 4 spontaneous 03/25/21 [place] 39 live - full term 8lbs 12oz Male epidural [facility] Dr. Ciera Murillo 01/18/23 Edith (pronounced say-la) 38 live - full term 10lbs 10oz Female spinal [facility] Rosalba Lee Chidi 02/02/24 4 spontaneous Delivery [...] -???-???- Effa (more content not included)... Normal [facility] - Chemistry and C hemistry - challengeon 06-27-2024 Glucose Ql (U) Negative [facility] - Urinalysison Protein Ql (U) Negative [facility] Senior Environmental Technician Office Visit Reporton 06-27-2024 Senior Environmental Technician Office Visit Report [facility]'s [address], [address] [place] [address] OFFICE VISIT Date of Service: 06/27/24 MR#: [id number] Acct: [id number] Name: MANDY OSULLIVAN Rep #: [id number] : 1985 Provider: CAITY dhaliwal Age/Sex: 38/F Location: [facility] Status: Signed Intake Vital Signs 04/04/24 13:01 [...] Medications ???Medication ???Instructions ???Recorded ???Confirmed ???Type calcium nbcq-F0-fpzdykrnu abraham 1 tab PO/SL DAILY 03/13/21 06/27/24 History L. crispatus, gasseri, jensenii, tab PO 05/15/24 06/27/24 History rhamnosus 12 billion cell chew tablet ferrous sulfate 325 mg (65 mg 325 mg PO Q OTHER DAY 05/15/24 06/27/24 History iron) tablet multivitamin no.47-iron fum 27 cap PO 05/15/24 06/27/24 History mg-folate no.1 1 mg-dha 300 mg capsule (PNV-DHA) omega 9-ttc-trq-fish oil 1,200 mg 2 cap PO DAILY [...] 3 current occupational status: unemployed current occupation: [employer] pets and animals: No history of recent [...] 1-2 times per week duration: 15-30 minutes/day dawood/zoroastrianism: Catholic seatbelt use: always do you feel safe at home: Yes 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 Date Name GA/Weeks Outcome Route Bth Weight Infant Gen Labor Lgth Anesthesia Del Locatn Provider FOB 10/31/18 [place] 41 live - full term 9lb3oz Female 12 epidural Lidya Be mariano Murillo 10/19/19 4 spontaneous 03/25/21 [place] 39 live - full term 8lbs 12oz Male epidural [facility] Dr. Ciera Murillo 01/18/23 Edith (pronounced say-la) 38 live - full term 10lbs 10oz Female spinal [facility] Rosalba Mas 02/02/24 4 spontaneous Delivery Date: [...] -???-???- 162 (more content not included)... Normal [facility] Chlamydia/GC DAWIT aptimaon CHLAMY,NUC ACID Negative Normal Negative [facility] Comment on above: Performed By: #### L 7000.1800, M100.2200 #### [facility] [address] [place], [place], [address] GC BY NUC ACID Negative Normal Negative [facility] Comment on above: Result Comment: Perf ormed at: =G - [facility] [address] [place] [id number] Blocker And Polisher: Dory Bella MD, Phone: [phone] Performed By: #### L 7000.1800, M100.2200 #### [facility] [address] [place], [address] Urine Cultureon 05-26-2024 URC Culture exhibits no growth. Normal [facility] Comment on above: Performed By: #### L 7000.1800, M100.2200 #### [facility] [address] [place], [place], [id number] Absolute neutrophil countOrd ered By: Carrie Vick on 05-25-2024 Neutrophils (Bld) [#/Vol] 7.0 10*3/uL 2.0-7.7 [facility] Basophil percentageOrdered B y: Carrie Vick on 05-25-2024 Basophils/100 WBC (Bld) 0.3 % 0-1 [facility] C. trachomatis rRNA DAWIT+prob e Ql (Unsp spec)Ordered By: Carrie Vick on 05-25-2024 Chlamydia DNA (DAWIT) Negative Negative [facility] CBC W/Diff, Automatedon Absolute Lymph 1.69 X10 3/uL Normal 0.83-4.51 [facility] Comment on above: Performed By: #### L 501.9985, L509.8000, L3890.6005, L100.0100, L3890.6300, BTS, L3890.6100, L509.4005 ####[facility] [address] [place], [address] Absolute Neut 7.0 X10 3/uL Normal 2.0-7.7 [facility] Comment on above: Performed By: #### L 501.9985, L509.8000, L3890.6005, L100.0100, L3890.6300, BTS, L3890.6100, L509.4005 ####[facility] [address] [place], [address] Basophils/100 WBC (Bld) 0.3 % Normal 0-1 [facility] Comment on above: Performed By: #### L 501.9985, L509.8000, L3890.6005, L100.0100, L3890.6300, BTS, L3890.6100, L509.4005 ####[facility] [address] [place], [address] Eosinophils/100 WBC (Bld) 1.3 % Normal 0-5 [facility] Comment on above: Performed By: #### L 501.9985, L509.8000, L3890.6005, L100.0100, L3890.6300, BTS, L3890.6100, L509.4005 ####[facility] [address] [place], [address] Erythrocyte distribution width (RBC) [Ratio] 13.2 % Normal 11.6-14.6 [facility] Comment on above: Performed By: #### L 501.9985, L509.8000, L3890.6005, L100.0100, L3890.6300, BTS, L3890.6100, L509.4005 ####[facility] [address] [place], [address] Hematocrit (Bld) [Volume fraction] 37.9 % Normal 37-47 [facility] Comment on above: Performed By: #### L 501.9985, L509.8000, L3890.6005, L100.0100, L3890.6300, BTS, L3890.6100, L509.4005 ####[facility] [address] [place], [address] Hemoglobin (Bld) [Mass/Vol] 12.4 g/dL Normal 12.0-15.0 [facility] Comment on above: Performed By: #### L 501.9985, L509.8000, L3890.6005, L100.0100, L3890.6300, BTS, L3890.6100, L509.4005 ####[facility] [address] [place], [address] IG% 0.400 Normal 0.0-0.9 [facility] Comment on above: Result Comment: IG% - Immature Granulocytes (promyelocytes, myelocytes and metamyelocytes) > 1% indicates that a LEFT SHIFT is Present. Performed By: #### L 501.9985, L509.8000, L3890.6005, L100.0100, L3890.6300, BTS, L3890.6100, L509.4005 ####[facility] [address] [place], [address] Lymphocytes/100 WBC (Bld) 17.5 % Low 19-41 [facility] Comment on above: Performed By: #### L 501.9985, L509.8000, L3890.6005, L100.0100, L3890.6300, BTS, L3890.6100, L509.4005 ####[facility] [address] [place], [address] MCH (RBC) [Entitic mass] 28.8 pg Normal 27.0-32.0 [facility] Comment on above: Performed By: #### L 501.9985, L509.8000, L3890.6005, L100.0100, L3890.6300, BTS, L3890.6100, L509.4005 ####[facility] [address] [place], [address] MCHC (RBC) [Mass/Vol] 32.7 g/dL Normal 32-36 [facility] Comment on above: Performed By: #### L 501.9985, L509.8000, L3890.6005, L100.0100, L3890.6300, BTS, L3890.6100, L509.4005 ####[facility] [address] [place], [address] MCV (RBC) [Entitic vol] 87.9 fL Normal 81-99 [facility] Comment on above: Performed By: #### L 501.9985, L509.8000, L3890.6005, L100.0100, L3890.6300, BTS, L3890.6100, L509.4005 ####[facility] [address] [place], [address] Monocytes/100 WBC (Bld) 7.8 % Normal 0-10 [facility] Comment on above: Performed By: #### L 501.9985, L509.8000, L3890.6005, L100.0100, L3890.6300, BTS, L3890.6100, L509.4005 ####[facility] [address] [place], [address] Neutrophils/100 WBC (Bld) 72.7 % High 47-70 [facility] Comment on above: Performed By: #### L 501.9985, L509.8000, L3890.6005, L100.0100, L3890.6300, BTS, L3890.6100, L509.4005 ####[facility] [address] [place], [address] Nucleated RBC (Bld) [#/Vol] 0 10*3/uL Normal 0-5 [facility] Comment on above: Performed By: #### L 501.9985, L509.8000, L3890.6005, L100.0100, L3890.6300, BTS, L3890.6100, L509.4005 ####[facility] [address] [place], [address] Platelet mean volume (Bld) [Entitic vol] 9.6 fL Normal 6.2-12.0 [facility] Comment on above: Performed By: #### L 501.9985, L509.8000, L3890.6005, L100.0100, L3890.6300, BTS, L3890.6100, L509.4005 ####[facility] [address] [place], [address] Platelets (Bld) [#/Vol] 317 10*3/uL Normal 150-450 [facility] Comment on above: Performed By: #### L 501.9985, L509.8000, L3890.6005, L100.0100, L3890.6300, BTS, L3890.6100, L509.4005 ####[facility] [address] [place], [address] RBC (Bld) [#/Vol] 4.31 10*6/uL Normal 4.2-5.4 [facility] Comment on above: Performed By: #### L 501.9985, L509.8000, L3890.6005, L100.0100, L3890.6300, BTS, L3890.6100, L509.4005 ####[facility] [address] [place], [address] RDW SD 43.1 fl Normal 35.1-43.9 [facility] Comment on above: Performed By: #### L 501.9985, L509.8000, L3890.6005, L100.0100, L3890.6300, BTS, L3890.6100, L509.4005 ####[facility] [address] [place], [address] WBC (Bld) [#/Vol] 9.7 10*3/uL Normal 4.4-11.0 [facility] Comment on above: Performed By: #### L 501.9985, L509.8000, L3890.6005, L100.0100, L3890.6300, BTS, L3890.6100, L509.4005 ####[facility] [address] [place], [address] Eosinophil percentageOrdered By: Carrie Vick on 05-25-2024 Eosinophils/100 WBC (Bld) 1.3 % 0-5 [facility] Erythrocyte distribution wid th ratioOrdered By: Carrie Vick on 05-25-2024 Erythrocyte distribution width (RBC) [Ratio] 13.2 % 11.6-14.6 [facility] Erythrocyte distribution wid th standard deviationOrdered By: Carrieeric Vick on 05-25-2024 Erythrocyte distribution width (RBC) [Entitic vol] 43.1 fL 35.1-43.9 [facility] HIV - WCHon 05-25-2024 HIV Non-Reactive Normal Nonreactive [facility] Comment on above: Order Comment: Reaso n for Exam: Performed By: #### L 501.9985, L509.8000, L3890.6005, L100.0100, L3890.6300, BTS, L3890.6100, L509.4005 ####[facility] [address] [facility]. [place], [place], [id number] HIV 1+2 Ab+HIV1 p24 Ag IA Ql Ordered By: Carrie Vick on 05-25-2024 HIV (1&2) Antibody Non-Reactive Nonreactive [facility] Hematocrit Auto (Bld) [Volum e fraction]Ordered By: Carrie Vick on 05-25-2024 Hematocrit (Bld) [Volume fraction] 37.9 % 37-47 [facility] Hemoglobin A1con 05-25-2024 HbA1c (Bld) [Mass fraction] 5.4 % Normal 3.8-5.6 [facility] Comment on above: Result Comment: Norm al < 5.7 % Prediabetic 5.7 - 6.4 % Diabetic >or= 6.5 % Please note range changes. Performed By: #### L 501.9985, L509.8000, L3890.6005, L100.0100, L3890.6300, BTS, L3890.6100, L509.4005 ####[facility] [address] [place], [place], [id number] Hemoglobin A1c percentageOrd ered By: Carrie Vick on 05-25-2024 HbA1c (Bld) [Mass fraction] 5.4 % 3.8-5.6 [facility] Comment on above: Normal < 5.7 % Predi abetic 5.7 - 6.4 % Diabetic >or= 6.5 % Please note range changes. Hemoglobin measurementOrdere d By: Carrie Vick on 05-25-2024 Hemoglobin (Bld) [Mass/Vol] 12.4 g/dL 12.0-15.0 [facility] Hepatitis B Surface Antigeno n 05-25-2024 HEP B Surf Ag Non-Reactive Normal Nonreactive [facility] Comment on above: Order Comment: Reaso n for Exam: Performed By: #### L 501.9985, L509.8000, L3890.6005, L100.0100, L3890.6300, BTS, L3890.6100, L509.4005 ####[facility] [address] [place], [place], [id number] Hepatitis B surface antigen detectionOrdered By: Carrie Vick on 05-25-2024 Hepatitis B Surface Antigen Non-Reactive Nonreactive [facility] Hepatitis C Antibodyon 05-25 Hepatitis C AB Non-Reactive Normal Nonreactive [facility] Comment on above: Order Comment: Reaso n for Exam: Result Comment: Non Reactive: < 0.8 Equivocal: >/= 0.8 to < 1.0 Reactive: >/= 1.0 The CDC requires that a reactive/equivocal HCV antibody result be sent out for confirmation. HCV Quant by PCR testing. Performed By: #### L 501.9985, L509.8000, L3890.6005, L100.0100, L3890.6300, BTS, L3890.6100, L509.4005 ####[facility] [address] [place], [place], [id number] Hepatitis C virus antibody a ssayOrdered By: Carrie Vick on 05-25-2024 Hepatitis C Antibody Non-Reactive Nonreactive [facility] Comment on above: Non Reactive: < 0.8 Equivocal: >/= 0.8 to < 1.0 Reactive: >/= 1.0The CDC requires that a reactive/equivocal HCV antibody result be sent out for confirmation. HCV Quant by PCR testing. Immature granulocytes/100 WB C Auto (Bld)Ordered By: Carrie Vick on 05-25-2024 Immature granulocytes/100 WBC (Bld) 0.400 % 0.0-0.9 [facility] Comment on above: IG% - Immature Granu locytes (promyelocytes, myelocytes and metamyelocytes) > 1% indicates that a LEFT SHIFT is Present. L509.8000on 05-25-2024 Syphilis Abs Non-Reactive Normal [facility] Comment on above: Order Comment: Reaso n for Exam: Performed By: #### L 501.9985, L509.8000, L3890.6005, L100.0100, L3890.6300, BTS, L3890.6100, L509.4005 ####[facility] [address] [place], [place], [address] Lymphocytes Auto (Unsp spec) [#/Vol]Ordered By: Carrie Vick on 05-25-2024 Lymphocytes (Bld) [#/Vol] 1.69 10*3/uL 0.83-4.51 [facility] Lymphocytes/100 WBC Auto (Un sp spec)Ordered By: Carrie Vick on 05-25-2024 Lymphocytes/100 WBC (Bld) 17.5 % Low 19-41 [facility] MCV (mean corpuscular volume ) determinationOrdered By: Carrie Vick on 05-25-2024 MCV (RBC) [Entitic vol] 87.9 fL 81-99 [facility] Mean corpuscular hemoglobin (MCH) determinationOrdered By: Carrie Vick on 05-25-2024 MCH (RBC) [Entitic mass] 28.8 pg 27.0-32.0 [facility] Mean corpuscular hemoglobin concentration (MCHC) determinationOrdered By: Carrie Vick on 05-25-2024 MCHC (RBC) [Mass/Vol] 32.7 g/dL 32-36 [facility] Mean platelet volume determi nationOrdered By: Carrie Vick on 05-25-2024 Platelet mean volume (Bld) [Entitic vol] 9.6 fL 6.2-12.0 [facility] Monocyte percentageOrdered B y: Carrie Vick on 05-25-2024 Monocytes/100 WBC (Bld) 7.8 % 0-10 [facility] Neisseria gonorrhoeae nuclei c acid detection by amplified probe techniqueOrdered By: Carrie Vick on 05-25-2024 N. gonorrhoeae DNA DAWIT+probe Ql (Unsp spec) Negative Negative [facility] Comment on above: Performed at: =[address] [id number] Director: Dory Bella MD, Phone: [phone] Neutrophil percentageOrdered By: Carrie Vick on 05-25-2024 Neutrophils/100 WBC (Bld) 72.7 % High 47-70 [facility] Nucleated red blood cell per centageOrdered By: Carrie Vick on 05-25-2024 Nucleated RBC/100 WBC (Bld) [Ratio] 0 % 0-5 [facility] Senior Environmental Technician Office Visit Reporton 05-25-2024 Senior Environmental Technician Office Visit Report [facility] [address], [address] [place] [address] OFFICE VISIT Date of Service: 05/25/24 MR#: [id number] Acct: [id number] Name: MANDY OSULLIVAN Rep #: [id number] : 1985 Provider: SEUN palumbo Age/Sex: 38/F Location: [facility] [place] [facility] Status: Signed Intake Vital Signs 04/04/24 13:01 05/25/24 12:55 Height 5 ft 5 in 5 ft 5 in Weight: 200 lb 6 oz BMI 33.3 BP 135/78 H Intake Visit Reasons: NOB LMP 03/29 Mine 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 crispatus, gasseri, jensenii, tab PO 05/15/24 History rhamnosus 12 billion cell chew tablet ferrous sulfate 325 mg (65 mg 325 mg PO Q OTHER DAY 05/15/24 History iron) tablet multivitamin no.47-iron fum 27 cap PO 05/15/24 History mg-folate no.1 1 mg-dha 300 mg capsule (PNV-DHA) omega 2-fxp-has-fish oil 1,200 mg 2 cap PO DAILY [...] No current occupational status: unemployed current occupation: [employer] pets and animals: No history of recent [...] 1-2 times per week duration: 15-30 minutes/day dawood/zoroastrianism: Catholic seatbelt use: always do you feel safe at home: Yes 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 Date Name GA/Weeks Outcome Route Bth Weight Infant Gen Labor Lgth Anesthesia Del Locatn Provider FOB 10/31/18 Jackie 41 live - full term 9lb3oz Female 12 epidural [place] [facility] nekos Chidi 10/19/19 4 spontaneous 03/25/21 Kennedy 39 live - full term 8lbs 12oz Male epidural [facility] Dr. Ciera Murillo 01/18/23 Edith (pronounced say-la) 38 live - full term 10lbs 10oz Female spinal [facility] Rosalba Mas 02/02/24 4 spontaneous Delivery Date: [...] -???-???-???-???-??? -???-???-???-???-??? (more content not included)... Normal [facility] Platelet countOrdered By: Heather Vick on 05-25-2024 Platelets (Bld) [#/Vol] 317 10*3/uL 150-450 [facility] RBC Auto (Bld) [#/Vol]Ordere d By: Carrie Vick on 05-25-2024 RBC (Bld) [#/Vol] 4.31 10*6/uL 4.2-5.4 [facility] Rubella IgGon 05-25-2024 Rubella IgG Reactive Normal Nonreactive [facility] Comment on above: Order Comment: Reaso n for Exam: Result Comment: Anti body Results Interpretation of Immune Status Non Reactive Presumed Non-Immune Equivocal Equivocal Reactive Presumed Immune Performed By: #### L 501.9985, L509.8000, L3890.6005, L100.0100, L3890.6300, BTS, L3890.6100, L509.4005 ####[facility] [address] [place], [place], [address] Rubella immune status IgGOrd ered By: Carrie Vick on 05-25-2024 Rubella IgG Antibody Reactive Nonreactive [facility] Comment on above: Antibody Results Int erpretation of Immune Status Non Reactive Presumed Non-Immune Equivocal Equivocal Reactive Presumed Immune Treponema sp Ab Ql (S)Ordere d By: Carrie Vick on 05-25-2024 Syphilis Total Antibody Non-Reactive [facility] Type AND Screenon 05-25-2024 Ab SCREEN GEL Negative Normal [facility] Comment on above: Order Comment: PN Performed By: #### L 501.9985, L509.8000, L3890.6005, L100.0100, L3890.6300, BTS, L3890.6100, L509.4005 ####[facility] [address] [place], [address] Urine cultureOrdered By: Delmis Vick on 05-25-2024 Bacteria identified Cx Nom (U) Culture exhibits no growth. [facility] White blood cell (WBC) count Ordered By: Carrie Vick on 05-25-2024 WBC (Bld) [#/Vol] 9.7 10*3/uL 4.4-11.0 [facility] Senior Environmental Technician Office Visit Reporton 04-04-2024 Senior Environmental Technician Office Visit Report [facility]'s [address], [address] [place] [address] OFFICE VISIT Date of Service: 04/04/24 MR#: [id number] Acct: [id number] Name: MANDY OSULLIVAN Rep #: [id number] : 1985 Provider: CAITY dhaliwal Age/Sex: 38/F Location: [facility] Status: Signed Intake Vital Signs 03/10/23 09:42 04/04/24 12:57 04/04/24 13:01 Height 5 ft 5 in 5 ft 5 in 5 ft 5 in Weight: 200 lb BMI 33.3 BP 122/72 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) Chief Complaint: Annual Mine Boss Required: No Is patient in pain?: No Allergies No Known Allergies Allergy (Verified 04/04/24 12:57) Medications ???Medication ???Instructions ???Recorded ???Confirmed ???Type calcium icov-Q1-iizvcrukt abraham 1 tab PO/SL DAILY 03/13/21 04/04/24 History vit with calcium-iron 1 tab PO DAILY 03/13/21 04/04/24 History fum-folic acid 60 mg iron-1 mg tablet Is last menstrual period known: Yes Last Menstrual Period: 03/29/24 Post menopausal: No Patient : No : [facility] Medical History AMA (advanced maternal age) multigravida [...] safe at home: Yes additional social history: Marcelino- Chidi History 4 Elective abortions 0 Hx [...] - full term 8lbs 12oz Male epidural [facility] Dr. Ciera Murillo 01/18/23 Edith ([facility] 38 live - full term 10lbs 10oz Female spinal [facility] Rosalba Guajardokatherine Murillo Delivery Date: 10/31/18 Last Updated by: Ciera Wick MD 30s shoulder dystocia, 3rd degree perineal lac Delivery Date: 03/25/21 Last Updated by: Gris Garcia 3rd degree tear, OP/Brow presentation Delivery Date: 01/18/23 Last Updated by: Nyasia Mayo primary c/s. HPI Encounter for routine gynecological examination Details: MANDY OSULLIVAN is a 38 year old who presents for annual exam. No contraception since October, wants . 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 Normal [facility] hCG Titer Quant., Serumon HCG QUANT. < 1 Normal 1-3 [facility] Comment on above: Result Comment: hCG levels with Gestational Age Gestational Age hCG mIU/mL (IU/L) 0.2 - 1 week 5 - 50 1-2 weeks 50 - 500 2-3 weeks 100 - 5000 3-4 weeks 500 - 08411 4-5 weeks 1000 - 39450 5-6 weeks 21235 - 100,000 6-8 weeks 14620 - 200,000 2-3 months 83332 - 100,000 Performed By: #### L 972.9746 ####[facility] [address] [place], [address] CBC W/Diff, Automatedon 08- Absolute Lymph 2.13 X10 3/uL Normal 0.83-4.51 [facility] Comment on above: Performed By: #### L 100.0100 ####[facility] [address] [place], [address] Absolute Neut 5.0 X10 3/uL Normal 2.0-7.7 [facility] Comment on above: Performed By: #### L 100.0100 ####[facility] [address] [place], [address] Basophils/100 WBC (Bld) 0.7 % Normal 0-1 [facility] Comment on above: Performed By: #### L 100.0100 ####[facility] [address] [place], [address] Eosinophils/100 WBC (Bld) 3.2 % Normal 0-5 [facility] Comment on above: Performed By: #### L 100.0100 ####[facility] [address] [place], [address] Erythrocyte distribution width (RBC) [Ratio] 13.9 % Normal 11.6-14.6 [facility] Comment on above: Performed By: #### L 100.0100 ####[facility] [address] [place], [address] Hematocrit (Bld) [Volume fraction] 37.0 % Normal 37-47 [facility] Comment on above: Performed By: #### L 100.0100 ####[facility] [address] [place], [address] Hemoglobin (Bld) [Mass/Vol] 11.8 g/dL Low 12.0-15.0 [facility] Comment on above: Performed By: #### L 100.0100 ####[facility] [address] [place], [address] IG% 0.400 Normal 0.0-0.9 [facility] Comment on above: Result Comment: IG% - Immature Granulocytes (promyelocytes, myelocytes and metamyelocytes) > 1% indicates that a LEFT SHIFT is Present. Performed By: #### L 100.0100 ####[facility] [address] [place], [address] Lymphocytes/100 WBC (Bld) 25.5 % Normal 19-41 [facility] Comment on above: Performed By: #### L 100.0100 ####[facility] [address] [place], [address] MCH (RBC) [Entitic mass] 28.6 pg Normal 27.0-32.0 [facility] Comment on above: Performed By: #### L 100.0100 ####[facility] [address] [place], [address] MCHC (RBC) [Mass/Vol] 31.9 g/dL Low 32-36 [facility] Comment on above: Performed By: #### L 100.0100 ####[facility] [address] [place], [address] MCV (RBC) [Entitic vol] 89.8 fL Normal 81-99 [facility] Comment on above: Performed By: #### L 100.0100 ####[facility] [address] [place], [address] Monocytes/100 WBC (Bld) 10.2 % High 0-10 [facility] Comment on above: Performed By: #### L 100.0100 ####[facility] [address] [place], [address] Neutrophils/100 WBC (Bld) 60.0 % Normal 47-70 [facility] Comment on above: Performed By: #### L 100.0100 ####[facility] [address] [place], [address] Nucleated RBC (Bld) [#/Vol] 0 10*3/uL Normal 0-5 [facility] Comment on above: Performed By: #### L 100.0100 ####[facility] [address] [place], [address] Platelet mean volume (Bld) [Entitic vol] 9.5 fL Normal 6.2-12.0 [facility] Comment on above: Performed By: #### L 100.0100 ####[facility] [address] [place], [address] Platelets (Bld) [#/Vol] 322 10*3/uL Normal 150-450 [facility] Comment on above: Performed By: #### L 100.0100 ####[facility] [address] [place], [address] RBC (Bld) [#/Vol] 4.12 10*6/uL Low 4.2-5.4 [facility] Comment on above: Performed By: #### L 100.0100 ####[facility] [address] [place], [address] RDW SD 45.1 fl High 35.1-43.9 [facility] Comment on above: Performed By: #### L 100.0100 ####[facility] [address] [place], [address] WBC (Bld) [#/Vol] 8.3 10*3/uL Normal 4.4-11.0 [facility] Comment on above: Performed By: #### L 100.0100 ####[facility] [address] [place], [address] hCG Titer Quant., Serumon HCG QUANT. 2 mIU/mL Normal 1-3 [facility] Comment on above: Result Comment: hCG levels with Gestational Age Gestational Age hCG mIU/mL (IU/L) 0.2 - 1 week 5 - 50 1-2 weeks 50 - 500 2-3 weeks 100 - 5000 3-4 weeks 500 - 67512 4-5 weeks 1000 - 93920 5-6 weeks 35850 - 100,000 6-8 weeks 64623 - 200,000 2-3 months 55169 - 100,000 Performed By: #### L 700.8000 ####[facility] [address] [place], [address] .Auto Diffon 12-21-2023 Basophil, Absolute 0.0 10 3/mcL Normal 0.0-0.2 [facility] ([place]) Comment on above: Performed By: #### B 12, FOL #### [place] [address] #### VIDH, CBC, FERR, ADIFF, FES, GFR, CMP, ANEU #### [address] [address] Basophils/100 WBC (Bld) 0.5 % Normal 0.0-2.5 [facility] ([place]) Comment on above: Performed By: #### To 12, FOL #### [place] [address] #### VIDH, CBC, FERR, ADIFF, FES, GFR, CMP, ANEU #### [address] [address] Eosinophil, Absolute 0.2 10 3/mcL Normal 0.0-0.4 [facility] ([place] Comment on above: Performed By: #### To 12, FOL #### [place] [address] #### VIDH, CBC, FERR, ADIFF, FES, GFR, CMP, ANEU #### [address] [address] Eosinophils/100 WBC (Bld) 3.1 % Normal 0.0-7.0 [facility] ([place] Comment on above: Performed By: #### B 12, FOL #### [place] [address] #### VIDH, CBC, FERR, ADIFF, FES, GFR, CMP, ANEU #### [address] [address] Lymphocyte, Absolute 2.0 10 3/mcL Normal 0.8-3.9 [facility] [place] Comment on above: Performed By: #### B 12, FOL #### [place] [address] #### VIDH, CBC, FERR, ADIFF, FES, GFR, CMP, ANEU #### [address] [address] Lymphocytes/100 WBC (Bld) 28.2 % Normal 10.0-50.0 [facility] ([place] Comment on above: Performed By: #### B 12, FOL #### [place] [address] #### VIDH, CBC, FERR, ADIFF, FES, GFR, CMP, ANEU #### [address] [address] Monocyte, Absolute 0.6 10 3/mcL Normal 0.2-1.0 [facility] ([place]) Comment on above: Performed By: #### B 12, FOL #### [place] [address] #### VIDH, CBC, FERR, ADIFF, FES, GFR, CMP, ANEU #### [address] [address] Monocytes/100 WBC (Bld) 8.5 % Normal 1.7-13.0 [facility] ([place]) Comment on above: Performed By: #### B 12, FOL #### [place] [address] #### VIDH, CBC, FERR, ADIFF, FES, GFR, CMP, ANEU #### [address] [address] Neutrophils/100 WBC (Bld) 59.7 % Normal 37.0-80.0 [facility] ([place] Comment on above: Performed By: #### B 12, FOL #### [place] [address] #### VIDH, CBC, FERR, ADIFF, FES, GFR, CMP, ANEU #### [address] [address] .GFRon 12-21-2023 GFR Non- 100 ml/min/1.73sqm Normal [facility] ([place] Comment on above: Result Comment: GFR Population [...] Performed By: #### B 12, FOL #### [place] [address] #### VIDH, CBC, FERR, ADIFF, FES, GFR, CMP, ANEU #### [address] [address] GFR 121 ml/min/1.73sqm Normal [facility] ([place] Comment on above: Result Comment: GFR Population [...] Performed By: #### B 12, FOL #### [address] [address] #### VIDH, CBC, FERR, ADIFF, FES, GFR, CMP, ANEU #### [address] [address] .NEUABSon 12-21-2023 Neutrophil, Absolute 4.3 10 3/mcL Normal 2.9-6.2 [facility] [place] Comment on above: Performed By: #### B 12, FOL #### [place] [address] #### VIDH, CBC, FERR, ADIFF, FES, GFR, CMP, ANEU #### [address] [address] B12on 12-21-2023 Cobalamin (Vitamin B12) [Mass/Vol] 528 pg/mL Normal 211-911 [facility] ([place] Comment on above: Performed By: #### To 12, FOL #### [place] [address] #### VIDH, CBC, FERR, ADIFF, FES, GFR, CMP, ANEU #### [address] [address] CBCon 12-21-2023 Erythrocyte distribution width (RBC) [Ratio] 13.5 % Normal 11.5-14.5 [facility] ([place] Comment on above: Performed By: #### To 12, FOL #### [place] [address] #### VIDH, CBC, FERR, ADIFF, FES, GFR, CMP, ANEU #### [address] [address] Hematocrit (Bld) [Volume fraction] 37.7 % Normal 37.0-47.0 [facility] ([place] Comment on above: Performed By: #### B 12, FOL #### [place] [address] #### VIDH, CBC, FERR, ADIFF, FES, GFR, CMP, ANEU #### [address] [address] Hgb 12.5 G/dL Normal 12.0-16.0 [facility] ([place] Comment on above: Performed By: #### B 12, FOL #### [place] [address] #### VIDH, CBC, FERR, ADIFF, FES, GFR, CMP, ANEU #### [address] [address] MCH (RBC) [Entitic mass] 29.3 pg Normal 27.0-31.2 [facility] ([place] Comment on above: Performed By: #### To 12, FOL #### [place] [address] #### VIDH, CBC, FERR, ADIFF, FES, GFR, CMP, ANEU #### [address] [address] MCHC 33.1 G/dL Normal 33.0-37.0 [facility] ([place] Comment on above: Performed By: #### To 12, FOL #### [place] [address] #### VIDH, CBC, FERR, ADIFF, FES, GFR, CMP, ANEU #### [address] [address] MCV (RBC) [Entitic vol] 88.7 fL Normal 80.0-94.0 [facility] ([place]) Comment on above: Performed By: #### To 12, FOL #### [place] [address] #### VIDH, CBC, FERR, ADIFF, FES, GFR, CMP, ANEU #### [address] [address] Platelet 296 10 3/mcL Normal 130-400 [facility] ([place] Comment on above: Performed By: #### B 12, FOL #### [place] [address] #### VIDH, CBC, FERR, ADIFF, FES, GFR, CMP, ANEU #### [address] [address] Platelet mean volume (Bld) [Entitic vol] 8.1 fL Normal 7.4-10.4 [facility] ([place] Comment on above: Performed By: #### To 12, FOL #### [place] [address] #### VIDH, CBC, FERR, ADIFF, FES, GFR, CMP, ANEU #### [address] [address] RBC 4.25 10 6/mcL Normal 4.20-5.40 [facility] ([place] Comment on above: Performed By: #### To 12, FOL #### [place] [address] #### VIDH, CBC, FERR, ADIFF, FES, GFR, CMP, ANEU #### [address] [address] WBC 7.1 10 3/mcL Normal 4.6-10.8 [facility] ([place] Comment on above: Performed By: #### To 12, FOL #### [place] [address] #### VIDH, CBC, FERR, ADIFF, FES, GFR, CMP, ANEU #### [address] [address] CMPon 12-21-2023 Albumin Level 3.9 G/dL Normal 3.5-5.0 [facility] ([place] Comment on above: Performed By: #### To 12, FOL #### [place] [address] #### VIDH, CBC, FERR, ADIFF, FES, GFR, CMP, ANEU #### [address] [address] Albumin/Globulin [Mass ratio] 1.1 {ratio} Normal 1.1-2.5 [facility] ([place] Comment on above: Performed By: #### To 12, FOL #### [place] [address] #### VIDH, CBC, FERR, ADIFF, FES, GFR, CMP, ANEU #### [address] [address] ALP [Catalytic activity/Vol] 73 U/L Normal 40-135 [facility] ([place] Comment on above: Performed By: #### B 12, FOL #### [place] [address] #### VIDH, CBC, FERR, ADIFF, FES, GFR, CMP, ANEU #### [address] [address] ALT [Catalytic activity/Vol] 31 U/L Normal 14-59 [facility] ([place] Comment on above: Performed By: #### B 12, FOL #### [place] [address] #### VIDH, CBC, FERR, ADIFF, FES, GFR, CMP, ANEU #### [address] [address] AST [Catalytic activity/Vol] 14 U/L Normal 10-40 [facility] ([place] Comment on above: Performed By: #### To 12, FOL #### [place] [address] #### VIDH, CBC, FERR, ADIFF, FES, GFR, CMP, ANEU #### [address] [address] Bili Total 0.2 mg/dL Normal 0.2-1.0 [facility] ([place] Comment on above: Result Comment: Use of this assay is not recommended for patients undergoing treatment with eltrombopag due to the potential for falsely elevated results. Performed By: #### B 12, FOL #### [place] [address] #### VIDH, CBC, FERR, ADIFF, FES, GFR, CMP, ANEU #### [address] [address] BUN/Creatinine Ratio 24 ratio Normal 7-27 [facility] ([place]) Comment on above: Performed By: #### B 12, FOL #### [place] [address] #### VIDH, CBC, FERR, ADIFF, FES, GFR, CMP, ANEU #### [address] [address] Calcium [Mass/Vol] 9.1 mg/dL Normal 8.4-10.2 [facility] ([place]) Comment on above: Performed By: #### B 12, FOL #### [place] [address] #### VIDH, CBC, FERR, ADIFF, FES, GFR, CMP, ANEU #### [address] [address] Chloride [Moles/Vol] 102 mmol/L Normal 98-107 [facility] ([place]) Comment on above: Performed By: #### B 12, FOL #### [place] [address] #### VIDH, CBC, FERR, ADIFF, FES, GFR, CMP, ANEU #### [address] [address] CO2 [Moles/Vol] 26 mmol/L Normal 22-29 [facility] ([place] Comment on above: Performed By: #### B 12, FOL #### [place] [address] #### VIDH, CBC, FERR, ADIFF, FES, GFR, CMP, ANEU #### [address] [address] Creatinine [Mass/Vol] 0.67 mg/dL Normal 0.55-1.02 [facility] ([place]) Comment on above: Performed By: #### B 12, FOL #### [place] [address] #### VIDH, CBC, FERR, ADIFF, FES, GFR, CMP, ANEU #### [address] [address] Electrolyte Balance 10.0 mEq/L Normal 4.0-15.0 [facility] ([place]) Comment on above: Performed By: #### B 12, FOL #### [place] [address] #### VIDH, CBC, FERR, ADIFF, FES, GFR, CMP, ANEU #### [address] [address] Globulin 3.4 G/dL [facility] ([place]) Comment on above: Performed By: #### B 12, FOL #### [place] [address] #### VIDH, CBC, FERR, ADIFF, FES, GFR, CMP, ANEU #### [address] [address] Glucose [Mass/Vol] 89 mg/dL Normal 70-105 [facility] ([place]) Comment on above: Performed By: #### B 12, FOL #### [place] [address] #### VIDH, CBC, FERR, ADIFF, FES, GFR, CMP, ANEU #### [address] [address] Potassium [Moles/Vol] 4.3 mmol/L Normal 3.5-5.1 [facility] ([place]) Comment on above: Performed By: #### B 12, FOL #### [place] [address] #### VIDH, CBC, FERR, ADIFF, FES, GFR, CMP, ANEU #### [address] [address] Sodium [Moles/Vol] 138 mmol/L Normal 136-145 [facility] ([place]) Comment on above: Performed By: #### B 12, FOL #### [place] [address] #### VIDH, CBC, FERR, ADIFF, FES, GFR, CMP, ANEU #### [address] [address] Total Protein 7.3 G/dL Normal 6.4-8.2 [facility] ([place] Comment on above: Performed By: #### B 12, FOL #### [place] [address] #### VIDH, CBC, FERR, ADIFF, FES, GFR, CMP, ANEU #### [address] [address] Urea nitrogen [Mass/Vol] 16 mg/dL Normal 7-18 [facility] ([place] Comment on above: Performed By: #### To 12, FOL #### [place] [address] #### VIDH, CBC, FERR, ADIFF, FES, GFR, CMP, ANEU #### [address] [address] Justin 12-21-2023 Ferritin [Mass/Vol] 54.0 ng/mL Normal 8.0-252.0 [facility] ([place]) Comment on above: Performed By: #### B 12, FOL #### [place] [address] #### VIDH, CBC, FERR, ADIFF, FES, GFR, CMP, ANEU #### [place] [id number] FESon 12-21-2023 Iron [Mass/Vol] 36 ug/dL Low 50-170 [facility] ([place]) Comment on above: Performed By: #### To 12, FOL #### [place] [address] #### VIDH, CBC, FERR, ADIFF, FES, GFR, CMP, ANEU #### [address] [address] Iron Sat 12 % Normal [facility] ([place] Comment on above: Performed By: #### B 12, FOL #### [place] [address] #### VIDH, CBC, FERR, ADIFF, FES, GFR, CMP, ANEU #### [address] [address] TIBC 305 mcg/dL Normal 250-450 [facility] ([place]) Comment on above: Performed By: #### B 12, FOL #### [place] [address] #### VIDH, CBC, FERR, ADIFF, FES, GFR, CMP, ANEU #### [address] [place], [place] [address] FOLon 12-21-2023 Folate 29.46 ng/mL High 5.38-24.00 [facility] ([place]) Comment on above: Performed By: #### B 12, FOL #### [facility] [address] [place] [address] #### VIDH, CBC, FERR, ADIFF, FES, GFR, CMP, ANEU #### [place] [address] [place], [place] [address] LABORATORYOrdered By: SYSTEM SYSTEM on 12-21-2023 25-hydroxyvitamin [...] 12-21-2023 Vit. D 25-Hydroxy 29.7 ng/mL [facility] ([place]) Comment on above: Result Comment: Inte rpretive Values Based on Total 25(OH) Vitamin D: Deficient <20 ng/mL Insufficient 20 - <30 ng/mL Sufficient 30-100 ng/mL Performed By: #### B 12, FOL #### [place] [address] #### VIDH, CBC, FERR, ADIFF, FES, GFR, CMP, ANEU #### [place] [address] US AXILLA BREAST RIGHTon US AXILLA BREAST RIGHT ORIGINAL FROM: [address] [address] PROCEDURE FOR: MANDY OSULLIVAN [place] [address] Home: PID#: [id number] Exam#: [id number] : 1985 Age: 37 TO: REEMA GUTIERREZ APRN [place] [address] Fax: NO FAX EXAMINATION: ULTRASOUND OF THE [...] REEMA GUTIERREZ CLINICAL: PALPABLE LUMP RIGHT AXILLA. Television Repairman: RENATO JUAREZ RT(R) RDMS letter sent: Normal-Needs additional work up BI-RADS 0 Ultrasound BI-RADS: 0 Indeterminate Normal [facility] ([place]) Laboratory - Chemistry and C hemistry - challengeon 12-29-2022 Glucose Ql (U) Negative [facility] Laboratory - Urinalysison Protein Ql (U) Negative [facility] No Panel InformationOrdered By: Maggie Holloway on 12-29-2022 Group B Streptococcus Culture Group B Beta Streptococcus is not isolated. [facility] Absolute lymphocyte countOrd ered By: Mindy Romero on 12-17-2022 Lymphocytes Auto (Unsp spec) [#/Vol] 1.37 10*3/uL 0.83-4.51 [facility] Basophil percentageOrdered B y: Mindy Romero on 12-17-2022 Basophils/100 WBC (Bld) 0.3 % 0-1 [facility] Eosinophils/100 WBC (Bld) 0.9 % 0-5 [facility] Neutrophils (Bld) [#/Vol] 7.6 10*3/uL 2.0-7.7 [facility] Neutrophils/100 WBC (Bld) 75.5 % 47-70 [facility] WBC (Bld) [#/Vol] 10.1 10*3/uL 4.4-11.0 [facility] Blood erythrocytes count (nu mber/volume)Ordered By: Mindy Romero on 12-17-2022 RBC (Bld) [#/Vol] 3.64 10*6/uL 4.2-5.4 [facility] Blood hemoglobin measurement (mass/volume)Ordered By: Mindy Romero on 12-17-2022 Hemoglobin (Bld) [Mass/Vol] 10.3 g/dL 12.0-15.0 [facility] Blood lymphocytes/100 leukoc ytesOrdered By: Mindy Romero on 12-17-2022 Lymphocytes/100 WBC (Bld) 13.6 % 19-41 [facility] Blood monocytes/100 leukocyt esOrdered By: Mindy Romero on 12-17-2022 Monocytes/100 WBC (Bld) 9.0 % 0-10 [facility] Blood platelet mean volumeOr dered By: Mindy Romero on 12-17-2022 Platelet mean volume (Bld) [Entitic vol] 10.0 fL 6.2-12.0 [facility] Determination of erythrocyte mean corpuscular volume (MCV)Ordered By: Mindy Romero on 12-17-2022 MCV (RBC) [Entitic vol] 88.7 fL 81-99 [facility] Hematocrit Auto (Bld) [Volum e fraction]Ordered By: Mindy Romero on 12-17-2022 Hematocrit (Bld) [Volume fraction] 32.3 % 37-47 [facility] Laboratory - Chemistry and C hemistry - challengeon 12-17-2022 Glucose Ql (U) Negative [facility] Laboratory - Hematology and Cell countsOrdered By: Mindy Romero on 12-17-2022 Erythrocyte distribution width (RBC) [Entitic vol] 49.1 fL 35.1-43.9 [facility] Erythrocyte distribution width (RBC) [Ratio] 15.0 % 11.6-14.6 [facility] Immature granulocytes/100 WBC (Bld) 0.700 % 0.0-0.9 [facility] Comment on above: IG% - Immature Granu locytes (promyelocytes, myelocytes and metamyelocytes) > 1% indicates that a LEFT SHIFT is Present. MCH (RBC) [Entitic mass] 28.3 pg 27.0-32.0 [facility] Nucleated RBC/100 WBC (Bld) [Ratio] 0 % 0-5 [facility] Laboratory - Urinalysison Protein Ql (U) Negative [facility] MCHC Auto (RBC) [Mass/Vol]Or dered By: Mindy Romero on 12-17-2022 MCHC (RBC) [Mass/Vol] 31.9 g/dL 32-36 [facility] Platelets bldOrdered By: Han Romero on 12-17-2022 Platelets (Bld) [#/Vol] 269 10*3/uL 150-450 [facility] Laboratory - Chemistry and C hemistry - challengeon 11-17-2022 Glucose Ql (U) Negative [facility] Laboratory - Urinalysison Protein Ql (U) Negative [facility] Absolute lymphocyte countOrd ered By: Rosalba Tam on 11-03-2022 Lymphocytes Auto (Unsp spec) [#/Vol] 1.01 10*3/uL 0.83-4.51 [facility] Basophil percentageOrdered B y: Rosalba Tam on 11-03-2022 Basophils/100 WBC (Bld) 0.1 % 0-1 [facility] Eosinophils/100 WBC (Bld) 0.9 % 0-5 [facility] Neutrophils (Bld) [#/Vol] 5.1 10*3/uL 2.0-7.7 [facility] Neutrophils/100 WBC (Bld) 73.4 % 47-70 [facility] WBC (Bld) [#/Vol] 6.9 10*3/uL 4.4-11.0 [facility] Blood erythrocytes count (nu mber/volume)Ordered By: Rosalba Tam on 11-03-2022 RBC (Bld) [#/Vol] 3.60 10*6/uL 4.2-5.4 [facility] Blood hemoglobin measurement (mass/volume)Ordered By: Rosalba Tam on 11-03-2022 Hemoglobin (Bld) [Mass/Vol] 10.3 g/dL 12.0-15.0 [facility] Blood lymphocytes/100 leukoc ytesOrdered By: Rosalba Tam on 11-03-2022 Lymphocytes/100 WBC (Bld) 14.6 % 19-41 [facility] Blood monocytes/100 leukocyt esOrdered By: Rosalba Tam on 11-03-2022 Monocytes/100 WBC (Bld) 10.7 % 0-10 [facility] Blood platelet mean volumeOr dered By: Rosalba Tam on 11-03-2022 Platelet mean volume (Bld) [Entitic vol] 9.7 fL 6.2-12.0 [facility] Determination of erythrocyte mean corpuscular volume (MCV)Ordered By: Rosalba Tam on 11-03-2022 MCV (RBC) [Entitic vol] 89.4 fL 81-99 [facility] Gestational diabetes screen 1-hour screen with 50g oral glucose loadOrdered By: Rosalba Tam on 11-03-2022 Glucose 1 Hr post 50 g glucose PO [Mass/Vol] 102 mg/dL 70-140 [facility] HIV 1 and HIV-2 antibody ass ay with HIV-1 p24 antigen detectionOrdered By: Rosalba Tam on 11-03-2022 HIV 1+2 Ab+HIV1 p24 Ag IA Ql Non-Reactive Nonreactive [facility] Hematocrit Auto (Bld) [Volum e fraction]Ordered By: Rosalba Tam on 11-03-2022 Hematocrit (Bld) [Volume fraction] 32.2 % 37-47 [facility] Laboratory - Hematology and Cell countsOrdered By: Rosalba Tam on 11-03-2022 Erythrocyte distribution width (RBC) [Entitic vol] 43.0 fL 35.1-43.9 [facility] Erythrocyte distribution width (RBC) [Ratio] 13.2 % 11.6-14.6 [facility] Immature granulocytes/100 WBC (Bld) 0.300 % 0.0-0.9 [facility] Comment on above: IG% - Immature Granu locytes (promyelocytes, myelocytes and metamyelocytes) > 1% indicates that a LEFT SHIFT is Present. MCH (RBC) [Entitic mass] 28.6 pg 27.0-32.0 [facility] Nucleated RBC/100 WBC (Bld) [Ratio] 0 % 0-5 [facility] MCHC Auto (RBC) [Mass/Vol]Or dered By: Rosalba Tam on 11-03-2022 MCHC (RBC) [Mass/Vol] 32.0 g/dL 32-36 [facility] Platelets bldOrdered By: Trang Tam on 11-03-2022 Platelets (Bld) [#/Vol] 264 10*3/uL 150-450 [facility] Serum Treponema species anti body detectionOrdered By: Rosalba Tam on 11-03-2022 Treponema sp Ab Ql (S) Non-Reactive [facility] Laboratory - Chemistry and C hemistry - challengeon 10-06-2022 Glucose Ql (U) Negative [facility] - Urinalysison Protein Ql (U) Negative [facility] Absolute lymphocyte counton 06-16-2022 Lymphocytes Auto (Unsp spec) [#/Vol] 1.40 10*3/uL 0.83-4.51 [facility] Work Phone: Basophil percentageon 2021 Basophils/100 WBC (Bld) 0.4 % 0-1 [facility] Work Phone: Eosinophils/100 WBC (Bld) 0.6 % 0-5 [facility] Work Phone: Neutrophils (Bld) [#/Vol] 8.8 10*3/uL 2.0-7.7 [facility] Work Phone: Neutrophils/100 WBC (Bld) 79.5 % 47-70 [facility] Work Phone: WBC (Bld) [#/Vol] 11.1 10*3/uL 4.4-11.0 [facility] Work Phone: Blood erythrocytes count (nu mber/volume)on 06-16-2022 RBC (Bld) [#/Vol] 4.53 10*6/uL 4.2-5.4 [facility] Work Phone: Blood hemoglobin measurement (mass/volume)on 06-16-2022 Hemoglobin (Bld) [Mass/Vol] 13.1 g/dL 12.0-15.0 [facility] Work Phone: Blood lymphocytes/100 leukoc yteson 06-16-2022 Lymphocytes/100 WBC (Bld) 12.6 % 19-41 [facility] Work Phone: Blood monocytes/100 leukocyt eson 06-16-2022 Monocytes/100 WBC (Bld) 6.6 % 0-10 [facility] Work Phone: Blood platelet mean volumeon 06-16-2022 Platelet mean volume (Bld) [Entitic vol] 9.9 fL 6.2-12.0 [facility] Work Phone: Chlamydia trachomatis rRNA d etection by probe and target amplification methodon 06-16-2022 C. trachomatis rRNA DWAIT+probe Ql (Unsp spec) Negative Negative [facility] Work Phone: Determination of erythrocyte mean corpuscular volume (MCV)on 06-16-2022 MCV (RBC) [Entitic vol] 87.4 fL 81-99 [facility] Work Phone: HIV 1 and HIV-2 antibody ass ay with HIV-1 p24 antigen detectionon 06-16-2022 HIV 1+2 Ab+HIV1 p24 Ag IA Ql Non-Reactive Nonreactive [facility] Work Phone: [phone] Hematocrit Auto (Bld) [Volum e fraction]on 06-16-2022 Hematocrit (Bld) [Volume fraction] 39.6 % 37-47 [facility] Work Phone: Laboratory - Hematology and Cell countson 06-16-2022 Erythrocyte distribution width (RBC) [Entitic vol] 40.5 fL 35.1-43.9 [facility] Work Phone: [phone] Erythrocyte distribution width (RBC) [Ratio] 12.7 % 11.6-14.6 [facility] Work Phone: [phone] Immature granulocytes/100 WBC (Bld) 0.300 % 0.0-0.9 [facility] Work Phone: [phone] Comment on above: IG% - Immature Granu locytes (promyelocytes, myelocytes and metamyelocytes) > 1% indicates that a LEFT SHIFT is Present. MCH (RBC) [Entitic mass] 28.9 pg 27.0-32.0 [facility] Work Phone: [phone] Nucleated RBC/100 WBC (Bld) [Ratio] 0 % 0-5 [facility] Work Phone: [phone] Laboratory - Microbiology an d Antimicrobial susceptibilityon 06-16-2022 N. gonorrhoeae DNA DAWIT+probe Ql (Unsp spec) Negative Negative [facility] Work Phone: [phone] Comment on above: Performed at: =G - L [address] [id number] Director: Dory Bella MD, Phone: [phone] MCHC Auto (RBC) [Mass/Vol]on 06-16-2022 MCHC (RBC) [Mass/Vol] 33.1 g/dL 32-36 [facility] Work Phone: [phone] No Panel Informationon 06-16 Hepatitis B Surface Antigen Non-Reactive Nonreactive [facility] Work Phone: [phone] Hepatitis C Antibody Non-Reactive Nonreactive [facility] Work Phone: [phone] Comment on above: Non Reactive: < 0.8 Equivocal: >/= 0.8 to < 1.0 Reactive: >/= 1.0The CDC recommends that a reactive/equivocal HCV antibody result be followed up by the HCV Nucleic Acid Amplificationtest (861342) Rubella IgG Antibody Reactive Nonreactive [facility] Work Phone: [phone] Comment on above: Antibody Results Int erpretation of Immune Status Non Reactive Presumed Non-Immune Equivocal Equivocal Reactive Presumed Immune Platelets bldon 06-16-2022 Platelets (Bld) [#/Vol] 345 10*3/uL 150-450 [facility] Work Phone: Serum Treponema species anti body detectionon 06-16-2022 Treponema sp Ab Ql (S) Non-Reactive [facility] Work Phone: Serum Varicella zoster virus IgG antibody assay by immunoassay (units/volume)on 06-16-2022 VZV IgG IA Qn (S) 1649 index Immune >165 [facility] Work Phone: Comment on above: Negative <135 Equivo opal 135 - 165 Positive >165A positive result generally indicates exposure to thepathogen or administration of specific immunoglobulins,but it is not indication of active infection or stageof disease.Performed at: [place] [id number] Director: Devaughn Bryant PhD, Phone: [phone] CEFTRIAXONE:SUSC:PT:ISOLATE: ORDQN:MICon 05-11-2022 cefTRIAXone JOIE [Susc] 10,000 - 50,000 cfu/ml Escherichia coli [facility] Work Phone: cefTRIAXone JOIE [Susc]on Escherichia coli Escherichia coli [facility] Work Phone: Culture, urine Bacteria identified Cx Nom (U) Positive [facility] Work Phone: Vital Signs Date Time Vital Sign Value Performing Clinician Faci lity 12-26-2024 14:52-0400 Body height 165.1 cm Reema Gutierrez NP-C Work Phone: [facility] 12-26-2024 14:52-0400 Body mass index (BMI) [Ratio] 40.4 kg/m2 Reema Gutierrez NP-C Work Phone: [facility] 12-26-2024 14:52-0400 Body weight 110.33 kg Reema Gutierrez BUSINESS ADMINISTRATOR-C Work Phone: [facility] 12-26-2024 14:52-0400 Diastolic blood pressure 71 mm[Hg] Reema Gutierrez BUSINESS ADMINISTRATOR-C Work Phone: [facility] 12-26-2024 14:52-0400 Systolic blood pressure 114 mm[Hg] Reema Delacruzer BUSINESS ADMINISTRATOR-C Work Phone: [facility] 12-19-2024 14:38-0400 Body height 165.1 cm Reema Delacruzer BUSINESS ADMINISTRATOR-C Work Phone: [facility] 12-19-2024 14:34-0400 Body mass index (BMI) [Ratio] 40.2 kg/m2 Reema Delacruzer BUSINESS ADMINISTRATOR-C Work Phone: [facility] 12-19-2024 14:34-0400 Body weight 109.76 kg Reema Gutierrez BUSINESS ADMINISTRATOR-C Work Phone: [facility] 12-19-2024 14:34-0400 Diastolic blood pressure 70 mm[Hg] Reema Delacruzer BUSINESS ADMINISTRATOR-C Work Phone: [facility] 12-19-2024 14:34-0400 Systolic blood pressure 114 mm[Hg] Reema Delacruzer BUSINESS ADMINISTRATOR-C Work Phone: [facility] 12-13-2024 10:50-0400 Body height 165.1 cm Reema Gutierrez BUSINESS ADMINISTRATOR-C Work Phone: [facility] 12-13-2024 10:44-0400 Body mass index (BMI) [Ratio] 39.9 kg/m2 Reema Delacruzer BUSINESS ADMINISTRATOR-C Work Phone: [facility] 12-13-2024 10:44-0400 Body weight 108.91 kg Reema Gutierrez BUSINESS ADMINISTRATOR-C Work Phone: [facility] 12-13-2024 10:44-0400 Diastolic blood pressure 69 mm[Hg] Reema Delacruzer BUSINESS ADMINISTRATOR-C Work Phone: [facility] 12-13-2024 10:44-0400 Systolic blood pressure 111 mm[Hg] Reema Delacruzer BUSINESS ADMINISTRATOR-C Work Phone: [facility] 12-06-2024 14:53-0400 Body height 165.1 cm Reema Delacruzer BUSINESS ADMINISTRATOR-C Work Phone: [facility] 12-06-2024 14:52-0400 Body mass index (BMI) [Ratio] 39.6 kg/m2 Reema Delacruzer BUSINESS ADMINISTRATOR-C Work Phone: [facility] 12-06-2024 14:52-0400 Body weight 108.12 kg Reema Gutierrez BUSINESS ADMINISTRATOR-C Work Phone: [facility] 12-06-2024 14:52-0400 Diastolic blood pressure 78 mm[Hg] Reema Delacruzer BUSINESS ADMINISTRATOR-C Work Phone: [facility] 12-06-2024 14:52-0400 Systolic blood pressure 135 mm[Hg] Reema Delacruzer BUSINESS ADMINISTRATOR-C Work Phone: [facility] 11-19-2024 10:35-0400 Body height 165.1 cm Reema Delacruzer BUSINESS ADMINISTRATOR-C Work Phone: [facility] 11-19-2024 10:35-0400 Body mass index (BMI) [Ratio] 38.7 kg/m2 Reema Delacruzer BUSINESS ADMINISTRATOR-C Work Phone: [facility] 11-19-2024 10:35-0400 Body weight 105.68 kg Reema Delacruzer BUSINESS ADMINISTRATOR-C Work Phone: [facility] 11-19-2024 10:35-0400 Diastolic blood pressure 64 mm[Hg] Reema Matt BUSINESS ADMINISTRATOR-C Work Phone: [facility] 11-19-2024 10:35-0400 Systolic blood pressure 111 mm[Hg] Reema Delacruzer BUSINESS ADMINISTRATOR-C Work Phone: [facility] 11-07-2024 14:09-0400 Body height 165.1 cm Reema Delacruzer BUSINESS ADMINISTRATOR-C Work Phone: [facility] 11-07-2024 14:09-0400 Body mass index (BMI) [Ratio] 38.5 kg/m2 Reema Matt BUSINESS ADMINISTRATOR-C Work Phone: [facility] 11-07-2024 14:09-0400 Body weight 104.83 kg Reema Delacruzer BUSINESS ADMINISTRATOR-C Work Phone: [facility] 11-07-2024 14:09-0400 Diastolic blood pressure 78 mm[Hg] Reema Matt BUSINESS ADMINISTRATOR-C Work Phone: [facility] 11-07-2024 14:09-0400 Systolic blood pressure 125 mm[Hg] Reema Delacruzer BUSINESS ADMINISTRATOR-C Work Phone: [facility] 10-24-2024 11:01-0400 Body height 165.1 cm Reema Delacruzer BUSINESS ADMINISTRATOR-C Work Phone: [facility] 10-24-2024 11:01-0400 Body mass index (BMI) [Ratio] 37.1 kg/m2 Reema Delacruzer BUSINESS ADMINISTRATOR-C Work Phone: [facility] 10-24-2024 11:01-0400 Body weight 101.32 kg Reema Delacruzer BUSINESS ADMINISTRATOR-C Work Phone: [facility] 10-24-2024 11:01-0400 Diastolic blood pressure 65 mm[Hg] Reema Delacruzer BUSINESS ADMINISTRATOR-C Work Phone: [facility] 10-24-2024 11:01-0400 Systolic blood pressure 111 mm[Hg] Reema Delacruzer BUSINESS ADMINISTRATOR-C Work Phone: [facility] 10-12-2024 12:58-0400 Body mass index (BMI) [Ratio] 37.1 kg/m2 Reema Delacruzer BUSINESS ADMINISTRATOR-C Work Phone: [facility] 10-12-2024 12:58-0400 Body weight 101.32 kg Reema Gutierrez BUSINESS ADMINISTRATOR-C Work Phone: [facility] 10-12-2024 12:58-0400 Diastolic blood pressure 67 mm[Hg] Reema Delacruzer BUSINESS ADMINISTRATOR-C Work Phone: [facility] 10-12-2024 12:58-0400 Systolic blood pressure 108 mm[Hg] Reema Delacruzer BUSINESS ADMINISTRATOR-C Work Phone: [facility] 09-27-2024 09:26-0400 Body height 165.1 cm Reema Delacruzer BUSINESS ADMINISTRATOR-C Work Phone: [facility] 09-27-2024 09:26-0400 Body mass index (BMI) [Ratio] 37 kg/m2 Reema Delacruzer BUSINESS ADMINISTRATOR-C Work Phone: [facility] 09-27-2024 09:26-0400 Body weight 100.86 kg Reema Delacruzer BUSINESS ADMINISTRATOR-C Work Phone: [facility] 09-27-2024 09:26-0400 Diastolic blood pressure 69 mm[Hg] Reema Delacruzer BUSINESS ADMINISTRATOR-C Work Phone: [facility] 09-27-2024 09:26-0400 Systolic blood pressure 122 mm[Hg] Reema Delacruzer BUSINESS ADMINISTRATOR-C Work Phone: [facility] 08-24-2024 10:38-0500 Body height 165.1 cm Reema Delacruzer BUSINESS ADMINISTRATOR-C Work Phone: [facility] 08-24-2024 10:38-0500 Body mass index (BMI) [Ratio] 35.4 kg/m2 Reema Delacruzer BUSINESS ADMINISTRATOR-C Work Phone: [facility] 08-24-2024 10:38-0500 Body weight 96.67 kg Reema Delacruzer BUSINESS ADMINISTRATOR-C Work Phone: [facility] 08-24-2024 10:38-0500 Diastolic blood pressure 72 mm[Hg] Reema Delacruzer BUSINESS ADMINISTRATOR-C Work Phone: [facility] 08-24-2024 10:38-0500 Systolic blood pressure 109 mm[Hg] Reema Gutierrez BUSINESS ADMINISTRATOR-C Work Phone: [facility] 07-25-2024 15:14-0500 Body mass index (BMI) [Ratio] 34.8 kg/m2 Reema Gutierrez BUSINESS ADMINISTRATOR-C Work Phone: [facility] 07-25-2024 15:14-0500 Body weight 94.97 kg Reema Gutierrez BUSINESS ADMINISTRATOR-C Work Phone: [facility] 07-25-2024 15:14-0500 Diastolic blood pressure 74 mm[Hg] Reema Gutierrez BUSINESS ADMINISTRATOR-C Work Phone: [facility] 07-25-2024 15:14-0500 Systolic blood pressure 114 mm[Hg] Reema Gutierrez BUSINESS ADMINISTRATOR-C Work Phone: [facility] 06-27-2024 13:47-0500 Body mass index (BMI) [Ratio] 34 kg/m2 Reema Gutierrez BUSINESS ADMINISTRATOR-C Work Phone: [facility] 06-27-2024 13:47-0500 Body weight 92.64 kg Reema Gutierrez BUSINESS ADMINISTRATOR-C Work Phone: [facility] 06-27-2024 13:47-0500 Diastolic blood pressure 75 mm[Hg] Reema Gutierrez BUSINESS ADMINISTRATOR-C Work Phone: [facility] 06-27-2024 13:47-0500 Systolic blood pressure 114 mm[Hg] Reema Delacruzer BUSINESS ADMINISTRATOR-C Work Phone: [facility] 05-25-2024 12:55-0500 Body mass index (BMI) [Ratio] 33.3 kg/m2 Reema Delacruzer BUSINESS ADMINISTRATOR-C Work Phone: [facility] 05-25-2024 12:55-0500 Body weight 90.88 kg Reema Gutierrez BUSINESS ADMINISTRATOR-C Work Phone: [facility] 05-25-2024 12:55-0500 Diastolic blood pressure 78 mm[Hg] Reema Gutierrez BUSINESS ADMINISTRATOR-C Work Phone: [facility] 05-25-2024 12:55-0500 Systolic blood pressure 135 mm[Hg] Reema Gutierrez BUSINESS ADMINISTRATOR-C Work Phone: [facility] 12-29-2022 10:56-0400 Body height 165.1 cm BUSINESS ADMINISTRATOR-C Erika Seffens BUSINESS ADMINISTRATOR Work Phone: [facility] 12-29-2022 10:55-0400 Body mass index (BMI) [Ratio] 35.2 kg/m2 BUSINESS ADMINISTRATOR-C Erika Seffens BUSINESS ADMINISTRATOR Work Phone: [facility] 12-29-2022 10:55-0400 Body weight 95.82 kg BUSINESS ADMINISTRATOR-C Erika Seffens BUSINESS ADMINISTRATOR Work Phone: [facility] 12-29-2022 10:55-0400 Diastolic blood pressure 66 mm[Hg] BUSINESS ADMINISTRATOR-C Erika Seffens BUSINESS ADMINISTRATOR Work Phone: [facility] 12-29-2022 10:55-0400 Systolic blood pressure 104 mm[Hg] BUSINESS ADMINISTRATOR-C Erika Seffens BUSINESS ADMINISTRATOR Work Phone: [facility] 12-17-2022 13:26-0400 Body mass index (BMI) [Ratio] 34.9 kg/m2 BUSINESS ADMINISTRATOR-C Erika Seffens BUSINESS ADMINISTRATOR Work Phone: [facility] 12-17-2022 13:26-0400 Body weight 95.25 kg BUSINESS ADMINISTRATOR-C Erika Seffens BUSINESS ADMINISTRATOR Work Phone: [facility] 12-17-2022 13:26-0400 Diastolic blood pressure 65 mm[Hg] BUSINESS ADMINISTRATOR-C Erika Seffens BUSINESS ADMINISTRATOR Work Phone: [facility] 12-17-2022 13:26-0400 Systolic blood pressure 102 mm[Hg] BUSINESS ADMINISTRATOR-C Erika Seffens BUSINESS ADMINISTRATOR Work Phone: [facility] 11-29-2022 13:43-0400 Body mass index (BMI) [Ratio] 33.6 kg/m2 BUSINESS ADMINISTRATOR-C Erika Seffens BUSINESS ADMINISTRATOR Work Phone: [facility] 11-29-2022 13:43-0400 Body weight 91.79 kg BUSINESS ADMINISTRATOR-C Erika Seffens BUSINESS ADMINISTRATOR Work Phone: [facility] 11-29-2022 13:43-0400 Diastolic blood pressure 68 mm[Hg] BUSINESS ADMINISTRATOR-C Erika Seffens BUSINESS ADMINISTRATOR Work Phone: [facility] 11-29-2022 13:43-0400 Systolic blood pressure 120 mm[Hg] BUSINESS ADMINISTRATOR-C Erika Seffens BUSINESS ADMINISTRATOR Work Phone: [facility] 11-17-2022 10:54-0400 Body mass index (BMI) [Ratio] 33.1 kg/m2 BUSINESS ADMINISTRATOR-C Erika Seffens BUSINESS ADMINISTRATOR Work Phone: [facility] 11-17-2022 10:54-0400 Body weight 90.26 kg BUSINESS ADMINISTRATOR-C Erika Seffens BUSINESS ADMINISTRATOR Work Phone: [facility] 11-17-2022 10:54-0400 Diastolic blood pressure 66 mm[Hg] BUSINESS ADMINISTRATOR-C Erika Seffens BUSINESS ADMINISTRATOR Work Phone: [facility] 11-17-2022 10:54-0400 Systolic blood pressure 105 mm[Hg] BUSINESS ADMINISTRATOR-C Erika Seffens BUSINESS ADMINISTRATOR Work Phone: [facility] 11-03-2022 10:50-0400 Body mass index (BMI) [Ratio] 32.8 kg/m2 BUSINESS ADMINISTRATOR-C Erika Seffens BUSINESS ADMINISTRATOR Work Phone: [facility] 11-03-2022 10:50-0400 Body weight 89.47 kg BUSINESS ADMINISTRATOR-C Erika Seffens BUSINESS ADMINISTRATOR Work Phone: [facility] 11-03-2022 10:50-0400 Diastolic blood pressure 67 mm[Hg] BUSINESS ADMINISTRATOR-C Erika Aleida BUSINESS ADMINISTRATOR Work Phone: [facility] 11-03-2022 10:50-0400 Systolic blood pressure 106 mm[Hg] BUSINESS ADMINISTRATOR-C Erika ffens BUSINESS ADMINISTRATOR Work Phone: [facility] 10-06-2022 14:00-0400 Body mass index (BMI) [Ratio] 31.6 kg/m2 BUSINESS ADMINISTRATOR-C Erika ffens BUSINESS ADMINISTRATOR Work Phone: [facility] 10-06-2022 14:00-0400 Body weight 86.35 kg BUSINESS ADMINISTRATOR-C Erika adelinans BUSINESS ADMINISTRATOR Work Phone: [facility] Encounters Encounter Date Encounter Type Care Provider Facility Start: 12-26-2024 End: 12-26-2024 ambulatory Reema Gutierrez BUSINESS ADMINISTRATOR-C Work Phone: -[facility] Start: 12-26-2024 End: 12-26-[address] Rosalba Lee DO -[facility] Work Phone: Start: 12-25-[address] Rosalba Lee DO [facility] Work Phone: Start: 12-19-2024 End: 12-19-[address] Rosalba Lee DO -[facility] Work Phone: Start: 12-19-2024 End: 12-19-2024 ambulatory Reema Gutierrez BUSINESS ADMINISTRATOR-C Work Phone: -[facility] Start: 12-13-2024 End: 12-13-[address] Rebeca López MD -[facility] Work Phone: Start: 12-13-2024 End: 12-13-2024 ambulatory Reema Gutierrez BUSINESS ADMINISTRATOR-C Work Phone: [facility] Work Phone: Start: 12-06-2024 End: 12-06-2024 ambulatory Reema Gutierrez BUSINESS ADMINISTRATOR-C Work Phone: [facility] Work Phone: Start: 12-06-2024 End: 12-06-[address] Rosalba Lee DO -Laboratory Specimen Work Phone: Start: 12-06-2024 End: 12-06-[address] Rosalba Lee DO -[facility] Work Phone: Start: 12-06-2024 End: 12-06-2024 ambulatory Reema Gutierrez BUSINESS ADMINISTRATOR-C Work Phone: [facility] Work Phone: Start: 12-05-2024 End: 12-06-2024 ambulatory Reema Gutierrez BUSINESS ADMINISTRATOR-C Work Phone: [facility] Work Phone: Start: 12-05-2024 End: 12-05-2024 Patient encounter procedure Maggie Holloway CNM -[facility] Work Phone: Start: 12-05-2024 End: 12-05-2024 ambulatory Maggie Holloway Facility:[facility] Start: 11-19-2024 End: 11-19-2024 Patient encounter procedure Mindy Romero NP-C -[facility] Work Phone: Start: 11-19-2024 End: 11-19-2024 ambulatory Reema Gutierrez BUSINESS ADMINISTRATOR-C Work Phone: [facility] Work Phone: Start: 11-07-2024 End: 11-07-2024 Patient encounter procedure Maggie Holloway CNM -[facility] Work Phone: Start: 11-07-2024 End: 11-07-2024 ambulatory Reema Gutierrez BUSINESS ADMINISTRATOR-C Work Phone: [facility] Work Phone: Start: 10-24-2024 End: 10-24-[address] Rebeca López MD -[facility] Work Phone: Start: 10-24-2024 End: 10-24-2024 ambulatory Reema Gutierrez BUSINESS ADMINISTRATOR-C Work Phone: [facility] Work Phone: Start: 10-24-2024 End: 10-24-2024 ambulatory Rebeca López Facility:[facility] Start: 10-12-2024 End: 10-12-2024 Patient encounter procedure Carrie LANGSTON -[facility] Work Phone: Start: 10-12-2024 End: 10-12-2024 ambulatory Carrie Vick Facility:[facility] Start: 09-27-2024 End: 09-27-2024 Patient encounter procedure Mindy Romero BUSINESS ADMINISTRATOR-C -[facility] Work Phone: Start: 09-27-2024 End: 09-27-2024 ambulatory Reema Gutierrez NP-C Work Phone: [facility] Work Phone: Start: 09-27-2024 End: 09-27-2024 ambulatory Maggie Holloway Facility:[facility] Start: 08-24-2024 End: 08-24-[address] Rebeca López MD -[facility] Work Phone: Start: 08-24-2024 End: 08-24-2024 ambulatory Rebeca López Facility:[facility] Start: 08-17-2024 End: 08-17-2024 ambulatory Reema Gutierrez NP-C Work Phone: [facility] Work Phone: Start: 08-17-2024 End: 08-17-2024 Patient encounter procedure Mindy Romero BUSINESS ADMINISTRATOR-C -Ultrasound, [facility] Work Phone: Start: 08-17-2024 End: 08-17-2024 ambulatory Mindy oRmero BUSINESS ADMINISTRATOR Facility:[facility] Start: 07-25-2024 End: 07-25-[address] Rebeca López MD -[facility] Work Phone: Start: 07-25-2024 End: 07-25-2024 ambulatory Reema Gutierrez BUSINESS ADMINISTRATOR Facility:[facility] Start: 06-27-2024 End: 06-27-2024 Patient encounter procedure Mindy Romero BUSINESS ADMINISTRATOR-C -[facility] Work Phone: Start: 06-27-2024 End: 06-27-2024 ambulatory Reema Gutierrez BUSINESS ADMINISTRATOR Facility:[facility] Start: 05-25-2024 End: 05-25-2024 Patient encounter procedure Carrie Nicanor LANGSTONM -[facility] Work Phone: Start: 05-25-2024 End: 05-25-2024 ambulatory Carrie Vick Facility:[facility] Start: 05-25-2024 End: 05-25-2024 ambulatory Carrie Vick Facility:[facility] Start: 04-04-2024 End: 04-04-2024 ambulatory Reema Gutierrez BUSINESS ADMINISTRATOR Facility:[facility] Start: 02-04-2024 End: 02-04-2024 ambulatory Rosalba Lee Facility:[facility] Start: 02-02-2024 End: 02-02-2024 ambulatory Erika Shin NP Facility:[facility] Start: 12-21-2023 End: 12-21-2023 ambulatory REEMA GUTIERREZ TALENT ACQUISITION LEAD-COMPENSATION INTERN Facility:[facility] Start: 12-21-2023 End: 12-21-2023 Patient encounter procedure REEMA GUTIERREZ TALENT ACQUISITION LEAD-COMPENSATION INTERN [facility] Start: 06-16-2023 End: 06-16-2023 ambulatory REEMA GUTIERREZ TALENT ACQUISITION LEAD-COMPENSATION INTERN Facility:[facility] Start: 06-16-2023 End: 06-16-2023 Patient encounter procedure REEMA GUTIERREZ TALENT ACQUISITION LEAD-COMPENSATION INTERN [facility] Start: 12-29-2022 End: 12-29-2022 ambulatory BUSINESS ADMINISTRATOR-C Erika Rossyns BUSINESS ADMINISTRATOR Work Phone: [facility] Work Phone: Start: 12-29-2022 End: 12-29-2022 Patient encounter procedure BUSINESS ADMINISTRATOR-C Erika Rossyns BUSINESS ADMINISTRATOR Work Phone: [facility] Work Phone: Start: 12-29-2022 End: 12-29-2022 Patient encounter procedure BUSINESS ADMINISTRATOR-C Erika Seadelinans BUSINESS ADMINISTRATOR Work Phone: [facility] Work Phone: Start: 12-17-2022 End: 12-17-2022 Patient encounter procedure BUSINESS ADMINISTRATOR-C Erika Seadelinans BUSINESS ADMINISTRATOR Work Phone: [facility]atory Work Phone: Start: 12-17-2022 End: 12-17-2022 Patient encounter procedure BUSINESS ADMINISTRATOR-C Erika Seffens BUSINESS ADMINISTRATOR Work Phone: [facility] Work Phone: Start: 11-29-2022 End: 11-29-2022 Patient encounter procedure BUSINESS ADMINISTRATOR-C Erika Seffens BUSINESS ADMINISTRATOR Work Phone: [facility] Work Phone: Start: 11-23-2022 End: 11-23-2022 Patient encounter procedure BUSINESS ADMINISTRATOR-C Erika Seffens BUSINESS ADMINISTRATOR Work Phone: [facility]ound, [facility] Work Phone: Start: 11-17-2022 End: 11-17-2022 Patient encounter procedure BUSINESS ADMINISTRATOR-C Erika Seffens BUSINESS ADMINISTRATOR Work Phone: [facility] Work Phone: Start: 11-03-2022 End: 11-03-2022 Patient encounter procedure BUSINESS ADMINISTRATOR-C Erika Seffens BUSINESS ADMINISTRATOR Work Phone: [facility] Work Phone: Start: 10-06-2022 End: 10-06-2022 Patient encounter procedure BUSINESS ADMINISTRATOR-C Erika Shin BUSINESS ADMINISTRATOR Work Phone: [facility] Work Phone: Start: 06-16-2022 End: 06-16-2022 ambulatory [facility] Work Phone: Start: 06-16-2022 End: 06-16-2022 Patient encounter procedure [facility], [place] emergency preparedness manager Off Start: 05-11-2022 End: 05-15-2022 Outreach Lab ERIKA SHIN TALENT ACQUISITION LEAD-COMPENSATION INTERN [facility] Procedures Date Procedure Procedure Detail Performing Clinician Start: 12-25-2024 Ultrasonography of breast Reema Gutierrez BUSINESS ADMINISTRATOR-C Work Phone: Start: 12-06-2024 Beta-hemolytic Streptococcus culture Reema Gutiererz BUSINESS ADMINISTRATOR-C Work Phone: Start: 12-05-2024 Ultrasound scan for growth Reema Gutierrez BUSINESS ADMINISTRATOR-C Work Phone: Start: 09-27-2024 Serologic test for syphilis Reema Gutierrez BUSINESS ADMINISTRATOR-C Work Phone: Start: 08-17-2024 Ultrasonography in f irst trimester Reema Gutierrez BUSINESS ADMINISTRATOR-C Work Phone: Start: 05-25-2024 Urine culture Reema Gutierrez BUSINESS ADMINISTRATOR-C Work Phone: Start: 12-29-2022 Group B Streptococcu s Culture BUSINESS ADMINISTRATOR-C Erika Shin BUSINESS ADMINISTRATOR Work Phone: Start: 11-23-2022 Ultrasound scan for growth BUSINESS ADMINISTRATOR-C Erika Shin BUSINESS ADMINISTRATOR Work Phone: Start: 06-20-2005 Structure of wisdom tooth (body structure) ERIKA SHIN TALENT ACQUISITION LEAD-COMPENSATION INTERN H/O: section Previous c esarean section Reema Gutierrez BUSINESS ADMINISTRATOR-C Work Phone: Comment on above: transverse, LGA, con collar fuser TOLAC depending on EFW transverse, LGA, con collar fuser TOLAC depending on EFW RLTCS scheduled for 12/27 @ 12 with JV H/O: section Previous c esarean section Carrie Vick CNM H/O: section Previous c esarean section Mindy Romero BUSINESS ADMINISTRATOR-C H/O: section Previous c esarean section Dr. Rebeca López MD H/O: section Previous c esarean section Dr. Rebeca López MD H/O: section Previous c esarean section Mindy Romero BUSINESS ADMINISTRATOR-C H/O: section Previous c esarean section Carrie Vick CNM H/O: section Previous c esarean section Dr. Rebeca López MD H/O: section Previous c esarean section Maggie Holloway CNM H/O: section Previous c esarean section Mindy Romero BUSINESS ADMINISTRATOR-C H/O: section Previous c esarean section Dr. Rosalba Lee DO H/O: section Previous c esarean section Dr. Rebeca López MD H/O: section Previous c esarean section Dr. Rosalba Lee DO H/O: section Previous c esarean section Dr. Rosalba Lee DO Urine culture Plan of Treatment Date Care Activity Detail Author Start: 12-27-2024 ambulatory Ambulatory Facility:[facility] Streptococcus agalac tiae [Presence] in Unspecified specimen by Organism specific culture [facility] Ultrasound scan for growth [facility] Ultrasound scan for growth [facility] Immunizations Immunization Date Immunization Notes Care Provider Fa cili 10-12-2024 tetanus toxoid, reduced diphtheria toxoid, and acellular pertussis vaccine, adsorbed Reema Gutierrez BUSINESS ADMINISTRATOR-C Work Phone: [facility] 11-03-2022 tetanus toxoid, reduced diphtheria toxoid, and acellular pertussis vaccine, adsorbed BUSINESS ADMINISTRATOR-C Erika Shin BUSINESS ADMINISTRATOR Work Phone: [facility] 05-11-2022 influenza, injectabl e, quadrivalent, contains preservative; Translations: [Fluarix PF Quadrivalent ] ERIKA SHIN TALENT ACQUISITION LEAD-COMPENSATION INTERN [facility] 04-04-2021 SARS-CoV-2 mRNA (tozinameran) vaccine ERIKA SHIN TALENT ACQUISITION LEAD-COMPENSATION INTERN [facility] 03-18-2021 Influenza virus vaccine [facility] 03-18-2021 influenza virus vaccine, unspecified formulation ERIKA SHIN TALENT ACQUISITION LEAD-COMPENSATION INTERN [facility] 03-07-2021 Covid (Pfizer) [facility] 02-18-2021 tetanus toxoid, reduced diphtheria toxoid, and acellular pertussis vaccine, adsorbed [facility] 04-03-2020 influenza virus vaccine, unspecified formulation ERIKA SHIN TALENT ACQUISITION LEAD-COMPENSATION INTERN [facility] 03-15-2018 influenza, injectabl e, quadrivalent, preservative free Reema Gutierrez BUSINESS ADMINISTRATOR-C Work Phone: [facility] 03-15-2018 influenza, seasonal, injectable [facility] 03-20-2017 influenza virus vaccine, unspecified formulation ERIKA SHIN TALENT ACQUISITION LEAD-COMPENSATION INTERN [facility] 03-17-2017 influenza, injectabl e, quadrivalent, preservative free Reema Gutierrez BUSINESS ADMINISTRATOR-C Work Phone: [facility] 03-17-2017 influenza, seasonal, injectable [facility] 03-20-2016 influenza virus vaccine, unspecified formulation ERIKA SHIN TALENT ACQUISITION LEAD-COMPENSATION INTERN [facility] 03-18-2016 influenza, injectabl e, quadrivalent, preservative free Reema Matt BUSINESS ADMINISTRATOR-C Work Phone: [facility] 03-18-2016 influenza, seasonal, injectable [facility] 03-20-2015 influenza, injectabl e, quadrivalent, preservative free Reema Matt BUSINESS ADMINISTRATOR-C Work Phone: [facility] 03-20-2015 influenza, seasonal, injectable [facility] 03-19-2014 influenza, injectabl e, quadrivalent, preservative free Reema Matt BUSINESS ADMINISTRATOR-C Work Phone: [facility] 03-19-2014 influenza, seasonal, injectable [facility] 04-19-2013 Influenza virus vaccine [facility] 12-08-1999 measles/mumps/rubell a virus vaccine ERIKA SHIN TALENT ACQUISITION LEAD-COMPENSATION INTERN [facility] Payers Date Payer Category Payer Self-pay [id number] 2023 Unknown [id number] 1985 Unknown [id number] 2.16.8 [id number] 1987 Unknown [id number] 2.16.8 [id number] Unknown [id number] Unknown [id number] Unknown [id number] 2.16.8 40.1.105498.3.579.2.462 Unknown [id number] 2.16.8 40.1.350164.3.579.2.462 Unknown [id number] 2.16.8 40.1.262822.3.579.2.462 Unknown [id number] 2.16.8 40.1.989758.3.579.2.462 Unknown [id number] 2.16.8 40.1.863107.3.579.2.462 Unknown [id number] 2.16.8 40.1.972504.3.579.2.462 Unknown [id number] 2.16.8 40.1.146310.3.579.2.462 Unknown [id number] 2.16.8 40.1.703970.3.579.2.462 Unknown [id number] 2.16.8 40.1.241531.3.579.2.462 Unknown [id number] 2.16.8 40.1.381926.3.579.2.462 Unknown [id number] 2.16.8 40.1.834218.3.579.2.462 Unknown [id number] 2.16.8 40.1.813077.3.579.2.462 Unknown [id number] 2.16.8 40.1.778918.3.579.2.462 Unknown [id number] 2.16.8 40.1.163215.3.579.2.462 Unknown [id number] 2.16.8 40.1.667423.3.579.2.462 Unknown [id number] 2.16.8 40.1.173062.3.579.2.462 Unknown [id number] 2.16.8 40.1.200321.3.579.2.462 Unknown [id number] 2.16.8 40.1.851857.3.579.2.462 Unknown [id number] 2.16.8 40.1.273339.3.579.2.462 Unknown [id number] 2.16.8 40.1.003874.3.579.2.462 Unknown [id number] 2.16.8 40.1.657298.3.579.2.462 Unknown [id number] 2.16.8 40.1.876098.3.579.2.462 Social History Date Type Detail Facility Tobacco smoking stat us NHIS Unknown if ever smoked [facility] Work Phone: Start: 1985 Sex Assigned At Female [facility] Start: 05-11-2022 End: 05-15-2024 Tobacco smoking status Never smoked tobacco (finding) [facility] Start: 03-24-2021 End: 12-29-2022 Tobacco smoking status NHIS Unknown if ever smoked [facility] Start: 08-28-2024 End: 10-02-2024 Sex Female (finding) [facility] Clinical Notes 05-11-2022 to 12-13-2024 Note Date & Type Note Facility 12-13-2024 Progress note [facility] 12-06-2024 Progress note [facility] 12-06-2024 Progress note Note Date/Time December 06, 2024 3:31pm [facility] [address], [address] [place] [address] OFFICE VISIT Date of Service: 12/06/24 MR#: [id number] Acct: [id number] Name: MANDY OSULLIVAN Rep #: [id number] : 1985 Provider: Dr. Aracelis Lee DO Age/Sex: 39/F Location: [facility] Status: Signed Intake Vital Signs 10/24/24 11:01 11/19/24 10:35 12/06/24 14:52 12/06/24 14:53 Height 5 ft 5 in 5 ft 5 in 5 ft 5 in 5 ft 5 in Weight: 238 lb 6 oz BMI 39.6 BP 135/78 H Intake Visit Reasons: 36 wk ob Mine Boss Required: No Is patient in pain?: No Allergies No Known Allergies Allergy (Verified 12/06/24 14:52) Medications ?Medication ?Instructions ?Recorded ?Confirmed ?Type calcium roks-K4-cispvrzyx abraham 1 tab PO/SL DAILY pregn shruthi 03/13/21 12/06/24 History L. crispatus, gasseri, jensenii, tab PO 05/15/2412/06 History rhamnosus 12 billion cell chew tablet ferrous sulfate 325 mg (65 mg 325 mg PO Q OTHER DAY 12/06/24 History iron) tablet multivitamin no.47-iron fum 27 cap PO 05/15/24 5 History mg-folate no.1 1 mg-dha 300 mg capsule (PNV-DHA) omega 0-nwp-mes-fish oil 1,200 mg 2 cap PO DAILY 05/1512/06/24 History (144 mg-216 mg) capsule (Fish Oil) cephalexin 500 mg capsule 500 mg PO Q6 10 days #40 cap s 12/06/24 12/06/24 Rx Last Menstrual Period: 03/29/24 Zika: Zika virus [...] 3 current occupational status: unemployed current occupation: [employer] pets and animals: No history of recent [...] 1-2 times per week duration: 15-30 minutes/day dawood/zoroastrianism: Catholic seatbelt use: always do you feel safe at home: Yes 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 Date Name GA/Weeks Outcome Route Bth Weight Gen Labor Lgth Anesthesia Del Locatn Provider FOB 10/31/18 [place] 41 live - full term 9lb3oz Female 12 epidural [place] Aung Murillo 10/19/19 4 spontaneous 03/25/21 [place] 39 live - full term 8lbs 12oz Male ep idural [facility] Dr. Ciera Murillo 01/18/23 Edith (pronounced say-la) 38 live - full term 10lbs 10oz Female spinal [facility] Rosalba Lee Chidi 02/02/24 4 spontaneous Delivery Date: 10/31/18 Last Updated by: Ciera Wick MD 30s shoulder dystocia, 3rd degree perineal lac Delivery Date: 03/25/21 Last Updated by: Gris Garcia 3rd degree tear, OP/Brow presentation Delivery Date: 01/18/23 Last Updated by: Nyasia Mayo primary c/s. HPI 36 wk ob Details: MANDY OSULLIVAN is a 39 year old who presents for routine OB visit. OB Visit SHIRIN Calculator Estimated Delivery Date Method Current WG Current Estimate 01/03/25 LMP (Certain) 36w 0d Expected Delivery Route/Plan RLTCS Specific Issue/Plans [...] list details Initial Weight: 200 lb Date -?-?-?-?-?-?-?-?-?-?-?-?- EGA Weight BP Urine Prot -?--?-?-?-?-?-?-?-?-?-?-?- Glucose FHR FuHt Pres Dilation -?-?-?-?-?-?-?--?-?-?-?-?- Effaced St Visit Note 05/25/24 -?-?-?-?-?-?-?-?-?-?-?-?- 8w 1d 200 lb 6 oz (+6 oz) 135/78 -?-?-?-?-?-?-?-?-?-?-?-?- 162 -?-?-?-?-?-?-?-?-?-?-?-?- LC- CRL con with lmp. 1.47cm. LC- CRL con with lmp. 1.47cm . considering repeat cs. declines nipt. added hgba1c to nob. LC- CRL con with lmp. 1.47cm . considering repeat cs d/t LGA and SD hx.. declines nipt. added hgba1c to nob. 06/27/24 -?-?-?-?-?-?-?-?-?-?-?-?- 12w 6d 204 lb 4 oz (+4 lb 4 oz) 114/75 Negative -?-?-?-?-?-?-?-?-?-?-?-?- Negative 160 -?-?-?-?-?-?-?-?--?-?-?-?- MH-No VB. Minima l nausea. Br US confirm FHT 07/25/24 -?-?-?-?-?-?-?-?-?-?-?-?- 16w 6d 209 lb 6 oz (+9 lb 6 oz) 114/74 Negative -?-?-?-?-?-?-?-?-?-?-?-?- Negative 150 -?-?-?-?-?-?-?-?-?-?-?-?- SM- no vb lof cr amping 08/24/24 -?-?-?-?-?-?-?-?-?-?-?-?- 21w 1d 213 lb 2 oz (+13 lb 2 oz) 109/72 -?-?-?-?-?-?-?-?-?-?-?-?- 145 -?-?-?-?-?-?-?-?-?-?-?-?- SM- no vb lof go od fm no reuglar ctx 09/27/24 -?-?-?-?-?-?-?-?-?-?-?-?- 26w 0d 222 lb 6 oz (+22 lb 6 oz) 122/69 Negative -?-?-?-?-?-?-?-?-?-?-?-?- Negative 152 26 -?-?-?-?-?-?-?-?-?-?-?-?- MH-No VB, LOF. G ood FM. 28wk labs pending. Larc 10/12/24 -?-?-?-?-?-?-?-?-?-?-?-?- 28w 1d 223 lb 6 oz (+23 lb 6 oz) 108/67 Negative -?-?-?-?-?-?-?-?-?-?-?-?- Negative 145 29 -?-?-?-?-?-?-?-?-?-?-?-?- LC- no vb/ctx/lo f. good fm. passed glucose. started iron- to repeat cbc in 2 weeks. 10/24/24 -?-?-?-?-?-?-?-?-?-?-?-?- 29w 6d 223 lb 6 oz (+23 lb 6 oz) 111/65 Negative -?-?-?-?-?--?-?-?-?-?-?-?- Negative 145 31 -?-?-?-?-?-?-?-?-?-?-?-?- SM- no vb lof go od fm no regular ctx 11/07/24 -?-?-?-?-?-?-?-?-?-?-?-?- 31w 6d 231 lb 2 oz (+31 lb 2 oz) 125/78 Negative -?-?-?-?-?-?-?-?-?-?-?-?- Negative 130 34 -?-?-?-?-?-?-?-?-?-?-?-?- KW- no vb/lof/ct x. good fm. US ordered for ama and hx of LGA 11/19/24 -?-?-?-?-?-?-?-?-?-?-?-?- 33w 4d 233 lb (+33 lb) 111/64 Negative -?-?-?-?-?-?-?-?-?-?-?-?- Negative 146 35 -?-?-?-?-?-?-?-?-?-?-?-?- MH-No VB, LOF. G ood Fm. Has growth US scheduled 12/06/24 -?-?-?-?-?-?-?-?-?-?-?-?- 36w 0d 238 lb 6 oz (+38 lb 6 oz) 135/78 -?-?-?-?-?-?-?-?-?-?-?-?- 145 39 -?-?-?-?-?-?-?-?-?-?-?-?- JV-patient c/o r ight breast tenderness. on exam there is a firm area at the 3:00 position measuring about 4 cm and likely consistent with a clogged duct or early mastitis. Will start with warm compresses and hand expression. If this does not help she will start keflex. if no relief with keflex in 1 week will order an ultrasound. ACOG First Trimester First Trimester: Desire for , Alcohol, Tobacco Cessation, Illicit/Recreational Drug/Substance Use, Intimate Partner Violence, Barriers to care, Unstable Housing, Communication Barriers, Environmental/Work Hazards, Anticipated Course of Care, Toxoplasmosis Precations, Use of Any medications, Sexual activity, Exercise, Dental Care, Sauna/Hot tub use, Seat Belt use, Childbirth classes/Hospital facilities, Travel, Indications for Ultrasound and Screening for Aneuploidy; Discussed Second Trimester Second Trimester: Signs and Symptoms of Labor, Selecting a care provider, Reproductive Life Planning & Contreception, Care Planning, Depression/Anxiety and Intimate Partner Violence; Discussed Tobacco Cessation Third Trimester Third Trimester: Pain Management Plans, Labor support person(s), Immediate Larc, Movement Monitoring, Signs and Symptoms of Preeclampsia, Feeding No , [place] Education and Family Medical Leave or Disability Forms Coding Level of Care Code OB Routine Diagnoses Antepartum anemia complicating O99.019 Advanced maternal age (AMA) in Obesity affecting in first trimester, unspecified obesity type O99.211 Obesity type affecting : unspecified obesity Trimester: first trimester Supervision of high risk in third trimester O09.93 Trimester: third trimester 36 weeks gestation of Z3A.36 Weeks of gestation: 36 weeks Hx of shoulder dystocia in prior , currently O09.299 Previous section Z98.891 Iron deficiency anemia due to chronic blood loss D50.0 Anemia type: iron deficiency Iron deficiency anemia type: chronic blood loss Assessment and Plan Assessment and Plan (1) Antepartum anemia complicating : Status: Acute Comment: rpt cbc at 30 weeks stable (2) Advanced maternal age (AMA) in : Status: Acute Comment: declined nipt. plan 36 week growth US (3) Obesity affecting : Status: Acute Qualifiers: Obesity type affecting : unspecified obesity Trimester: first trimester Qualified Code(s): O99.211 - Obesity complicating , first trimester Comment: HgbA1c bmi 34 (4) Supervision of high-risk : Status: Acute Qualifiers: Trimester: third trimester Qualified Code(s): O09.93 - Supervision of high risk , unspecified, third trimester Comment: [id number], SHIRIN 01/03/25, girl PC Kennedy Mejia Sela, Chidi (5) : Status: Acute Qualifiers: Weeks of gestation: 36 weeks Qualified Code(s): Z3A.36 - 36 weeks gestation of Comment: declined NIPT & Carrier testing. nl anatomy (6) Hx of shoulder dystocia in prior , currently : Status: Acute Comment: mild, had with 9lb but not with 8lb 12 oz. will determine delivery mode based on growth US. discussed delivery by 39 weeks either RLTCS or IOL (7) Previous section: Status: Acute Comment: transverse, LGA, consider TOLAC depending on EFW RLTCS scheduled for 12/27 @ 12 with JV (8) Anemia: Status: Acute Qualifiers: Anemia type: iron deficiency Iron deficiency anemia type: chronic blood loss Qualified Code(s): D50.0 - Iron deficiency anemia secondary to blood loss (chronic) Comment: Taking PNV and FE Orders: Orders Culture, Group B Streptococcus Today O09.93 - Supervision of high risk , unspecified, third trimester Medications: New cephalexin 500 mg PO Q6 10 days 40 caps 0RF 12/06/24 1533 <Electronically signed by Rosalba Rogers DO> Date _ Rosalba Lee DO Cosigner Signature: Date (if applicable) CC: ~ [facility] Work Phone: [phone]) 505-872606-19-2025 Radiology Diagnostic study note [facility] Imaging Services [address] [place], [place] [address] OB Limited With Biometrics MR#: [id number] Acct: [id number] Name: MANDY OSULLIVAN Rep #: [id number] : 1985 F 39 From: Albert Harkins MD PCP: CAITY Amaya Status: RE G CLI Study:OB Limited With Biometrics Date of Exam : 12/05/24 Exam# [id number] Ordering Dr: Maggie Holloway CNM PROCEDURE: OB LIMITED WITH BIOMETRICS 12/05/2024 REASON FOR EXAM: GROWTH US AMA TECHNIQUE: OB LIMITED WITH BIOMETRICS COMPARISON: Prior study dated August 17, 2024. FINDINGS Number: 1 Position: Transverse right. Placental Position: Anterior and right lateral. Placental Abnormalities: No evidence of previa. DIMENSIONS: Biparietal Diameter: 8.81 cm: 35 weeks and 4 days: 50 percentile/ Head Circumference: 33.09 cm: 37 weeks and 5 days: 65th percentile/ Abdominal Circumference: 37.55 cm: 41 weeks and 3 days: 99 percentile. Femur Length: 7.05 cm: 36 weeks and 1 day: 52nd percentile/ ESTIMATED WEIGHT: 3745 g plus/-562 g ESTIMATED WEIGHT PERCENTILE (24+ weeks): 99 ESTIMATED GESTATIONAL AGE: Baseline: 35 weeks and 6 days By Ultrasound: 37 weeks and 4 days ESTIMATED DATE OF DELIVERY: Baseline: January 03, 2025 By Ultrasound: 5.5 BIOPHYSICAL ASSESSMENT: Amniotic Fluid Volume: 5.5 Amniotic Fluid Index: 16 (8-24 cm normal range) Cardiac Motion: 148 beats per minute (average) Trunk and Limb Motion: Present. MATERNAL ANATOMY: Adnexa: Neither maternal ovary is successfully identified. US/OB Limited With Biometrics IMPRESSION: Single live intrauterine gestation with a mean gestational age of 37 weeks and 4days. 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 [facility]04-10-2025 Evaluation note* Diagnosis Onset Date Resolution Status Admit Date Advanced maternal age (AMA) in acute September 27, 2024 9:21am Anemia acute September 27 9:21am Hx of shoulder dystocia in p rior , currently acute 2024 9:21am Obesity affecting acute September 27, 2024 9:21am acute September 27 9:21am Previous section acute September 27, 2024 9:21am Supervision of high-risk acute September 27, 2024 9:21am Advanced maternal age (AMA) in acute October 12, 2024 12:51pm Anemia acute October 12 12:51pm Antepartum anemia complicati ng acute October 12, 2024 12:51pm Hx of shoulder dystocia in p rior , currently acute 2024 12:51pm Obesity affecting acute October 12, 2024 12:51pm acute October 12 12:51pm Previous section acute October 12, 2024 12:51pm Supervision of high-risk acute October 12, 2024 12:51pm Advanced maternal age (AMA) in acute October 24, 2024 10 :55am Anemia acute October 24, 2024 10:55am Antepartum anemia complicati ng acute October 24, 2024 10 :55am Hx of shoulder dystocia in p rior , currently acute 2024 10:55am Obesity affecting acute October 24, 2024 10:55am acute October 24, 2024 10:55am Previous section acute October 24, 2024 10:55am Supervision of high-risk acute October 24, 2024 10 :55am Advanced maternal age (AMA) in acute November 07, 2024 2 :00pm Anemia acute November 07, 2024 2:00pm Antepartum anemia complicati ng acute November 07, 2024 2 :00pm Hx of shoulder dystocia in p rior , currently acute 2024 2:00pm Obesity affecting acute November 07, 2024 2:00pm acute November 07, 2024 2:00pm Previous section acute November 07, 2024 2:00pm Supervision of high-risk acute November 07, 2024 2 :00pm Advanced maternal age (AMA) in acute November 19, 2024 1 0:31am Anemia acute November 19, 2024 10:31am Antepartum anemia complicati ng acute November 19, 2024 1 0:31am Hx of shoulder dystocia in p rior , currently acute 2024 10:31am Obesity affecting acute November 19, 2024 10:31am acute November 19, 2024 10:31am Previous section acute November 19, 2024 10:31am Supervision of high-risk acute November 19, 2024 1 0:31am Advanced maternal age (AMA) in acute December 06, 2024 2:44pm Anemia acute December 06 2:44pm Antepartum anemia complicati ng acute December 06, 2024 2:44pm Hx of shoulder dystocia in p rior , currently acute [facility] 2024 2:44pm Obesity affecting acute December 06, 2024 2:44pm acute December 06 2:44pm Previous section acute December 06, 2024 2:44pm Supervision of high-risk acute December 06, 2024 2:44pm Advanced maternal age (AMA) in acute December 13, 2024 10:40am Anemia acute December 13 10:40am Antepartum anemia complicati ng acute December 13, 2024 10:40am Hx of shoulder dystocia in p rior , currently acute Ju ne 2024 10:40am Obesity affecting acute December 13, 2024 10:40am acute December 13 10:40am Previous section acute December 13, 2024 10:40am Supervision of high-risk acute December 13, 2024 10:40am Advanced maternal age (AMA) in acute December 19, 2024 2 :17pm Anemia acute December 19, 2024 2:17pm Antepartum anemia complicati ng acute December 19, 2024 2 :17pm Hx of shoulder dystocia in p rior , currently acute Ju ly 2024 2:17pm Obesity affecting acute December 19, 2024 2:17pm acute December 19, 2024 2:17pm Previous section acute December 19, 2024 2:17pm Supervision of high-risk acute December 19, 2024 2 :17pm Advanced maternal age (AMA) in acute December 26, 2024 2 :44pm Anemia acute December 26, 2024 2:44pm Antepartum anemia complicati ng acute December 26, 2024 2 :44pm Hx of shoulder dystocia in p rior , currently acute ly 2024 2:44pm Obesity affecting acute December 26, 2024 2:44pm acute December 26, 2024 2:44pm Previous section acute December 26, 2024 2:44pm Supervision of high-risk acute December 26, 2024 2 :44pm [facility] Work Phone: 1(644) 344-859103-07-2025 Evaluation note* Diagnosis Onset Date Resolution Status Admit Date Advanced maternal age (AMA) in acute August 24, 2024 11:34am Anemia acute August 24 11:34am Hx of shoulder dystocia in p rior , currently acute [facility] 2024 11:34am Obesity affecting acute August 24, 2024 11:34am acute August 24 11:34am Previous section acute August 24, 2024 11:34am Supervision of high-risk acute August 24, 2024 11:34am Advanced maternal age (AMA) in acute September 27, 2024 9:21am Anemia acute September 27 9:21am Hx of shoulder dystocia in p rior , currently acute Ap 2024 9:21am Obesity affecting acute September 27, 2024 9:21am acute September 27 9:21am Previous section acute September 27, 2024 9:21am Supervision of high-risk acute September 27, 2024 9:21am Advanced maternal age (AMA) in acute October 12, 2024 12:51pm Anemia acute October 12 12:51pm Antepartum anemia complicati ng acute October 12, 2024 12:51pm Hx of shoulder dystocia in p rior , currently acute Ap 2024 12:51pm Obesity affecting acute October 12, 2024 12:51pm acute October 12 12:51pm Previous section acute October 12, 2024 12:51pm Supervision of high-risk acute October 12, 2024 12:51pm Advanced maternal age (AMA) in acute October 24, 2024 10 :55am Anemia acute October 24, 2024 10:55am Antepartum anemia complicati ng acute October 24, 2024 10 :55am Hx of shoulder dystocia in p rior , currently acute 2024 10:55am Obesity affecting acute October 24, 2024 10:55am acute October 24, 2024 10:55am Previous section acute October 24, 2024 10:55am Supervision of high-risk acute October 24, 2024 10 :55am Advanced maternal age (AMA) in acute November 07, 2024 2 :00pm Anemia acute November 07, 2024 2:00pm Antepartum anemia complicati ng acute November 07, 2024 2 :00pm Hx of shoulder dystocia in p rior , currently acute 2024 2:00pm Obesity affecting acute November 07, 2024 2:00pm acute November 07, 2024 2:00pm Previous section acute November 07, 2024 2:00pm Supervision of high-risk acute November 07, 2024 2 :00pm Advanced maternal age (AMA) in acute November 19, 2024 1 0:31am Anemia acute November 19, 2024 10:31am Antepartum anemia complicati ng acute November 19, 2024 1 0:31am Hx of shoulder dystocia in p rior , currently acute [facility] 2024 10:31am Obesity affecting acute November 19, 2024 10:31am acute November 19, 2024 10:31am Previous section acute November 19, 2024 10:31am Supervision of high-risk acute November 19, 2024 1 0:31am Advanced maternal age (AMA) in acute December 06, 2024 2:44pm Anemia acute December 06 2:44pm Antepartum anemia complicati ng acute December 06, 2024 2:44pm Hx of shoulder dystocia in p rior , currently acute [facility] 2024 2:44pm Obesity affecting acute December 06, 2024 2:44pm acute December 06 2:44pm Previous section acute December 06, 2024 2:44pm Supervision of high-risk acute December 06, 2024 2:44pm [facility] Work Phone: 1(461) 425-409503-07-2025 Evaluation note* Diagnosis Onset Date Resolution Status Admit Date Advanced maternal age (AMA) in acute August 24, 2024 11:34am Anemia acute August 24 11:34am Hx of shoulder dystocia in p rior , currently acute [facility] 2024 11:34am Obesity affecting acute August 24, 2024 11:34am acute August 24 11:34am Previous section acute August 24, 2024 11:34am Supervision of high-risk acute August 24, 2024 11:34am Advanced maternal age (AMA) in acute September 27, 2024 9:21am Anemia acute September 27 9:21am Hx of shoulder dystocia in p rior , currently acute [facility] 2024 9:21am Obesity affecting acute September 27, 2024 9:21am acute September 27 9:21am Previous section acute September 27, 2024 9:21am Supervision of high-risk acute September 27, 2024 9:21am Advanced maternal age (AMA) in acute October 12, 2024 12:51pm Anemia acute October 12 12:51pm Antepartum anemia complicati ng acute October 12, 2024 12:51pm Hx of shoulder dystocia in p rior , currently acute 2024 12:51pm Obesity affecting acute October 12, 2024 12:51pm acute October 12 12:51pm Previous section acute October 12, 2024 12:51pm Supervision of high-risk acute October 12, 2024 12:51pm Advanced maternal age (AMA) in acute October 24, 2024 10 :55am Anemia acute October 24, 2024 10:55am Antepartum anemia complicati ng acute October 24, 2024 10 :55am Hx of shoulder dystocia in p rior , currently acute 2024 10:55am Obesity affecting acute October 24, 2024 10:55am acute October 24, 2024 10:55am Previous section acute October 24, 2024 10:55am Supervision of high-risk acute October 24, 2024 10 :55am Advanced maternal age (AMA) in acute November 07, 2024 2 :00pm Anemia acute November 07, 2024 2:00pm Antepartum anemia complicati ng acute November 07, 2024 2 :00pm Hx of shoulder dystocia in p rior , currently acute 2024 2:00pm Obesity affecting acute November 07, 2024 2:00pm acute November 07, 2024 2:00pm Previous section acute November 07, 2024 2:00pm Supervision of high-risk acute November 07, 2024 2 :00pm Advanced maternal age (AMA) in acute November 19, 2024 1 0:31am Anemia acute November 19, 2024 10:31am Antepartum anemia complicati ng acute November 19, 2024 1 0:31am Hx of shoulder dystocia in p rior , currently acute 2024 10:31am Obesity affecting acute November 19, 2024 10:31am acute November 19, 2024 10:31am Previous section acute November 19, 2024 10:31am Supervision of high-risk acute November 19, 2024 1 0:31am Advanced maternal age (AMA) in acute December 06, 2024 2:44pm Anemia acute December 06 2:44pm Antepartum anemia complicati ng acute December 06, 2024 2:44pm Hx of shoulder dystocia in p rior , currently acute [facility] 2024 2:44pm Obesity affecting acute December 06, 2024 2:44pm acute December 06 2:44pm Previous section acute December 06, 2024 2:44pm Supervision of high-risk acute December 06, 2024 2:44pm Advanced maternal age (AMA) in acute December 13, 2024 10:40am Anemia acute December 13 10:40am Antepartum anemia complicati ng acute December 13, 2024 10:40am Hx of shoulder dystocia in p rior , currently [facility] 2024 10:40am Obesity affecting acute December 13, 2024 10:40am acute December 13 10:40am Previous section acute December 13, 2024 10:40am Supervision of high-risk acute December 13, 2024 10:40am [facility] Work Phone: 1([phone]) 157-487803-07-2025 Evaluation note* Diagnosis Onset Date Resolution Status Admit Date Advanced maternal age (AMA) in acute August 24, 2024 11:34am Anemia acute August 24 11:34am Hx of shoulder dystocia in p rior , currently acute [facility] 2024 11:34am Obesity affecting acute August 24, 2024 11:34am acute August 24 11:34am Previous section acute August 24, 2024 11:34am Supervision of high-risk acute August 24, 2024 11:34am Advanced maternal age (AMA) in acute September 27, 2024 9:21am Anemia acute September 27 9:21am Hx of shoulder dystocia in p rior , currently acute 2024 9:21am Obesity affecting acute September 27, 2024 9:21am acute September 27 9:21am Previous section acute September 27, 2024 9:21am Supervision of high-risk acute September 27, 2024 9:21am Advanced maternal age (AMA) in acute October 12, 2024 12:51pm Anemia acute October 12 12:51pm Antepartum anemia complicati ng acute October 12, 2024 12:51pm Hx of shoulder dystocia in p rior , currently acute Ap 2024 12:51pm Obesity affecting acute October 12, 2024 12:51pm acute October 12 12:51pm Previous section acute October 12, 2024 12:51pm Supervision of high-risk acute October 12, 2024 12:51pm Advanced maternal age (AMA) in acute October 24, 2024 10 :55am Anemia acute October 24, 2024 10:55am Antepartum anemia complicati ng acute October 24, 2024 10 :55am Hx of shoulder dystocia in p rior , currently acute 2024 10:55am Obesity affecting acute October 24, 2024 10:55am acute October 24, 2024 10:55am Previous section acute October 24, 2024 10:55am Supervision of high-risk acute October 24, 2024 10 :55am Advanced maternal age (AMA) in acute November 07, 2024 2 :00pm Anemia acute November 07, 2024 2:00pm Antepartum anemia complicati ng acute November 07, 2024 2 :00pm Hx of shoulder dystocia in p rior , currently acute 2024 2:00pm Obesity affecting acute November 07, 2024 2:00pm acute November 07, 2024 2:00pm Previous section acute November 07, 2024 2:00pm Supervision of high-risk acute November 07, 2024 2 :00pm Advanced maternal age (AMA) in acute November 19, 2024 1 0:31am Anemia acute November 19, 2024 10:31am Antepartum anemia complicati ng acute November 19, 2024 1 0:31am Hx of shoulder dystocia in p rior , currently acute 2024 10:31am Obesity affecting acute November 19, 2024 10:31am acute November 19, 2024 10:31am Previous section acute November 19, 2024 10:31am Supervision of high-risk acute November 19, 2024 1 0:31am Advanced maternal age (AMA) in acute December 06, 2024 2:44pm Anemia acute December 06 2:44pm Antepartum anemia complicati ng acute December 06, 2024 2:44pm Hx of shoulder dystocia in p rior , currently acute 2024 2:44pm Obesity affecting acute December 06, 2024 2:44pm acute December 06 2:44pm Previous section acute December 06, 2024 2:44pm Supervision of high-risk acute December 06, 2024 2:44pm Advanced maternal age (AMA) in acute December 13, 2024 10:40am Anemia acute December 13 10:40am Antepartum anemia complicati ng acute December 13, 2024 10:40am Hx of shoulder dystocia in p rior , currently acute 2024 10:40am Obesity affecting acute December 13, 2024 10:40am acute December 13 10:40am Previous section acute December 13, 2024 10:40am Supervision of high-risk acute December 13, 2024 10:40am Advanced maternal age (AMA) in acute December 19, 2024 2 :17pm Anemia acute December 19, 2024 2:17pm Antepartum anemia complicati ng acute December 19, 2024 2 :17pm Hx of shoulder dystocia in p rior , currently acute 2024 2:17pm Obesity affecting acute December 19, 2024 2:17pm acute December 19, 2024 2:17pm Previous section acute December 19, 2024 2:17pm Supervision of high-risk acute December 19, 2024 2 :17pm [facility] Work Phone: 1([phone]) 408-635003-02-2025 Radiology Diagnostic study note [facility] Imaging Services [address] [place] [address] OB Anatomy w/ Transvaginal MR#: [id number] Acct: [id number] Name: MANDY OSULLIVAN Rep #: [id number] : 1985 F 38 From: Blessing Sanchez MD PCP: CAITY Amaya Status: RE G CLI Study:OB Anatomy w/ Transvaginal Date of Exam : 08/17/24 Exam# [id number] Ordering Dr: Mindy Romero NP BUSINESS ADMINISTRATOR-C PROCEDURE: OB ANATOMY W/ TRANSVAGINAL REASON FOR [...] days. 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 [facility]02-05-2025 Evaluation note* Diagnosis Onset Date Resolution Status [...] high-risk acute October 24, 2024 10 :55am [facility] Work Phone: 1(184) 345-847002-05-2025 Evaluation note* Diagnosis Onset Date Resolution Status [...] high-risk acute November 07, 2024 2 :00pm [facility] Work Phone: 1([phone]) 910-886602-05-2025 Evaluation note* Diagnosis Onset Date Resolution Status [...] high-risk acute November 19, 2024 1 0:31am [facility] Work Phone: 1(986) 377-161701-08-2025 Evaluation note* Diagnosis Onset Date Resolution Status [...] of high-risk acute September 27, 2024 9:21am [facility] Work Phone: 1([phone]) 783-726912-06-2024 Evaluation note* Diagnosis Onset Date Resolution Status [...] of high-risk acute August 24, 2024 11:34am [facility] Work Phone: 1(369) 519-659101-02-2024 Evaluation + Plan note Future Scheduled Tests Radiology* MA Mammo Diagnostic Right w/ Eddie 06/21/23 [facility] 11-22-2022 Evaluation + Plan note Future Scheduled Tests Laboratory* Thyroid Stimulating Hormone 05/11/22 * Urine Culture 05/11/22 * Complete Blood Count 05/11/22 * Lipid Profile 05/11/22 * Complete Metabolic Panel 05/11/22 [facility] Evaluation noteNo assessment information available [facility] Work Phone: Evaluation note* Diagnosis Onset [...] laceration acute acute Supervision of high-risk acute [facility] Work Phone: Hospital course Narrative No data available for this section [facility] Hospital Discharge instructions No data available for this section [facility] Progress note No data available for this section [facility] Proyless note Author Rebeca López [facility] Note Date/Time December 13, 2024 11:2 2am [facility] [address], [address] [place] [address] OFFICE VISIT Date of Service: 12/13/24 MR#: [id number] Acct: [id number] Name: MANDY OSULLIVAN Rep #: [id number] : 1985 Provider: Dr. Neil López MD Age/Sex: 39/F Location: [facility] Status: Signed Intake Vital Signs 10/24/24 11:01 12/06/24 14:53 12/13/24 10:44 12/13/24 10:50 Height 5 ft 5 in 5 ft 5 in 5 ft 5 in 5 ft 5 in Weight: 240 lb 2 oz BMI 39.9 BP 111/69 Intake Visit Reasons: 37 wk ob Mine Boss Required: No Is patient in pain?: No Allergies No Known Allergies Allergy (Verified 12/13/24 10:44) Medications ?Medication ?Instructions ?Recorded ?Confirmed ?Type calcium jrjv-M4-vinkwaofi abraham 1 tab PO/SL DAILY pregn shruthi 03/13/21 12/13/24 History L. crispatus, gasseri, jensenii, tab PO 05/15/2412/13 History rhamnosus 12 billion cell chew tablet ferrous sulfate 325 mg (65 mg 325 mg PO Q OTHER DAY 12/13/24 History iron) tablet multivitamin no.47-iron fum 27 cap PO 05/15/24 5 History mg-folate no.1 1 mg-dha 300 mg capsule (PNV-DHA) omega 3-ijp-frl-fish oil 1,200 mg 2 cap PO DAILY 05/1512/13/24 History (144 mg-216 mg) capsule (Fish Oil) cephalexin 500 mg capsule 500 mg PO Q6 10 days #40 cap s 12/06/24 12/13/24 Rx Last Menstrual Period: 03/29/24 Zika: Zika virus [...] 3 current occupational status: unemployed current occupation: [employer] pets and animals: No history of recent [...] 1-2 times per week duration: 15-30 minutes/day dawood/zoroastrianism: Catholic seatbelt use: always do you feel safe at home: Yes 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 Date Name GA/Weeks Outcome Route Bth Weight Gen Labor Lgth Anesthesia Del Locatn Provider FOB 10/31/18 Jackie 41 live - full term 9lb3oz Female 12 epidural [facility] Benekos Chidi 10/19/19 4 spontaneous 03/25/21 Kennedy 39 live - full term 8lbs 12oz Male ep idural [facility] Dr. Ciera Murillo 01/18/23 Edith (pronounced say-la) 38 live - full term 10lbs 10oz Female spinal [facility] Rosalba Mas 02/02/24 4 spontaneous Delivery Date: 10/31/18 Last Updated by: Ciera Wick MD 30s shoulder dystocia, 3rd degree perineal lac Delivery Date: 03/25/21 Last Updated by: Gris Garcia 3rd degree tear, OP/Brow presentation Delivery Date: 01/18/23 Last Updated by: Nyasia Mayo primary c/s. HPI 37 wk ob Details: MANDY OSULLIVAN is a 39 year old who presents for routine OB visit. OB Visit SHIRIN Calculator Estimated Delivery Date Method Current WG Current Estimate 01/03/25 LMP (Certain) 37w 0d Expected Delivery Route/Plan RLTCS Specific Issue/Plans [...] list details Initial Weight: 200 lb Date -?-?-?-?-?-?-?-?-?-?-?-?- EGA Weight BP Urine Prot -?-?-?-?-?-?-?-?-?-?-?-?- Glucose FHR FuHt Pres Dilation -?-?-?-?-?-?-?-?-?-?-?-?- Effaced St Visit Note 05/25/24 -?-?-?-?-?-?-?-?-?-?-?-?- 8w 1d 200 lb 6 oz (+6 oz) 135/78 -?-?-?-?-?-?-?-?-?-?-?-?- 162 -?-?-?-?-?-?-?-?-?-?-?-?- LC- CRL con with lmp. 1.47cm. LC- CRL con with lmp. 1.47cm . considering repeat cs. declines nipt. added hgba1c to nob. LC- CRL con with lmp. 1.47cm . considering repeat cs d/t LGA and SD hx.. declines nipt. added hgba1c to nob. 06/27/24 -?-?-?-?-?-?-?--?-?-?-?-?- 12w 6d 204 lb 4 oz (+4 lb 4 oz) 114/75 Negative -?-?-?-?-?-?-?-?-?-?-?-?- Negative 160 -?-?-?-?-?-?-?-?-?-?-?-?- MH-No VB. Minima l nausea. Br US confirm FHT 07/25/24 -?-?-?-?-?-?-?-?-?-?-?-?- 16w 6d 209 lb 6 oz (+9 lb 6 oz) 114/74 Negative -?-?-?-?-?-?-?-?-?-?-?-?- Negative 150 -?-?-?-?-?-?-?-?-?-?-?-?- SM- no vb lof cr amping 08/24/24 -?-?-?-?-?-?-?-?-?-?-?-?- 21w 1d 213 lb 2 oz (+13 lb 2 oz) 109/72 -?-?-?-?-?-?-?-?-?-?-?-?- 145 -?-?-?-?-?-?-?-?-?-?-?-?- SM- no vb lof go od fm no reuglar ctx 09/27/24 -?-?-?-?-?-?-?-?-?-?-?-?- 26w 0d 222 lb 6 oz (+22 lb 6 oz) 122/69 Negative -?-?-?-?-?-?-?-?-?-?-?-?- Negative 152 26 -?-?-?-?-?-?-?-?-?-?-?-?- MH-No VB, LOF. G ood FM. 28wk labs pending. Larc 10/12/24 -?-?-?-?-?-?-?-?-?-?-?-?- 28w 1d 223 lb 6 oz (+23 lb 6 oz) 108/67 Negative -?-?-?-?-?-?-?-?-?-?-?-?- Negative 145 29 -?-?-?-?-?-?-?-?-?-?-?-?- LC- no vb/ctx/lo f. good fm. passed glucose. started iron- to repeat cbc in 2 weeks. 10/24/24 -?-?-?-?-?-?-?-?-?-?-?-?- 29w 6d 223 lb 6 oz (+23 lb 6 oz) 111/65 Negative -?-?-?-?-?-?-?-?-?-?-?-?- Negative 145 31 -?-?-?-?-?-?-?-?-?-?-?-?- SM- no vb lof go od fm no regular ctx 11/07/24 -?-?-?-?-?-?-?-?-?-?-?-?- 31w 6d 231 lb 2 oz (+31 lb 2 oz) 125/78 Negative -?-?-?-?-?-?-?-?-?-?-?-?- Negative 130 34 -?-?-?-?-?-?-?-?-?-?-?-?- KW- no vb/lof/ct x. good fm. US ordered for ama and hx of LGA 11/19/24 -?-?-?-?-?-?-?-?-?-?-?-?- 33w 4d 233 lb (+33 lb) 111/64 Negative -?-?-?-?-?-?-?-?-?-?-?-?- Negative 146 35 -?-?-?-?-?-?-?-?-?-?-?-?- MH-No VB, LOF. G ood Fm. Has growth US scheduled 12/06/24 -?-?-?-?-?-?-?-?-?-?-?-?- 36w 0d 238 lb 6 oz (+38 lb 6 oz) 135/78 -?-?-?-?-?-?-?-?-?-?-?-?- 145 39 -?-?-?-?-?-?-?-?-?-?-?-?- JV-patient c/o r ight breast tenderness. on exam there is a firm area at the 3:00 position measuring about 4 cm and likely consistent with a clogged duct or early mastitis. Will start with warm compresses and hand expression. If this does not help she will start keflex. if no relief with keflex in 1 week will order an ultrasound. 12/13/24 -?-?-?-?-?-?-?-?-?-?-?-?- 37w 0d 240 lb 2 oz (+40 lb 2 oz) 111/69 Negative -?-?-?-?-?-?-?-?-?-?-?-?- Negative 145 41 Transverse -?-?-?-?-?-?-?-?-?-?-?-?- SM- no vb lof go od fm no reuglar ctx ACOG First Trimester First Trimester: Desire for , Alcohol, Tobacco Cessation, Illicit/Recreational Drug/Substance Use, Intimate Partner Violence, Barriers to care, Unstable Housing, Communication Barriers, Environmental/Work Hazards, Anticipated Course of Care, Toxoplasmosis Precations, Use of Any medications, Sexual activity, Exercise, Dental Care, Sauna/Hot tub use, Seat Belt use, Childbirth classes/Hospital facilities, Travel, Indications for Ultrasound and Screening for Aneuploidy; Discussed Second Trimester Second Trimester: Signs and Symptoms of Labor, Selecting a care provider, Reproductive Life Planning & Contreception, Care Planning, Depression/Anxiety and Intimate Partner Violence; Discussed Tobacco Cessation Third Trimester Third Trimester: Pain Management Plans, Labor support person(s), Immediate Larc, Movement Monitoring, Signs and Symptoms of Preeclampsia, Infant Feeding No , Education and Family Medical Leave or Disability Forms Results POC Urinalysis 2 Dip (Clinic) Office Urine Glucose Negative Last Edit by Mindy Alexandre on 12/13/24 10:51 Office Urine Protein Negative Last Edit by Mindy Alexandre on 12/13/24 10:51 Coding Level of Care Code OB Routine Diagnoses Antepartum anemia complicating O99.019 Advanced maternal age (AMA) in Obesity affecting in first trimester, unspecified obesity type O99.211 Obesity type affecting : unspecified obesity Trimester: first trimester Supervision of high risk in third trimester O09.93 Trimester: third trimester 37 weeks gestation of Z3A.37 Weeks of gestation: 37 weeks Hx of shoulder dystocia in prior , currently O09.299 Previous section Z98.891 Iron deficiency anemia due to chronic blood loss D50.0 Anemia type: iron deficiency Iron deficiency anemia type: chronic blood loss Assessment and Plan Assessment and Plan (1) Antepartum anemia complicating : Status: Acute Comment: rpt cbc at 30 weeks stable (2) Advanced maternal age (AMA) in : Status: Acute Comment: declined nipt. plan 36 week growth US (3) Obesity affecting : Status: Acute Qualifiers: Obesity type affecting : unspecified obesity Trimester: first trimester Qualified Code(s): O99.211 - Obesity complicating , first trimester Comment: HgbA1c bmi 34 (4) Supervision of high-risk : Status: Acute Qualifiers: Trimester: third trimester Qualified Code(s): O09.93 - Supervision of high risk , unspecified, third trimester Comment: [id number], SHIRIN 01/03/25, girl PC Kennedy Mejia Sela, Chidi (5) : Status: Acute Qualifiers: Weeks of gestation: 37 weeks Qualified Code(s): Z3A.37 - 37 weeks gestation of Comment: Neg GBS declined NIPT & Carrier testing. nl anatomy (6) Hx of shoulder dystocia in prior , currently : Status: Acute Comment: mild, had with 9lb but not with 8lb 12 oz. will determine delivery mode based on growth US. discussed delivery by 39 weeks either RLTCS or IOL (7) Previous section: Status: Acute Comment: transverse, LGA, consider TOLAC depending on EFW RLTCS scheduled for 12/27 @ 12 with JV (8) Anemia: Status: Acute Qualifiers: Anemia type: iron deficiency Iron deficiency anemia type: chronic blood loss Qualified Code(s): D50.0 - Iron deficiency anemia secondary to blood loss (chronic) Comment: Taking PNV and FE Orders: Orders POC Urinalysis 2 Dip (Clinic) Today 12/13/24 1122 <Electronically signed by Rebeca mirza MD> Date _ Rebeca López MD Cosign Signature: Date (if applicable) CC: ~ [facility] Work Phone: Reason for referral (narrative)No reason for referral information availableW[facility] Work Phone: Advance Directives Advance Directive Response Recorded Date/ Time Living Will No March 24 12:44pm Power of Toll Lineman No March 24 12:44pm Advance Directive Response Recorded Date/ Time Living Will No August 27, 2022 1:09pm Power of Toll Lineman No August 27 1:09pm Chief Complaint and Reason for Visit Chief Complaint OB 24 wk xfer care f rom [place] 28 WK OB 30 WK OB Uterine [...] May 25, 2024 12:51pm Supervision of high-risk Dece 2023 12:51pm Family history of factor V [...] July 25, 2024 2:51pm Supervision of high-risk u [email or web address] 2:51pm Bleeding in early July 2:51pm Family history of factor V Leiden mutati on July 25, 2024 2:51pm Advanced maternal age (AMA) in August 24, 2024 11:34am Anemia August 24, 2024 11:3 4am Hx of shoulder dystocia in [place] , currently August 24, 2024 11:34am Obesity affecting August 24, 11:34am August 24, 2024 11:3 4am Previous [...] July 25, 2024 2:51pm Supervision of high-risk u 2024 2:51pm Bleeding in early July 2:51pm Family [...] 25, 2024 2:51pm Supervision of high-risk Febru 2024 2:51pm Bleeding in early July 2:51pm Family [...] Supervision of high-risk November 19, 2024 10:31am Chief Complaint Admit Date , ANATOMY August 17, 2024 3:20pm 21wk ob August 24, 2024 11:3 4am 26 WK OB/GLUCOSE September 27, 2024 9:2 1am 28 WK OB October 12, 2024 12: 51pm 30wk ob October 24, 2024 10:55a m 32wk ob November 07, 2024 2:00p m 34 wk ob November 19, 2024 10:31 am GROWTH December 05, 2024 3:19 pm 36 wk ob December 06, 2024 2:44 pm Reason for Visit Admit Date Advanced maternal age (AMA) in August 24, 2024 11:34am Anemia August 24, 2024 11:3 4am Hx of shoulder dystocia in [place] , currently August 24, 2024 11:34am Obesity affecting August 24, 11:34am August 24, 2024 11:3 4am Previous [...] Supervision of high-risk November 19, 2024 10:31am Advanced maternal age (AMA) in December 06, 2024 2:44pm Anemia December 06, 2024 2:44 pm Antepartum anemia complicating December 06, 2024 2:44pm Hx of shoulder dystocia in [place] , currently December 06, 2024 2:44pm Obesity affecting December 06 2:44pm December 06, 2024 2:44 pm Previous section December 06 2:44pm Supervision of high-risk December 06, 2024 2:44pm Chief Complaint Admit Date , ANATOMY August 17, 2024 3:20pm 21wk ob August 24, 2024 11:3 4am 26 WK OB/GLUCOSE September 27, 2024 9:2 1am 28 WK OB October 12, 2024 12: 51pm 30wk ob October 24, 2024 10:55a m 32wk ob November 07, 2024 2:00p m 34 wk ob November 19, 2024 10:31 am GROWTH December 05, 2024 3:19 pm 36 wk ob December 06, 2024 2:44 pm 37 wk ob December 13, 2024 10:4 0am Reason for Visit Admit Date Advanced maternal age (AMA) in August 24, 2024 11:34am Anemia August 24, 2024 11:3 4am Hx of shoulder dystocia in [place] , currently August 24, 2024 11:34am Obesity affecting August 24, 11:34am August 24, 2024 11:3 4am Previous [...] Supervision of high-risk November 19, 2024 10:31am Advanced maternal age (AMA) in December 06, 2024 2:44pm Anemia December 06, 2024 2:44 pm Antepartum anemia complicating December 06, 2024 2:44pm Hx of shoulder dystocia in [place] , currently December 06, 2024 2:44pm Obesity affecting December 06 025 2:44pm December 06, 2024 2:44 pm Previous section December 06 2:44pm Supervision of high-risk December 06, 2024 2:44pm Advanced maternal age (AMA) in December 13, 2024 10:40am Anemia December 13, 2024 10:4 0am Antepartum anemia complicating December 13, 2024 10:40am Hx of shoulder dystocia in [place] , currently December 13, 2024 10:40am Obesity affecting December 13 025 10:40am December 13, 2024 10:4 0am Previous section December 13 10:40am Supervision of high-risk December 13, 2024 10:40am Chief Complaint Admit Date wk ob August 24, 2024 11:3 4am 26 WK OB/GLUCOSE September 27, 2024 9:2 1am 28 WK OB October 12, 2024 12: 51pm 30wk ob October 24, 2024 10:55a m 32wk ob November 07, 2024 2:00p m 34 wk ob November 19, 2024 10:31 am GROWTH December 05, 2024 3:19 pm 36 wk ob December 06, 2024 2:44 pm 37 wk ob December 13, 2024 10:4 0am 38 wk ob December 19, 2024 2:17p m Reason for Visit Admit Date Advanced maternal age (AMA) in August 24, [...] Supervision of high-risk November 19, 2024 10:31am Advanced maternal age (AMA) in December 06, 2024 2:44pm Anemia December 06, 2024 2:44 pm Antepartum anemia complicating December 06, 2024 2:44pm Hx of shoulder dystocia in [place] , currently December 06, 2024 2:44pm Obesity affecting December 06, 025 2:44pm December 06, 2024 2:44 pm Previous section December 06 2:44pm Supervision of high-risk December 06, 2024 2:44pm Advanced maternal age (AMA) in December 13, 2024 10:40am Anemia December 13, 2024 10:4 0am Antepartum anemia complicating December 13, 2024 10:40am Hx of shoulder dystocia in [place] , currently December 13, 2024 10:40am Obesity affecting December 13 025 10:40am December 13, 2024 10:4 0am Previous section December 13 10:40am Supervision of high-risk December 13, 2024 10:40am Advanced maternal age (AMA) in December 19, 2024 2:17pm Anemia December 19, 2024 2:17p m Antepartum anemia complicating December 19, 2024 2:17pm Hx of shoulder dystocia in [place] , currently December 19, 2024 2:17pm Obesity affecting December 19 2:17pm December 19, 2024 2:17p m Previous section December 19, 2024 2:17pm Supervision of high-risk December 19, 2024 2:17pm Chief Complaint Admit Date 26 WK OB/GLUCOSE September 27, 2024 9:2 1am 28 WK OB October 12, 2024 12: 51pm 30wk ob October 24, 2024 10:55a m 32wk ob November 07, 2024 2:00p m 34 wk ob November 19, 2024 10:31 am GROWTH December 05, 2024 3:19 pm 36 wk ob December 06, 2024 2:44 pm 37 wk ob December 13, 2024 10:4 0am 38 wk ob December 19, 2024 2:17p m RIGHT BREAST LUMP December 25, 2024 7:52a m 39 wk ob December 26, 2024 2:44p m Reason for Visit Admit Date Advanced maternal age (AMA) in September 27, [...] Supervision of high-risk November 19, 2024 10:31am Advanced maternal age (AMA) in December 06, 2024 2:44pm Anemia December 06, 2024 2:44 pm Antepartum anemia complicating December 06, 2024 2:44pm Hx of shoulder dystocia in [place] , currently December 06, 2024 2:44pm Obesity affecting December 06 2:44pm December 06, 2024 2:44 pm Previous section December 06 2:44pm Supervision of high-risk December 06, 2024 2:44pm Advanced maternal age (AMA) in December 13, 2024 10:40am Anemia December 13, 2024 10:4 0am Antepartum anemia complicating December 13, 2024 10:40am Hx of shoulder dystocia in [place] , currently December 13, 2024 10:40am Obesity affecting December 13, 025 10:40am December 13, 2024 10:4 0am Previous section December 13 10:40am Supervision of high-risk December 13, 2024 10:40am Advanced maternal age (AMA) in December 19, 2024 2:17pm Anemia December 19, 2024 2:17p m Antepartum anemia complicating December 19, 2024 2:17pm Hx of shoulder dystocia in [place] , currently December 19, 2024 2:17pm Obesity affecting December 19 2:17pm December 19, 2024 2:17p m Previous section December 19, 2024 2:17pm Supervision of high-risk December 19, 2024 2:17pm Advanced maternal age (AMA) in December 26, 2024 2:44pm Anemia December 26, 2024 2:44p m Antepartum anemia complicating December 26, 2024 2:44pm Hx of shoulder dystocia in [place] , currently December 26, 2024 2:44pm Obesity affecting December 26 2:44pm December 26, 2024 2:44p m Previous section December 26, 2024 2:44pm Supervision of high-risk December 26, 2024 2:44pm Summary Purpose Family History Relationship Condition Age [...] content) Care Team Personnel Name: ERIKA SHIN APRN-COMPENSATION INTERN Position: P4 Advanced Practice Nurse Member Role: Primary Care Physician Address: Address: [address] [place] [id number]- Care Team Related Persons Name: CHIDI OSULLIVAN Address: [address], [place] [id number] Care Teams (unrecognized sec tion and content) Team Status: Active Member Role Status Dates Dr. Gomez Kaiser , Family Provider Active Erika Shin BUSINESS ADMINISTRATOR, BUSINESS ADMINISTRATOR-C Primary Care Provider Active Team Status: Inactive Member Role Status Dates Erika Shin BUSINESS ADMINISTRATOR, BUSINESS ADMINISTRATOR-C Primary Care Provider, Referr ing Provider Active Dr. Rosalba Lee DO Attending Provider Activ e Team Status: Inactive Member Role Status Dates Erika Shin BUSINESS ADMINISTRATOR, BUSINESS ADMINISTRATOR-C Primary Care Provider, Referr ing Provider Active Carrie Vick CNM Attending Provider Active Team Status: Inactive Member Role Status Dates Erika Shin BUSINESS ADMINISTRATOR, BUSINESS ADMINISTRATOR-C Primary Care Provider, Referr ing Provider Active Mindy Romero BUSINESS ADMINISTRATOR, BUSINESS ADMINISTRATOR-C Attending Provider Active Team Status: Inactive Member Role Status Dates Erika Shin BUSINESS ADMINISTRATOR, BUSINESS ADMINISTRATOR-C Primary Care Provider, Referr ing Provider Active Dr. Rebeca López MD Attending Provider Active Team Status: Inactive Member Role Status Dates Erika Shin BUSINESS ADMINISTRATOR, BUSINESS ADMINISTRATOR-C Primary Care Provider, Referr ing Provider Active Maggie Holloway CNM Attending Provider Active Team Status: Inactive Member Role Status Dates Erika Shin BUSINESS ADMINISTRATOR, BUSINESS ADMINISTRATOR-C Primary Care Provider Active Dr. Rosalba Lee , Attending Provider, Refe rring Provider Active Team Status: Inactive Member Role Status Dates Erika Shin BUSINESS ADMINISTRATOR, BUSINESS ADMINISTRATOR-C Primary Care Provider Active Carrie Vick CNM Attending Provider, Referring Pr ovider Active Team Status: Inactive Member Role Status Dates Erika Shin BUSINESS ADMINISTRATOR, BUSINESS ADMINISTRATOR-C Primary Care Provider Active Mindy Romero BUSINESS ADMINISTRATOR, BUSINESS ADMINISTRATOR-C Attending Provider, Referring Provider Active Team Status: Inactive Member Role Status Dates Erika Shin BUSINESS ADMINISTRATOR, BUSINESS ADMINISTRATOR-C Primary Care Provider Active Maggie Holloway CNM Attending Provider, Referring Pro vider Active Team Status: Active Member Role Status Dates Reema Gutierrez NP, BUSINESS ADMINISTRATOR-C Primary Care Provider Activ e Team Status: Inactive Member Role Status Dates Reema Gutierrez BUSINESS ADMINISTRATOR, BUSINESS ADMINISTRATOR-C Primary Care Provider Activ e Start: May 25, 2024 End: May 25, 2024 Reema Gutierrez BUSINESS ADMINISTRATOR, BUSINESS ADMINISTRATOR-C Referring Provider Active Start: May 25, 2024 End: May 25, 2024 Carrie Vick CNM Attending Provider Active Start: May 25, 2024 End: May 25, 2024 Team Status: Inactive Member Role Status Dates Reema Gutierrez NP, BUSINESS ADMINISTRATOR-C Primary Care Provider Activ e Start: May 25, 2024 End: May 25, 2024 Carrie Vick CNM Attending Provider Active Start: May 25, 2024 End: May 25, 2024 Carrie Vick CNM Referring Provider Active Start: May 25, 2024 End: May 25, 2024 Team Status: Inactive Member Role Status Dates Reema Gutierrez NP, BUSINESS ADMINISTRATOR-C Primary Care Provider Activ e Start: June 27, 2024 End: June 27, 2024 Reema Gutierrez BUSINESS ADMINISTRATOR, BUSINESS ADMINISTRATOR-C Referring Provider Active Start: June 27, 2024 End: June 27, 2024 Mindy Romero BUSINESS ADMINISTRATOR, BUSINESS ADMINISTRATOR-C Attending Provider Active Start: June 27, 2024 End: June 27, 2024 Team Status: Inactive Member Role Status Dates Reema Gutierrez BUSINESS ADMINISTRATOR, BUSINESS ADMINISTRATOR-C Primary Care Provider Activ e Start: July 25, 2024 End: July 25, 2024 Reema Gutierrez BUSINESS ADMINISTRATOR, BUSINESS ADMINISTRATOR-C Referring Provider Active Start: July 25, 2024 End: July 25, 2024 Dr. Rebeca López MD Attending Provider Active Start: July 25, 2024 End: July 25, 2024 Team Status: Inactive Member Role Status Dates Reema Gutierrez BUSINESS ADMINISTRATOR, BUSINESS ADMINISTRATOR-C Primary Care Provider Activ e Start: August 17, 2024 End: August 17, 2024 Mindy Romero NP, BUSINESS ADMINISTRATOR-C Attending Provider Active Start: August 17, 2024 End: August 17, 2024 Mindy Romero BUSINESS ADMINISTRATOR, BUSINESS ADMINISTRATOR-C Referring Provider Active Start: August 17, 2024 End: August 17, 2024 Team Status: Inactive Member Role Status Dates Reema Gutierrez BUSINESS ADMINISTRATOR, BUSINESS ADMINISTRATOR-C Primary Care Provider Activ e Start: August 24, 2024 End: August 24, 2024 Reema Gutierrez BUSINESS ADMINISTRATOR, BUSINESS ADMINISTRATOR-C Referring Provider Active Start: August 24, 2024 End: August 24, 2024 Dr. Rebeca López MD Attending Provider Active Start: August 24, 2024 End: August 24, 2024 Team Status: Inactive Member Role Status Dates Reema Gutierrez BUSINESS ADMINISTRATOR, BUSINESS ADMINISTRATOR-C Primary Care Provider Activ e Start: September 27, 2024 End: September 27, 2024 Reema Gutierrez BUSINESS ADMINISTRATOR, BUSINESS ADMINISTRATOR-C Referring Provider Active Start: September 27, 2024 End: September 27, 2024 Mindy Romero BUSINESS ADMINISTRATOR, BUSINESS ADMINISTRATOR-C Attending Provider Active Start: September 27, 2024 End: September 27, 2024 Team Status: Inactive Member Role Status Dates Reema Gutierrez BUSINESS ADMINISTRATOR, BUSINESS ADMINISTRATOR-C Primary Care Provider Activ e Start: September 27, 2024 End: September 27, 2024 Maggie Holloway CNM Attending Provider Active S tart: September 27, 2024 End: September 27, 2024 Maggie Holloway CNM Referring Provider Active S tart: September 27, 2024 End: September 27, 2024 Team Status: Inactive Member Role Status Dates Reema Gutierrez BUSINESS ADMINISTRATOR, BUSINESS ADMINISTRATOR-C Primary Care Provider Activ e Start: October 12, 2024 End: October 12, 2024 Reema Gutierrez BUSINESS ADMINISTRATOR, BUSINESS ADMINISTRATOR-C Referring Provider Active Start: October 12, 2024 End: October 12, 2024 Carrie Vick CNM Attending Provider Active Start: October 12, 2024 End: October 12, 2024 Team Status: Inactive Member Role Status Dates Reema Gutierrez BUSINESS ADMINISTRATOR, BUSINESS ADMINISTRATOR-C Primary Care Provider Activ e Start: October 24, 2024 End: October 24, 2024 Reema Gutierrez BUSINESS ADMINISTRATOR, BUSINESS ADMINISTRATOR-C Referring Provider Active Start: October 24, 2024 End: October 24, 2024 Dr. Rebeca López MD Attending Provider Active Start: October 24, 2024 End: October 24, 2024 Team Status: Inactive Member Role Status Dates Reema Gutierrez BUSINESS ADMINISTRATOR, BUSINESS ADMINISTRATOR-C Primary Care Provider Activ e Start: October 24, 2024 End: October 24, 2024 Dr. Rebeca López MD Attending Provider Active Start: October 24, 2024 End: October 24, 2024 Dr. Rebeca López MD Referring Provider Active Start: October 24, 2024 End: October 24, 2024 Team Status: Inactive Member Role Status Dates Reema Gutierrez BUSINESS ADMINISTRATOR, BUSINESS ADMINISTRATOR-C Primary Care Provider Activ e Start: November 07, 2024 End: November 07, 2024 Reema Gutierrez BUSINESS ADMINISTRATOR, BUSINESS ADMINISTRATOR-C Referring Provider Active Start: November 07, 2024 End: November 07, 2024 Maggie Holloway CNM Attending Provider Active S tart: November 07, 2024 End: November 07, 2024 Team Status: Inactive Member Role Status Dates Reema Gutierrez BUSINESS ADMINISTRATOR, BUSINESS ADMINISTRATOR-C Primary Care Provider Activ e Start: November 19, 2024 End: November 19, 2024 Reema Gutierrez BUSINESS ADMINISTRATOR, BUSINESS ADMINISTRATOR-C Referring Provider Active Start: November 19, 2024 End: November 19, 2024 Mindy Romero BUSINESS ADMINISTRATOR, BUSINESS ADMINISTRATOR-C Attending Provider Active Start: November 19, 2024 End: November 19, 2024 Team Status: Active Member Role Status Dates Reema Gutierrez BUSINESS ADMINISTRATOR, BUSINESS ADMINISTRATOR-C Primary Care Provider Activ e Start: December 05, 2024 Maggie Holloway CNM Attending Provider Active S tart: December 05, 2024 Maggie Holloway CNM Referring Provider Active S tart: December 05, 2024 Team Status: Inactive Member Role Status Dates Reema Gutierrez BUSINESS ADMINISTRATOR, BUSINESS ADMINISTRATOR-C Primary Care Provider Activ e Start: December 06, 2024 End: December 06, 2024 Reema Gutierrez BUSINESS ADMINISTRATOR, BUSINESS ADMINISTRATOR-C Referring Provider Active Start: December 06, 2024 End: December 06, 2024 Dr. Rosalba Lee , Attending Provider Activ e Start: December 06, 2024 End: December 06, 2024 Team Status: Inactive Member Role Status Dates Reema Gutierrez NP, BUSINESS ADMINISTRATOR-C Primary Care Provider Activ e Start: December 05, 2024 End: December 05, 2024 Maggie Holloway CNM Attending Provider Active S tart: December 05, 2024 End: December 05, 2024 Maggie Holloway CNM Referring Provider Active S tart: December 05, 2024 End: December 05, 2024 Team Status: Active Member Role Status Dates Reema Gutierrez NP, BUSINESS ADMINISTRATOR-C Primary Care Provider Activ e Start: December 06, 2024 Dr. Rosalba Lee DO Attending Provider Activ e Start: December 06, 2024 Dr. Rosalba Lee DO Referring Provider Activ e Start: December 06, 2024 Team Status: Inactive Member Role Status Dates Reema Gutierrez NP, BUSINESS ADMINISTRATOR-C Primary Care Provider Activ e Start: December 06, 2024 End: December 06, 2024 Dr. Rosalba Lee DO Attending Provider Activ e Start: December 06, 2024 End: December 06, 2024 Dr. Rosalba Lee DO Referring Provider Activ e Start: December 06, 2024 End: December 06, 2024 Team Status: Inactive Member Role Status Dates Reema Gutierrez NP, BUSINESS ADMINISTRATOR-C Primary Care Provider Activ e Start: December 13, 2024 End: December 13, 2024 Reema Gutierrez NP, BUSINESS ADMINISTRATOR-C Referring Provider Active Start: December 13, 2024 End: December 13, 2024 Dr. Rebeca López MD Attending Provider Active Start: December 13, 2024 End: December 13, 2024 Team Status: Active Member Role/Relationship Status Dates Reema Gutierrez BUSINESS ADMINISTRATOR, BUSINESS ADMINISTRATOR-C Primary Care Provider Activ e Team Status: Inactive Member Role/Relationship Status Dates Reema Gutierrez BUSINESS ADMINISTRATOR, BUSINESS ADMINISTRATOR-C Primary Care Provider Activ e Start: August 24, 2024 End: August 24, 2024 Reema Gutierrez BUSINESS ADMINISTRATOR, BUSINESS ADMINISTRATOR-C Referring Provider Active Start: August 24, 2024 End: August 24, 2024 Dr. Rebeca López MD Attending Provider Active Start: August 24, 2024 End: August 24, 2024 Team Status: Inactive Member Role/Relationship Status Dates Reema Gutierrez BUSINESS ADMINISTRATOR, BUSINESS ADMINISTRATOR-C Primary Care Provider Activ e Start: September 27, 2024 End: September 27, 2024 Reema Gutierrez BUSINESS ADMINISTRATOR, BUSINESS ADMINISTRATOR-C Referring Provider Active Start: September 27, 2024 End: September 27, 2024 Mindy Romero BUSINESS ADMINISTRATOR, BUSINESS ADMINISTRATOR-C Attending Provider Active Start: September 27, 2024 End: September 27, 2024 Team Status: Inactive Member Role/Relationship Status Dates Reema Gutierrez BUSINESS ADMINISTRATOR, BUSINESS ADMINISTRATOR-C Primary Care Provider Activ e Start: September 27, 2024 End: September 27, 2024 Maggie Holloway CNM Attending Provider Active S tart: September 27, 2024 End: September 27, 2024 Maggie Holloway CNM Referring Provider Active S tart: September 27, 2024 End: September 27, 2024 Team Status: Inactive Member Role/Relationship Status Dates Reema Gutierrez BUSINESS ADMINISTRATOR, BUSINESS ADMINISTRATOR-C Primary Care Provider Activ e Start: October 12, 2024 End: October 12, 2024 Reema Gutierrez BUSINESS ADMINISTRATOR, BUSINESS ADMINISTRATOR-C Referring Provider Active Start: October 12, 2024 End: October 12, 2024 Carrie Vick CNM Attending Provider Active Start: October 12, 2024 End: October 12, 2024 Team Status: Inactive Member Role/Relationship Status Dates Reema Gutierrez BUSINESS ADMINISTRATOR, BUSINESS ADMINISTRATOR-C Primary Care Provider Activ e Start: October 24, 2024 End: October 24, 2024 Reema Gutierrez BUSINESS ADMINISTRATOR, BUSINESS ADMINISTRATOR-C Referring Provider Active Start: October 24, 2024 End: October 24, 2024 Dr. Rebeca López MD Attending Provider Active Start: October 24, 2024 End: October 24, 2024 Team Status: Inactive Member Role/Relationship Status Dates Reema Gutierrez BUSINESS ADMINISTRATOR, BUSINESS ADMINISTRATOR-C Primary Care Provider Activ e Start: October 24, 2024 End: October 24, 2024 Dr. Rebeca López MD Attending Provider Active Start: October 24, 2024 End: October 24, 2024 Dr. Rebeca López MD Referring Provider Active Start: October 24, 2024 End: October 24, 2024 Team Status: Inactive Member Role/Relationship Status Dates Reema Gutierrez BUSINESS ADMINISTRATOR, BUSINESS ADMINISTRATOR-C Primary Care Provider Activ e Start: November 07, 2024 End: November 07, 2024 Reema Gutierrez BUSINESS ADMINISTRATOR, BUSINESS ADMINISTRATOR-C Referring Provider Active Start: November 07, 2024 End: November 07, 2024 Maggie Holloway CNM Attending Provider Active S tart: November 07, 2024 End: November 07, 2024 Team Status: Inactive Member Role/Relationship Status Dates Reema Gutierrez BUSINESS ADMINISTRATOR, BUSINESS ADMINISTRATOR-C Primary Care Provider Activ e Start: November 19, 2024 End: November 19, 2024 Reema Gutierrez BUSINESS ADMINISTRATOR, BUSINESS ADMINISTRATOR-C Referring Provider Active Start: November 19, 2024 End: November 19, 2024 Mindy Romero BUSINESS ADMINISTRATOR, BUSINESS ADMINISTRATOR-C Attending Provider Active Start: November 19, 2024 End: November 19, 2024 Team Status: Inactive Member Role/Relationship Status Dates Reema Gutierrez BUSINESS ADMINISTRATOR, BUSINESS ADMINISTRATOR-C Primary Care Provider Activ e Start: December 05, 2024 End: December 05, 2024 Maggie Holloway CNM Attending Provider Active S tart: December 05, 2024 End: December 05, 2024 Maggie Holloway CNM Referring Provider Active S tart: December 05, 2024 End: December 05, 2024 Team Status: Inactive Member Role/Relationship Status Dates Reema Gutierrez BUSINESS ADMINISTRATOR, BUSINESS ADMINISTRATOR-C Primary Care Provider Activ e Start: December 06, 2024 End: December 06, 2024 Reema Gutierrez BUSINESS ADMINISTRATOR, BUSINESS ADMINISTRATOR-C Referring Provider Active Start: December 06, 2024 End: December 06, 2024 Dr. Rosalba Lee DO Attending Provider Activ e Start: December 06, 2024 End: December 06, 2024 Team Status: Inactive Member Role/Relationship Status Dates Reema Gutierrez BUSINESS ADMINISTRATOR, BUSINESS ADMINISTRATOR-C Primary Care Provider Activ e Start: December 06, 2024 End: December 06, 2024 Dr. Rosalba Lee DO Attending Provider Activ e Start: December 06, 2024 End: December 06, 2024 Dr. Rosalba Lee DO Referring Provider Activ e Start: December 06, 2024 End: December 06, 2024 Team Status: Inactive Member Role/Relationship Status Dates Reema Gutierrez BUSINESS ADMINISTRATOR, BUSINESS ADMINISTRATOR-C Primary Care Provider Activ e Start: December 13, 2024 End: December 13, 2024 Reema Gutierrez BUSINESS ADMINISTRATOR, BUSINESS ADMINISTRATOR-C Referring Provider Active Start: December 13, 2024 End: December 13, 2024 Dr. Rebeca López MD Attending Provider Active Start: December 13, 2024 End: December 13, 2024 Team Status: Inactive Member Role/Relationship Status Dates Reema Gutierrez BUSINESS ADMINISTRATOR, BUSINESS ADMINISTRATOR-C Primary Care Provider Activ e Start: December 19, 2024 End: December 19, 2024 Reema Gutierrez BUSINESS ADMINISTRATOR, BUSINESS ADMINISTRATOR-C Referring Provider Active Start: December 19, 2024 End: December 19, 2024 Dr. Rosalba Lee DO Attending Provider Activ e Start: December 19, 2024 End: December 19, 2024 Team Status: Inactive Member Role/Relationship Status Dates Reema Gutierrez BUSINESS ADMINISTRATOR, BUSINESS ADMINISTRATOR-C Primary Care Provider Activ e Start: September 27, 2024 End: September 27, 2024 Reema Gutierrez BUSINESS ADMINISTRATOR, BUSINESS ADMINISTRATOR-C Referring Provider Active Start: September 27, 2024 End: September 27, 2024 Mindy Romero BUSINESS ADMINISTRATOR, BUSINESS ADMINISTRATOR-C Attending Provider Active Start: September 27, 2024 End: September 27, 2024 Team Status: Inactive Member Role/Relationship Status Dates Reema Gutierrez BUSINESS ADMINISTRATOR, BUSINESS ADMINISTRATOR-C Primary Care Provider Activ e Start: September 27, 2024 End: September 27, 2024 Maggie Holloway CNM Attending Provider Active S tart: September 27, 2024 End: September 27, 2024 Maggie Holloway CNM Referring Provider Active S tart: September 27, 2024 End: September 27, 2024 Team Status: Inactive Member Role/Relationship Status Dates Reema Gutierrez BUSINESS ADMINISTRATOR, BUSINESS ADMINISTRATOR-C Primary Care Provider Activ e Start: October 12, 2024 End: October 12, 2024 Reema Gutierrez BUSINESS ADMINISTRATOR, BUSINESS ADMINISTRATOR-C Referring Provider Active Start: October 12, 2024 End: October 12, 2024 Carrie Vick CNM Attending Provider Active Start: October 12, 2024 End: October 12, 2024 Team Status: Inactive Member Role/Relationship Status Dates Reema Gutierrez BUSINESS ADMINISTRATOR, BUSINESS ADMINISTRATOR-C Primary Care Provider Activ e Start: October 24, 2024 End: October 24, 2024 Reema Gutierrez BUSINESS ADMINISTRATOR, BUSINESS ADMINISTRATOR-C Referring Provider Active Start: October 24, 2024 End: October 24, 2024 Dr. Rebeca López MD Attending Provider Active Start: October 24, 2024 End: October 24, 2024 Team Status: Inactive Member Role/Relationship Status Dates Reema Gutierrez BUSINESS ADMINISTRATOR, BUSINESS ADMINISTRATOR-C Primary Care Provider Activ e Start: October 24, 2024 End: October 24, 2024 Dr. Rebeca López MD Attending Provider Active Start: October 24, 2024 End: October 24, 2024 Dr. Rebeca López MD Referring Provider Active Start: October 24, 2024 End: October 24, 2024 Team Status: Inactive Member Role/Relationship Status Dates Reema Gutierrez BUSINESS ADMINISTRATOR, BUSINESS ADMINISTRATOR-C Primary Care Provider Activ e Start: November 07, 2024 End: November 07, 2024 Reema Gutierrez BUSINESS ADMINISTRATOR, BUSINESS ADMINISTRATOR-C Referring Provider Active Start: November 07, 2024 End: November 07, 2024 Maggie Holloway CNM Attending Provider Active S tart: November 07, 2024 End: November 07, 2024 Team Status: Inactive Member Role/Relationship Status Dates Reema Gutierrez BUSINESS ADMINISTRATOR, BUSINESS ADMINISTRATOR-C Primary Care Provider Activ e Start: November 19, 2024 End: November 19, 2024 Reema Gutierrez BUSINESS ADMINISTRATOR, BUSINESS ADMINISTRATOR-C Referring Provider Active Start: November 19, 2024 End: November 19, 2024 Mindy Romero BUSINESS ADMINISTRATOR, BUSINESS ADMINISTRATOR-C Attending Provider Active Start: November 19, 2024 End: November 19, 2024 Team Status: Inactive Member Role/Relationship Status Dates Reema Gutierrez NP, BUSINESS ADMINISTRATOR-C Primary Care Provider Activ e Start: December 05, 2024 End: December 05, 2024 Maggie Holloway CNM Attending Provider Active S tart: December 05, 2024 End: December 05, 2024 Maggie Holloway CNM Referring Provider Active S tart: December 05, 2024 End: December 05, 2024 Team Status: Inactive Member Role/Relationship Status Dates Reema Gutierrez BUSINESS ADMINISTRATOR, BUSINESS ADMINISTRATOR-C Primary Care Provider Activ e Start: December 06, 2024 End: December 06, 2024 Reema Gutierrez BUSINESS ADMINISTRATOR, BUSINESS ADMINISTRATOR-C Referring Provider Active Start: December 06, 2024 End: December 06, 2024 Dr. Rosalba Lee , Attending Provider Activ e Start: December 06, 2024 End: December 06, 2024 Team Status: Inactive Member Role/Relationship Status Dates Reema Gutierrez BUSINESS ADMINISTRATOR, BUSINESS ADMINISTRATOR-C Primary Care Provider Activ e Start: December 06, 2024 End: December 06, 2024 Dr. Rosalba Lee , Attending Provider Activ e Start: December 06, 2024 End: December 06, 2024 Dr. Rosalba Lee DO Referring Provider Activ e Start: December 06, 2024 End: December 06, 2024 Team Status: Inactive Member Role/Relationship Status Dates Reema Gutierrez BUSINESS ADMINISTRATOR, BUSINESS ADMINISTRATOR-C Primary Care Provider Activ e Start: December 13, 2024 End: December 13, 2024 Reema Gutierrez BUSINESS ADMINISTRATOR, BUSINESS ADMINISTRATOR-C Referring Provider Active Start: December 13, 2024 End: December 13, 2024 Dr. Rebeca López MD Attending Provider Active Start: December 13, 2024 End: December 13, 2024 Team Status: Inactive Member Role/Relationship Status Dates Reema Gutierrez BUSINESS ADMINISTRATOR, BUSINESS ADMINISTRATOR-C Primary Care Provider Activ e Start: December 19, 2024 End: December 19, 2024 Reema Gutierrez BUSINESS ADMINISTRATOR, BUSINESS ADMINISTRATOR-C Referring Provider Active Start: December 19, 2024 End: December 19, 2024 Dr. Rosalba Lee DO Attending Provider Activ e Start: December 19, 2024 End: December 19, 2024 Team Status: Active Member Role/Relationship Status Dates Reema Gutierrez BUSINESS ADMINISTRATOR, BUSINESS ADMINISTRATOR-C Primary Care Provider Activ e Start: December 25, 2024 Dr. Rosalba Lee DO Attending Provider Activ e Start: December 25, 2024 Dr. Rosalba Vande Velde , DO Referring Provider Activ e Start: December 25, 2024 Team Status: Inactive Member Role/Relationship Status Dates Reema Gutierrez NP, BUSINESS ADMINISTRATOR-C Primary Care Provider Activ e Start: December 26, 2024 End: December 26, 2024 Reema Gutierrez NP, BUSINESS ADMINISTRATOR-C Referring Provider Active Start: December 26, 2024 End: December 26, 2024 Dr. Rosalba Lee , Attending Provider Activ e Start: December 26, 2024 End: December 26, 2024 INFORMATION SOURCE (unrecogn ized section and content) DATE CREATED AUTHOR 12/22/2023 [facility] ([place]) DATE CREATED AUTHOR AUTHOR'S ORGANIZ ATION 12/22/2024 [facility] FOR RECORDS PERTAINING TO PATIENTS WHO [...] BE BASED ON THE PRIMARY CLINICAL RECORDS. [employer] provides no warranty or guarantee of the accuracy or completeness of information in this document.
[2024-12-27] MEDS: 0.9% Saline Lock 10 ML Syringe IV (21:11)
[2024-12-28] VITALS (7 sets, daily range): BP systolic 108–135; BP diastolic 70–81; PULSE 84–99; RESP 15–17; TEMP 36.1–36.8; O2SAT 98–100
[2024-12-28] MEDS: Ketorolac 30 MG/ML Syringe IV ×2 (02:58→08:35)
[2024-12-28 06:10] LABS: Hematocrit 30.8 % (37-47); Hemoglobin 9.8 g/dL (12.0-15.0); Mean Corp Hgb Conc 31.8 g/dL (32-36); Mean Corpuscular Volume 85.8 fL (81-99); Mean Platelet Vol. 10.5 fl (6.2-12.0); Platelet Count 217 K/mm3 (150-450); RBC Distribution Width CV 14.4 % (11.6-14.6); RBC Distribution Width SD 44.6 fl (35.1-43.9); Red Blood Count 3.59 M/mm3 (4.2-5.4); White Blood Count 9.3 K/mm3 (4.4-11.0)
--- NOTE | 2024-12-28 08:26 | PCM.PN.CNM ---
Subjective Subjective Patient doing well without complaints. Tolerating PO. Ambulating and voiding without difficulty. Feeding well. Denies chest pain, shortness of breath, calf pain/swelling, fevers, chills, lightheadedness. Objective Data Objective Data Vital Signs: Vital Signs Temp Pulse Resp BP Pulse Ox O2 Del Method 97.9 F 86 16 131/79 H 98 Room Air 12/28/24 03:12 12/28/24 03:12 12/28/24 05:36 12/28/24 03:12 12/28/24 05:36 12/28/24 05:36 Oxygen Delivery Method Room Air Weight: 243 lb 13.3 oz Body Mass Index (BMI) 40.6 Intake & Output: Intake and Output for Last 24 Hours 12/26/24 12/27/24 12/28/24 23:59 23:59 23:59 Intake Total 2250.00 / 2250.00 985 / 985 Output Total 1150 / 1150 700 / 700 Balance 1100.00 / 1100.00 285 / 285 Lab / Micro Data 12/28/24 05:55 Labs: Laboratory Results - last 24 hr 12/27/24 10:45: WBC 6.7, RBC 3.99 L, Hgb 10.7 L, Hct 33.5 L, MCV 84.0, MCH 26.8 L, MCHC 31.9 L, RDW Std Deviation 44.0 H, RDW Coeff of Katelyn 14.5, Plt Count 209, MPV 10.8, Immature Gran % (Auto) 0.400, Neut % (Auto) 74.3 H, Lymph % (Auto) 14.4 L, [place] % (Auto) 9.1, Eos % (Auto) 1.5, Baso % (Auto) 0.3, Absolute Neuts (auto) 5.0, Absolute Lymphs (auto) 0.96, Nucleated RBC % 0, Syphilis Total Ab Nonreactive, Blood Type O POSITIVE, Antibody Screen NEGATIVE 12/28/24 05:55: WBC 9.3, RBC 3.59 L, Hgb 9.8 L, Hct 30.8 L, MCV 85.8, MCH 27.3, MCHC 31.8 L, RDW Std Deviation 44.6 H, RDW Coeff of Katelyn 14.4, Plt Count 217, MPV 10.5 Physical Exam Const alert and oriented x3 Chest inspection of chest normal Resp normal respiratory effort and normal air movement Effort and Inspection: able to speak in complete sentences Auscultation: clear to auscultation bilaterally Cardio regular rate and regular rhythm GI normal to inspection, nondistended, normoactive bowel sounds Uterus Palpation: uterus fundus firm Extremity normal to inspection, full ROM and no calf tenderness Skin Skin Narrative: dressing with serosanguineous drainage marked, intact Psych mental status grossly normal Assessment & Plan (1) Status post section: COMMENT: 12/27/24-MABLE (2) Anemia: QUALIFIERS: Anemia type: iron deficiency Iron deficiency anemia type: chronic blood loss Qualified Code(s): D50.0 - Iron deficiency anemia secondary to blood loss (chronic) COMMENT: Taking PNV and FE PLAN: stable cbc PLAN: Plan s/p LTCS PPD # 1 1. routine post care 2. breast feeding- support given 3. rh positive 4. rubella immune
[2024-12-28] MEDS: Senna/Docusate Sodium 1 Tablet PO (08:36)
[2024-12-29 02:55] VITALS: BP 115/79; PULSE 85; RESP 16; TEMP 36.8; O2SAT 97
--- NOTE | 2024-12-29 08:21 | DS.PCM_ITS ---
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 routine post care 2. breast feeding- support given 3. rh positive 4. rubella immune 5. plan hotel status later this evening Medications at Discharge Home Medications calcium [id number] abraham 1 tab PO/SL DAILY 03/13/21 L. crispatus, gasseri, jensenii, rhamnosus 12 billion cell chew tablet 1 tab PO DAILY 05/15/24 ferrous sulfate 325 mg (65 mg iron) tablet 325 mg PO Q OTHER DAY daily 05/15/24 multivitamin no.47-iron fum 27 mg-folate no.1 1 mg-dha 300 mg capsule (PNV-DHA) 1 cap PO DAILY 05/15/24 omega 4-hya-djd-fish oil 1,200 mg (144 mg-216 mg) capsule (Fish Oil) 2 cap PO DAILY 05/15/24 ibuprofen 800 mg tablet 800 mg PO Q8H PRN pain #30 tabs 12/27/24 oxycodone-acetaminophen 5 mg-325 mg tablet (Percocet) 1 tab PO Q4H PRN pain 7 days #20 tabs 12/27/24 Hospital Course Operations section Procedures None Summary of Care Provided Hospital Course: presented for repeat c/s, stable pp course. infant under bili lights. Physical Exam Const alert and oriented x3 Chest inspection of chest normal Resp normal respiratory effort and normal air movement Effort and Inspection: able to speak in complete sentences Auscultation: clear to auscultation bilaterally Cardio regular rate and regular rhythm GI normal to inspection, nondistended, normoactive bowel sounds Uterus Palpation: uterus fundus firm Extremity normal to inspection, full ROM and no calf tenderness Skin Skin Narrative: dressing with serosanguineous drainage marked, intact Psych mental status grossly normal Weight / BMI Weight Weight: 243 lb 13.3 oz Body Mass Index (BMI) 40.6 ABG / Lab / Microbiology Data 12/28/24 05:55 D/C Instructions May resume sexual activity in: 4-6 weeks Weight Bearing Status: Full weight bearing Call your doctor if your incision/area has: Continuous Slow Oozing, Sudden Increased Bleeding, Increased Pain/ Swelling, Increased Redness and Foul Smelling Discharge Call your doctor if you observe: Fever of 101 or Higher and Using more than 1 pad per hour Suture Line Care: Avoid Pulling/Pushing and Avoid Pinching/Bending Cleanse incision/area with: Soap & Water and Keep Dressing Clean & Dry DC O2, CPAP, BIPAP Needs Home O2 Discharge instructions: No Please Follow Up With: Rosalba Lee, DO When: Call [phone] to make an appointment for an incision check in 1-2 weeks. Meaningful Use Info Meaningful Use Meaningful Use Diagnoses (Choose all that apply): None applicable Discharge Plan Admission Admit Date/Time: 12/27/24 10:14 Primary Reason for Your Visit: section Attending Provider: Rosalba Lee Primary Care Provider: Reema Smith NP Discharge Orders/Prescriptions Prescriptions: New ibuprofen 800 mg tablet 800 mg PO Q8H PRN (Reason: pain) Qty: 30 0RF oxycodone-acetaminophen [Percocet] 5-325 mg tablet 1 tab PO Q4H PRN (Reason: pain) 7 Days Qty: 20 0RF Continued PNV-DHA 27 mg iron-1 mg -300 mg capsule 1 cap PO DAILY omega 7-cwo-oay-fish oil [Fish Oil] 1,200 (144-216) mg capsule 2 cap PO DAILY evie Sky jensen,rhamn 12 billion cell tablet,chewable 1 tab PO DAILY ferrous sulfate 325 mg (65 mg iron) tablet 325 mg PO Q OTHER DAY calcium acgh-[id number]-owytakfyp abraham 1 tab PO/SL DAILY Referrals / Follow Up: Reema Smith NP, [employer] [Primary Care Provider] - Disposition Disposition (needs filled in before D/C Order can be placed): Home, Self Care
--- NOTE | 2024-12-29 08:21 | PCM.PN.CNM ---
Subjective Subjective Patient doing well without complaints. Tolerating PO. Ambulating and voiding without difficulty. Feeding well. Denies chest pain, shortness of breath, calf pain/swelling, fevers, chills, lightheadedness. Objective Data Objective Data Vital Signs: Vital Signs Temp Pulse Resp BP Pulse Ox O2 Del Method 98.2 F 85 16 115/79 97 Room Air 12/29/24 02:55 12/29/24 02:55 12/29/24 02:55 12/29/24 02:55 12/29/24 02:55 12/29/24 02:55 Oxygen Delivery Method Room Air Weight: 243 lb 13.3 oz Body Mass Index (BMI) 40.6 Intake & Output: Intake and Output for Last 24 Hours 12/27/24 12/28/24 12/29/24 23:59 23:59 23:59 Intake Total 2250.00 / 2250.00 985 / 985 Output Total 1150 / 1150 1100 / 1100 Balance 1100.00 / 1100.00 -115 / -115 Lab / Micro Data 12/28/24 05:55 Physical Exam Const alert and oriented x3 Chest inspection of chest normal Resp normal respiratory effort and normal air movement Effort and Inspection: able to speak in complete sentences Auscultation: clear to auscultation bilaterally Cardio regular rate and regular rhythm GI normal to inspection, nondistended, normoactive bowel sounds Uterus Palpation: uterus fundus firm Extremity normal to inspection, full ROM and no calf tenderness Skin Skin Narrative: dressing with serosanguineous drainage marked, intact Psych mental status grossly normal Assessment & Plan (1) Status post section: COMMENT: 12/27/24-MABLE PLAN: s/p LTCS PPD # 2 1. routine post care 2. breast feeding- support given 3. rh positive 4. rubella immune 5. plan hotel status later this evening
[2024-12-29 09:15] VITALS: BP 128/79; PULSE 100; RESP 16; TEMP 36.8; O2SAT 100
[2024-12-29] MEDS: Senna/Docusate Sodium 1 Tablet PO (09:15)
[2024-12-29 14:15] VITALS: BP 125/74; PULSE 92; RESP 16; TEMP 36.7; O2SAT 98
== END 2024-12-29 18:05 | disposition home or self-care (01) | DRG 788 ==
PROVIDERS: Admitting Provider Obstetrics & Gynecology; PCP Registered Nurse; Visit Provider Obstetrics & Gynecology
PROC: 10D00Z1 Extraction of Products of Conception, Low, Open Approach (ICD-10-PCS; CPT 59514; principal; 2024-12-27 11:45)
DX: O34.211 Maternal care for low transverse scar from previous cesarean delivery (principal); E66.9 Obesity, unspecified; D50.0 Iron deficiency anemia secondary to blood loss (chronic); O99.214 Obesity complicating childbirth; O99.02 Anemia complicating childbirth; Z37.0 Single live birth; Z3A.38 38 weeks gestation of pregnancy; Z79.899 Other long term (current) drug therapy
CPT/HCPCS: 59025; 59050; 85025; 85027; 86780; 86850; 86900; 86901; 99221; A4216; G0378; J2405